=== PATIENT | female | born 1970 | race Caucasian/White ===

== ENCOUNTER → 2024-10-22 | Outpatient (CLI) | payer OTHER, SELFPAY ==
--- NOTE | 2024-10-22 10:07 | US_ITS ---
PROCEDURE: ABD LIMITED W/ ELASTOGRAPHY, 10/22/2024 REASON FOR EXAM: INTERMITTENNT RUQ PAIN, H/O CHOLECYSTECTOMY COMPARISON: None TECHNIQUE: Grayscale and color Doppler imaging of the right upper quadrant was performed. Elastography was performed for non-invasive assessment of liver tissue stiffness utilizing a [employer] S-shear wave imaging unit. FINDINGS: Liver: Echogenic. 16.8 cm in length. Gallbladder: Cholecystectomy. Biliary tree: Unremarkable. CBD measures 7 mm. Pancreas: Partially obscured by shadowing bowel gas, grossly unremarkable as visualized. Right kidney: Unremarkable. 12.7 cm in length. Other: No visualized free fluid. Hepatic elastography: Number of measurements: 15 measurements across 3 regions, 5 measurements per region. US probe: CA1-7A. EQI median: 6.3 kPa EQI median velocity: 1.44 m/s IQR/Med: 16.4-20.2% (kPa) and 7.8-9.4% (m/s). If the IQR/Med is IQR/median >30% (for kPa) or >15% in m/s, the variance in the measurements is a large and the accuracy of the measurement may be in question. US/ABD Limited w/ Elastography IMPRESSION: 1. No acute abnormality identified. If unexplained symptoms persist, consider CT. 2. Appearance of the hepatic most commonly suggestive of hepatic steatosis. Co rrelate with clinical and laboratory evidence of chronic liver disease. 3. Liver stiffness is 6.3 kPa. Per the below 2020 SRU criteria, this rules out compensated advanced chronic liver disease in the absence of other known clinical signs. If there are known clinical signs, furth er testing may be needed for confirmation. 4. Cholecystectomy without biliary dilatation. 5. Additional description as above. Assessment is per the Update to the SRU Liver Elastography Consensus Statement (2020) Note that the above assessment of liver fibrosis is vendor-neutral and intended for use in fibrosis related to viral etiologies and non-alcoholic fatty-liver disease (NAFLD); in causes other than viral hepat itis and NAFLD, the cutoff values are currently not well established. In some patients with NAFLD, the cutoff values for cACLD may be lower (7-9 kPa). Note also that in the setting of elevated LFTs, nonfasting or vascular congestion, the stage of lifer fibrosis may be overestimated. Previous SRU reference values: <1.37 m/s (5.7kPa): No to mild fibrosis 1.37 m/s - 2.2 m/s: Moderate to severe fibrosis >2.2 m/s (15kPa): Significant fibrosis / cirrhosis Reading Location: [id number]
== END | disposition home or self-care (01) ==
PROVIDERS: PCP Physician Assistant; Referring Provider Internal Medicine; Visit Provider Internal Medicine
DX: R10.11 Right upper quadrant pain (principal); K29.70 Gastritis, unspecified, without bleeding; R00.2 Palpitations
CPT/HCPCS: 76705; 76981

== ENCOUNTER → 2024-10-23 | Outpatient (CLI) | payer OTHER, SELFPAY ==
--- NOTE | 2024-10-23 10:38 | STE_ITS ---
Reason For Study Reason For Study: Chest Pain; Arrhythmia Stress Results Protocol: Marky Protocol Maximum Predicted HR: 166 bpm Target HR: 141 bpm % Maximum Predicted HR: 92 % DurationHeart Rate Stage (mm:ss) (bpm) BP Comment Baseline 78 110/74No Chest Pain Marky Protocol Stage I 3:00 113 128/74No Chest Pain Marky Protocol Stage II 3:00 130 134/70No Chest Pain Marky Protocol Stage III 3:00 153 158/76No Chest Pain; Moderate Dyspnea Recovery 92 114/70No Chest Pain Stress Duration: 9:00 mm:ss Maximum Stress HR: 153 bpm METS: 10 Baseline Echocardiogram Findings Stress Echo Wall motion Data Resting WM Intermediate WM Stress WM ECHO/Stress Test Echo w/o Contrast Interpretation Summary Exercise stress echo. 53-year-old lady with a history of chest pain. Resting EKG demonstrates normal sinus rhythm with a rate of 77 bpm resting bloo d pressure is 110/74 mmHg. Patient exercised according to regular Marky protocol for a total duration of 9 minutes . The maximum heart rate attained was 153 bpm which was 92% maximum predicted heart rate the maximum workload was 10.1 me tabolic equivalents. At rest there were no ST or T wave changes noted suggest ischemia at peak exercise upsloping ST ch anges were noted with no meet the criteria for ischemia no clinical angina was noted the test was terminated due to the target heart rate being achieved. The peak blood pressure was 158/76 mmHg which was a normal blood pressure respo nse to exercise. Stress echocardiogram. The resting echocardiogram demonstrated preserved ejection fraction of 60% with no wall motion abnormalities noted. At rest there was thickening of all coleman reduction of low ventricular cavity size peaking of ejection fraction of 70% with no wall motion abnormalities noted to suggest ischemia. Conclusion: Exercise stress echo with no EKG or echocardiographic criteria for ischemia at a high workload. Good functional capacity. Ordering Physician: Rommel Watt Referring Physician: Rommel Watt Performed By: Margaret Moseley RDCS
== END | disposition home or self-care (01) ==
LOC: CVS 10:30
PROVIDERS: PCP Physician Assistant; Referring Provider Internal Medicine Cardiovascular Disease; Visit Provider Internal Medicine Cardiovascular Disease
DX: I49.3 Ventricular premature depolarization (principal)
CPT/HCPCS: 93017; 93350

== ENCOUNTER → 2024-10-31 | Outpatient (REF) | payer SELFPAY ==
--- NOTE | 2024-10-31 07:37 | CT_ITS ---
PROCEDURE: LIMITED CHEST CT CARDIAC ONLY REASON FOR EXAM: CHEST PAIN TECHNIQUE: Supine chest CT without contrast,. Dose report: 12.19 mGy. DLP: 243.79 One or more dose reduction techniques were used (e.g., Automated exposure control, adjustment of the mA and/or kV according to patient size, use of iterative reconstruction technique). COMPARISON: None FINDINGS: Hardware: None Lymph nodes: No mediastinal hilar or axillary lymphadenopathy. Heart and Vasculature: Thoracic aorta and pulmonary arteries have normal contours; noncontrast technique limits evaluation. Coronary Artery Calcifications: Present Lungs and Airways: The lungs are normally expanded and clear. No septal thickening nodules or abnormal pulmonary opacities. Pleura: Unremarkable Upper Abdomen: Unremarkable Bones: Unremarkable CT/Limited Chest CT Cardiac Only IMPRESSION: Coronary artery calcification (CAC) is is present Minimal coronary artery calcification. Reading Location: [id number]
--- NOTE | 2024-10-31 14:46 | CA.SCORE ---
Calcium Scoring Date of Study:: 10/31/24 Indications Indications: Chest pain Coronary Calcium Scoring: High-resolution Computed Tomographic imaging of the chest was performed on [10/31/24 ], with particular attention paid to the coronary arteries. Images from the examination were analyzed for the presence and extent of coronary artery calcification , using coronary calcium quantification software. The patient tolerated the procedure well and there were no complications. The results of the coronary calcification analysis are provided below. Findings Coronary Artery Left Main (LM): 0 Left Anterior Descending (LAD): 6.23 Left Circumflex (LCX): 0 Right Coronary Artery (RCA): 0 Total Agatston Score: 6.23 Percentile Rankin Calcium Scoring Interpretation: Different methods to categorize the overall amount of coronary plaque. Overall amount CAC SIS Visual of coronary plaque P1 Mild -100 <2 1-2 vessels with mild amount of plaque P2 Moderate 101-300 3-4 1-2 vessels with moderate amount, 3 vessels with mild amount of plaque P3 Severe 301-999 5-7 3 vessels with moderate amount, 1 vessel with severe amount of plaque P4 Extensive >1000 >8 2-3 vessels with severe amount of plaque Conclusion: Mild Plaque in the LAD
== END | disposition home or self-care (01) ==
LOC: CT 07:17
PROVIDERS: PCP Physician Assistant; Referring Provider Internal Medicine Cardiovascular Disease; Visit Provider Internal Medicine Cardiovascular Disease
DX: R07.9 Chest pain, unspecified (principal); I49.3 Ventricular premature depolarization
CPT/HCPCS: 75571; 76380

== ENCOUNTER 2024-12-19 07:26 | Day surgery (SDC) | payer OTHER, SELFPAY ==
--- NOTE | 2024-12-17 15:53 | PAT.ANE_ITS ---
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 When Was Last Pacemaker Check QUESTION #4 FULL TEXT: You/Your Family Experience fever (hyperthermia) with Anesthesia Last Oral Intake Last Oral intake: Last Oral Intake NPO since Meds taken in AM with sips of water? Meds patient instructed to take am of surgery PONV PONV - freight claim investigator: PONV - freight claim investigator Female Yes 12/17/24 13:20 HX of Motion Sickness No 12/17/24 13:20 HX of N/V After Surgery No 12/17/24 13:20 Non-Smoker Yes 12/17/24 13:20 Duration of Surgery greater No 12/17/24 13:20 than 60 minutes Number of Risk Factors 2 12/17/24 13:20 PONV Score Moderate Risk 12/17/24 13:20 Height & Weight Height & Weight: Anesthesia: Height & Weight Height 5 ft 5 in 09/27/24 08:55 Respiratory Assessment Respiratory Assessment - freight claim investigator: Respiratory Tract Infection Hx - freight claim investigator Hx Respiratory Tract Infection No 12/17/24 13:20 STOP Sleep Apnea STOP Sleep Apnea - freight claim investigator: STOP Sleep Apnea - freight claim investigator Hx Hypertension No 12/17/24 13:20 Hx Sleep Apnea No 12/17/24 13:20 CPAP BIPAP Do you snore loudly (louder No 12/17/24 13:20 than talking or can be heard Do you often feel tired/ No 12/17/24 13:20 fatigued/ sleepy during daytime? Has anyone observed you stop No 12/17/24 13:20 breathing during sleep? STOP Results Negative 12/17/24 13:20 QUESTION #5 FULL TEXT : Do you snore loudly (louder than talking or can be heard through closed doors)? 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 Specify any problems Hx of Preganancy in last 3 No 12/17/24 13:20 Months Nurse Filling Out Transfusion [email or web address] 12/17/24 13:20 & Questions: Date: 12/17/24 12/17/24 13:20 Time: 13:23 12/17/24 13:20 Patient unable to answer at this time (ie. confused, unrespo /Reproduction History /Reproductive History - freight claim investigator: /Reproductive Hx- freight claim investigator Hx Now Gestational Age (in weeks): EDC: Hx Hx Para Hx Section SAB PFSH Medical History (Updated 12/17/24 @ 13:28 by Joseph Frederick) Wears glasses Rash Chest pain History of stress test Cardiology follow-up encounter Prolapse of female pelvic organs Diverticulitis Arthritis Seasonal allergies Hx of deep venous thrombosis PVC (premature ventricular contraction) Palpitations Gastritis Asthma Fatigue Home Medications ?Medication ?Instructions ?Recorded ?Last Taken ?Type multivitamin 1 tab PO QDAY 08/14/24 Unkno wn History albuterol sulfate 90 mcg/actuation 2 puff inhalation Q 4 PRN shortness 09/26/24 Unknown History aerosol inhaler of breath or wheezing Allergy/AdvReac Type Severity Reaction Status Date / Time No Known Allergies Allergy Verified 12/17/24 13:18 Family History Mother Arthritis Hypertension Father Heart disease Grandmother Cancer Ovarian Other Diabetes Surgical History S/P hysterectomy Hx of carpal tunnel repair Hx laparoscopic cholecystectomy Social History Smoking Status: Never smoker alcohol intake: never substance use type: does not use Audit: Pertinent Findings Pertinent Findings EKG Perinent findings: September 26, 2024. Sinus rhythm within normal limits. Stress test pertinent findings: October 23, 2024. Patient achieved METS of 10.1 EF is 60% which improved to 70% with stress. No wall motion abnormalities to suggest ischemia. Consult pertinent findings: September 26, 2024. Dr. Watt. 1. PVC?acute-she additionally has atypical chest discomfort. Plan for stress echo (see above). Additional recommendations depending on findings. Additional pertinent findings: Holter monitor. July 11, 2018. Normal sinus rhythm. Frequent ventricular ectopics with no pairs or runs. No significant pauses. Patient recorded 162 diary events lightheaded, thumping, fluttering, and shortness of breath . Rhythm was sinus with VE beats Recommendation Anesthesia Recommendation Anesthesia recommendation: OPTIMIZED for anesthesia
--- NOTE | 2024-12-17 15:53 | PAT.ANE_ITS ---
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 When Was Last Pacemaker Check QUESTION #4 FULL TEXT: You/Your Family Experience fever (hyperthermia) with Anesthesia Last Oral Intake Last Oral intake: Last Oral Intake NPO since Meds taken in AM with sips of water? Meds patient instructed to take am of surgery PONV PONV - family practice nurse practitioner: PONV - family practice nurse practitioner Female Yes 12/17/24 13:20 HX of Motion Sickness No 12/17/24 13:20 HX of N/V After Surgery No 12/17/24 13:20 Non-Smoker Yes 12/17/24 13:20 Duration of Surgery greater No 12/17/24 13:20 than 60 minutes Number of Risk Factors 2 12/17/24 13:20 PONV Score Moderate Risk 12/17/24 13:20 Height & Weight Height & Weight: Anesthesia: Height & Weight Height 5 ft 5 in 09/27/24 08:55 Respiratory Assessment Respiratory Assessment - family practice nurse practitioner: Respiratory Tract Infection Hx - family practice nurse practitioner Hx Respiratory Tract Infection No 12/17/24 13:20 STOP Sleep Apnea STOP Sleep Apnea - family practice nurse practitioner: STOP Sleep Apnea - family practice nurse practitioner Hx Hypertension No 12/17/24 13:20 Hx Sleep Apnea No 12/17/24 13:20 CPAP BIPAP Do you snore loudly (louder No 12/17/24 13:20 than talking or can be heard Do you often feel tired/ No 12/17/24 13:20 fatigued/ sleepy during daytime? Has anyone observed you stop No 12/17/24 13:20 breathing during sleep? STOP Results Negative 12/17/24 13:20 QUESTION #5 FULL TEXT : Do you snore loudly (louder than talking or can be heard through closed doors)? 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 Specify any problems Hx of Preganancy in last 3 No 12/17/24 13:20 Months Nurse Filling Out Transfusion [email or web address] 12/17/24 13:20 & Questions: Date: 12/17/24 12/17/24 13:20 Time: 13:23 12/17/24 13:20 Patient unable to answer at this time (ie. confused, unrespo /Reproduction History /Reproductive History - family practice nurse practitioner: /Reproductive Hx- family practice nurse practitioner Hx Now Gestational Age (in weeks): EDC: Hx Hx Para Hx Section SAB PFSH Medical History (Updated 12/17/24 @ 13:28 by Joseph Frederick) Wears glasses Rash Chest pain History of stress test Cardiology follow-up encounter Prolapse of female pelvic organs Diverticulitis Arthritis Seasonal allergies Hx of deep venous thrombosis PVC (premature ventricular contraction) Palpitations Gastritis Asthma Fatigue Home Medications ?Medication ?Instructions ?Recorded ?Last Taken ?Type multivitamin 1 tab PO QDAY 08/14/24 Unkno wn History albuterol sulfate 90 mcg/actuation 2 puff inhalation Q 4 PRN shortness 09/26/24 Unknown History aerosol inhaler of breath or wheezing Allergy/AdvReac Type Severity Reaction Status Date / Time No Known Allergies Allergy Verified 12/17/24 13:18 Family History Mother Arthritis Hypertension Father Heart disease Grandmother Cancer Ovarian Other Diabetes Surgical History S/P hysterectomy Hx of carpal tunnel repair Hx laparoscopic cholecystectomy Social History Smoking Status: Never smoker alcohol intake: never substance use type: does not use Audit: Pertinent Findings Pertinent Findings EKG Perinent findings: September 26, 2024. Sinus rhythm within normal limits. Stress test pertinent findings: October 23, 2024. Patient achieved METS of 10.1 EF is 60% which improved to 70% with stress. No wall motion abnormalities to suggest ischemia. Consult pertinent findings: September 26, 2024. Dr. Watt. 1. PVC?acute-she additionally has atypical chest discomfort. Plan for stress echo (see above). Additional recommendations depending on findings. Additional pertinent findings: Holter monitor. July 11, 2018. Normal sinus rhythm. Frequent ventricular ectopics with no pairs or runs. No significant pauses. Patient recorded 162 diary events lightheaded, thumping, fluttering, and shortness of breath . Rhythm was sinus with VE beats Recommendation Anesthesia Recommendation Anesthesia recommendation: OPTIMIZED for anesthesia
[2024-12-19] VITALS (10 sets, daily range): BP systolic 104–126; BP diastolic 72–80; PULSE 74–87; RESP 16; TEMP 36.3–36.4; O2SAT 94–96; BMI 31.6
--- OUTSIDE RECORDS SUMMARY | 2024-12-19 07:29 | XMS RPT_ITS | CCD ---
Author Organization [facility] Inform ion Partnership [facility] Care Team Providers Care Rigger Helper Name Role Phone Cr STEPHENSON, Willem Flores Primary Care Provider [phone] No, Physician Primary Care Provider Unavailabl e Srinivas Patel Primary Care Provider Srinivas Patel Primary Care Provider [phone] BERNARD CHATTERJEE Referring Unavailable SRINIVAS MASTERS Primary Care Unavailable BERNARD CHATTERJEE Referring Unavailable SRINIVAS MASTERS Primary Care Unavailable NO, PHYSICIAN Primary Care Unavailable OMEGA BOURNE Admitting Unavailable OMEGA BOURNE Referring Unavailable NO, PHYSICIAN Primary Care Unavailable OMEGA BOURNE Attending Unavailable AVELINO CALDERON Admitting Unavaila ble AVELINO CALDERON Referring Unavaila ble NO, PHYSICIAN Primary Care Unavailable AVELINO CALDERON Admitting Unavaila ble AVELINO CALDERON Referring Unavaila ble NO, PHYSICIAN Primary Care Unavailable NO, PHYSICIAN Primary Care Unavailable AVELINO CALDERON Attending Unavaila ble NO, PHYSICIAN Primary Care Unavailable OMEGA BOURNE Attending Unavailable Dr. Srinivas Masters PA-C Primary Care Provider [phone] Dr. Srinivas Masters PA-C Referring Provider Dr. Rommel Watt MD Attending Provider [phone] Dr. Sly Tolentino MD Attending Provider Dr. Sly Tolentino MD Referring Provider Shukri STEPHENSON, Dr. Carney Referring Provider SRINIVAS MASTERS Primary Care Unavailable MASTERS, SRINIVAS Primary Care Unavailable SKABAR GRIS, USHA Attending Unavailable SHAHED, MOHAMED Primary Care Unavailable MASTERS, SRINIVAS Primary Care Unavailable MASTERS, SRINIVAS Primary Care Unavailable MASTERS, SRINIVAS Primary Care Unavailable LUIS BOYD MD Admitting Unavailable MASTERS, SRINIVAS Primary Care Unavailable MASTERS, SRINIVAS Primary Care Unavailable SKABAR PRINCIPAL QUALITY ENGINEER, USHA Attending Unavailable SHAHED, MOHAMED Primary Care Unavailable JONAS HIGHTOWER MD Referring Unavailable SHAHED, MOHAMED Primary Care Unavailable JONAS HIGHTOWER MD Attending Unavailable JONAS HIGHTOWER MD Attending Unavailable SHAHED, MOHAMED Primary Care Unavailable JONAS HIGHTOWER MD Attending Unavailable SHAHED, MOHAMED Primary Care Unavailable MASTERS, SRINIVAS Primary Care Unavailable MASTERS, SRINIVAS Primary Care Unavailable SHAHED, MOHAMED Primary Care Unavailable LUIS BOYD MD Attending Unavailable MASTERS, SRINIVAS Primary Care Unavailable MASTERS, SRINIVAS Primary Care Unavailable MASTERS, SRINIVAS Primary Care Unavailable Rajan, Sly Attending Unavailable Rajan, Sly Referring Unavailable Masters, Srinivas Primary Care Unavailable Masters, Srinivas Referring Unavailable Efra Weston Attending Unavailable Masters, Srinivas Primary Care Unavailable Masters, Srinivas Primary Care Unavailable Mary Kulkarni Attending Unavailable Mary Kulkarni Referring Unavailable Shukri, Rommel Attending Unavailable Masters, Srinivas Primary Care Unavailable Shukri, Rommel Referring Unavailable Masters, Srinivas Primary Care Unavailable Shukri, Rommel Attending Unavailable Masters, Srinivas Primary Care Unavailable Shukri, Dallas Attending Unavailable Shukri, Dallas Referring Unavailable Masters, Srinivas Referring Unavailable Rajan, Sly Attending Unavailable Masters, Srinivas Primary Care Unavailable Masters, Srinivas Referring Unavailable Shukri, Dallas Attending Unavailable Masters, Srinivas Primary Care Unavailable Shukri, Dallas Referring Unavailable Masters, Srinivas Primary Care Unavailable Shukri, Dallas Attending Unavailable Allergies Allergy Classification Reported Allergen(s) Allergy Type Date of Onset Reaction(s) Facility Corticosteroids (1 source) methylPREDNISolone Drug Allergy 02-01-20 19 Other (See Comments) [facility] DULoxetine (1 source) DULoxetine Drug Allergy 09-06-19 16 Shortness Of Breath [facility] montelukast (1 source) montelukast Drug Allergy 01-09-20 19 Unknown [facility] Quinolones (antibiotic) (1 source) moxifloxacin Drug Allergy 08-24-19 13 Other (See Comments) [facility] (4 sources) DULoxetine; Translations: [DULOXETINE] Drug Allergy 09-06-19 16 Shortness of Breath [facility] (1 source) House dust mite Allergy to substance 08-24-19 13 Shortness of Breath [facility] (4 sources) methylPREDNISolone; Translations: [METHYLPREDNISOLONE] Drug Allergy 02-01-20 19 Other: See Comments, Other (See Comments) [facility] (4 sources) montelukast; Translations: [MONTELUKAST] Drug Allergy 01-09-20 19 Unknown [facility] (4 sources) moxifloxacin; Translations: [MOXIFLOXACIN] Drug Allergy 08-24-19 13 Mental Status Change, Other (See Comments) [facility] (3 sources) House Dust Mite; Translations: [HOUSE DUST MITE] Propensity to adverse reactions to drug 08-24-19 13 Shortness Of Breath [facility] Medications Current Medications Medication Drug Class(es) Dates Sig (Normalized) Sig (Original) [id number] 200 actuat albuterol 0.09 mg/actuat metered dose inhaler (3 sources) beta2-Adrenergic Agonist Start: 5 Albuterol Sulfate 90 mcg/actuation HFA aerosol inhaler Active 2 NMA INHALATION EVERY 4 HOURS as needed September 26, 2024 12:00am sekou root, bulk, Powd (1 source) sekou root, bul k, Powd by Miscellaneous route . 0 Active meloxicam 15 mg oral tablet (5 sources) Nonsteroidal Anti-inflammatory Drug Start: 3 End: 5 take 1 tablet by mouth once daily meloxicam (MOBIC) 15 MG tablet Take 1 (one) tablet (15 mg total) by mouth daily . 30 tablet 1 07/14/2023 07/13/2024 Active methylPREDNISolone (4 sources) Corticosteroid Start: 3 methylPREDNISolone (Medrol, Ronak,) 4 mg tablet Follow package directions . 21 tablet 0 07/19/2022 Active Multivitamin tablet (3 sources) Start: 5 Multivitamin tablet Active 1 {tbl} PO daily August 14, 2024 1:00am pantoprazole 40 mg delayed release oral tablet (3 sources) Proton Pump Inhibitor Start: 5 take 1 tablet by mouth 1 hour(s) before breakfast Pantoprazole 40 mg tablet,delayed release (DR/EC) Active 40 mg PO .breakfast September 27, 2024 12:00am Take 1 hour before breakfast. sucralfate 1000 mg oral tablet (2 sources) Aluminum Complex Start: 3 take 1 tablet by mouth four times daily sucralfate (CARAFATE) 1 gram tablet Take 1 (one) tablet (1 g total) by mouth 4 (four) times a day . 0 07/26/2022 Active thiamine 250 mg oral tablet (1 source) take 1 tablet by mouth once daily thiamine (vitamin B-1) 250 MG tablet Take 1 (one) tablet (250 mg total) by mouth daily . 0 Active Completed/Discontinued Medications Medication Drug Class(es) Dates Sig (Normalized) Sig (Original) iopamidol (Isovue-370) 76 % injection 75 mL (2 sources) Start: 09-08-2022 End: 09-08-2022 iopamidol (Isovue-370) 76 % injection 75 mL MULTIVITAMIN TAB (1 source) Start: 08-21-2009 MULTIVITAMIN TAB Take one(1) tablet daily. 0 08/21/2009 Active Comment on above: Take one(1) tablet d aily. Problems Active Problems Problem Classification Problem Date Documented Date Episodic/Chronic Abdominal pain (11 sources) Epigastric pain; Translations: [Epigastric pain] Onset: 09-08-2022 Episodic Acquired foot deformities (3 sources) Other hammer toe(s) (acquired), right foot; Translations: [Hammer toe] Onset: 07-14-2023 Chronic Acquired foot deformities (3 sources) Other deformities of toe(s) (acquired), right foot; Translations: [Metatarsophalangeal joint stiff] Onset: 07-14-2023 Episodic Asthma (3 sources) Asthma; Translations: [Unspecified asthma, uncomplicated] 08-14-2024 Chronic Cardiac dysrhythmias (8 sources) Ventricular premature beats; Translations: [Ventricular premature depolarization] Onset: 07-11-2018 07-11-2018 Chronic Cardiac dysrhythmias (5 sources) Palpitations; Translations: [Palpitations] Onset: 07-22-2014 07-11-2018 Episodic Diabetes or abnormal glucose tolerance complicating ; childbirth; or the puerperium (1 source) Unspecified diabetes mellitus in , unspecified trimester; Translations: [Diabetes mellitus of mother, complicating , childbirth, or the puerperium, antepartum condition or complication] Onset: 03-02-2007 03-02-2007 Chronic Gastritis and duodenitis (7 sources) Gastritis; Translations: [Gastritis, unspecified, without bleeding] Onset: 09-27-2024 09-27-2024 Episodic Malaise and fatigue (4 sources) Fatigue; Translations: [Other fatigue] Onset: 09-27-2024 08-14-2024 Episodic Nonspecific chest pain (2 sources) Chest pain; Translations: [Chest pain, unspecified] Onset: 01-17-2014 01-17-2014 Episodic Osteoarthritis (3 sources) Arthritis; Translations: [Unspecified osteoarthritis, unspecified site] 09-27-2024 Chronic Other connective tissue disease (3 sources) Heel pain; Translations: [Pain in right foot] Episodic Other injuries and conditions due to external causes (3 sources) Bone injury; Translations: [Other injury of unspecified body region, initial encounter] Episodic Other nervous system disorders (1 source) Carpal tunnel syndrome; Translations: [Carpal tunnel syndrome, unspecified upper limb] Onset: 05-04-2007 05-04-2007 Chronic Other nervous system disorders (1 source) Syringomyelia; Translations: [Syringomyelia and syringobulbia] Onset: 04-30-2013 04-30-2013 Chronic Other nervous system disorders (1 source) Difficulty in walking, not elsewhere classified; Translations: [Difficulty in walking] Onset: 03-29-2014 03-29-2014 Chronic Other nervous system disorders (1 source) Neuropathy; Translations: [Hereditary and idiopathic neuropathy, unspecified] Chronic Other nervous system disorders (2 sources) Lesion of plantar nerve, right lower limb; Translations: [Lesion of plantar nerve, right lower limb] Onset: 07-14-2023 Chronic Other nervous system disorders (2 sources) Other chronic pain; Translations: [Other chronic pain] Onset: 07-19-2022 Chronic Other nervous system disorders (1 source) Mortons neuroma of right foot; Translations: [Lesion of plantar nerve, right lower limb] 07-14-2023 Chronic Other nervous system disorders (1 source) Syringomyelia and syringobulbia; Translations: [Syringomyelia and syringobulbia] Onset: 11-28-2024 Chronic Other non-traumatic joint disorders (2 sources) Pain in right ankle and joints of right foot; Translations: [Pain in right ankle and joints of right foot] Onset: 07-14-2023 Episodic Other upper respiratory disease (3 sources) Seasonal allergy; Translations: [Other seasonal allergic rhinitis] 09-27-2024 Chronic Spondylosis; intervertebral disc disorders; other back problems (1 source) Arthropathy of thoracic facet joint; Translations: [Spondylosis without myelopathy or radiculopathy, thoracic region] Onset: 02-27-2013 02-27-2013 Chronic Sprains and strains (3 sources) Sprain of other ligament of right ankle, initial encounter; Translations: [Sprain of talofibular ligament of right ankle] Onset: 07-14-2023 Episodic Past or Other Problems Problem Classification Problem Date Documented Da te Episodic/Chronic Conditions associated with dizziness or vertigo (1 source) Dizziness and giddiness; Translations: [Dizziness and giddiness] Onset: 01-06-2008 01-06-2008 Episodic Diabetes or abnormal glucose tolerance complicating ; childbirth; or the puerperium (1 source) Impaired glucose tolerance in ; Translations: [Abnormal glucose complicating ] Onset: 02-03-2007 02-03-2007 Episodic Gastrointestinal hemorrhage (4 sources) Hemorrhage of rectum and anus; Translations: [Hemorrhage of anus and rectum] Onset: 09-08-2022 Episodic Mycoses (1 source) Tinea pedis; Translations: [Tinea pedis] Onset: 10-04-2012 10-04-2012 Episodic Other complications of (1 source) Excessive growth affecting management of mother; Translations: [Excessive growth affecting management of mother] Onset: 02-03-2007 02-03-2007 Episodic Other connective tissue disease (1 source) Pain in limb; Translations: [Pain in unspecified limb] Onset: 10-04-2012 10-04-2012 Episodic Other connective tissue disease (1 source) Achilles bursitis; Translations: [Other enthesopathy of unspecified foot and ankle] Onset: 10-04-2012 10-04-2012 Episodic Other connective tissue disease (1 source) Calcaneal spur; Translations: [Calcaneal spur, unspecified foot] Onset: 10-04-2012 10-04-2012 Episodic Other connective tissue disease (1 source) Disorder of Achilles tendon; Translations: [Achilles tendinitis, unspecified leg] Onset: 04-08-2014 04-08-2014 Episodic Other connective tissue disease (1 source) Calcaneal spur of right foot; Translations: [Calcaneal spur, right foot] Onset: 07-10-2015 07-10-2015 Episodic Other connective tissue disease (1 source) Pain in both feet; Translations: [Pain in right foot] Onset: 09-06-2015 09-06-2015 Episodic Other connective tissue disease (2 sources) Pain in right foot; Translations: [Pain in right foot] Onset: 07-19-2022 Episodic Other gastrointestinal disorders (3 sources) Alteration in bowel elimination; Translations: [Change in bowel habit] Onset: 09-08-2022 Episodic Other gastrointestinal disorders (1 source) Change in bowel habit; Translations: [Change in bowel habit] Onset: 09-08-2022 Episodic Other injuries and conditions due to external causes (2 sources) Other injury of unspecified body region, initial encounter; Translations: [Other injury of unspecified body region, initial encounter] Onset: 07-19-2022 Episodic Other lower respiratory disease (1 source) Dyspnea; Translations: [Shortness of breath] Onset: 07-11-2018 07-11-2018 Episodic Residual codes; unclassified (1 source) Generalized aches and pains; Translations: [Pain, unspecified] Onset: 04-30-2013 04-30-2013 Episodic Spondylosis; intervertebral disc disorders; other back problems (2 sources) Neck pain; Translations: [Cervicalgia] Onset: 01-21-2009 01-21-2009 Episodic Results Test Name Value Interpretation Reference Range Facility MR/PATAnne Marie 12-17-2024 MR/PAT.ZUNILDA [facility] Medical Records Department [address] [address] PAT - Anesthesia 12/17/24 1553 MR#: [id number] Acct: [id number] Name: CARLIE NGUYEN BURTON Rep #: [id number] : 1970 54 From: Gabino Gr MD PCP: Srinivas Masters PA-C Status:PRE SDC Y Race: C Location: EN Pre-Assessment Diagnosis/Proposed Procedure Planned Operative Procedure(s): EGD Anesthesia History Anesthesia History - release and technical records clerk: Anesthesia History - release and technical records clerk Hx Hospitalization Yes: HYSTERECTOMY 09/1112/17/24 13:20 Any Problems With Anesthesia No 12/17/24 13:20 Cholinesterase deficiency No 12/17/24 13:20 You/Your Family Experience No 12/17/24 13:20 fever (hyperthermia) with Relationship Recent Exposure to Contagious Disease Does patient have nerve No 12/17/24 13:20 stimulator Patient instructed to have device shut off --Does patient have Pacemaker or ICD? When Was Last Pacemaker Check QUESTION #4 FULL TEXT: You/Your Family Experience fever (hyperthermia) with Anesthesia Last Oral Intake Last Oral intake: Last Oral Intake NPO since Meds taken in AM with sips of water? Meds patient instructed to take am of surgery PONV PONV - release and technical records clerk: PONV - release and technical records clerk Female Yes 12/17/24 13:20 HX of Motion Sickness No 12/17/24 13:20 HX of N/V After Surgery No 12/17/24 13:20 Non-Smoker Yes 12/17/24 13:20 Duration of Surgery greater No 12/17/24 13:20 than 60 minutes Number of Risk Factors 2 12/17/24 13:20 PONV Score Moderate Risk 12/17/24 13:20 Height Weight Height Weight: Anesthesia: Height Weight Height 5 ft 5 in 09/27/24 08:55 Respiratory Assessment Respiratory Assessment - release and technical records clerk: Respiratory Tract Infection Hx - release and technical records clerk Hx Respiratory Tract Infection No 12/17/24 13:20 STOP Sleep Apnea STOP Sleep Apnea - release and technical records clerk: STOP Sleep Apnea - release and technical records clerk Hx Hypertension No 12/17/24 13:20 Hx Sleep Apnea No 12/17/24 13:20 CPAP BIPAP Do you snore loudly (louder No 12/17/24 13:20 than talking or can be heard Do you often feel tired/ No 12/17/24 13:20 fatigued/ sleepy during daytime? Has anyone observed you stop No 12/17/24 13:20 breathing during sleep? STOP Results Negative 12/17/24 13:20 QUESTION #5 FULL TEXT : Do you snore loudly (louder than talking or can be heard through closed doors)? Tobacco Use History Tobacco Use History - release and technical records clerk: Tobacco Use History - release and technical records clerk Tobacco Use Smoking Status Never smoker 12/17/24 13:20 Hx Tobacco Use No 12/17/24 13:20 Years Smoking Packs Smoked per Day Smoking Cessation Date was within the last 15 years Hx Smoking Cessation Date Hx Smoking Cessation Counseling Hematologic Medial History Hematologic Hx - release and technical records clerk: Hematologic Medical Hx - digital account director Hx of Blood Transfusion No 12/17/24 13:20 Hx of Transfusion in last 3 No 12/17/24 13:20 Months Date of Last Transfusion (if within last 3 months) Ever experience any problems No 12/17/24 13:20 with transfusion(s)? Specify any problems Hx of Preganancy in last 3 No 12/17/24 13:20 Months Nurse Filling Out Transfusion [id number] 12/17/24 13:20 Questions: Date: 12/17/24 12/17/24 13:20 Time: 13:23 12/17/24 13:20 Patient unable to answer at this time (ie. confused, unrespo /Reproduction History /Reproductive History - release and technical records clerk: /Reproductive Hx- release and technical records clerk Hx Now Gestational Age (in weeks): EDC: Hx Hx Para Hx Section SAB PFSH Medical History (Updated 12/17/24 @ 13:28 by Joseph Frederick) Wears glasses Rash Chest pain History of stress test Cardiology follow-up encounter Prolapse of female pelvic organs Diverticulitis Arthritis Seasonal allergies Hx of deep venous thrombosis PVC (premature ventricular contraction) Palpitations Gastritis Asthma Fatigue Home Medications ???Medication ???Instructions ???Recorded ???Last Taken ???Type multivitamin 1 tab PO QDAY 08/14/24 Unknown His tory albuterol sulfate 90 mcg/actuation 2 puff inhalation Q4 PRN shortne ss 09/26/24 Unknown History aerosol inhaler of breath or wheezing Allergy/AdvReac Type Severity Reaction Status Date / Time No Known Allergies Allergy Verified 12/17/24 13:18 Family History Mother Arthritis Hypertension Father Heart disease Grandmother Cancer Ovarian Other Diabetes Surgical History S/P hysterect (more content not included)... Normal [facility] AMB UROGYN Physician Kanwal harris Noteon 11-23-2024 [facility] UROGYN Physician Progress Note CARLIE NGUYEN :1970 Registration Date:11/23/2024 Chief Complaint Had surgery on 11/06/[address] Boyd--feels a buldge by her vaginal area with pain--something dropped History of Present Illness Pain with intercourse, feels like is hitting something, vaginal and lower abdominal pain, she feels as though her prolapse has returned. She has a hard time starting a stream and emptying her bowels. When she tries to put in her vaginal cream she states it is very painful. Physical Exam Vitals & Measurements Systolic Blood Pressure: 123 mmHg High (11/23/24 13:30:00) Diastolic Blood Pressure: 74 mmHg (11/23/24 13:30:00) Apical Heart Rate: 85 bpm (11/23/24 13:30:00) Respiratory Rate: 18 br/min (11/23/24 13:30:00) SpO2: 100 % (11/23/24 13:30:00) Weight Measured: 88 kg (11/23/24 13:30:00) Depression Screening Scores No Depression Screening data available for this encounter. Fall Risk Assessment No Falls Risk Assessment data available for this encounter. Neuro Exam -sensation intact Urethra- normal urethral meatus Empty Supine Stress Test- no leak Vaginal Atrophy- Improved Pop Q Normal with a cervix- Genital Hiatus 3, perineal body 3, total vaginal length 10, most distal edge of cervix -8, posterior fornix -N/A, anterior vaginal wall -3, Most distal position of the remaining upper anterior vaginal wall or Ba -3, Posterior vaginal wall -3, Most distal portion of the remaining upper posterior vaginal wall or Bp -3 Uterus-surgically absent Levator Ani Muscle Testing-severe hypertonic pelvic floor Rectal Exam-deferred Medication Reconciliation What How Much When Why Instructions Unchanged acetaminophen (acetaminophen 500 mg oral tablet) 2 Tabs Oral ONCE Unchanged acetaminophen-oxycodone (Percocet 5 mg-325 mg oral tablet) 1 Tabs Oral EVERY SIX HOURS Post-op pain Duration: 3 Days Unchanged albuterol = Proventil, Ventolin (Ventolin HFA Inhaler 90mcg/ inh) 2 Puffs Inhalation EVERY FOUR HOURS as needed for for wheezing Unchanged estradiol topical (Estrace Vaginal 0.1 mg/ g vaginal cream) See instructions 1 gram vaginal every night for 2 weeks then twice a week Unchanged fluconazole (Diflucan 150 mg oral tablet) 1 Tabs Oral ONCE Duration: 1 Doses take one tablet today repeat in 3 days if symptoms persist. Unchanged ibuprofen = Motrin, Advil (ibuprofen 800 mg oral tablet) 1 Tabs Oral EVERY SIX HOURS Duration: 7 Days Assessment/Plan This Visit Diagnosis 1. Pelvic floor dysfunction M62.89 The patient was found to have hypertonicity to her pelvic floor on exam today. I have recommended Pelvic Floor Physical Therapy to help rehabilitate her pelvic muscles. We also discussed the use of vaginal valium suppositories, heating pad and OTC medications. A management plan has been outlined and I instructed her to follow-up at which time her symptoms and response to treatment will be evaluated. If she has no significant improvement at that time we will discuss other treatment options. Will refer to Libby Sifuentes in my [place] for pelvic floor physical therapy, I have also sent in vaginal Valium suppositories to [facility] pharmacy. Patient will follow-up in 2 months or sooner if needed. Ordered: AMB Office/Outpt Est Pt Low MDM / 20 min [id number], 11/23/2024 13:59:00 EDT, Pelvic floor dysfunction Problem List/Past Medical History Ongoing [place]-Walker grade 2 cystocele Complete uterine prolapse Mixed incontinence Premature menopause Historical Oligomenorrhea Procedure/Surgical History LAPAROSCOPIC SUPRACERVICAL HYSTERECTOMY, BILATERAL SALPINGECTOMY, LAPAROSCOPIC SACROCERVICOPEXY, ENTEROCELE REPAIR-ABDOMINAL, ANTERIOR/POSTERIOR REPAIR, TRANSVAGINAL TAPING-OBTURATOR SLING, PERINEORRHPAHY, CYSTOSCOPY: 09/06/24 D and E at 18 weeks dismise. Chromosomes sent: 03/13/12 Shoulder: 02/05/11 D&C - Dilatation and curettage: 04/20/10 Cystic fibrosis: 10/05/04 Carpal tunnel syndrome: 11/18/01 Cholecystectomy: 06/20/99 colonoscopy Medications acetaminophen(acetaminop hen 500 mg oral tablet), 1000 mg= 2 tabs, ORAL, ONCE acetaminophen-oxycodone( Percocet 5 mg-325 mg oral tablet), 1 tabs, ORAL, [id number] albuterol = Proventil, Ventolin(Ventolin HFA Inhaler 90mcg/inh), 2 puffs, Inhalation, [id number], PRN estradiol topical(Estrace Vaginal 0.1 mg/g vaginal cream), See Instructions, 4 refills fluconazole(Diflucan 150 mg oral tablet), 150 mg= 1 tabs, ORAL, ONCE ibuprofen = Motrin, Advil(ibuprofen 800 mg oral tablet), 800 mg= 1 tabs, ORAL, [id number] Allergies Avelox irritable DULoxetine Did not tolerate house dust mite allergen extract methylPREDNISolone eye pain montelukast Unknown (origin) Social History Alcohol - Denies Alcohol Use Use:Current Frequency:1-2 times per year Home/Environment Other Name:......menopause 2016 (more content not included)... Normal [facility] Ambulatory Vitals Height Leif ght-Texton 11-23-2024 Ambulatory Vitals Height Weight-Text Ambulatory Vitals Height Weight Entered On: 11/23/2024 13:32 EDT Performed On: 11/23/2024 13:30 EDT by USHA JAMESON CNP Vitals/Ht/Wt Apical Heart Rate : 85 bpm Respiratory Rate : 18 br/min Systolic Blood Pressure : 123 mmHg (HI) Diastolic Blood Pressure : 74 mmHg SpO2 : 100 % Weight Measured : 88 kg(Converted to: 194 lb 0 oz, 194.007 lb) USHA JAMESON CNP - 11/23/2024 13:30 EDT Normal [facility] Coronary Angiography CTon Coronary Angiography [facility] Imaging Services [address] [place] [address] 10/31/24 1446 MR#: [id number] Acct: [id number] Name: CARLIE NGUYEN Rep #: [id number] : 1970 53 From: Rommel Watt MD PCP: Srinivas Masters PA-C Status:REG REF Y Location: CT Calcium Scoring Date of Study:: 10/31/24 Indications Indications: Chest pain Coronary Calcium Scoring: High-resolution Computed Tomographic imaging of the chest was performed on [10/31/24 ], with particular attention paid to the coronary arteries. Images from the examination were analyzed for the presence and extent of coronary artery calcification , using coronary calcium quantification software. The patient tolerated the procedure well and there were no complications. The results of the coronary calcification analysis are provided below. Findings Coronary Artery Left Main (LM): 0 Left Anterior Descending (LAD): 6.23 Left Circumflex (LCX): 0 Right Coronary Artery (RCA): 0 Total Agatston Score: 6.23 Percentile Rankin Calcium Scoring Interpretation: Different methods to categorize the overall amount of coronary plaque. Overall amount CAC SIS Visual of coronary plaque P1 Mild -100 <2 1-2 vessels with mild amount of plaque P2 Moderate 101-300 3-4 1-2 vessels with moderate amount, 3 vessels with mild amount of plaque P3 Severe 301-999 5-7 3 vessels with moderate amount, 1 vessel with severe amount of plaque P4 Extensive >1000 >8 2-3 vessels with severe amount of plaque Conclusion: Mild Plaque in the LAD 10/31/24 1448 Date Rommel Watt MD Cosigner Signature (if applicable): Date CC: CLAYTON Masters; Dr. Rommel Watt MD Signed Normal [facility] Limited Chest CT Cardiac Onl yon 10-31-[address] Cardiac Only [facility] Imaging Services [address] [place] [address] Cardiac Only MR#: [id number] Acct: [id number] Name: CARLIE NGUYEN BURTON Rep #: [id number] : 1970 F 53 From: Chang roa MD PCP: Srinivas Masters PA-C Status: REG REF Study: Limited Chest CT Cardiac Only Date of Exam: Exam# [id number] Ordering Dr: Rommel Watt MD PROCEDURE: LIMITED CHEST CT CARDIAC ONLY REASON FOR EXAM: CHEST PAIN TECHNIQUE: Supine chest CT without contrast,. Dose report: 12.19 mGy. DLP: 243.79 One or more dose reduction techniques were used (e.g., Automated exposure control, adjustment of the mA and/or kV according to patient size, use of iterative reconstruction technique). COMPARISON: None FINDINGS: Hardware: None Lymph nodes: No mediastinal hilar or axillary lymphadenopathy. Heart and Vasculature: Thoracic aorta and pulmonary arteries have normal contours; noncontrast technique limits evaluation. Coronary Artery Calcifications: Present Lungs and Airways: The lungs are normally expanded and clear. No septal thickening nodules or abnormal pulmonary opacities. Pleura: Unremarkable Upper Abdomen: Unremarkable Bones: Unremarkable CT/Limited Chest CT Cardiac Only IMPRESSION: Coronary artery calcification (CAC) is is present Minimal coronary artery calcification. Reading Location: [id number] CC: CLAYTON Masters; Dr. Rommel Watt MD Practice Billing Associate: Signed Normal [facility] UROGYN Physician Progres s Noteon 10-24-2024 [facility] UROGYN Physician Progress Note GREGTI CARLIE Vernell :1970 Registration Date:10/24/2024 Chief Complaint: Post op History of Present Illness: Patient presents for 6-week postoperative visit after recent reconstructive surgery for prolapse and incontinence. She is doing very well at this time and reports complete resolution of her preoperative symptoms. Physical Exam: Vitals & Measurements Systolic Blood Pressure: 124 mmHg High (10/24/24 10:32:00) Diastolic Blood Pressure: 82 mmHg High (10/24/24 10:32:00) Mean Arterial Pressure: 96 mmHg (10/24/24 10:32:00) Height/Length Measured: 165 cm (10/24/24 10:32:00) Weight Measured: 88 kg (10/24/24 10:32:00) Body Mass Index Measured: 32.32 kg/m2 (10/24/24 10:32:00) Weight Measured - lbs2: 194 lb (10/24/24 10:32:00) Ht/Wt Measurement Refused by Patient?2: No (10/24/24 10:32:00) Depression Screening Scores: Initial Depression Screen Score: 0 (10/24/24 10:32:00) Fall Risk Assessment: Is the patient ambulatory (mobile): Yes (10/24/24 10:32:00) Have you had a fall within the past: No (10/24/24 10:32:00) Have you had 2 or more falls in the past: No (10/24/24 10:32:00) No prolapse; severe vaginal atrophy noted; no mesh erosions or pain Medication Reconciliation: What How Much When Why Instructions New estradiol topical (Estrace Vaginal 0.1 mg/ g vaginal cream) See instructions Refills: 4 1 gram vaginal every night for 2 weeks then twice a week Pickup at [facility]/pharmacy #[id number] Unchanged acetaminophen (acetaminophen 500 mg oral tablet) 2 Tabs Oral ONCE Unchanged acetaminophen-oxycodone (Percocet 5 mg-325 mg oral tablet) 1 Tabs Oral EVERY SIX HOURS Post-op pain Duration: 3 Days Unchanged albuterol = Proventil, Ventolin (Ventolin HFA Inhaler 90mcg/ inh) 2 Puffs Inhalation EVERY FOUR HOURS as needed for for wheezing Unchanged fluconazole (Diflucan 150 mg oral tablet) 1 Tabs Oral ONCE Duration: 1 Doses take one tablet today repeat in 3 days if symptoms persist. Unchanged ibuprofen = Motrin, Advil (ibuprofen 800 mg oral tablet) 1 Tabs Oral EVERY SIX HOURS Duration: 7 Days Pharmacy Information [facility]/pharmacy #[id number]: [address] [place] [address] [phone] Assessment/Plan: This Visit Diagnosis 1. Complete uterine prolapse N81.3 She is here for her post-op checkl. She is 6 weeks out from surgery. She is doing well and without complaints. She denies prolapse, incontinence, or voiding dysfunction. Ordered: AMB Postop followup during global period [address]39[address], 10/24/2024 10:40:00 EDT, Complete uterine prolapse Problem List/Past Medical History: Ongoing [place]-Walker grade 2 cystocele Complete uterine prolapse Mixed incontinence Premature menopause Historical Oligomenorrhea Procedure/Surgical History: LAPAROSCOPIC SUPRACERVICAL HYSTERECTOMY, BILATERAL SALPINGECTOMY, LAPAROSCOPIC SACROCERVICOPEXY, ENTEROCELE REPAIR-ABDOMINAL, ANTERIOR/POSTERIOR REPAIR, TRANSVAGINAL TAPING-OBTURATOR SLING, PERINEORRHPAHY, CYSTOSCOPY: 09/06/24 D and E at 18 weeks dismise. Chromosomes sent: 03/13/12 Shoulder: 02/05/11 D&C - Dilatation and curettage: 04/20/10 Cystic fibrosis: 10/05/04 Carpal tunnel syndrome: 11/18/01 Cholecystectomy: 06/20/99 colonoscopy Medications: acetaminophen(acetaminop hen 500 mg oral tablet), 1000 mg= 2 tabs, ORAL, ONCE acetaminophen-oxycodone( Percocet 5 mg-325 mg oral tablet), 1 tabs, ORAL, [id number] albuterol = Proventil, Ventolin(Ventolin HFA Inhaler 90mcg/inh), 2 puffs, Inhalation, [id number], PRN estradiol topical(Estrace Vaginal 0.1 mg/g vaginal cream), See Instructions, 4 refills fluconazole(Diflucan 150 mg oral tablet), 150 mg= 1 tabs, ORAL, ONCE ibuprofen = Motrin, Advil(ibuprofen 800 mg oral tablet), 800 mg= 1 tabs, ORAL, [id number] Allergies: Avelox irritable DULoxetine Did not tolerate house dust mite allergen extract methylPREDNISolone eye pain montelukast Unknown (origin) Social History: Alcohol - Denies Alcohol Use Use:Current Frequency:1-2 times per year Home/Environment Other Name:......menopause 2016 Sexual Sexually active:Yes Substance Abuse - Denies Substance Abuse Tobacco Use:Never (less than 100 in lifetime) Family History: High blood pressure.: Mother. Ovarian cancer.: Grandmother. Health Status Family Member(s) Father: History is negative Family Member(s) Relationship: Mother, Age: Unknown Care Team Primary Care Physician SRINIVAS MASTERS [phone] Attending Physician LUIS BOYD MD [phone] . Health Maintenance Pending (in the next year) OverDue Breast Cancer Screening due 07/04/19 and every 366 days Colorectal Screening due 11/27/23 and every 10 years Due MMR Vaccine Dose 1 due 10/24/24 One-time only Tetanus Vaccine due 10/24/24 Variable frequency Varicella Vaccine Dose 1 (more content not included)... Normal [facility] Stress Test Echo w/o Contras ton 10-23-2024 Stress Test Echo w/o Contrast [facility] Cardiovascular Services [address] [place] [address] Stress Test Echo w/o Contrast MR#: [id number] Acct: [id number] Name: CARLIE NGUYEN Rep #: [id number] : 1970 53 From: Rommel Watt MD Primary Care: Srinivas Masters PA-C Status: R EG CLI Ordering Dr: Rommel Watt MD Sex: F C Reason For Study Reason For Study: Chest Pain; Arrhythmia Stress Results Protocol: Marky Protocol Maximum Predicted HR: 166 bpm Target HR: 141 bpm % Maximum Predicted HR: 92 % DurationHeart Rate Stage (mm:ss) (bpm) BP Comment Baseline 78 110/74No Chest Pain Marky Protocol Stage I 3:00 113 128/74No Chest Pain Marky Protocol Stage II 3:00 130 134/70No Chest Pain Marky Protocol Stage III 3:00 153 158/76No Chest Pain; Moderate Dyspnea Recovery 92 114/70No Chest Pain Stress Duration: 9:00 mm:ss Maximum Stress HR: 153 bpm METS: 10 Baseline Echocardiogram Findings Stress Echo Wall motion Data Resting WM Intermediate WM Stress WM ECHO/Stress Test Echo w/o Contrast Interpretation Summary Exercise stress echo. 53-year-old lady with a history of chest pain. Resting EKG demonstrates normal sinus rhythm with a rate of 77 bpm resting blood pressure is 110/74 mmHg. Patient exercised according to regular Marky protocol for a total duration of 9 minutes. The maximum heart rate attained was 153 bpm which was 92% maximum predicted heart rate the maximum workload was 10.1 metabolic equivalents. At rest there were no ST or T wave changes noted suggest ischemia at peak exercise upsloping ST changes were noted with no meet the criteria for ischemia no clinical angina was noted the test was terminated due to the target heart rate being achieved. The peak blood pressure was 158/76 mmHg which was a normal blood pressure response to exercise. Stress echocardiogram. The resting echocardiogram demonstrated preserved ejection fraction of 60% with no wall motion abnormalities noted. At rest there was thickening of all coleman reduction of low ventricular cavity size peaking of ejection fraction of 70% with no wall motion abnormalities noted to suggest ischemia. Conclusion: Exercise stress echo with no EKG or echocardiographic criteria for ischemia at a high workload. Good functional capacity. Ordering Physician: Rommel Watt Referring Physician: Rommel Watt Performed By: Margaret Moseley RDCS 10/23/24 1726 Date Rommel Watt MD CC: CLAYTON Masters; Dr. Rommel Watt MD Date Dictated: 10/23/24 1046 Date Transcribed: 10/23/241725 Practice Billing Associate: Signed Normal [facility] Stress echocardiogram study reportOrdered By: Rommel Watt on 10-23-2024 Stress cardiac echo study report [facility] Services [address] [place] [address] Stress Test Echo w/o Contrast MR#: [id number] Acct: [id number] Name: CARLIE NGUYEN BURTON Rep #: [id number] : 1970 53 From: Rommel Watt MD Primary Care: Srinivas Masters PA-C Status: REG CLI Ordering Dr: Rommel Watt MD Sex: F C Reason For Study Reason For Study: Chest Pain; Arrhythmia Stress Results Protocol: Marky Protocol Maximum Predicted HR: 166 bpm Target HR: 141 bpm % Maximum PredictedHR: 92 % DurationHeart Rate Stage (mm:ss) (bpm) BP Comment Baseline 78 110/74No Chest Pain Marky Protocol Stage I 3:00 113 128/74No Chest Pain Marky Protocol Stage II 3:00 130 134/70No Chest Pain Marky Protocol Stage III 3:00 153 158/76No Chest Pain; Moderate Dyspnea Recovery 92 114/70No Chest Pain Stress Duration: 9:00 mm:ss Maximum Stress HR: 153 bpm METS:10 Baseline Echocardiogram Findings Stress Echo Wall motion Data Resting WM Intermediate WM Stress WM ECHO/Stress Test Echo w/o Contrast Interpretation Summary Exercise stress echo. 53-year-old lady with a history of chest pain. Resting EKG demonstrates normal sinus rhythm with a rate of 77 bpm resting bloodpressure is 110/74 mmHg. Patient exercised according to regular Marky protocol for a total duration of 9 minutes.The maximum heart rate attained was 153 bpm which was 92% maximum predicted heart rate the maximum workload was 10.1 metabolic equivalents. At rest there were no ST or T wave changes noted suggest ischemia at peak exercise upsloping ST changes were noted with no meet the criteria for ischemia no clinical angina was noted the test was terminated due to the target heart rate being achieved. The peak blood pressure was 158/76 mmHg which was a normal blood pressure response to exercise. Stress echocardiogram. The resting echocardiogram demonstrated preserved ejection fraction of 60% with no wall motion abnormalities noted. At rest there was thickening of all coleman reduction of low ventricular cavity size peaking of ejection fraction of 70% with no wall motion abnormalities noted to suggest ischemia. Conclusion: Exercise stress echo with no EKG or echocardiographic criteria for ischemia at ahigh workload. Good functional capacity. Ordering Physician: Rommel Watt Referring Physician: Rommel Watt Performed By: Margaret Moseley RDCS 10/23/24 1726 Date _ Rommel Watt MD CC: CLAYTON Masters; Dr. Rmomel Watt MD ~ Date Dictated: 10/23/24 1046 Date Transcribed: 10/23/24 1726 Practice Billing Associate: Signed [facility] Work Phone: ABD Limited w/ Elastographyo n 10-22-2024 ABD Limited w/ Elastography [facility] Imaging Services [address] [place] [address] ABD Limited w/ Elastography MR#: [id number] Acct: [id number] Name: CARLIE NGUYEN Rep #: [id number] : 1970 F 53 From: Esteban Gipson MD PCP: Srinivas Masters PA-C Status: REG CLI Study: ABD Limited w/ Elastography Date of Exam: 11/11 Exam# [id number] Ordering Dr: Sly Tolentino MD PROCEDURE: ABD LIMITED W/ ELASTOGRAPHY, 10/22/2024 REASON FOR EXAM: INTERMITTENNT RUQ PAIN, H/O CHOLECYSTECTOMY COMPARISON: None TECHNIQUE: Grayscale and color Doppler imaging of the right upper quadrant was performed. Elastography was performed for non-invasive assessment of liver tissue stiffness utilizing a [employer] S-shear wave imaging unit. FINDINGS: Liver: Echogenic. 16.8 cm in length. Gallbladder: Cholecystectomy. Biliary tree: Unremarkable. CBD measures 7 mm. Pancreas: Partially obscured by shadowing bowel gas, grossly unremarkable as visualized. Right kidney: Unremarkable. 12.7 cm in length. Other: No visualized free fluid. Hepatic elastography: Number of measurements: 15 measurements across 3 regions, 5 measurements per region. US probe: CA1-7A. EQI median: 6.3 kPa EQI median velocity: 1.44 m/s IQR/Med: 16.4-20.2% (kPa) and 7.8-9.4% (m/s). If the IQR/Med is IQR/median >30% (for kPa) or >15% in m/s, the variance in the measurements is a large and the accuracy of the measurement may be in question. US/ABD Limited w/ Elastography IMPRESSION: 1. No acute abnormality identified. If unexplained symptoms persist, consider CT. 2. Appearance of the hepatic most commonly suggestive of hepatic steatosis. Correlate with clinical and laboratory evidence of chronic liver disease. 3. Liver stiffness is 6.3 kPa. Per the below 2020 SRU criteria, this rules out compensated advanced chronic liver disease in the absence of other known clinical signs. If there are known clinical signs, further testing may be needed for confirmation. 4. Cholecystectomy without biliary dilatation. 5. Additional description as above. Assessment is per the Update to the SRU Liver Elastography Consensus Statement (2020) Note that the above assessment of liver fibrosis is vendor-neutral and intended for use in fibrosis related to viral etiologies and non-alcoholic fatty-liver disease (NAFLD); in causes other than viral hepatitis and NAFLD, the cutoff values are currently not well established. In some patients with NAFLD, the cutoff values for cACLD may be lower (7-9 kPa). Note also that in the setting of elevated LFTs, nonfasting or vascular congestion, the stage of lifer fibrosis may be overestimated. Previous U reference values: <1.37 m/s (5.7kPa): No to mild fibrosis 1.37 m/s - 2.2 m/s: Moderate to severe fibrosis >2.2 m/s (15kPa): Significant fibrosis / cirrhosis Reading Location: [id number] CC: CLAYTON Masters; Dr. Sly Tolentino MD Practice Billing Associate: Signed Normal [facility] Gastroenterology Visit Repor ton 09-27-2024 Gastroenterology Visit Report [facility] [address] [facility] [place] [address] OFFICE VISIT Date of Service: 09/27/24 MR#: [id number] Acct: [id number] Name: CARLIE NGUYEN Rep #: [id number] : 1970 Provider: Dr. Sly hernandez MD Age/Sex: 53/F Location: [facility] Status: Signed Intake Vital Signs 09/26/24 11:39 09/27/24 08:55 Height 5 ft 5 in 5 ft 5 in Weight: 198 lb 200 lb BMI 32.9 33.3 BP 120/82 H 116/80 Blood Pressure Location Lt brachial Lt brachial Position Sitting Sitting Respiration 16 14 Pulse 77 79 Pulse Source Monitor Monitor Temp 98.1 F Temp Source Oral Pulse Oximetry (%) 93 Oxygen Delivery Method room air Intake Visit Reasons: ULQ Pain Print Inspector Required: No Accompanied by: Self Is patient in pain?: No Allergies No Known Allergies Allergy (Unverified 09/27/24 08:55) Medications ???Medication ???Instructions ???Recorded ???Confirmed ???Type multivitamin 1 tab PO QDAY 08/14/24 09/27/24 Hi story albuterol sulfate 90 mcg/actuation 2 puff inhalation Q4 PRN 5 09/27/24 History aerosol inhaler pantoprazole 40 mg tablet,delayed 40 mg PO .breakfast 1 month #30 0 09/27/24 09/27/24 Rx release tabs PFSH Medical History Prolapse of female pelvic organs Diverticulitis Arthritis Seasonal allergies Hx of deep venous thrombosis PVC (premature ventricular contraction) Palpitations Gastritis Asthma Fatigue Surgical History S/P hysterectomy Hx of carpal tunnel repair Hx laparoscopic cholecystectomy Family History Mother Arthritis Hypertension Father Heart disease Grandmother Cancer Ovarian Other Diabetes Social History Smoking Status: Never smoker alcohol intake: never substance use type: does not use HPI HPI Details: CARLIE NGUYEN, is a 53 M who presents to the office today for BGI Est 09.27.24. RUQ and epigastric abdominal pain and bloating after eating intermittently for many years more than 5 years. Describes stool as george in color at times. Denies constipation. Hx ga stritus and gastric ulcers. Hx cholecystectomy. EGD and colonoscopy about 5 years ago which showed probably gastric ulcer and diverticulosis as per patient's description. This was done on the [facility]. Patient recently moved from [facility] to [place]. Patient denies any family history of autoimmune disease including CD/UC/celiac disease or autoimmune thyroid, pancreas, adrenal or pituitary. Denies history of smoking or alcohol intake or substance use. ROS Const Constitutional: Positive for fatigue and weight change (Gain); No fever(s), frequent falls, headache(s) or weakness Eyes Eyes: No blurry vision, change in vision or double vision ENT ENT: No headache(s) or difficulty swallowing Resp Respiratory: No shortness of breath or wheezing Cardio Cardiology: No leg pain with exertion Gastro GI: Positive for abdominal pain, bloating and heartburn; No change in bowel habits, constipation, diarrhea, difficulty swallowing, excessive flatus, Vomiting blood/hematemesis, Blood in stool, nausea/dyspepsia or vomiting Musc Musculoskeletal: Positive for stiffness and Arthritis; No joint pain, back pain, joint swelling, muscle cramps, muscle weakness, numbness, tingling, sciatica, restless legs, leg pain at night or leg pain with exertion Skin Skin: No dry skin, lesions, itchy eyes or rash Neuro Neurology: No behavioral changes, unsteady gait/balance, weakness, frequent falls, headache(s), numbness, tingling, restless legs, tremor(s), Increased tone in limbs, paralysis or seizures Psych Psychiatric: No anxiety, No behavioral changes, No depression, No paranoia, No Compulsive Behavior, No hyperactivity, No inattentiveness, No obsessions/compulsions, No Temper Tantrums and No suicidal ideation Endo Endocrine: Positive for fatigue and weight change (Gain) Aller/Imm Allergy/Immunologic: No itchy eyes or wheezing Jacob/Lymp Hematologic/Lymphatic: No easy bleeding or easy bruising Exam Const General: cooperative, no acute distress and well developed Nutritional Appearance: average body habitus Orientation: alert, awake and oriented x3 HENMT Head: normocephalic and atraumatic Nose: external nose normal Face and sinus: normal facial exam Mouth: moist mucous membranes Eyes Pupils: PERRL EOM: EOM intact bilaterally Neck Neck: normal visual inspection, no meningeal signs and trachea midline Carotids: no bruits Chest Chest palpation inspection: normal inspection of the chest Resp Effort Inspection: normal (more content not included)... Normal [facility] 12 Lead EKG performed by [facility] on 09-26-2024 12 Lead EKG performed by [facility] [address] [place] [address] 12 Lead EKG performed by [facility] 09/26/24 1131 MR#: [id number] Acct: [id number] Name: CARLIE NGUYEN Rep #: [id number] : 1970 53 From: Rommel Watt MD Attending Dr: Dr. Rommel Watt MD Status: DEP A MB Ordering Dr: Rommel Watt MD Date: 09/26/24 [place] [facility] Sex: F C Admitted: BMS/12 Lead EKG performed by [facility] ECG Report Interpretation --Sinus Rhythm WITHIN NORMAL LIMITSElectronically signed on 10/02/2024 at 14:54 by Rommel Watt [employer] Version 8610 10/02/24 1459 Date Rommel Watt MD CC: CLAYTON Masters Date Dictated: 09/26/24 1131 Date Transcribed: 09/26/24 113 Practice Billing Associate: [place] Signed Normal [facility] Cardiology Visit Reporton Cardiology Visit Report [facility] [facility] [place], [place] [address] OFFICE VISIT Date of Service: 09/26/24 MR#: [id number] Acct: [id number] Name: CARLIE NGUYEN Rep #: [id number] : 1970 Provider: Dr. Rommel Watt MD Age/Sex: 53/M [place] [facility] Status: Signed HPI HPI History of Present Illness Details: 53-year-old lady with a previous medical history as significant for premature ventricular complexes who was previously being followed at the [facility]. He says that she wants to switch care over here to see whether she can have her yearly evaluation. She denies any chest pain shortness of breath or paroxysmal nocturnal dyspnea pedal edema she has had occasional dizziness. She recently had a recent [employer] procedure with pelvic floor repair. She also says that in the past she underwent evaluation with C-reactive proteins and did have intermittent sharp chest discomfort on the left side. Her last cardiac evaluation was in 2019. Previous Holter monitor did not demonstrate significant ventricular arrhythmias. Intake Vital Signs 09/26/24 11:39 Height 5 ft 5 in Weight: 198 lb BMI 32.9 BP 120/82 H Blood Pressure Location Lt brachial Position Sitting Respiration 16 Pulse 77 Pulse Source Monitor Intake Visit Reasons: ESTABLISH (SELF) Print Inspector Required: No Accompanied by: Self Is patient in pain?: No Allergies No Known Allergies Allergy (Unverified 09/26/24 11:35) Medications ???Medication ???Instructions ???Recorded ???Confirmed ???Type multivitamin 1 tab PO QDAY 08/14/24 08/14/24 Hi story albuterol sulfate 90 mcg/actuation 2 puff inhalation Q4 PRN 5 09/26/24 History aerosol inhaler PFSH Medical History Hx of deep venous thrombosis PVC (premature ventricular contraction) Palpitations Gastritis Asthma Fatigue Surgical History Hx of carpal tunnel repair Hx laparoscopic cholecystectomy Family History Other Cancer Diabetes Hypertension Social History Smoking Status: Never smoker alcohol intake: never substance use type: does not use ROS Const Const: Negative for fatigue, weakness, headache(s), daytime sleepiness or difficulty sleeping ENT ENT: Positive for dizziness (at times); Negative for headache(s) or Nosebleed/epistaxis Cardio Chest Pain: Yes Frequency: other (discomfort) Location: left chest Duration: minutes Palpitations: No Edema: None Resp Respiratory: Negative for SOB with activity, SOB at rest, SOB orthopnea SOB lying down or Cough GI GI: Positive for heartburn; Negative nausea or vomiting Neuro Neuro: Positive for dizziness (at times); Negative for lightheadedness, near syncope, headache(s) or weakness Endo Endo: Negative for fatigue Cardiology Exam Const Appearance: cooperative, healthy appearing, no acute distress, well developed and well groomed Nutritional Appearance: average body habitus and well nourished Orientation: alert, awake and oriented x3 Head Head: normal to inspection, normocephalic and atraumatic Ears: hearing grossly normal bilaterally and external ears normal Nose: external nose normal, nares normal, nasal mucous membranes and turbinates normal, septum normal and no nasal discharge Face and Sinus: face symmetric Mouth: oral mucosae normal, tongue normal, oropharynx normal and moist mucous membranes Teeth and gingiva: dentition normal Throat: posterior oropharynx normal, tonsils normal and uvula midline Eyes General: appearance normal, both eyes and all related structures Eyelids: eyelids normal Conjunctivae: conjunctivae normal Pupils: PERRL, normal by confrontation and accommodation normal EOM: EOM intact bilaterally Neck Neck: normal visual inspection, trachea midline and no JVD JVD: +5 Carotids: normal carotid upstroke and bounding pulses Chest Chest inspection: normal inspection of the chest, symmetric chest movement and normal respiratory effort Auscultation: Bilateral: Clear to Auscultation Cardio Palpation: normal PMI Rate: regular rate Rhythm: regular rhythm Heart sounds: S1 normal, S2 normal and normal, physiologic split S2; Negative rub, gallop or murmur GI GI: normal to inspection, soft, no hepatosplenomegaly and bowel sounds present Neuro General: patient alert, patient awake, patient oriented x3, gait normal, moves all extremities and no focal sensory deficit Skin Skin: no rashes or lesions noted Extremities Pulses: Normal: Right Femoral Pulse, Left Femoral Pulse, Right Dorsalis Pedis Pulse, Left Dorsalis Pedis Pulse, R (more content not included)... Normal [facility] UROGYN Physician Kanwal s Noteon 09-18-2024 [facility] UROGYN Physician Progress Note CARLIE NGUYEN :1970 Registration Date:09/18/2024 Chief Complaint: Here for 2 week post op. She feels very swollen and sore. History of Present Illness: 2 weeks out from Laparoscopic supracervical hysterectomy, bilateral salpingectomy, uterosacral colpopexy, abdominal enterocele repair, Altis TVT O sling, site-specific anterior repair, posterior repair and perineorrhaphy, cystoscopy, states she is still sore along the perineum and feels as though she popped a stitch. She states she still has some vaginal spotting at times, also complaining of urgency frequency but then cannot go to the bathroom. She admits to getting up 1-2 times at night. She has been moving her bowels well. Physical Exam: Vitals & Measurements Ht/Wt Measurement Refused by Patient?2: Yes (09/18/24 10:08:00) Depression Screening Scores: Initial Depression Screen Score: 0 (09/18/24 10:08:00) Fall Risk Assessment: Is the patient ambulatory (mobile): Yes (09/18/24 10:08:00) Have you had a fall within the past: No (09/18/24 10:08:00) Have you had 2 or more falls in the past: No (09/18/24 10:08:00) Neuro Exam -sensation intact Urethra- normal urethral meatus Empty Supine Stress Test- no leak Vaginal Atrophy-no mesh erosion, no return of prolapse. Incisions are intact stitches are starting to dissolve. Levator Ani Muscle Testing- normal Rectal Exam-deferred Medication Reconciliation: What How Much When Why Instructions Unchanged acetaminophen (acetaminophen 500 mg oral tablet) 2 Tabs Oral ONCE Unchanged acetaminophen-oxycodone (Percocet 5 mg-325 mg oral tablet) 1 Tabs Oral EVERY SIX HOURS Post-op pain Duration: 3 Days Unchanged albuterol = Proventil, Ventolin (Ventolin HFA Inhaler 90mcg/ inh) 2 Puffs Inhalation EVERY FOUR HOURS as needed for for wheezing Unchanged ibuprofen = Motrin, Advil (ibuprofen 800 mg oral tablet) 1 Tabs Oral EVERY SIX HOURS Duration: 7 Days Assessment/Plan: This Visit Diagnosis 1. Encounter for examination following surgery Z09 Assured patient that everything she is feeling is normal, she will keep track of her urgency frequency symptoms she has a follow-up in 4 weeks. Ordered: AMB Postop followup during global period 38934, 09/18/2024 10:35:00 EDT, Encounter for examination following surgery Orders: Problem List/Past Medical History: Ongoing [place]-Walker grade 2 cystocele Complete uterine prolapse Mixed incontinence Premature menopause Historical Oligomenorrhea Procedure/Surgical History: LAPAROSCOPIC SUPRACERVICAL HYSTERECTOMY, BILATERAL SALPINGECTOMY, LAPAROSCOPIC SACROCERVICOPEXY, ENTEROCELE REPAIR-ABDOMINAL, ANTERIOR/POSTERIOR REPAIR, TRANSVAGINAL TAPING-OBTURATOR SLING, PERINEORRHPAHY, CYSTOSCOPY: 09/06/24 D and E at 18 weeks dismise. Chromosomes sent: 03/13/12 Shoulder: 02/05/11 D&C - Dilatation and curettage: 04/20/10 Cystic fibrosis: 10/05/04 Carpal tunnel syndrome: 11/18/01 Cholecystectomy: 06/20/99 colonoscopy Medications: acetaminophen(acetaminop hen 500 mg oral tablet), 1000 mg= 2 tabs, ORAL, ONCE acetaminophen-oxycodone( Percocet 5 mg-325 mg oral tablet), 1 tabs, ORAL, [id number] albuterol = Proventil, Ventolin(Ventolin HFA Inhaler 90mcg/inh), 2 puffs, Inhalation, [id number], PRN ibuprofen = Motrin, Advil(ibuprofen 800 mg oral tablet), 800 mg= 1 tabs, ORAL, [id number] Allergies: Avelox irritable DULoxetine Did not tolerate house dust mite allergen extract methylPREDNISolone eye pain montelukast Unknown (origin) Social History: Alcohol - Denies Alcohol Use Use:Current Frequency:1-2 times per year Home/Environment Other Name:......menopause 2016 Sexual Sexually active:Yes Substance Abuse - Denies Substance Abuse Tobacco Use:Never (less than 100 in lifetime) Family History: High blood pressure.: Mother. Ovarian cancer.: Grandmother. Health Status Family Member(s) Father: History is negative Family Member(s) Relationship: Mother, Age: Unknown Care Team Primary Care Physician SRINIVAS MASTERS [phone] Attending Physician USHA JAMESON CNP [phone] . Health Maintenance Pending (in the next year) OverDue Breast Cancer Screening due 07/04/19 and every 366 days Colorectal Screening due 11/27/23 and every 10 years Due MMR Vaccine Dose 1 due 09/18/24 One-time only Tetanus Vaccine due 09/18/24 Variable frequency Varicella Vaccine Dose 1 due 09/18/24 One-time only Satisfied (in the past 1 year) There are no satisfied recommendations within the defined date range Normal [facility] Consult Reporton 09-07-2024 Consult Report Patient: CARLIE PORTILLO [facility]: [id number] Age: 53 years Sex: Female : 1970 Associated Diagnoses: Mixed incontinence; Complete uterine prolapse Author: USHA JAMESON CNP Discharge Information Discharge Summary Information: Admit Date: Admitted 09/06/2024. Discharge Date: Discharged 09/07/2024. Admitting Diagnosis: Mixed incontinence - [id number] N39.46, Medical, Complete uterine prolapse - [id number] N81.3, Medical. Discharge Diagnosis: Mixed incontinence - [id number]-QI N39.46, Medical, Complete uterine prolapse - FNI15-NK N81.3, Medical. Discharge Medications ST Home Medications (2) Active acetaminophen 500 mg oral tablet 1,000 mg = 2 tabs, ORAL, ONCE Ventolin HFA Inhaler 90mcg/inh 2 puffs, PRN, Inhalation, [id number] : (Complete Discharge Med Rec prior to selecting ST). Hospital Course Clinical Summary Post op day one from Laparoscopic supracervical hysterectomy, bilateral salpingectomy, uterosacral colpopexy, abdominal enterocele repair, Altis TVT O sling, site-specific anterior repair, posterior repair and perineorrhaphy, cystoscopy patient sitting up in chair doing well at this time, vaginal packing was removed, Burleson catheter was removed she was able to void on her own. She had a total of 2620 cc out in 24 hours. Lungs are clear anteriorly and posteriorly, heart is regular rate and rhythm, abdomen is large, soft, slightly distended, bowel sounds are present. Incisions are intact, normal postoperative vaginal drainage noted. Nausea has improved patient was able to eat breakfast this morning. Vitals are all stable. She will be discharged home with follow-up in office in 2 weeks. . Condition on Discharge Discharge Status: stable. Procedures and Treatment Completed During Hospital Stay Procedures/Treatments: Laparoscopic supracervical hysterectomy, bilateral salpingectomy, uterosacral colpopexy, abdominal enterocele repair, Altis TVT O sling, site-specific anterior repair, posterior repair and perineorrhaphy, cystoscopy . Discharge Plan Diet Diet on Discharge: House. Activity Activity on Discharge: Ambulate. Education and Follow-up Counseled: patient. Disposition Discharge to: home. Normal [facility] Discharge Educationon 2024 Discharge Education Patient Education Material Normal [facility] Inpatient Patient Summaryon 09-07-2024 Inpatient Patient Summary [facility] Discharge Instructions [address] [place] [address] (Patient Copy) Name: CARLIE NGUYEN : 1970 Diagnosis: Complete uterine prolapse; Mixed incontinence Allergies: house dust mite allergen extract; DULoxetine; montelukast; methylPREDNISolone; Avelox Registration Date: 09/06/24 [facility]#: [id number] Current Date Time: 09/07/2024 08:52:07 Address: [address] [place] [id number] Primary Care Provider: Name: SRINIVAS MASTERS Phone: [phone] Thank you for choosing [facility] for your care. You are very important to us. Our goal is to demonstrate our high quality medical care and provide you with a very good patient experience. You may receive a survey about our service. Please take the time to complete the survey and return it so we can continue to enhance our service. Thank you again for allowing [facility] to care for your medical needs. If you have any questions about your care or follow up information please contact your doctor. Follow-up Instructions The following Appointments have been made for you: Please Note: the first letters listed in the order is the location code, followed by the appointment date, and scheduled provider Future Appointments UROGYN Appt. Date: 09/18/2024 10:00 AM Scheduled Provider: Usha Jameson CNP [address] [facility] [address], [address] Phone: -- Fax: -- UROGYN Appt. Date: 10/24/2024 10:20 AM [place] [address] [facility] [address] [place], [address] Phone: -- Fax: -- Provider Follow Ups: With: Address: When: USHA JAMESON [address] [facility] [address] [place], [place] [id number] Business (1) 09/18/2024 8:00 AM Comments: Patient has Percocet at home she can take 1 tablet every 6 hours as needed may alternate with ibuprofen 600 mg. No lifting over 10 pounds, this includes vaccuming, laundry baskets, luggage, etc. ok to shower, no tub baths. Nothing in the vagina for 6 weeks, Hold vaginal estrogen cream for 6 weeks. Ok to use ice pack or heating pads as needed for discomfort. Bleeding is normal, if soaking a pad with blood every hour call the office. Call 911 with signs/symptoms of Stroke. Call 911 with symptoms of Chest Pain. Call Dr if you have Shortness of Breath. Call Dr with signs of infection/fever. Continue home medication as reviewed. Do not drive while taking narcotics. If you have had an intravenous catheter (IV) during your stay, keep the dressing dry and do not remove it from the site for at least 24 hours or as instructed by your provider to prevent problems. Medication Information Only Take The Medicines On This List. Keep This List and Bring It To Your Next Appointment. Medicines To Take At Home: Medicine Name (Generic Name) Amount to Take How to Take it How Often to Take it Additional Instructions Next Dose Due acetaminophen 500 mg oral tablet * (acetaminophen) 1,000 mg By Mouth ONCE Ventolin HFA Inhaler 90mcg/inh (albuterol = proventil, ventolin) 2 puffs Inhalation EVERY FOUR HOURS Take as needed for wheezing Understanding your home medicine is important to keeping you healthy. If you are taking medications that are not on the preceding list, please call your doctor to see if you are to continue taking that medication. It is important that you do not skip or make up doses. If you are ordered an antibiotic, finish taking all the medicine unless your doctor tells you otherwise. Call your doctor if you have any questions or problems. Take the medicine list with you to all follow up appointments. Patient education materials, if any, will display below Prescription leaflets, if any, will display below Guidelines for a Healthy Lifestyle: ACTIVITY Follow your doctors instructions regarding staying active Balance rest and activity. Continue to do the activities you enjoy if okay with your doctor. Both activity and rest are important to the health of your heart. Avoid people with colds / flu. SMOKING Do not smoke or use other nicotine products. Nicotine is in all tobacco products. Nicotine causes damage to the heart, brain, and lungs. It is never too late to quit. Even if you have smoked for years, you can benefit from quitting or smoking less. If you or a loved one is interested in more information on smoking cessation, contact [facility] Cessation [facility] [phone] DIET Eat a variety of nutritious foods from all the food groups. To get the nutrients you need, choose foods like vegetables, fruits, whole-grain products and fat-free or low-fat dairy products most often. Your food choices each day affect your health. Here are some tips for a healthy diet for most people. ? Go Lean with Protein---Meats and Dairy products ? Choose a variety of Fruits and Vegetables daily ? (more content not included)... Normal [facility] SURGICAL PATH REPORTon 09-07 SURGICAL PATH REPORT [facility] Department of Pathology [address] [place] [id number] Name: CARLIE NGUYEN : 1970 [facility] [id number] Number: Gender Female Locatio 5E; E507; 01 : n: Admit 53 years Attending LUIS BOYD MD Age: Provider: Ordering LUIS BOYD MD Provider: Consulti Surgical Pathology Report ng: ACCESSION: COLLECTED DATE/TIME: RECEIVED DATE/TIME: PATHOLOGIST: [id number] 09/06/2024 09:23 EDT 09/06/2024 10:09 EDT KORY CORDOVA MD Final Diagnosis A. UTERUS WITH BILATERAL FALLOPIAN TUBES, HYSTERECTOMY WITH BILATERAL SALPINGECTOMY - INACTIVE ENDOMETRIUM - MYONETRIUM WITH ADENOMYOSIS - FALLOPIAN TUBES WITH NO SIGNIFICANT DIAGNOSTIC CHANGE KORY CORDOVA PATHOLOGIST (Electronic Signature) Date Verified 09/07/2024 Clinical Data PREOP DIAGNOSIS: COMPLETE UTERINE PROLAPSE, MIXED INCONTINENCE POSTOP DIAGNOSIS: COMPLETE UTERINE PROLAPSE, MIXED INCONTINENCE PROCEDURE: LAPAROSCOPIC SUPRACERVICAL HYSTERECTOMY, BILATERAL SALPINGECTOMY, LAPAROSCOPIC SACROCERVICOPEXY, ENTEROCELE REPAIR-ABDOMINAL, ANTERIOR/POSTERIOR REPAIR, TRANSVAGINAL TAPING-OBTURATOR SLING, PERINEORRHAPHY, CYSTOSCOPY SPECIMEN: UTERUS AND BILATERAL FALLOPIAN TUBES Gross Description Labeled uterus and bilateral fallopian tubes. Received in formalin are bilateral fallopian tubes detached from a non intact morcellated supracervical uterus. The fallopian tubes consists of cylindrical segments which are pink-purple to red. Each include 1 end which is fimbriated. The first fallopian tube measures 5.0 cm in length and has a cross diameter ranging from 0.5 to 0.6 cm proximal to distal. The remaining fallopian tube measures 4.3 cm in length and has a cross diameter ranging from 0.5 to 0.6 cm proximal to distal. The segments comprising the uterus proper weight and aggregate 23 g and measure 8.0 x 6.0 x 3.2 cm. There is no grossly identifiable cervix. On cut section the specimen is composed of florez-pink soft tissue. Field Cane Scaler Helper sections are submitted under the following designations: Cassettes 1 through 5 ____ Print 09/19/2024 12:58 EDT Number: Date/Time: [facility] Department of Pathology [address] [place], [place] [id number] Name: CARLIE NGUYEN : 1970 [facility] [id number] Number: Gender Female Locatio 5E; E507; 01 : n: Admit 53 years Attending LUIS BOYD MD Age: Provider: Ordering LUIS BOYD MD Provider: Consulti Surgical Pathology Report ng: ACCESSION: COLLECTED DATE/TIME: RECEIVED DATE/TIME: PATHOLOGIST: [id number] 09/06/2024 09:23 EDT 09/06/2024 10:09 EDT KORY CORDOVA MD Gross Description site safety representative sections of uterus proper, cassette 6 first described fallopian tube, cassette 7-second described fallopian tube. MP 09/06/2024 10:46:07 EDT Microscopic Diagnosis The final diagnosis is based on a microscopic exam of site safety representative sections. This report was transcribed using voice recognition technology and might contain unintended computerized infantry unit leader errors. Codes CPT code: 77407 ____ Print 09/19/2024 12:58 EDT Number: Date/Time: Normal [facility] Comment on above: Performed By: #### [id number] ####[facility] Laboratory [id number] [place] [id number] Medical Director: Akil Sunshine MD Admission Assessment Adulton 09-06-2024 Admission Assessment Adult Adult Admission Data Entered On: 09/06/2024 12:11 EDT Performed On: 09/06/2024 12:09 EDT by Carolin Yusuf RN Patient Safety Grid ID Band on and Verified : Yes Carolin Yusuf RN - 09/06/2024 12:09 EDT (As Of: 09/06/2024 12:11:43 EDT) Allergies (Active) Avelox Estimated Onset Date: Unspecified ; Reactions: irritable ; Created By: Corry Ramirez RPh; Reaction Status: Active ; Category: Drug ; Substance: Avelox ; Type: Sensitivity ; Updated By: Corry Ramirez RPh; Reviewed Date: 09/06/2024 7:21 EDT DULoxetine Estimated Onset Date: Unspecified ; Reactions: Did not tolerate ; Created By: Corry Ramirez RPh; Reaction Status: Active ; Category: Drug ; Substance: DULoxetine ; Type: Sensitivity ; Updated By: Corry Ramirez RPh; Reviewed Date: 09/06/2024 7:21 EDT house dust mite allergen extract Estimated Onset Date: Unspecified ; Created By: Tania Vazquez MA; Reaction Status: Active ; Category: Other ; Substance: house dust mite allergen extract ; Type: Allergy ; Updated By: Tania Vazquez MA; Reviewed Date: 09/06/2024 7:21 EDT methylPREDNISolone Estimated Onset Date: 01/30/2019 ; Reactions: eye pain ; Comments: Comment 1: Outside Source Comment: Eye pain ; Created By: Corry Ramirez RPh; Reaction Status: Active ; Category: Drug ; Substance: methylPREDNISolone ; Type: Adverse Effect ; Updated By: Corry Ramirez RPh; Reviewed Date: 09/06/2024 7:21 EDT montelukast Estimated Onset Date: 01/07/2019 ; Reactions: Unknown (origin) ; Created By: Tania Vazquez MA; Reaction Status: Active ; Category: Drug ; Substance: montelukast ; Type: Allergy ; Updated By: Tania Vazquez MA; Reviewed Date: 09/06/2024 7:21 EDT Subjective Pain Symptoms : Yes Numeric Pain Scale Acceptable Intensity : 3 = Mild Pain Question Ability to Self Report Pain : No Unable to Self Report Pain : No Abuse/Violence Concerns? : Patient denies Carolin Yusuf RN - 09/06/2024 12:09 EDT Depression Screening Patient able to verbalize? : Yes Feeling Down, Depressed, Hopeless : Not at all Little Interest - Pleasure in Activities : Not at all Initial Depression Screen Score : 0 Depression Screening Score 0 : No IP Pt being evaluated or treated for BH conditions : No Carolin Yusuf RN - 09/06/2024 12:09 EDT Rapid Pain Data [id number] Primary Pain Location : Incisional Numeric Pain Scale : 8 = Severe Pain Numeric Pain Score : 8 Carolin Yusuf RN - 09/06/2024 12:09 EDT [place] Coma Eye Opening Response [place] : Spontaneously Best Verbal Response [place] : Oriented Best Motor Response [place] : Obeys simple commands Elizabeth Coma Score : 15 Carolin Yusuf RN - 09/06/2024 12:09 EDT Neuro Characteristics of Speech : Clear Orientation : Oriented x 3 Level of Consciousness : Alert Affect / Behavior : Appropriate, Calm, Cooperative Carolin Yusuf RN - 09/06/2024 12:09 EDT Neurological Strengths Grid Left Upper Extremity Right Upper Extremity Left Lower Extremity Right Lower Extremity Strength : 5 able to move against full resistance 5 able to move against full resistance 5 able to move against full resistance 5 able to move against full resistance Sensation : Intact Intact Intact Intact Carolin Yusuf RN - 09/06/2024 12:09 EDT Carolin Yusuf RN - 09/06/2024 12:09 EDT Carolin Yusuf RN - 09/06/2024 12:09 EDT Carolin Yusuf RN - 09/06/2024 12:09 EDT Sensory Perception Erick : No impairment Extremity Movement : Equal Gait : Steady with assist Aspiration Risk : None CN VII Facial Expression and Symmetry : Facial movement symmetrical Carolin Yusuf RN - 09/06/2024 12:09 EDT CardioVascular Heart Rhythm : Regular Capillary Refill : Less than 2 seconds Edema : None Carolin Yusuf RN - 09/06/2024 12:09 EDT Pulses Detailed Grid Radial Pulse, Left : 2+ Normal Radial Pulse, Right : 2+ Normal Dorsalis Pedis Pulse, Left : 2+ Normal Dorsalis Pedis Pulse, Right : 2+ Normal Carolin Yusuf RN - 09/06/2024 12:09 EDT Respiratory Respirations : Unlabored Respiratory Pattern Description : Regular Carolin Yusuf RN - 09/06/2024 12:09 EDT EMY : Clear LLL : Clear RUL : Clear RML : Clear RLL : Clear Carolin Yusuf RN - 09/06/2024 12:09 EDT Cough : None Carolin Yusuf RN - 09/06/2024 12:09 EDT Musculoskeletal Activity Erick : Walks occasionally Mobility Erick : Slightly limited Ambulatory Devices : None Special Orthopedic Devices : None ADLs : Minimal assist Carolin Yusuf RN - 09/06/2024 12:09 EDT GI Abdomen Description : Symmetric Abdomen Palpation : Non-Tender, Soft Carolin Yusuf RN - 09/06/2024 12:09 EDT Bowel Sounds Grid LUQ : Hypoactive RUQ : Hypoactive LLQ : Hypoactive RLQ : Hypoactive Carolin Yusuf RN - 09/06/2024 12:09 EDT Passing Flatus : No Bowel Movement Last Date Known : Yes Bowel Movement Last Date : 09/06/2024 EDT Farrah Yusuf RN (more content not included)... Normal [facility] Comment on above: Order Comment: Order entered secondary to admission Admission History Adulton Admission History Adult Patient History Model Entered On: 09/06/2024 12:09 EDT Performed On: 09/06/2024 12:08 EDT by Carolin Yusuf RN General Info Preferred Verbal : Comoran Contact Information : Esteban Nguyen [phone] Preferred Written : Comoran Currently or : Not Applicable Is patient a dialysis patient? : No Carolin Yusuf RN - 09/06/2024 12:08 EDT Problem List Problem List obtained from : Patient Carolin Yusuf RN - 09/06/2024 12:08 EDT (As Of: 09/06/2024 12:09:43 EDT) Problems(Active) At risk for falls (SNOMED CT :135690771 ) Name of Problem: At risk for falls ; Recorder: SYSTEM; Confirmation: Confirmed ; Classification: Nursing ; Code: [id number] ; Last Updated: 09/06/2024 11:37 EDT ; Life Cycle Date: 09/06/2024 ; Life Cycle Status: Active ; Vocabulary: SNOMED CT ; Comments: 09/06/2024 11:37 - SYSTEM Problem added automatically by system based on documentation of a admission to the hospital. [place]-Walker grade 2 cystocele (SNOMED CT :724037445 ) Name of Problem: [place]-Walker grade 2 cystocele ; Recorder: JONAS HIGHTOWER MD; Confirmation: Confirmed ; Classification: Medical ; Code: [id number] ; Contributor System: PowerChart ; Last Updated: 05/11/2024 09:36 EST ; Life Cycle Date: 05/11/2024 ; Life Cycle Status: Active ; Vocabulary: SNOMED CT Complete uterine prolapse (SNOMED CT :03291865 ) Name of Problem: Complete uterine prolapse ; Recorder: VIVIAN VALENCIA CNP; Confirmation: Confirmed ; Classification: Medical ; Code: [id number] ; Contributor System: PowerChart ; Last Updated: 08/28/2024 07:15 EDT ; Life Cycle Date: 08/28/2024 ; Life Cycle Status: Active ; Responsible Provider: VIVIAN VALENCIA CNP; Vocabulary: SNOMED CT Mixed incontinence (SNOMED CT :11176274 ) Name of Problem: Mixed incontinence ; Recorder: VIVIAN VALENCIA CNP; Confirmation: Confirmed ; Classification: Medical ; Code: 72120607 ; Contributor System: ProntoForms ; Last Updated: 08/28/2024 07:15 EDT ; Life Cycle Date: 08/28/2024 ; Life Cycle Status: Active ; Responsible Provider: VIVIAN VALENCIA CNP; Vocabulary: SNOMED CT Premature menopause (SNOMED CT :5821491450 ) Name of Problem: Premature menopause ; Recorder: JONAS HIGHTOWER MD; Confirmation: Confirmed ; Classification: Medical ; Code: 3973805703 ; Contributor System: PowerChart ; Last Updated: 05/11/2024 09:27 EST ; Life Cycle Date: 05/11/2024 ; Life Cycle Status: Active ; Vocabulary: SNOMED CT Procedure History Accept Blood Products if Necessary : Yes Paramjit HOWARD [facility] - 09/06/2024 12:08 EDT - Procedure History (As Of: 09/06/2024 12:09:44 EDT) Procedure Dt/Tm: 04/20/2010 ; Anesthesia Minutes: 0 ; Procedure Name: D&C - Dilatation and curettage ; Procedure Minutes: 0 ; Comments: 02/14/2014 11:56 Rachael Watson for sab Procedure Dt/Tm: 03/13/2012 ; Anesthesia Minutes: 0 ; Procedure Name: D and E at 18 weeks dismise. Chromosomes sent ; Procedure Minutes: 0 Procedure Dt/Tm: 02/05/2011 ; Anesthesia Minutes: 0 ; Procedure Name: Shoulder ; Procedure Minutes: 0 ; Comments: 02/14/2014 11:57 Rachael Watson Loosened Muscles of shoulder. near medial clavicle Procedure Dt/Tm: 06/20/1999 ; Anesthesia Minutes: 0 ; Procedure Name: Cholecystectomy ; Procedure Minutes: 0 Procedure Dt/Tm: 11/18/2001 ; Anesthesia Minutes: 0 ; Procedure Name: Carpal tunnel syndrome ; Procedure Minutes: 0 ; Comments: 02/14/2014 11:57 EDRachael Mcdaniel Surgery Procedure Dt/Tm: 10/05/2004 ; Anesthesia Minutes: 0 ; Procedure Name: Cystic fibrosis ; Procedure Minutes: 0 ; Comments: 02/14/2014 11:58 EDT - Rachael Tomas pt tested negative Anesthesia Minutes: 0 ; Procedure Name: colonoscopy ; Procedure Minutes: 0 ; Comments: 07/26/2024 13:38 EST - Tomy TRUJILLO, Adalberto diverticulitis Procedure Dt/Tm: 09/06/2024 ; Provider: LUIS BOYD MD; Anesthesia Minutes: 0 ; Procedure Name: LAPAROSCOPIC SUPRACERVICAL HYSTERECTOMY, BILATERAL SALPINGECTOMY, LAPAROSCOPIC SACROCERVICOPEXY, ENTEROCELE REPAIR-ABDOMINAL, ANTERIOR/POSTERIOR REPAIR, TRANSVAGINAL TAPING-OBTURATOR SLING, PERINEORRHPAHY, CYSTOSCOPY ; Procedure Minutes: 0 Social History Does pt have any alcohol,drugs or tobacco : No Do you consume Alcohol : No Has patient used tobacco in the last 30 days : No Used tobacco products in the last 1 year : No Carolin Yusuf RN - 09/06/2024 12:08 EDT Social History (As Of: 09/06/2024 12:09:44 EDT) Alcohol: Denies Alcohol Use Current, 1-2 times per year (Last Updated: 08/28/2024 09:02:09 EDT by Carmen Ordaz RN) Tobacco: Never (less than 100 in lifetime) Tobacco Use:. (Last Updated: 08/08/2024 15:34:09 EST by Yelena Amaya MA) Substance Abuse: Denies Substance Abuse (Last Updated: 02/14/2014 11:58:48 EDT by Rachael Tomas ) Home/Environment: Comments: 02/14/2014 11:59 - Rachael Tomas: Feels safe at home (Last Updated: 02/14/2014 11:59:00 EDT by Rachael Tomas) Other: ......me (more content not included)... [facility] Comment on above: Order Comment: Order entered secondary to admission Anesthesiaon 09-06-2024 Anesthesia Patient: CARLIE PORTILLO Age: 53 years Sex: Female : 1970 Associated Diagnoses: None Author: ANNA MARRERO DO Postoperative Information Time Seen: Date & Time 09/06/2024 10:40:00. Post Operative Info: Patient location: PACU. Assessment Postanesthesia assessment Vitals: normothermia. Mental status: at preoperative baseline. Respiratory function: normal oxygenation and ventilation. Pain: controlled. Nausea status: absence of nausea and vomiting. Postoperative hydration status: euvolemic. [facility] Basic Admission Informationo n 09-06-2024 Basic Admission Information Basic Admission Information Entered On: 09/06/2024 12:08 EDT Performed On: 09/06/2024 12:08 EDT by Carolin Yusuf RN Admission Height/Weight Height/Length Measured : 165.10 cm(Converted to: 5.42 ft, 65.00 in) Height/Length Dosing : 165.10 cm(Converted to: 5.42 ft, 65.00 in) Weight Measured : 65 kg(Converted to: 143 lb 5 oz, 143.300 lb) Weight Dosing : 65 kg(Converted to: 2,292.808 oz, 143.300 lb) BSA Measured : 1.73 BSA Dosing : 1.73 Body Mass Index Measured : 23.85 kg/m2 Body Mass Index Dosing : 24 Weight Measured Type of Scale : Standing Scale Last Documented Height/Length : Height/Length Estimated: No results available. Height/Length Measured: No results available. Height/Length Dosing: No results available. Last Documented Weight and Type of Scale Used : Weight Measured Type of Scale: Standing Scale 09/06/24 06:45:00 Weight Measured: 65 kg 09/06/24 06:45:00 Weight Dosin kg 09/06/24 06:45:00 Carolin Yusuf RN - 09/06/2024 12:08 EDT Belongings Valuables/Belongings Grid Valuables at Bedside Clothes : Jacket, Pants, Shirt, Shoes, Undergarments Carolin Yusuf RN - 09/06/2024 12:08 EDT Room Orientation/Facility Policy Reviewed : Yes Room Orientation/Policy Reviewed With : Patient Patient Safety : Bed in low position, Call device within reach, Fall production planner ID Band, Falling [place], ID band check, Mobility support items readily available, Night light Demonstrates Ability to Use Call Light Successfully : Yes Carolin Yusuf RN - 09/06/2024 12:08 EDT [facility] Comment on above: Order Comment: Order entered secondary to admission Operative Reporton Operative Report AKIN NGUYEN :1970 Registration Date:09/06/2024 Date of Operation 09/06/2024 10:21 Indication for Surgery 53-year-old female with a symptomatic stage II uterovaginal prolapse and cystocele and stress urinary incontinence for surgical repair *Preoperative Diagnosis COMPLETE UTERINE PROLAPSE, MIXED INCONTINENCE *Postoperative Diagnosis COMPLETE UTERINE PROLAPSE, MIXED INCONTINENCE Operative Procedure Laparoscopic supracervical hysterectomy, bilateral salpingectomy, uterosacral colpopexy, abdominal enterocele repair, Altis TVT O sling, site-specific anterior repair, posterior repair and perineorrhaphy, cystoscopy Surgeon(s) LUIS BOYD MD (Surgeon Primary) Inside Finisher Kati Celaya SA (District Manager In Training) Indication for Dry Folder Cloth Given the inherent complexity of this surgery, a second surgeon or a surgically skilled Physician Inside Finisher was necessary for the successful completion of this entire operative procedure. The offset press assistant was essential for safe and proper positioning of the patient, initial tissue dissection, complex manipulation and retraction of soft tissue, achieving hemostasis, maintaining exposure, and complex multilayer wound closure. Anesthesia General ANNA MARRERO DO (French Weaver) TERRI FUNG (Provider) Estimated Blood Loss 10 *Specimen(s) Uterus, bilateral fallopian tubes *Complications None Description of Procedure The patient brought to the operating room and placed on the operating table in a dorsal supine position. Abdomen, perineum, vagina prepped and draped in a sterile fashion using Betadine solution. Time- out was undertaken and the patient properly identified. At this point, a 16-Marshallese Burleson catheter placed in the patient's bladder and a Kroner uterine manipulator placed inside the uterus. The umbilicus was infiltrated with an anesthetic solution. A Veress needle was inserted through the umbilicus. Inderal placement was confirmed with an opening pressure of 0 mm of CO2 gas. The abdomen is insufflated to 15 mm of CO2 gas. A 5 mm trocar was placed through the umbilicus. Intra-abdominal placement was confirmed with the laparoscope. Two additional 5 mm trocars were placed in the right and left lateral flanks respectively. At this point, we bagan the hysterectomy portion of case. the fimbriated end of the fallopian tube was elevated. The mesosalpinx was cauterized and cut. The utero-ovarian ligament wascauterized and cut and the round ligaments were cauterized and cut. The ureters were identified, in the right and left lateral pelvic sidewalls, respectively. Once this was done, the broad ligament was deflected. They were . The uterine vessels were skeletonized and the anterior and posterior peritoneum was reflected caudad. The uterine vessels were cauterized in 2 distinct areas and cut, the uterus had taken on a blanching cyanotic appearance. Using a bipolar Trice loop, the uterus was amputated at the level of the internal cervical os. Transabdominal morcellation was performed in an Endo Catch bag. The morcellator was placed 2 fingerbreadths above the pubic symphysis. Care was taken not to spill any specimen outside the abdomen. The abdomen was irrigated with copious amounts of saline irrigation. Once the morcellator was removed a suprapubic 11 mm port site was then placed. Upon elevation of the vaginal apex with a tenaculum on the ectocervix complete resolution of the patient's anterior focal prolapse was observed. At this point a decision was made to proceed with a uterosacral colpopexy procedure. This would allow us to forego the use of abdominally placed mesh. The ureters were identified in the right and left lateral pelvic sidewalls and found to be at least 2 cm away from the uterosacral ligaments. A 0- [place]-Abraham suture was placed from the base of the uterosacral ligament, up the uterosacral ligament to the posterior aspect of the cervix and this was done on both sides. The [place]-Abraham sutures were then tied down with excellent elevation vaginal apex. The ureters were found to be at least 2 cm away from the uterosacral ligaments. An abdominal enterocele repair was performed by plicating the uterosacral ligaments in the midline and reefing the posterior peritoneum in a pursestring fashion. The suture was then tied down with obliteration of the posterior cul-de-sac. This would prevent any potential herniation of small bowel to the posterior compartment of the vagina. At this point, the procedure was complete, the suprapubic port site was removed and the fascia reapproximated with 0 Vicryl reapproximating the fascia. All skin incisions were closed with 4 Monocryl in a subcuticular fashion covered with a Steri-Strip and a Band-Aid. We then turned our attention to the vaginal portion of the case. The midportion of the cystocele was grasped with 2 Allis clamps. The (more content not included)... [facility] Gui Developer Detailson 2024 Gui Developer Details Gui Developer Details Entered On: 09/06/2024 22:32 EDT Performed On: 09/06/2024 22:32 EDT by Mari Samuels RN Gui Developer Details Transport Mode Order Detail EV : Wheelchair Isolation Precautions RTF : [facility] Nutrition Task to Nursing, 09/06/2024 10:37:00 EDT, Constant Order, Advance diet to home diet, Ordered Communication CONSTANT Order, 09/06/2024 10:34:00 EDT, Constant Order, Patients recovering in Critical Care, record vital signs Q10 min or more frequently for patient's condition or as per physician order. Patients do not require a PAR score (post anesthesia recovery)., Ordered Oxygen Therapy, 09/06/2024 10:34:00 EDT, Nasal Cannula, 3L, Constant Order, overnight if SpO2 less than 95%, Ordered Oxygen Therapy, 09/06/2024 10:34:00 EDT, Simple Mask, 100%, Constant Order, in PACU, wean Oxygen to room air to baseline SpO2, Ordered Post Procedure Location of Care, 09/06/2024 08:19:00 EDT, Surgical, 5E, Ordered Isolation Precaution Order Detail EV : NONE IV Order Detail - EV : Yes Oxygen Order Detail EV : Yes Order Detail EV : No Pacemaker Order Detail : 0 Gui Developer Details Review Status : Reviewed, changes made Nurse Collects Blood Specimens : No Mari Samuels RN - 09/06/2024 22:32 EDT [facility] Comment on above: Order Comment: Order entered secondary to admission Gui Developer Details Gui Developer Details Entered On: 09/06/2024 12:11 EDT Performed On: 09/06/2024 12:11 EDT by Carolin Yusuf RN Gui Developer Details Transport Mode Order Detail EV : Cart Isolation Precautions [place] : [facility] Task to Nursing, 09/06/2024 10:37:00 EDT, Constant Order, Advance diet to home diet, Ordered Communication CONSTANT Order, 09/06/2024 10:34:00 EDT, Constant Order, Patients recovering in Critical Care, record vital signs Q10 min or more frequently for patient's condition or as per physician order. Patients do not require a PAR score (post anesthesia recovery)., Ordered Oxygen Therapy, 09/06/2024 10:34:00 EDT, Nasal Cannula, 3L, Constant Order, overnight if SpO2 less than 95%, Ordered Oxygen Therapy, 09/06/2024 10:34:00 EDT, Simple Mask, 100%, Constant Order, in PACU, wean Oxygen to room air to baseline SpO2, Ordered Post Procedure Location of Care, 09/06/2024 08:19:00 EDT, Surgical, 5E, Ordered Isolation Precaution Order Detail EV : NONE IV Order Detail - EV : Yes Oxygen Order Detail EV : Yes Order Detail EV : No Pacemaker Order Detail : 0 Gui Developer Details Review Status : Reviewed, changes made Nurse Collects Blood Specimens : No Paramjit HOWARD, Carolin - 09/06/2024 12:11 EDT [facility] Comment on above: Order Comment: Order entered secondary to admission AMB UROGYN Physician Kanwal harris Noteon 08-28-2024 AMB UROGYN Physician Progress Note CARLIE NGUYEN :1970 Registration Date:08/28/2024 Chief Complaint: SURGERY EDUCATION History of Present Illness: Patient is scheduled for laparoscopic supracervical hysterectomy, bilateral salpingectomy, sacral cervical pexy with mesh, anterior repair, abdominal enterocele repair, Altis TVT?O mid urethral sling, posterior repair, perineorrhaphy and cystoscopy on September [address] Boyd. Physical Exam: Vitals & Measurements No qualifying data available. Depression Screening Scores: No Depression Screening data available for this encounter. Fall Risk Assessment: No Falls Risk Assessment data available for this encounter. Genitourinary: Vaginal bulge, pressure, leaks urine with cough, sneeze, laugh. Medication Reconciliation: What How Much When Why Instructions New acetaminophen-oxycodone (Percocet 5 mg-325 mg oral tablet) 1 Tabs Oral EVERY SIX HOURS Post-op pain Duration: 5 Days Pickup at [facility]/pharmacy #[id number] Unchanged estradiol topical (estradiol 0.1 mg/ g vaginal cream) 1 Gram Vaginal AT BEDTIME Atrophy of vagina Duration: 14 Days then twice a week , like tuesday. Pharmacy Information [facility]/pharmacy #[id number]: [address], [place] [id number] [phone] Assessment/Plan: This Visit Diagnosis 1. Complete uterovaginal prolapse N81.3 The procedure and consent were reviewed, and the pre?op and post?op instructions were explained in detail. Informational paperwork and prescriptions were given. All questions were answered. The patient has our contact information for any questions or problems that come up before her scheduled surgery. Ordered: AMB Postop followup during global period , 08/28/2024 11:51:00 EDT, Complete uterovaginal prolapse / Mixed incontinence urge and stress / Post-op pain 2. Mixed incontinence urge and stress N39.46 Ordered: AMB Postop followup during global period , 08/28/2024 11:51:00 EDT, Complete uterovaginal prolapse / Mixed incontinence urge and stress / Post-op pain Post-op pain G89.18 Ordered: acetaminophen-oxycodone( Percocet 5 mg-325 mg oral tablet), 1 tabs, ORAL, I2FIARD AMB Postop followup during global period , 08/28/2024 11:51:00 EDT, Complete uterovaginal prolapse / Mixed incontinence urge and stress / Post-op pain Problem List/Past Medical History: Ongoing [place]-Walker grade 2 cystocele Complete uterine prolapse Mixed incontinence Premature menopause Historical Oligomenorrhea Procedure/Surgical History: D and E at 18 weeks dismise. Chromosomes sent: 03/13/12 Shoulder: 02/05/11 D&C - Dilatation and curettage: 04/20/10 Cystic fibrosis: 10/05/04 Carpal tunnel syndrome: 11/18/01 Cholecystectomy: 06/20/99 colonoscopy Medications: acetaminophen-oxycodone( Percocet 5 mg-325 mg oral tablet), 1 tabs, ORAL, [id number] estradiol topical(estradiol 0.1 mg/g vaginal cream), 1 g, Vaginal, QHS, 5 refills Allergies: Avelox irritable DULoxetine Did not tolerate house dust mite allergen extract methylPREDNISolone Other montelukast Unknown (origin) moxifloxacin unknown Social History: Alcohol - Denies Alcohol Use Use:Current Frequency:1-2 times per year Home/Environment Other Name:......menopause 2016 Sexual Sexually active:Yes Substance Abuse - Denies Substance Abuse Tobacco Use:Never (less than 100 in lifetime) Family History: High blood pressure.: Mother. Ovarian cancer.: Grandmother. Health Status Family Member(s) Father: History is negative Family Member(s) Relationship: Mother, Age: Unknown Care Team Primary Care Physician SRINIVAS MASTERS [phone] Attending Physician USHA JAMESON CNP [phone] . Health Maintenance Pending (in the next year) OverDue Breast Cancer Screening due 07/04/19 and every 366 days Colorectal Screening due 11/27/23 and every 10 years Due MMR Vaccine Dose 1 due 08/28/24 One-time only Tetanus Vaccine due 08/28/24 Variable frequency Varicella Vaccine Dose 1 due 08/28/24 One-time only Satisfied (in the past 1 year) There are no satisfied recommendations within the defined date range [facility] Phone Msgon 08-28-2024 Phone Msg - From: Heather Gaston To: USHA JAMESON CNP; Sent: 08/28/2024 10:04:46 EDT Subject: P.A.T. Caller Name: CARLIE NGUYEN; Caller Number: H LEE Morales from P.A.T. called, patient was seen today, scheduled for surgery on 09/06 and does not want any blood products. ok [facility] AMB UROGYN Physician Kanwal s Noteon 08-08-2024 AMB UROGYN Physician Progress Note CARLIE NGUYEN :1970 Registration Date:08/08/2024 Chief Complaint: Uro talk History of Present Illness: 53-year-old female presents with a symptomatic stage III uterovaginal prolapse and pelvic pressure. She reports that her symptoms have been ongoing for many years and getting progressively worse. She reports pelvic pain and pain with intercourse due to her prolapse. She also reports urinary incontinence that has been getting progressively worse as well. Physical Exam: Vitals & Measurements Systolic Blood Pressure: 112 mmHg (08/08/24 15:33:00) Diastolic Blood Pressure: 62 mmHg (08/08/24:33:00) Mean Arterial Pressure: 79 mmHg (08/08/24:33:00) Height/Length Measured: 168 cm (08/08/24:33:00) Weight Measured: 89 kg (08/08/24:33:) Body Mass Index Measured: 31.53 kg/m2 (08/08/24:33:00) Ht/Wt Measurement Refused by Patient?2: No (08/08/24:33:) Depression Screening Scores: Initial Depression Screen Score: 0 (08/08/24 15:33:00) Fall Risk Assessment: Is the patient ambulatory (mobile): Yes (08/08/24:33:00) Have you had a fall within the past: No (08/08/24:33:00) Have you had 2 or more falls in the past: No (08/08/24 15:33:00) Stage III uterovaginal prolapse; stage III cystocele; cough stress test negative; vaginal atrophy present Medication Reconciliation: What How Much When Why Instructions Unchanged estradiol topical (estradiol 0.1 mg/ g vaginal cream) 1 Gram Vaginal AT BEDTIME Atrophy of vagina Duration: 14 Days then twice a week , like tuesday. Assessment/Plan: This Visit Diagnosis 1. Complete uterine prolapse N81.3 Exam findings, urodynamic results, and treatment options were discussed in detail with the patient. Her symptoms and exam findings are consistent with stress urinary incontinence and pelvic organ prolapse. We discussed various surgical and nonsurgical management options including pessary use, pelvic floor rehabilitation, and reconstructive surgery. In terms of surgery, vaginal and laparoscopic approaches were considered. She feels that her condition is severe enough to consider surgical correction. Risks and benefits of the surgery were explained in detail and further information was provided. Stage III uterovaginal prolapse recommended laparoscopic procedure with the use of mesh to correct her condition Ordered: AMB Office/Outpt Est Pt Mod MDM / 30 min [id number], 08/08/2024 16:37:00 EST, Complete uterine prolapse / Mixed incontinence 2. Mixed incontinence N39.46 Exam findings, urodynamic results, and treatment options (including pelvic muscle exercises) were discussed in detail with the patient and she would like to proceed with surgical correction of her stress incontinence. Various anti-incontinence procedures were discussed and she has decided to proceed with the surgery as noted. The risks and benefits of the surgery were discussed in detail and the consent form was signed. Ordered: AMB Office/Outpt Est Pt Mod MDM / 30 min [id number], 08/08/2024 16:37:00 EST, Complete uterine prolapse / Mixed incontinence Orders: AMB CMG w voiding & urethral pressures [id number] Interpretation, 08/08/2024 12:43:00 EST, Mixed incontinence urge and stress, 1 AMB Complex UFR (eg, calibrated equipment) [id number] Interpretation, 08/08/2024 12:43:00 EST, Mixed incontinence urge and stress, 1 AMB EMG anal/urethral sphincter, not needle [id number] Interpretation, 08/08/2024 12:43:00 EST, Mixed incontinence urge and stress, 1 AMB Voiding pressure studies, intra-abd [id number] Interpretation, 08/08/2024 12:43:00 EST, Mixed incontinence urge and stress, 1 Problem List/Past Medical History: Ongoing [place]-Walker grade 2 cystocele Premature menopause Historical Oligomenorrhea Procedure/Surgical History: D and E at 18 weeks dismise. Chromosomes sent: 03/13/12 Shoulder: 02/05/11 D&C - Dilatation and curettage: 04/20/10 Cystic fibrosis: 10/05/04 Carpal tunnel syndrome: 11/18/01 Cholecystectomy: 06/20/99 colonoscopy Medications: estradiol topical(estradiol 0.1 mg/g vaginal cream), 1 g, Vaginal, QHS, 5 refills Allergies: Avelox irritable DULoxetine house dust mite allergen extract methylPREDNISolone Other montelukast Unknown (origin) moxifloxacin Social History: Alcohol - Denies Alcohol Use Home/Environment Other Name:......menopause 2016 Sexual Sexually active:Yes Substance Abuse - Denies Substance Abuse Tobacco Use:Never (less than 100 in lifetime) Family History: High blood pressure.: Mother. Ovarian cancer.: Grandmother. Health Status Family Member(s) Care Team Primary Care Physician WILLEM HANKINS [phone] Attending Physician LUIS BOYD MD [phone] . Health Maintenance Pending (in the next year) OverDue Breast Ca (more content not included)... 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 Hightower C/O MANNY does not wear pads for leakage. C/O pelvic pain above pubic bone for 1 week. H/O colonoscopy showing Diverticulitis History of Present Illness New patient referral from Dr. Hightower for pelvic pain and incontinence. The patient states she has had pain on and off for about a week in the pubic area and now has a little bit of a rash. She did have a pelvic ultrasound that was normal. He has no constipation but she did take stool softeners and felt as though that may have helped some of her discomfort. She feels like she gets severe birthing cramps, admits to feeling a bulge in the vaginal area. Admits to leaking with cough, sneeze, exercise. Does have some urgency and frequency admits to getting up 3 times at night. She is sexually active and admits to pain with intercourse she had 6 vaginal deliveries no tears. Her last period was about 15 years ago, she has done pelvic floor physical therapy in the past. Physical Exam Vitals & Measurements Systolic Blood Pressure: 134 mmHg High (07/26/24 13:38:00) Diastolic Blood Pressure: 86 mmHg High (07/26/24 13:38:00) Mean Arterial Pressure: 102 mmHg (07/26/24 13:38:00) Height/Length Measured: 168 cm (07/26/24 13:38:00) Weight Measured: 89 kg (07/26/24 13:38:00) Body Mass Index Measured: 31.53 kg/m2 (07/26/24 13:38:00) Weight Measured - lbs2: 196.2 lb (07/26/24:38:00) Height/Length Measured - in2: 66 in (07/26/24:38:00) Body Mass Index Measured English2: 31.66 kg/m2 (07/26/24:38:00) BSA: 2.03 m2 (07/26/24:38:00) Ht/Wt Measurement Refused by Patient?2: No (07/26/24:38:00) Depression Screening Scores Initial Depression Screen Score: 0 (07/26/24:38:00) Fall Risk Assessment Is the patient ambulatory (mobile): Yes (07/26/24:38:) Have you had a fall within the past: No (07/26/24:38:) Have you had 2 or more falls in the past: No (07/26/24:38:) Neuro Exam -sensation intact Urethra- normal urethral meatus Empty Supine Stress Test- no leak Vaginal Atrophy- No Pop Q with a cervix- Genital Hiatus 4, perineal body 3, total vaginal length 10, most distal edge of cervix -2, posterior fornix -6, anterior vaginal wall +1, Most distal position of the remaining upper anterior vaginal wall or Ba +1, Posterior vaginal wall -1, Most distal portion of the remaining upper posterior vaginal wall or Bp -1 Uterus- yes 4 weeks in size Fibroids- no Adnexal Masses- no Levator Ani Muscle Testing- hypertonic Rectal Exam-deferred Medication Reconciliation What How Much When Why Instructions Unchanged estradiol topical (estradiol 0.1 mg/ g vaginal cream) 1 Gram Vaginal AT BEDTIME Atrophy of vagina Duration: 14 Days then twice a week , like tuesday. Assessment/Plan This Visit Diagnosis 1. Complete uterovaginal prolapse N81.3 Complete uterovaginal prolapse seen on examination. When patient bears down her cervix is almost to the opening. Recommend urodynamic testing and follow-up with Dr. Boyd to discuss treatment options. We briefly discussed pessary patient is interested in surgical correction at this time. Ordered: AMB CMG w voiding & urethral pressures 53903, 07/26/2024, Future Order, Mixed incontinence urge and stress / Rectocele / Midline cystocele / Complete uterovaginal prolapse, 1 AMB Complex UFR (eg, calibrated equipment) [id number], 07/26/2024, Future Order, Complete uterovaginal prolapse / Midline cystocele / Mixed incontinence urge and stress, 1 AMB EMG anal/urethral sphincter, not needle [id number], 07/26/2024, Future Order, Complete uterovaginal prolapse / Midline cystocele / Mixed incontinence urge and stress, 1 AMB Office/Outpt New Pt Mod MDM / 45 min [id number], 07/26/2024 14:43:00 EST, Complete uterovaginal prolapse / Midline cystocele / Rectocele / Mixed incontinence urge and stress AMB Voiding pressure studies, intra-abd 97854, 07/26/2024, USHA JAMESON CNP, Future Order, Complete uterovaginal prolapse / Midline cystocele / Mixed incontinence urge and stress, 1 2. Midline cystocele N81.11 As above Ordered: AMB CMG w voiding & urethral pressures [id number], 07/26/2024, Future Order, Mixed incontinence urge and stress / Rectocele / Midline cystocele / Complete uterovaginal prolapse, 1 AMB Complex UFR (eg, calibrated equipment) [id number], 07/26/2024, Future Order, Complete uterovaginal prolapse / Midline cystocele / Mixed incontinence urge and stress, 1 AMB EMG anal/urethral sphincter, not needle [id number], 07/26/2024, Future Order, Complete uterovaginal prolapse / Midline cystocele / Mixed incontinence urge and stress, 1 AMB Office/Outpt New Pt Mod MDM / 45 min [id number], 07/26/2024 14:43:00 EST, Complete uterovaginal prolapse / Midline cystocele / Rectocele / Mixed incontinence urge and stress AMB Voiding pressure studies, intra-abd [id number], 07/26/2024, USHA JAMESON CNP, Future Order, Complete uterov (more content not included)... Normal [facility] Ambulatory Clinical Summaryo n 07-26-2024 Ambulatory Clinical Summary MENDEZASHISHBLANECARLIE LUKE Vernell :1970 Registration Date:07/26/2024 Ambulatory Visit Instructions Your Care Team Attending Physician - USHA JAMESON CNP Primary Care Physician - WILLEM HANKINS Procedures Performed D and E at 18 weeks dismise. Chromosomes sent (03/13/2012) Shoulder (02/05/2011) D&C - Dilatation and curettage (04/20/2010) Cystic fibrosis (10/05/2004) Carpal tunnel syndrome (11/18/2001) Cholecystectomy (06/20/1999) colonoscopy Discharge Vitals Blood Pressure 134/ 86 Height 66.14 in (168 cm) Weight 196.24 lb (89 kg) BMI 31.53 Systolic Blood Pressure: 134 mmHg High (07/26/24 13:38:00) Diastolic Blood Pressure: 86 mmHg High (07/26/24 13:38:00) Mean Arterial Pressure: 102 mmHg (07/26/24 13:38:00) Height/Length Measured: 168 cm (07/26/24 13:38:00) Weight Measured: 89 kg (07/26/24 13:38:00) Body Mass Index Measured: 31.53 kg/m2 (07/26/24 13:38:00) Weight Measured - lbs2: 196.2 lb (07/26/24 13:38:00) Height/Length Measured - in2: 66 in (07/26/24 13:38:00) Body Mass Index Measured English2: 31.66 kg/m2 (07/26/24 13:38:00) BSA: 2.03 m2 (07/26/24 13:38:00) Ht/Wt Measurement Refused by Patient?2: No (07/26/24 13:38:00) What to do next Scheduled Follow-Up Appointments Appointment Type Reason for visit Day With Date Time Where City&State Urodynamic Test UDS Tuesday Usha Jameson CNP July 31, 2024 08:20 am EDT [facility] [id number] [id number] Uro Talk URO TALK Tuesday Luis Boyd MD August 08, 2024 03:50 pm EDT [facility] [address] [id number] Medications What How Much When Why Instructions Unchanged estradiol topical (estradiol 0.1 mg/ g vaginal cream) 1 Gram Vaginal AT BEDTIME Atrophy of vagina Duration: 14 Days then twice a week , like tuesday. Allergies Avelox irritable DULoxetine house dust mite allergen extract methylPREDNISolone Other montelukast Unknown (origin) moxifloxacin Problems Ongoing - Any problem that you are currently receiving treatment for. [place]-Walker grade 2 cystocele Premature menopause Common Emergency Awareness Tips IS IT A STROKE? Act FAST and Check for these signs: FACE Does the face look uneven? ARM Does one arm drift down? SPEECH Does their speech sound strange? TIME Call at any sign of stroke Heart Attack Signs Chest discomfort: Most heart attacks involve discomfort in the center of the chest and lasts more than a few minutes, or goes away and comes back. It can feel like uncomfortable pressure, squeezing, fullness or pain. Discomfort in upper body: Symptoms can include pain or discomfort in one or both arms, back, neck, jaw or stomach. Shortness of breath: With or without discomfort. Other signs: Breaking out in a cold sweat, nausea, or lightheaded. Remember, MINUTES DO MATTER. If you experience any of these heart attack warning signs, call to get immediate medical attention! 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 C/O pelvic pain above pubic bone for 1 week. H/O colonoscopy showing Diverticulitis Advance Directive : No Menstrual Status : Postmenopausal Bladder Control Issues? : Yes Urine Leakage? : Yes Presence or absence of urinary incontinence assessed : Yes CPT-II Medication list doc'd in medical record : Yes Influenza immunization administered or previously received : No Pneumococcal vaccine administered or previously received : No Adalberto Huitron MA - 07/26/2024 13:38 EST Measurements Ht/Wt Measurement Refused by Patient? : No Weight Measured : 89 kg(Converted to: 196 lb 3 oz, 196.211 lb) Height/Length Measured : 168 cm(Converted to: 5 ft 6 in, 66.14 in) Body Mass Index Measured : 31.53 kg/m2 Body Mass Index documented : Yes Weight Measured - lbs : 196.2 lb(Converted to: 196 lb 3 oz, 89 kg) Height/Length Measured - in : 66 in(Converted to: 5 ft 6 in, 168 cm) Body Mass Index Measured [place] : 31.66 kg/m2 BSA [place] : 2.03 m2 Adalberto Huitron MA - 07/26/2024 13:38 EST Vitals Require BP : Yes Systolic Blood Pressure : 134 mmHg (HI) Diastolic Blood Pressure : 86 mmHg (HI) Mean Arterial Pressure : 102 mmHg Last Systolic BP : 130-139 mmHg Last Diastolic BP : 80-89 mmHg Pain Present : No actual or suspected pain Pain : 6 Pain severity quantified : No pain present Adalberto Huitron MA - 07/26/2024 13:38 EST Infection Screening Travel outside [place] within past 21 days : No Positive COVID test in the last 10 days? : No Exposure to and/or close contact with a person who has a laboratory-confirmed COVID test within the last 48 hours. : No Adalberto Huitron MA - 07/26/2024 13:38 EST Depression Screening Is patient currently : None of the Below Feeling Down, Depressed, Hopeless : Not at all Little Interest - Pleasure in Activities : Not at all Initial Depression Screen Score : 0 Depression Screening Score 0 : No Adalberto Huitron MA - 07/26/2024 13:38 EST Falls Risk Assessment Is the patient ambulatory (mobile) : Yes Have you had 2 or more falls in the past year : No Have you had a fall within the past year that has caused an injury : No Patient screen for fall risk : no falls in last year OR 1 fall with no injury in last year Adalberto Huitron MA - 07/26/2024 13:38 EST Normal [facility] Phone Msgon 07-24-2024 Phone Msg - From: JONAS HIGHTOWER MD To: CARLIE NGUYEN Sent: 06/26/2024 16:35:22 EST Subject: results your ultrasound shows you are emptying your bladder all the way and also no cause for pain. you have a tiny fibroid on your uterus, but too small to cause symptoms. From: Lauri Barrow MAa To: Taylor TRUJILLO Tania; Sent: 07/24/2024 11:23:03 EST Subject: FW: results Patient called for results was given message below, she mentioned she had pain above the pubic bone area to the left lasting four day's that was tender to the touch and could not walk. At the time the pain was consistent even reached a level 10 the it started to alternate up and down the scale. Pt said she is 75-80% better and would like to know since she still have pain with tenderness is there anything Dr. BOYD recommend. Please advise. Patient [phone] From: Tania Vazquez MA To: Danial TRUJILLO Ramon; Sent: 07/24/2024 11:33:32 EST Subject: RE: results Caller Name: CARLIE NGUYEN; Caller Number: H Schedule her with Usha from UROGYN. for an evaluation. Appt. was made with Gisell. 07/26/24 @ 1:20pm STR. [facility] US BLADDER ECHOon 06-22-2024 US BLADDER ECHO US BLADDER CLINICAL STATEMENT: suprapubic pain, urinary frequency, cystocele and incont.;INCONTINENCE COMPARISON: CT abdomen pelvis 07/09/2015 FINDINGS: Prevoid bladder volume is 648 mL. Postvoid bladder volume is 17 mL. The bladder appears unremarkable. IMPRESSION: Prevoid bladder volume of 648 mL without a significant post void residual. Electronically signed by: Cali Lares MD 06/22/2024 12:14 PM EST [facility] Comment on above: Order Comment: Order ed on Fin# [id number] Result Comment: Tech nologist: ZND Dictated By: CALI LARES MD Signed By: CALI LARES MD Signed Out: 06/22/24 12:14:10 US PELVIS TV ECHOon 06-22-19 US PELVIS TV ECHO US PELVIS TRANSABDOM INAL AND TRANSVAGINAL CLINICAL STATEMENT: suprapubic pain for a mos;OTHER REASON COMPARISON: 07/15/2015 FINDINGS: The uterus is anteverted in position and measures 6.7 x 4.0 x 2.9 cm with an endometrial thickness of 2.1 mm. The myometrium is heterogeneous. Nabothian cysts are identified. A 1.8 x 1.4 x 2.0 cm hyperechoic mass is seen. The right ovary measures 1.7 x 1.9 x 0.8 cm. The left ovary measures 2.1 x 1.9 x 1.4 cm. IMPRESSION: 2 cm hyperechoic uterine mass most likely represents a small fibroid. Electronically signed by: Cali Lares MD 06/22/2024 12:19 PM EST RP Normal [facility] Comment on above: Order Comment: Order ed on [facility]# [id number] Result Comment: Tech nologist: ZND Dictated By: CALI LARES MD Signed By: CALI LARES MD Signed Out: 06/22/24 12:19:21 Phone Msgon 05-22-2024 Phone Msg - From: JONAS HIGHTOWER MD To: CARLIE NGUYEN Sent: 05/22/2024 16:51:00 EST Subject: results good news! your pap and hpv test are both negative. Results: Date Result Name Value 05/11/2024 10:50 THINPREP TIS PAP SEE COMMENT Normal [facility] THIN PREP IMAGE SEND OUTon 1 07-22-2023 THINPREP TIS PAP SEE COMMENT Normal [facility] Comment on above: Order Comment: Order ed on [facility]# [id number] Result Comment: THIN PREP TIS PAP Lab: [facility] CLINICAL INFORMATION: None given LMP: None given prev. Pap: None given prev. Bx: None given SOURCE: None given STATEMENT OF ADEQUACY: SATISFACTORY FOR EVALUATION INTERPRETATION/RESULT: Cytology Results: Negative for intraepithelial lesion or malignancy. Atrophic pattern; predominantly parabasal cells COMMENT: This case could not be evaluated with computer assisted technology. The slide was manually screened according to routine procedures. Parabasal cells in smears that lack maturation due to atrophy or other hormonal reasons cannot be differentiated from transformation zone cells. Accordingly, presence or absence of endocervical or transformation zone components cannot be reported in this patient. PIANO ACCOMPANIST: ANDRÉS FUNEZ(ASCP) CT Screening Location: [facility] ([facility] [employer] [place] [address] For questions contact Anatomic Pathology Client Services at [phone] EXPLANATORY NOTE: The Pap is a screening test for cervical cancer. It is not a diagnostic test and is subject to false negative and false positive results. It is most reliable when a satisfactory sample, regularly obtained, is submitted with relevant clinical findings and history, and when the Pap result is evaluated along with historic and current clinical information. PERFORMING SITE: [facility] [address] [address] Broke Beater Operator: ELPIDIO BROWN MD, CLIA: [id number] Performed By: #### C [id number] ####[facility] [id number] [place] [address] Medical Director: Akil Sunshine MD GP HPVon 05-15-2024 GP HPV Negative Normal [facility] Comment on above: Order Comment: Order ed on Fin# [id number] Result Comment: This HPV assay is being performed via a second generation NAAT that utilizes target capture, infantry unit leader mediated amplification and dual kenetic assay technologies. Performed By: #### C [id number] #### [facility] Services [address] [place] [address] Flat Sorter Processor: Akil Sunshine MD AMB Urinalysis Dipstick POC [id number] 05-11-2024 AMB Urinalysis Dipstick POC [id number] Urine Dipstick Entered On: 05/11/2024 10:38 EST Performed On: 05/11/2024 10:38 EST by Tania Vazquez MA Urine Dipstick Urine Color Urine Dipstick : Pale yellow Urine Appearance Urine Dipstick : Clear Glucose Urine Dipstick : Negative Bilirubin Urine Dipstick : Negative Ketones Urine Dipstick : Negative Specific [place] Urine Dipstick : 1.005 Blood Urine Dipstick : Negative pH Urine Dipstick : 6 Protein Urine Dipstick : Negative Urobilinogen Urine Dipstick : 0.2 mg/dl Nitrite Urine Dipstick : Negative Leukocytes Urine Dipstick : Negative Tania Vazquez MA - 05/11/2024 10:38 EST Normal [facility] Physician Progress No pascual 05-11-2024 [facility] Physician Progress Note CARLIE NGUYEN :1970 Registration Date:05/11/2024 Assessment/Plan This Visit Diagnosis 1. Pain pelvic R10.2 check PVR Ordered: AMB Preventive New Age 40-64 [address], 05/11/2024 09:28:00 EST, Well woman exam with routine gynecological exam / UTI symptoms / Pain pelvic / Deep dyspareunia in female / Atrophy of vagina / Cervical cancer screening / Screening for HPV (human papillomavirus) / Premature menopause / Frequ... US BLADDER ECHO, 05/11/2024, Routine, INCONTINENCE, suprapubic pain, urinary frequency, cystocele and incont., Cart, Isolation Precautions: NONE, DO PVR, Pain pelvic / Frequent urinary incontinence US PELVIS TV ECHO, 05/11/2024, Routine, OTHER REASON, suprapubic pain for a mos, Cart, Isolation Precautions: NONE, Pain pelvic 2. Frequent urinary incontinence N39.498 Ordered: AMB Ancillary Order - Pelvic Floor Therapy, 05/11/2024, Order For Future Visit AMB Preventive New Age 40-64 [address], 05/11/2024 09:28:00 EST, Well woman exam with routine gynecological exam / UTI symptoms / Pain pelvic / Deep dyspareunia in female / Atrophy of vagina / Cervical cancer screening / Screening for HPV (human papillomavirus) / Premature menopause / Frequ... US BLADDER ECHO, 05/11/2024, Routine, INCONTINENCE, suprapubic pain, urinary frequency, cystocele and incont., Cart, Isolation Precautions: NONE, DO PVR, Pain pelvic / Frequent urinary incontinence 3. Deep dyspareunia in female N94.12 Ordered: AMB Ancillary Order - Pelvic Floor Therapy, 05/11/2024, Order For Future Visit AMB Preventive New Age 40-64 [address], 05/11/2024 09:28:00 EST, Well woman exam with routine gynecological exam / UTI symptoms / Pain pelvic / Deep dyspareunia in female / Atrophy of vagina / Cervical cancer screening / Screening for HPV (human papillomavirus) / Premature menopause / Frequ... 4. 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 5. Cervical cancer screening Z12.4 Ordered: AMB Preventive New Age 40-64 [address], 05/11/2024 09:28:00 EST, Well woman exam with routine gynecological exam / UTI symptoms / Pain pelvic / Deep dyspareunia in female / Atrophy of vagina / Cervical cancer screening / Screening for HPV (human papillomavirus) / Premature menopause / Frequ... 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 Screening for HPV (human papillomavirus) Z11.51 Ordered: AMB Preventive New Age 40-64 [address], 05/11/2024 09:28:00 EST, Well woman exam with routine gynecological exam / UTI symptoms / Pain pelvic / Deep dyspareunia in female / Atrophy of vagina / Cervical cancer screening / Screening for HPV (human papillomavirus) / Premature menopause / Frequ... 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 Premature menopause E28.319 Ordered: AMB Preventive New Age 40-64 [address], 05/11/2024 09:28:00 EST, Well woman exam with routine gynecological exam / UTI symptoms / Pain pelvic / Deep dyspareunia in female / Atrophy of vagina / Cervical cancer screening / Screening for HPV (human papillomavirus) / Premature menopause / Frequ... 8. Well woman exam with routine gynecological exam Z01.419 declines mamm. Ordered: AMB Preventive New Age 40-64 [address]873, 05/11/2024 09:28:00 EST, Well woman exam with routine gynecological exam / UTI symptoms / Pain pelvic / Deep dyspareunia in female / Atrophy of vagina / Cervical cancer screening / Screening for HPV (human papillomavirus) / Premature menopause / Frequ... 9. UTI symptoms R39.9 u/a in office neg. [facility]. Ordered: AMB Preventive New Age 40-64 [address], 05/11/2024 09:28:00 EST, Well woman exam with routine gynecological exam / UTI symptoms / Pain pelvic / Deep dyspareunia in female / Atrophy of vagina / Cervical cancer screening / Screening for HPV (human papillomavirus) / Premature menopause / Frequ... 10. [place]-Walker grade 2 cystocele N81.10 will try pt and if that doesnt hlep or if has a high PVR, then try pessary. Ordered: AMB Ancillary Order - Pelvic Floor Therapy, 05/11/2024, Order For Future Visit Medication Reconciliation What How Much When Why Instructions New estradiol topical (estradiol 0.1 mg/ g vaginal cream) 1 Gram Vaginal AT BEDTIME Atrophy of vagina Duration: 14 Days Refills: 5 then twice a week , like tuesday. Pickup at [id number] Pharmacy Information [id number]: [address], [place] [phone] Chief Complaint Annual ex (more content not included)... Normal [facility] Comprehensive Intake - Texto n 05-11-2024 Comprehensive Intake - Text Comprehensive Intake Entered On: 05/11/2024 9:13 EST Performed On: 05/11/2024 9:11 EST by Tania Vazquez MA Summary Chief Complaint : Annual exam/PAP/Mammogram order. Last seen in . pt complaining of pelvic pain with slight urinary leakage, vaginal dryness and pain with intercourse. LMP- 15 years ago Advance Directive : No Menstrual Status : Postmenopausal Bladder Control Issues? : No Urine Leakage? : Yes Presence or absence of urinary incontinence assessed : Yes CPT-II Medication list doc'd in medical record : Yes Influenza immunization administered or previously received : No Pneumococcal vaccine administered or previously received : No Tania Vazquez MA 05/11/2024 9:11 EST Measurements Ht/Wt Measurement Refused by Patient? : No Weight Measured : 84 kg(Converted to: 185 lb 3 oz, 185.188 lb) Height/Length Measured : 168 cm(Converted to: 5 ft 6 in, 66.14 in) Body Mass Index Measured : 29.76 kg/m2 Body Mass Index documented : Yes Weight Measured - lbs : 185 lb(Converted to: 185 lb 0 oz, 84 kg) Tania Vazquez MA - 05/11/2024 9:11 EST Vitals Require BP : Yes Systolic Blood Pressure : 124 mmHg (HI) Diastolic Blood Pressure : 66 mmHg Mean Arterial Pressure : 85 mmHg Last Systolic BP : less than 130 mmHg Last Diastolic BP : less than 80 mmHg Pain Present : No actual or suspected pain Pain : 0 Pain severity quantified : No pain present Tania Vazquez MA - 05/11/2024 9:11 EST Infection Screening Travel outside [place] within past 21 days : No Positive COVID test in the last 10 days? : No Exposure to and/or close contact with a person who has a laboratory-confirmed COVID test within the last 48 hours. : No Tania Vazquez MA 05/11/2024 9:11 EST Depression Screening Is patient currently : None of the Below Feeling Down, Depressed, Hopeless : Not at all Little Interest - Pleasure in Activities : Not at all Initial Depression Screen Score : 0 Depression Screening Score 0 : No Tania Vazquez MA - 05/11/2024 9:11 EST Problems (As Of: 05/11/2024 09:13:07 EST) Blood Products Anesthesia/Transfusions : Prior anesthesia, Prior anesthesia reaction Type of Anesthesia Reaction : nausea Tania Vazquez MA 05/11/2024 9:11 EST Family History Family History (As Of: 05/11/2024 09:13:08 EST) Mother: Relation: Mother ; Gender: Female ; Nomenclature: High blood pressure. ; Value: Positive Grandmother: Maternal Full Name: Maternal ; Relation: Grandmother ; Nomenclature: Ovarian cancer. ; Value: Positive Social History Social History (As Of: 05/11/2024 09:13:08 EST) Alcohol: Denies Alcohol Use (Last Updated: 02/14/2014 11:58:47 EDT by Rachael Tomas ) Tobacco: Never smoker (Last Updated: 02/14/2014 11:58:43 EDT by Rachael Tomas) Substance Abuse: Denies Substance Abuse (Last Updated: 02/14/2014 11:58:48 EDT by Rachael Tomas ) Home/Environment: Comments: 02/14/2014 11:59 - Rachael Tomas: Feels safe at home (Last Updated: 02/14/2014 11:59:00 EDT by Rachael Tomas) Other: ......menopause 2015 (Last Updated: 06/24/2017 13:05:33 EST by Mari Field MA) Sexual: Sexually active: Yes. 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 Entered On : 05/10/2024 15:01 EST Performed On: 05/10/2024 15:00 EST by Tania Vazquze MA [employer] WORKER Screenings Date of Last Pap Smear : 07/07/2015 Last Pap Result : Negative Last Pap Result Comment : HPV NEG Date of Last Mammogram : 07/03/2018 Last Mammography Result : Benign Last Mammography Result Comment : CAT 1 Tania Vazquez MA - 05/10/2024 15:00 EST Normal [facility] XR ANKLE RIGHT 3+ VIEWS (STA NDARD)on 07-14-2023 XR ANKLE RIGHT 3+ VIEWS (STANDARD) Xray 3 views right ankle - there is no signs of fracture or dislocation Dictated by: AVELINO CALDERON on TueJul 14, 2023 4:03:51 PM EST Transcribed by: AVELINO CALDERON on TueJul 14, 2023 4:03:51 PM EST Finalized by: AVELINO CALDERON on TueJul 14, 2023 4:03:51 PM EST [facility] [place] Comment on above: Order Comment: Injur y/Trauma or Illness?:Injury/Trauma How long have you had these symptoms (acute/chronic)?:Acute Reason for exam?:pain History of cancer?:u Surgeries, chemotherapy, or radiation?:u Type of Exam?:Initial Mechanism of injury?:sat on foot XR FOOT RIGHT 3+ VIEWS (OG DARD)on 07-14-2023 XR FOOT RIGHT 3+ VIEWS (STANDARD) X-rays 3 views right foot: There is an inferior calcaneal heel spur. 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 No signs of stress fracture or tumor. Patient has contracted second and third proximal interphalangeal joints. The second metatarsal al joint has an effusion. Dictated by: AVELINO CALDERON on TueJul 14, 2023 5:52:30 PM EST Transcribed by: AVELINO CALDERON on TueJul 14, 2023 5:52:30 PM EST Finalized by: AVELINO CALDERON on TueJul 14, 2023 5:52:30 PM EST [facility] Comment on above: Order Comment: Injur y/Trauma or Illness?:Injury/Trauma How long have you had these symptoms (acute/chronic)?:Acute Reason for exam?:pain History of cancer?:u Surgeries, chemotherapy, or radiation?:u Type of Exam?:Initial Mechanism of injury?:sat on her foot CT ABDOMEN PELVIS W CONTRAST on 09-08-2022 CT ABDOMEN PELVIS W CONTRAST Patient Name: CARLIE NGUYEN : 1970 [facility]#: [id number] Exam Date/Time: 09/08/2022 12:38 Procedure: CT ABDOMEN PELVIS W CONTRAST Ordering Provider: CHATTERJEE DAVID Reason For Exam: R10.13/R19.4/K62.5 CT ABDOMEN AND PELVIS WITH CONTRAST CLINICAL INDICATION: Abdominal pain Axial CT images of the abdomen and pelvis were acquired after the administration of intravenous contrast. 75 ml of Isovue-370 contrast was given intravenously. Oral contrast was also given for this examination. Dose reduction was employed with automated exposure control. COMPARISON: None FINDINGS: The gallbladder has been removed. The liver, spleen, pancreas, adrenal glands and kidneys appear within normal limits. The abdominal aorta is normal in caliber. There is no retroperitoneal, pelvic, or inguinal lymphadenopathy. The urinary bladder appears grossly normal. The uterus does not appear enlarged. Diverticulosis of the distal colon is noted. The large and small bowel otherwise appears within normal limits without evidence of wall thickening or dilatation. The appendix appears normal. There is no free fluid within the abdomen or pelvis. There is no free air under the diaphragm. The visualized portion of the lung bases appear clear. No lytic or blastic lesions are seen on the bone windows. IMPRESSION: No acute findings are seen on this examination to explain the patient's pain. Mild colonic diverticulosis without evidence of diverticulitis. Report Dictated on Electronically Signed By: Daniel Herndon Electronically Signed Date/Time: 09/08/2022 1:30 PM EDT [facility] CT Abdomen and Pelvis W cont rast Yanni 09-08-2022 No acute findings are seen on this examination to explain the patient's pain. Mild colonic diverticulosis without evidence of diverticulitis. Report Dictated on Electronically Signed By: Daniel Herndon Electronically Signed Date/Time: 09/08/2022 1:30 PM EDT [facility] RADIOLOGY SYSTEM [facility] Name[facility] 1970 [id number] Exam Date/Time: 09/08/2022 12:38 Procedure: CT ABDOMEN PELVIS W CONTRAST Ordering Provider: CHATTERJEE DAVID Reason For Exam: R10.13/R19.4/K62.5 CT ABDOMEN AND PELVIS WITH CONTRAST CLINICAL INDICATION: Abdominal pain Axial CT images of the abdomen and pelvis were acquired after the administration of intravenous contrast. 75 ml of Isovue-370 contrast was given intravenously. Oral contrast was also given for this examination. Dose reduction was employed with automated exposure control. COMPARISON: None FINDINGS: The gallbladder has been removed. The liver, spleen, pancreas, adrenal glands and kidneys appear within normal limits. The abdominal aorta is normal in caliber. There is no retroperitoneal, pelvic, or inguinal lymphadenopathy. The urinary bladder appears grossly normal. The uterus does not appear enlarged. Diverticulosis of the distal colon is noted. The large and small bowel otherwise appears within normal limits without evidence of wall thickening or dilatation. The appendix appears normal. There is no free fluid within the abdomen or pelvis. There is no free air under the diaphragm. The visualized portion of the lung bases appear clear. No lytic or blastic lesions are seen on the bone windows. [facility] Daniel Herndon MD - 09/08/2022 Patient Name: CARLIE NGUYEN : 1970 [facility]#: [id number] Exam Date/Time: 09/08/2022 12:38 Procedure: CT ABDOMEN PELVIS W CONTRAST Ordering Provider: CHATTERJEE DAVID Reason For Exam: R10.13/R19.4/K62.5 CT ABDOMEN AND PELVIS WITH CONTRAST CLINICAL INDICATION: Abdominal pain Axial CT images of the abdomen and pelvis were acquired after the administration of intravenous contrast. 75 ml of Isovue-370 contrast was given intravenously. Oral contrast was also given for this examination. Dose reduction was employed with automated exposure control. COMPARISON: None FINDINGS: The gallbladder has been removed. The liver, spleen, pancreas, adrenal glands and kidneys appear within normal limits. The abdominal aorta is normal in caliber. There is no retroperitoneal, pelvic, or inguinal lymphadenopathy. The urinary bladder appears grossly normal. The uterus does not appear enlarged. Diverticulosis of the distal colon is noted. The large and small bowel otherwise appears within normal limits without evidence of wall thickening or dilatation. The appendix appears normal. There is no free fluid within the abdomen or pelvis. There is no free air under the diaphragm. The visualized portion of the lung bases appear clear. No lytic or blastic lesions are seen on the bone windows. IMPRESSION: No acute findings are seen on this examination to explain the patient's pain. Mild colonic diverticulosis without evidence of diverticulitis. Report Dictated on Electronically Signed By: Daniel Herndon Electronically Signed Date/Time: 09/08/2022 1:30 PM EDT [facility] Study observation (narrative) [facility] CT Abdomen and Pelvis W cont rast IVOrdered By: Daniel Herndon on 09-08-2022 [facility] Work Phone: XR FOOT RIGHT 3+ VIEWS (OG AUGUSTIN)on 07-19-2022 XR FOOT RIGHT 3+ VIEWS (STANDARD) No acute fractures or dislocations noted to the plantar calcaneus. Large calcaneal enthesophyte noted. Joint space narrowing noted to the first metatarsophalangeal joint with spurring Dictated by: OMEGA BOURNE on TueJul 19, 2022 2:51:09 PM EST Transcribed by: OMEGA BOURNE on TueJul 19, 2022 2:51:09 PM EST Finalized by: OMEGA BOURNE on TueJul 19, 2022 2:51:09 PM EST Normal [facility] Comment on above: Order Comment: Injur y/Trauma or Illness?:Injury/Trauma How long have you had these symptoms (acute/chronic)?:Acute Reason for exam?:pain History of cancer?:u Surgeries, chemotherapy, or radiation?:u Type of Exam?:Initial Mechanism of injury?:runing on uneven ground Yahaira 01-14-2022 [facility] Telephone ([id number]) -------- CARLIE NGUYEN (475) 1970 F Date Time Provider Department 01/14/22 WILLEM HANKINS [id number] During your visit today, we recorded the following information about you: Adalberto Parnell 01/14/2022 3:46 PM Signed Patient said they moved to [facility] an was wondering if there was someone you can refer out that way for a new PCP. Adalberto Parnell 01/14/2022 4:27 PM Signed Advised patient Allergies As of Date: 01/14/2022 Noted Allergy Reaction AVALOX (MOXIFLOXACIN) 08/23/2012 1 - Mental Status Change CYMBALTA (DULOXETINE) 09/06/2015 12 - Shortness of Breath DUST MITES 08/23/2012 12 - Shortness of Breath Comments: patient states allergic to cats, dogs, grass, mole as well and these all trigger her asthma METHYLPREDNISOLONE 01/31/2019 14 - Other: See Comments Comments: Eye pain MONTELUKAST 01/08/2019 16 - Unknown Date Reviewed: 11/27/2019 Reviewed by: Trell Ruiz - Fully Assessed Reason for Visit: Patient Question [3897] Prescriptions as of 01/14/2022 - MULTIVITAMIN TAB Take one(1) tablet daily. Meds Comments as of 08/23/2012: patient gets weekly allergy injections at [facility] [place] Problem List As Of Date 01/14/2022 Noted Resolved ABN GLUCOSE-ANTEPARTUM [O99.810] 02/03/2007 EXCESSIVE GROWTH [656.6] 02/03/2007 DIABETES-ANTEPARTUM [O24.919] 03/02/2007 CARPAL TUNNEL SYNDROME [G56.00] 05/04/2007 DIZZINESS AND GIDDINESS [R42] 01/06/2008 CERVICALGIA [M54.2] 01/21/2009 Heel spur [M77.30] 10/04/2012 Calcaneal bursitis (heel) [M77.50] 10/04/2012 Pain in limb [M79.609] 10/04/2012 Dermatophytosis of foot [B35.3] 10/04/2012 Thoracic back pain [M54.6] 02/16/2013 02/16/2013 Thoracic back pain (lower) [M54.6] 02/16/2013 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] 02/16/2013 04/30/2013 Facet arthropathy, 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] 02/27/2013 Syrinx of spinal cord thoracicsmall T7 to T10 [*04/30/2013 Pain of multiple sites [R52] 04/30/2013 Chest pain [R07.9] 01/17/2014 Difficulty in walking(719.7) [R26.2] 03/29/2014 Achilles bursitis or tendinitis [M76.60] 04/08/2014 Palpitations [R00.2] 07/22/2014 Calcaneal spur of right foot [M77.31] 07/10/2015 Pain in both feet [M79.671, M79.672] 09/06/2015 SOB (shortness of breath) [R06.02] 07/11/2018 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 She wants medical exempt from getting vaccine. Please review and advise. Allergies As of Date: 05/18/2021 Noted Allergy Reaction AVALOX (MOXIFLOXACIN) 08/23/2012 1 - Mental Status Change CYMBALTA (DULOXETINE) 09/06/2015 12 - Shortness of Breath DUST MITES 08/23/2012 12 - Shortness of Breath Comments: patient states allergic to cats, dogs, grass, mole as well and these all trigger her asthma METHYLPREDNISOLONE 01/31/2019 14 - Other: See Comments Comments: Eye pain MONTELUKAST 01/08/2019 16 - Unknown Date Reviewed: 11/27/2019 Reviewed by: Trell Ruiz - Fully Assessed Reason for Visit: Patient Question [9407] Prescriptions as of 05/18/2021 - MULTIVITAMIN TAB Take one(1) tablet daily. Meds Comments as of 08/23/2012: patient gets weekly allergy injections at [facility] [place] Problem List As Of Date 05/18/2021 Noted Resolved ABN GLUCOSE-ANTEPARTUM [O99.810] 02/03/2007 EXCESSIVE GROWTH [656.6] 02/03/2007 DIABETES-ANTEPARTUM [O24.919] 03/02/2007 CARPAL TUNNEL SYNDROME [G56.00] 05/04/2007 DIZZINESS AND GIDDINESS [R42] 01/06/2008 CERVICALGIA [M54.2] 01/21/2009 Heel spur [M77.30] 10/04/2012 Calcaneal bursitis (heel) [M77.50] 10/04/2012 Pain in limb [M79.609] 10/04/2012 Dermatophytosis of foot [B35.3] 10/04/2012 Thoracic back pain [M54.6] 02/16/2013 02/16/2013 Thoracic back pain (lower) [M54.6] 02/16/2013 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] 02/16/2013 04/30/2013 Facet arthropathy, 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] 02/27/2013 Syrinx of spinal cord thoracicsmall T7 to T10 [*04/30/2013 Pain of multiple sites [R52] 04/30/2013 Chest pain [R07.9] 01/17/2014 Difficulty in walking(719.7) [R26.2] 03/29/2014 Achilles bursitis or tendinitis [M76.60] 04/08/2014 Palpitations [R00.2] 07/22/2014 Calcaneal spur of right foot [M77.31] 07/10/2015 Pain in both feet [M79.671, M79.672] 09/06/2015 SOB (shortness of breath) [R06.02] 07/11/2018 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 using analyte specific reagents (ASR). It has not been cleared or approved by the U.S. Food and Drug Administration. The FDA has determined that such clearance or approval is not necessary. Performed By: #### G APC1 #### [facility] [address] [place] [address] GROUP A STREP,PCRon 06-04-20 Lab Specimen Source Throat Normal [facility] Comment on above: Performed By: #### G APC1 #### [facility] [address] [place] [address] Established Visit (Pain Medi cine)on 05-09-2019 Established Visit (Pain Medicine) History of Present Illness Pain scores include a current pain level of 8/10, an average pain level of 7/10, a minimum pain level of 7/10 and a maximum pain level of 10/10. SORE DAY TO DAY BASIS, SLEEPING IS ROUGH STILL VERY UNCOMFORTABLE AFTER FACET BLOCK, FELT LIKE SOMETHING WAS LIFTED OFF BACK, AND RELEASED AROUND HER ABDOMEN AND FLANKS SHE IS SAW STRAIGHTENER IN AREA OF THE INJECTIONS SHE SEES A CHIROPRACTOR SO SHE HAS NOT GONE [facility] (MASSAGE, PT, AND CHIROPRACTOR, AND ELECTRICAL STEM) , SEEMS TO HELP HER SLEEP HAD Medial nerve branch block T9, T10, T11 bilateral ON 05/01/19, SAYS SHE HAD ABOUT 85% RELIEF SAYS SHE SAID TO KIDS, HEY LET'S GO TO THE GYM SHE DID GO ABOUT HER DAILY BUSINESS SHE DOES NOT LIFT LAUNDRY EFFECTS OF DIAGNOSTIC FACET LASTED ABOUT 8 HOURS SHE TAKES ADVIL OCCASIONALLY FOR PAIN She denies any new onset of weakness in the lower extremity or upper extremity or any new bladder or bowel dysfunction. There are no spiritual/cultural practices/values/needs that are important to know Initial Fall Risk Screening: CARLIE has not fallen in the last 6 months. Her fall did not result in injury. CARLIE does not have a fear of falling. She does not need assistance with sitting, standing or walking. Does not need assistance walking in her home. She does not need assistance in an unfamiliar setting. The patient is not using an assistive device. Advance directives: Living Will: No living will on file. Healthcare POA: No healthcare proxy on file. Declaration of Mental Health Treatment: No mental health treatment on file. Tobacco Screening: Has not used tobacco in the past 6 months. Domestic Violence Screen: Does not feel threatened or abused physically, emotionally or sexually. Do you feel UNSAFE? The patient feels safe in the home. Depression/Suicide Screening: During the past 2 weeks, the patient has not felt down, depressed or hopeless. During the past 2 weeks, the patient has not felt little interest or pleasure in doing things. She has not had thoughts of harming others. Nutrition Screening: In the past month, there was not a day when I or anyone in my family went hungry because there was not enough food. Patient Education: The patient denies that they or the person with them has problems with hearing, speaking, seeing, moving around or learning The patient is comfortable filling out medical forms. 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) Thoracic back pain (724.1) (M54.6) Past Medical History History of asthma (V12.69) (Z87.09) History of dizziness (V13.89) (Z87.898) History of Joint pain (719.40) (M25.50) History of Limb weakness (729.89) (R29.898) History of Muscle weakness (728.87) (M62.81) History of Neck pain (723.1) (M54.2) History of Numbness (782.0) (R20.0) Surgical History History of Gallbladder Surgery History of Neuroplasty Decompression Median Nerve At Carpal Tunnel Family History Family history of hypertension (V17.49) (Z82.49) Family history of cardiac disorder (V17.49) (Z82.49) Social History Never smoker No alcohol use Allergies Avelox TABS Recorded By: Kimberly Lackey; 04/24/2013 1:37:32 PM Animal dander - Cats Recorded By: Kimberly Lackey; 04/24/2013 1:37:32 PM Animal dander - Dogs Recorded By: Kimberly Lackey; 04/24/2013 1:37:32 PM Dust Recorded By: Kimberly Lackey; 04/24/2013 1:37:32 PM Dust Mite Recorded By: Kimberly Lackey; 04/24/2013 1:37:32 PM House Dust Recorded By: Kimberly Lackey; 04/24/2013 1:37:32 PM Current Meds ProAir HFA 108 (90 Base) MCG/ACT Inhalation Aerosol Solution; Therapy: (Recorded:04Jul2014) to Recorded Dispense: 0 Days ; #: Sufficient; Refill: 0; MIGUELITO = N; Record; Last Updated By: Yumiko Kent; 07/04/2014 10:11:33 AM Physical Exam Physical Exam General: Alert, oriented x 3, pleasant, and cooperative. Does not appear to be in any major distress. HEENT: Pupils normal in size. Ears, nose, mouth, and throat appear to be in normal condition. Head atraumatic. No signs of sedation or withdrawal apparent. Psychiatric: No signs of depression apparent. Neuro: No focal neurological deficit apparent. Ambulation at baseline. Respiratory: Normal respiratory distress Abdomen: No distention Skin: No skin markings supportive of recent IV drug use. Cardiovascular: Regular rate and rhythm. 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 OARRS dated 05/04/19 reviewed. No signs or abuse or misuse of prescribed medication. Sporadic tox screen Assessment/Plan:. The most applicable treatment options considered and discussed with the patient at this time, including a combination of physical therapy approaches, psychological/psychiatri c approaches, pharmacologic management, interventional procedures and pain management surgeries (such as spinal cord stimulation and intrathecal pump placement. Risk of complications and/or morbidity and mortality is high given the acute and chronic pain may pose a threat to life and bodily functions if undertreated, poorly treated or with failure to maintain adequate and timely follow-up. Given the serious and fluctuating nature of pain (with extensive considerations whenever pain changes, worsens and even if it improves), there always remains the possibility of prolonged functional impairment requiring constant patient re-assessment and high level medical decision making. The amount and complexity of data reviewed is high given the patient labs, radiology reports and other tests were obtained and reviewed (summarized as applicable). Pertinent positive and negative findings were considered in medical decision making. The patient was counseled regarding diagnostic results, instructions for management, risk factor reductions, prognosis, patient and family education, impressions, risks and benefits of treatment options and importance of compliance with treatment. The level of clinical decision making in this office visit, is high, given the high risks of complications with the morbidity and mortality due to the fact that acute and chronic pain may pose a threat to the life and bodily function, if under treated, poorly treated, or with failure to maintain adequate treatment and timely medical follow up. Additionally over treatment has its own set of complications including overdosing on the pain medications and also the habit forming effects of the medications used to treat chronic painful conditions including therapeutic classes classified as dangerous medications. Given the serious and fluctuating nature of pain with extensive consideration for whenever pain changes, there is always the risk of prolonged functional impairment requiring close patient assessment and reassessment and high level medical decision making at every office visit. The amount and complexity of data reviewed is high given the patient clinical presentation, labs, PELLET POST INSPECTOR data, radiology reports, and other tests as above. Pertinent data whether positive or negative were taken in consideration in the process of making this high level medical decision. The patient was counseled regarding risk factor reductions, prognosis, patient and family education, impressions, risks and benefits of treatment options and importance of compliance with treatment. Thank you for allowing me to participate in the care of this patient Plan was explained to patient, and she verbalized understanding and agreement with the plan. *Please note this report has been produced using speech recognition software and may contain errors related to that system including grammar, punctuation and spelling as well as words and phrases that may be inappropriate. If there are questions or concerns, please feel free to contact me to clarify. Patient Discussion/Summary Patient was reminded not to share medications, not to take prescription medications that were not prescribed to HER, and not to increase or change dose without consulting the pain clinic. I advised the patient to always the least amount of medication needed to keep symptoms under control. CONTINUE ADVIL WITH FOOD SCHEDULE RADIOFREQUENCY ABLATION Medial nerve branch block T9, T10, T11 bilateral for thoracic spondylosis with sedation Signatures Electronically signed by : Cam Davis PA-C; May 04 2019 5:14PM EST (Author) Normal [facility] Established Visit (Pain Medi cine)on 05-05-2019 Established Visit (Pain Medicine) Chief Complaint Back Pain History of Present Illness On a scale of 0 to 10, the patient rates the pain at 8. Pain Location: Upper Back Pain. Timing/Duration: Constant. SHE DID NOT FEEL MUCH RELIEF FROM THORACIC EPIDURAL YESTERDAY, SHE HAD BEEN PAINTING, THEN IN THE EVENING AFTER DINNER GRADUALLY, SHE HAD SO MUCH PAIN IN LEFT THORACIC AREA THAT SHE FELT SHE COULD NOT BREATH SHE NEVER HAD THAT EXTENSIVE PAIN, NOT SURE IF IT WAS A FLARE UP WAS CONSIDERING GOING TO THE ER SHE SLEEP ON THE FLOOR BECAUSE THE HARD, FIRM FLOOR GIVES HER RELIEF I WAS ON THE FLOOR, I FELT LIKE A SLOTH SAYS SHE CAN MOVE TODAY BUT IS USING CAUTION SHE BROUGHT HER CANE WITH HER TODAY JUST IN CASE WHEN SHE HOLD THE AREA OR PRESSES ON IT, IT SEEMS TO HELP, WHEN SHE WOKE UP THIS MORNING HER PAIN DECREASED TO A 7/10 SHE USES TUMERIC, BL[employer] PEPPER AND [employer]YEN[employer]ER HOMEOPATHIC REMEDIES FOR PAIN SHE WORKS OUT AND DOES NOT DRINK OR SMOKE YEARS AGO SHE TOOK GABAPENTIN BUT SHE DID NOT LIKE IT SHE DOES NOT THINK OPIATES WORKED FOR HER, SHE WOULD RATHER TAKE A MOTRIN SHE WILL TAKE 4 ADVIL SOMETIMES WITH FOOD AND IT WILL TAKE THE EDGE OFF SHE HAS HAD LIDOCAINE PATCHES SHE DID GO TO THE CHIROPRACTOR EVERYTHING IS LEFT SIDE GETS NUMBNESS IN LEFT UPPER ARM AND LEFT FOOT OCCASIONALLY HAS SOME WEAKENING IN LEFT SIDE HAS HAD PVCS HAS NEVER HAD A RADIOFREQUENCY ABLATION SAYS LEFT THORACIC AREA IS WORSE THAN LOWER BACK HAS PAIN IN LEFT LOWER BACK HAD CHIROPRACTOR TELL HER THAT HER SPINE IS TWISTED SOMETIMES WILL GET A LITTLE BURNING IN LEFT ARM GETS A 50 CENT PIECE NOT IN RIGHT SHOULDER SOMETIMES GETS PINS AND NEEDLES SENSATION IN LEFT LOWER LEG SHE WANTS TO AVOID MEDICINE IF POSSIBLE NOT ON ANY BLOOD THINNERS SHE denies any new onset of weakness in the lower extremity or upper extremity or any new bladder or bowel dysfunction. There are no spiritual/cultural practices/values/needs that are important to know Initial Fall Risk Screening: CARLIE has not fallen in the last 6 months. Her fall did not result in injury. CARLIE does not have a fear of falling. She does not need assistance with sitting, standing or walking. Does not need assistance walking in her home. She does not need assistance in an unfamiliar setting. The patient is not using an assistive device. Advance directives: Living Will: No living will on file. Healthcare POA: No healthcare proxy on file. Declaration of Mental Health Treatment: No mental health treatment on file. Tobacco Screening: Has not used tobacco in the past 6 months. Domestic Violence Screen: Does not feel threatened or abused physically, emotionally or sexually. Do you feel UNSAFE? The patient feels safe in the home. Depression/Suicide Screening: During the past 2 weeks, the patient has not felt down, depressed or hopeless. During the past 2 weeks, the patient has not felt little interest or pleasure in doing things. She has not had thoughts of harming others. Nutrition Screening: In the past month, there was not a day when I or anyone in my family went hungry because there was not enough food. Patient Education: The patient denies that they or the person with them has problems with hearing, speaking, seeing, moving around or learning The patient is comfortable filling out medical forms. 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) Past Medical History History of asthma (V12.69) (Z87.09) History of dizziness (V13.89) (Z87.898) History of Joint pain (719.40) (M25.50) History of Limb weakness (729.89) (R29.898) History of Muscle weakness (728.87) (M62.81) History of Neck pain (723.1) (M54.2) History of Numbness (782.0) (R20.0) Surgical History History of Gallbladder Surgery History of Neuroplasty Decompression Median Nerve At Carpal Tunnel Family History Family history of hypertension (V17.49) (Z82.49) Family history of cardiac disorder (V17.49) (Z82.49) Social History Never smoker No alcohol use Allergies Avelox TABS Recorded By: Kimberly Lackey; 04/24/2013 1:37:32 PM Animal dander - Cats Recorded By: Kimberly Lackey; 04/24/2013 1:37:32 PM Animal dander - Dogs Recorded By: Kimberly Lackey; 04/24/2013 1:37:32 PM Dust Recorded By: Kimberly Lackey; 04/24/2013 1:37:32 PM Dust Mite Recorded By: Kimberly Lackey; 04/24/2013 1:37:32 PM House Dust Recorded By: Kimberly Lackey; 04/24/2013 1:37:32 PM Current Meds ProAir HFA 108 (90 Base) MCG/ACT Inhalation Aerosol Solution; Therapy: (Recorded:04Jul2014) to Recorded Dispense: 0 Days ; #: Sufficient; Refill: 0; MIGUELITO = N; Record; Last Updated By: Yumiko Kent; 07/04/2014 10:11:33 AM Vitals Vital Signs Recorded: 13Apr2019 08:25AM Ephpvweuzna97.3 F Heart Rate75 Wncvsxezpwb46 Knhtughv655 Vbmvnebpp93 Umuccf809 lb BMI Lrcegjskaz76.44 BSA Calculated1.87 O2 Ovvilinmgf67 Physical Exam Physical Exam General: Alert, oriented x 3, pleasant, and cooperative. Does not appear to be in any major distress. HEENT: Pupils normal in size. Ears, nose, mouth, and throat appear to be in normal condition. Head atraumatic. No signs of sedation or withdrawal apparent. Psychiatric: No signs of depression apparent. Neuro: No focal neurological deficit apparent. Ambulation at baseline. Respiratory: Normal respiratory distress Abdomen: No distention Skin: No skin markings supportive of recent IV drug use. Cardiovascular: Regular rate and rhythm. Results/Data REVIEWED AND COMPARED MRIS FROM MAY 2014 AND JANUARY 2019 OF THE LUMBAR SPINE MRI lumbar spine History: Low back pain Technique: Multiplanar multisequence MRI of the lumbosacral spine was carried out. Findings: There is disc deformity which is partially seen at T11-12. L5-S1: The disc is unremarkable. The neural foramina are patent. There is left facet arthropathy. L4-5: There is no disc bulge or herniation. The neural foramina are normal in appearance. Bilateral facet arthropathy seen. L3-4: The disc and foramina are unremarkable. L2-3: Disc and neural foramina are normal in appearance. L1-2: No disc bulge or herniation is seen. The neural foramina are patent. Impression: Disc deformity which is suboptimally seen at T11-12. Facet arthropathy. Dictated: 06/06/14 1706 02/08/19 MRI IMPRESSION: mild dilation of central canal of the thorcic spinal cord extending from the level of the T8-9 disc space to the mid T10 vertebral body measuring up to 2 mm in diameter. No underlying etiology is identified. 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 OARRS dated 04/13/19 reviewed. No signs or abuse or misuse of prescribed medication. Sporadic tox screen CASE DISCUSSED WITH DR TAN RECOMMEND PROCEEDING WITH DIAGNOSTIC FACET I SPOKE TO THE PATIENT VIA PHONE ON 04/13/19 AT 4:53PM AND RECOMMENDED THAT WE PROCEED WITH A THORACIC FACET, AND THE PATIENTS OPTS TO HAVE IT WITHOUT SEDATION WILL SEND TASK TO SCHEDULERS TO SCHEDULE A THORACIC FACET Assessment/Plan:. The most applicable treatment options considered and discussed with the patient at this time, including a combination of physical therapy approaches, psychological/psychiatri c approaches, pharmacologic management, interventional procedures and pain management surgeries (such as spinal cord stimulation and intrathecal pump placement. Risk of complications and/or morbidity and mortality is high given the acute and chronic pain may pose a threat to life and bodily functions if undertreated, poorly treated or with failure to maintain adequate and timely follow-up. Given the serious and fluctuating nature of pain (with extensive considerations whenever pain changes, worsens and even if it improves), there always remains the possibility of prolonged functional impairment requiring constant patient re-assessment and high level medical decision making. The amount and complexity of data reviewed is high given the patient labs, radiology reports and other tests were obtained and reviewed (summarized as applicable). Pertinent positive and negative findings were considered in medical decision making. The patient was counseled regarding diagnostic results, instructions for management, risk factor reductions, prognosis, patient and family education, impressions, risks and benefits of treatment options and importance of compliance with treatment. The level of clinical decision making in this office visit, is high, given the high risks of complications with the morbidity and mortality due to the fact that acute and chronic pain may pose a threat to the life and bodily function, if under treated, poorly treated, or with failure to maintain adequate treatment and timely medical follow up. Additionally over treatment has its own set of complications including overdosing on the pain medications and also the habit forming effects of the medications used to treat chronic painful conditions including therapeutic classes classified as dangerous medications. Given the serious and fluctuating nature of pain with extensive consideration for whenever pain changes, there is always the risk of prolonged functional impairment requiring close patient assessment and reassessment and high level medical decision making at every office visit. The amount and complexity of data reviewed is high given the patient clinical presentation, labs, PELLET [employer] INSPECTOR data, radiology reports, and other tests as above. Pertinent data whether positive or negative were taken in consideration in the process of making this high level medical decision. The patient was counseled regarding risk factor reductions, prognosis, patient and family education, impressions, risks and benefits of treatment options and importance of compliance with treatment. Total amount of time spent with patient was 25 minutes with more than 50% of the time devoted to history taking physical examination ooah-zq-xoqm time and coordination of care Thank you for allowing me to participate in the care of this patient Plan was explained to patient, and SHE verbalized understanding and agreement with the plan. *Please note this report has been produced using speech recognition software and may contain errors related to that system including grammar, punctuation and spelling as well as words and phrases that may be inappropriate. If there are questions or concerns, please feel free to contact me to clarify. Patient Discussion/Summary SCHEDULE DIAGNOSTIC FACET Signatures Electronically signed by : Cam Davis PA-C; May 05 2019 4:33PM EST (Author) Normal [employer] [facility] Established Visit (Pain Medi cine)on 05-04-2019 Established Visit (Pain Medicine) No report was sent Normal [facility] Initial Visit (Pain Medicine )on 03-05-2019 Initial Visit (Pain Medicine) Chief Complaint neck , thoracic and lumbar pain History of Present Illness The patient is being seen for a consultation regarding and referred by DR Hankins back pain. Pain scores include a current pain level of 8/10, an average pain level of 7/10, a minimum pain level of 4/10 and a maximum pain level of 10/10. patient is here today for a new consultation she had a history of syrinx between T9 and T10 that has been followed regularly with an MRI she's confirming that recently she had an MRI but she still did not have the official reading and the results on that had a chronic pain including the cervical thoracic and the lumbar spine area pain started years ago was tried in the past on multiple sessions of physical therapy and she continues to be active she was tried through the [facility] pain management received facet blocks thoracic spine area over a year ago.currently confirming that her pain is worse in the thoracic spine area wake her up at night during her sleep in is worsened when she lays down in a horizontal fashion anus alleviated by movement and stretching exercises was tried on ibuprofen and Advil she described them as taking the edge of her pain away.continues to be on the Advil and occasionally she is using Tylenol.describe numbness around the left foot occasional numbness is also described in the left hand. was tried in the past on gabapentin and she did not like it secondary to side effect. mainly mood changes with the usage of the gabapentin. denies trial of Lyrica in the past There are no spiritual/cultural practices/values/needs that are important to know Initial Fall Risk Screening: CARLIE has not fallen in the last 6 months. Her fall did not result in injury. CARLIE does not have a fear of falling. She does not need assistance with sitting, standing or walking. Does not need assistance walking in her home. She does not need assistance in an unfamiliar setting. The patient is not using an assistive device. Advance directives: Living Will: No living will on file. Healthcare POA: No healthcare proxy on file. Declaration of Mental Health Treatment: No mental health treatment on file. Tobacco Screening: Has not used tobacco in the past 6 months. Domestic Violence Screen: Does not feel threatened or abused physically, emotionally or sexually. Do you feel UNSAFE? The patient feels safe in the home. Depression/Suicide Screening: During the past 2 weeks, the patient has not felt down, depressed or hopeless. During the past 2 weeks, the patient has not felt little interest or pleasure in doing things. She has not had thoughts of harming others. Nutrition Screening: In the past month, there was not a day when I or anyone in my family went hungry because there was not enough food. Patient Education: The patient denies that they or the person with them has problems with hearing, speaking, seeing, moving around or learning The patient is comfortable filling out medical forms. Review of Systems 12 Systems have been reviewed as follows. Constitutional: Fever, weight gain, weight loss, appetite change, night sweats, fatigue, chills. Eyes : blurry, double vision, vision, loss, tearing, redness, pain, sensitivity to light, glaucoma. Ears, nose, mouth, and throat: Hearing loss, ringing in the ears, ear pain, nasal congestion, nasal drainage, nosebleeds, mouth, throat, irritation tooth problem. Cardiovascular :chest pain, pressure, heart tracing,palpitations , sweating, leg swelling, high or low blood pressure Pulmonary: Cough, yellow or green sputum, blood and sputum, shortness of breath, wheezing Gastrointestinal: Nausea, vomiting, diarrhea, constipation, pain, blood in stool, or vomitus, heartburn, difficulty swallowing Genitourinary: incontinence, abnormal bleeding, abnormal discharge, urinary frequency, urinary hesitancy, pain, impotence sexual problem, infection, urinary retention Musculoskeletal: Pain, stiffness, joint, redness or warmth, arthritis, back pain, weakness, muscle wasting, sprain or fracture Neuro: Weight weakness, dizziness, change in voice, change in taste change in vision, change in hearing, loss, or change of sensation, trouble walking, balance problems coordination problems, shaking, speech problem Endocrine , cold or heat intolerance, blood sugar problem, weight gain or loss missed periods hot flashes, sweats, change in body hair, change in libido, increased thirst, increased urination Heme/lymph: Swelling, bleeding, problem anemia, bruising, enlarged lymph nodes Allergic/immunologic: H. plus nasal drip, watery itchy eyes, nasal drainage, immunosuppressed The above, were reviewed and noted negative except as noted. Active Problems Back pain (724.5) (M54.9) Cervical radiculopathy (723.4) (M54.12) Past Medical History History of asthma (V12.69) (Z87.09) History of dizziness (V13.89) (Z87.898) History of Joint pain (719.40) (M25.50) History of Limb weakness (729.89) (R29.898) History of Muscle weakness (728.87) (M62.81) History of Neck pain (723.1) (M54.2) History of Numbness (782.0) (R20.0) Surgical History History of Gallbladder Surgery History of Neuroplasty Decompression Median Nerve At Carpal Tunnel Family History Family history of hypertension (V17.49) (Z82.49) Family history of cardiac disorder (V17.49) (Z82.49) Social History Never smoker No alcohol use Allergies Avelox TABS Recorded By: Kimberly Lackey; 04/24/2013 1:37:32 PM Animal dander - Cats Recorded By: Kimberly Lackey; 04/24/2013 1:37:32 PM Animal dander - Dogs Recorded By: Kimberly Lackey; 04/24/2013 1:37:32 PM Dust Recorded By: Kimberly Lackey; 04/24/2013 1:37:32 PM Dust Mite Recorded By: Kimberly Lackey; 04/24/2013 1:37:32 PM House Dust Recorded By: Kimberly Lackey; 04/24/2013 1:37:32 PM Current Meds ProAir HFA 108 (90 Base) MCG/ACT Inhalation Aerosol Solution; Therapy: (Recorded:04Jul2014) to Recorded Dispense: 0 Days ; #: Sufficient; Refill: 0; MIGUELITO = N; Record; Last Updated By: Yumiko Kent; 07/04/2014 10:11:33 AM Physical Exam Vital signs reviewed, documented in chart General: Appears well, does not look in any major distress Alert HEENT: Head atraumatic Eyes normal inspection PERRL Normal ENT inspection No signs of dehydration NECK: Normal inspection Range of motion within normal RESPIRATORY: No respiratory distress CVS: Heart rate and rhythm regular ABDOMEN/GI Soft Non-tender No distention No organomegaly BACK: Normal inspection, flexion and extension within normal limit no tenderness upon the palpation of the facet joint Si joints none tender to palpations EXTREMITIES: Non-Tender Full ROM Normal appearance No Pedal edema Power symmetrical , sensory examination preserved. 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 Results/Data These results were obtained from the Physician Portal/[facility] medical record system. 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 Risk of complications and/or morbidity and mortality is high given the acute and chronic pain may pose a threat to life and bodily functions if undertreated, poorly treated or with failure to maintain adequate and timely follow-up. Given the serious and fluctuating nature of pain (with extensive considerations whenever pain changes, worsens and even if it improves), there always remains the possibility of prolonged functional impairment requiring constant patient re-assessment and high level medical decision making. The amount and complexity of data reviewed is high given the patient labs, radiology reports and other tests were obtained and reviewed (summarized as applicable). Pertinent positive and negative findings were considered in medical decision making. The patient was counseled regarding diagnostic results, instructions for management, risk factor reductions, prognosis, patient and family education, impressions, risks and benefits of treatment options and importance of compliance with treatment. The level of clinical decision making in this office visit, is high, given the high risks of complications with the morbidity and mortality due to the fact that acute and chronic pain may pose a threat to the life and bodily function, if under treated, poorly treated, or with failure to maintain adequate treatment and timely medical follow up. Additionally over treatment has its own set of complications including overdosing on the pain medications and also the habit forming effects of the medications used to treat chronic painful conditions including therapeutic classes classified as dangerous medications. Given the serious and fluctuating nature of pain with extensive consideration for whenever pain changes, there is always the risk of prolonged functional impairment requiring close patient assessment and reassessment and high level medical decision making at every office visit. The amount and complexity of data reviewed is high given the patient clinical presentation, labs, PELLET [employer] INS[employer]OR data, radiology reports, and other tests as above. Pertinent data whether positive or negative were taken in consideration in the process of making this high level medical decision. Plan I talked to the patient about the different modalities available for the treatment of her condition I recommended for her to provide me with the imaging study that she had recently in the form of MRI of the thoracic and the lumbar spine area and any imaging pertaining to the cervical thoracic or the lumbar spine area knowing that the patient have tried physical therapy and nonsteroidal anti-inflammatory without any significant improvement and knowing that her pain has persisted for multiple views I would recommend for her to have a thoracic epidural steroid injection to be performed under fluoroscopic guidance I will reevaluate the patient after the performance of the epidural to determine the need for further intervention as her case progress Patient Discussion/Summary 48 years old lady with history and physical examination supportive of a syrinx of the spinal cord at T9-T10 with thoracic spondylosis lumbago lumbar spondylosis and cervical spondylosis Plan I talked to the patient about the different modalities available for the treatment of her condition I recommended for her to provide me with the imaging study that she had recently in the form of MRI of the thoracic and the lumbar spine area and any imaging pertaining to the cervical thoracic or the lumbar spine area knowing that the patient have tried physical therapy and nonsteroidal anti-inflammatory without any significant improvement and knowing that her pain has persisted for multiple views I would recommend for her to have a thoracic epidural steroid injection to be performed under fluoroscopic guidance I will reevaluate the patient after the performance of the epidural to determine the need for further intervention as her case progress The above clinical summary has been dictated with voice recognition software. It has not been proofread for grammatical errors, typographical mistakes, or other semantic inconsistencies. Thank you for visiting our office today. It was our pleasure to take part in your healthcare. Please do not hesitate to contact the pain clinic after your visit with any questions or concerns at [phone] M-F 8-4 pm Normal [facility] MRI LUMBAR SPINE WO IVCONon 02-08-2019 MRI LUMBAR SPINE WO IVCON * * *Final Report* * * DATE OF EXAM: Feb 08 2019 9:23AM FVM [id number] - MRI LUMBAR SPINE WO IVCON / PROCEDURE REASON: Spinal stenosis of lumbar region without neurogenic claudication * * * * Physician Interpretation * * * * EXAMINATION: MRI THORACIC SPINE WO IVCON, MRI LUMBAR SPINE WO IVCON CLINICAL HISTORY: Syringomyelia and syringobulbia TECHNIQUE: Routine thoracic and lumbosacral spine MR protocol without gadolinium. MQ: [id number] COMPARISON: None. RESULT: THORACIC: Counting reference: Lumbosacral junction. For the purposes of this report, L4-5 is considered the level of the iliac crest and assume there are 5 lumbar-type vertebrae. Anatomic variant: None. Alignment: Mild apex left curvature of the mid thoracic spine. No listhesis. Cord: There is T2/STIR hyperintensity within the central aspect of the cord with apparent mild dilation of the central canal extending from the level of T8-9 to the level of the mid T10 vertebral body. The central canal measures up to 2 mm in diameter. Bone marrow signal/fracture: No evidence of pathologic marrow infiltration. No evidence of prior fracture. Thoracic soft tissues: The paraspinal soft tissues are within normal limits. Canal and foramina: No high-grade spinal canal or foraminal stenosis in the thoracic spine. LUMBAR: Counting reference: Lumbosacral junction. For the purposes of this report, L4-5 is considered the level of the iliac crest and assume there are 5 lumbar-type vertebrae. Anatomic variant: None. Alignment: Mild grade 1 anterolisthesis of L4 on L5. Bone marrow signal/fracture: No evidence of pathologic marrow infiltration. No evidence of prior fracture. Conus: The conus is within normal limits of signal intensity and morphology. The conus terminates at the level of L1-2. Paraspinal soft tissues: Paraspinal soft tissues are within normal limits. T12-L1: Canal and foramina are patent. L1-L2: Canal and foramina are patent. L2-L3: Canal and foramina are patent L3-L4: Canal and foramina are patent L4-L5: Grade 1 anterolisthesis of L4 on L5 results in mild narrowing of the bilateral subarticular recesses and mild left foraminal stenosis. Right foramen is patent. L5-S1: Canal and foramina are patent Sacrum and iliac wings: The visualized sacrum and iliac wings are within normal limits. The presacral soft tissues are normal in appearance. IMPRESSION: 1. Mild dilation of the central canal of the thoracic spinal cord extending from the level of the T8-9 disc space to the mid T10 vertebral body measuring up to 2 mm in diameter. No underlying etiology is identified. 2. Mild multilevel spondylosis without significant spinal canal or foraminal narrowing. Anatomic Thoracic/Lumbar Variant: None. L4-5 is considered the level of the iliac crest and assume there are 5 lumbar-type vertebrae. Practice Billing Associate: PSCB Transcribe Date/Time: Feb 08 2019 10:26A Dictated by : RAKEL MARIE MD This examination was interpreted and the report reviewed and electronically signed by: RAKEL MARIE MD on Feb 08 2019 10:43AM EST [id number] Normal [facility] MRI THORACIC SPINE WO IVCONo n 02-08-2019 MRI THORACIC SPINE WO IVCON * * *Final Report* * * DATE OF EXAM: Feb 08 2019 9:23AM FVM [id number] - MRI THORACIC SPINE WO IVCON / PROCEDURE REASON: Syringomyelia and syringobulbia (HCC) * * * * Physician Interpretation * * * * EXAMINATION: MRI THORACIC SPINE WO IVCON, MRI LUMBAR SPINE WO IVCON CLINICAL HISTORY: Syringomyelia and syringobulbia TECHNIQUE: Routine thoracic and lumbosacral spine MR protocol without gadolinium. MQ: [id number] COMPARISON: None. RESULT: THORACIC: Counting reference: Lumbosacral junction. For the purposes of this report, L4-5 is considered the level of the iliac crest and assume there are 5 lumbar-type vertebrae. Anatomic variant: None. Alignment: Mild apex left curvature of the mid thoracic spine. No listhesis. Cord: There is T2/STIR hyperintensity within the central aspect of the cord with apparent mild dilation of the central canal extending from the level of T8-9 to the level of the mid T10 vertebral body. The central canal measures up to 2 mm in diameter. Bone marrow signal/fracture: No evidence of pathologic marrow infiltration. No evidence of prior fracture. Thoracic soft tissues: The paraspinal soft tissues are within normal limits. Canal and foramina: No high-grade spinal canal or foraminal stenosis in the thoracic spine. LUMBAR: Counting reference: Lumbosacral junction. For the purposes of this report, L4-5 is considered the level of the iliac crest and assume there are 5 lumbar-type vertebrae. Anatomic variant: None. Alignment: Mild grade 1 anterolisthesis of L4 on L5. Bone marrow signal/fracture: No evidence of pathologic marrow infiltration. No evidence of prior fracture. Conus: The conus is within normal limits of signal intensity and morphology. The conus terminates at the level of L1-2. Paraspinal soft tissues: Paraspinal soft tissues are within normal limits. T12-L1: Canal and foramina are patent. L1-L2: Canal and foramina are patent. L2-L3: Canal and foramina are patent L3-L4: Canal and foramina are patent L4-L5: Grade 1 anterolisthesis of L4 on L5 results in mild narrowing of the bilateral subarticular recesses and mild left foraminal stenosis. Right foramen is patent. L5-S1: Canal and foramina are patent Sacrum and iliac wings: The visualized sacrum and iliac wings are within normal limits. The presacral soft tissues are normal in appearance. IMPRESSION: 1. Mild dilation of the central canal of the thoracic spinal cord extending from the level of the T8-9 disc space to the mid T10 vertebral body measuring up to 2 mm in diameter. No underlying etiology is identified. 2. Mild multilevel spondylosis without significant spinal canal or foraminal narrowing. Anatomic Thoracic/Lumbar Variant: None. L4-5 is considered the level of the iliac crest and assume there are 5 lumbar-type vertebrae. Practice Billing Associate: SHELDON Transcribe Date/Time: Feb 08 2019 10:26A Dictated by : RAKEL MARIE MD This examination was interpreted and the report reviewed and electronically signed by: RAKEL MARIE MD on Feb 08 2019 10:43AM EST [id number] [facility] PROGRESSon 02-08-2019 PROGRESS HNO ID: [id number] Author: Monalisa Thomas (Rt) Service: ? Author Type: Pickle Maker Type: Progress Notes Filed: 02/08/2019 9:52 AM Note Text: Radiology Service Progress Note PATIENT NAME: Carlie Nguyen DATE OF SERVICE: February 08, 2019 TIME: 9:13 AM PATIENT IDENTITY VERIFICATION COMPLETED USING TWO (2) METHODS: Patient confirmed name verbally and Date of . PATIENT GENDER DATA: Female. status: : No status: NO. PATIENT RELEVANT IMPLANT DATA REVIEWED: Yes RADIOLOGY DEPARTMENT: MR; Exam(s) Completed: Spine: Thoracic spine and Lumbar spine PERIPHERAL IV DATA: Not applicable SIGNED BY: RT Martha, Kellen Priest February 08, 2019 9:13 AM Normal [facility] ANAon 07-05-2018 Nuclear Ab IF titer (S) 0.2 OD Ratio Normal [facility] Reference Lab Comment on above: Performed By: #### C BCDIF, CMP #### [place] [id number] #### WSR, CRP, LIPB, RF, TSH, FT4, B12, HBA1C, UAWMIC, VITD #### [facility] Routine Lab [address] [place] [address] #### ANAS #### [facility]o Assay [address] [place] [address] Nuclear Ab IF titer (S) NEGAT Normal Negative [facility] Reference Lab Comment on above: Performed By: #### C BCDIF, CMP #### [place] [phone] #### WSR, CRP, LIPB, RF, TSH, FT4, B12, HBA1C, UAWMIC, VITD #### [facility] Routine Lab [address] [place] [address] #### ANAS #### [facility] Immuno Assay [address] [place] [address] C-Reactive Proteinon 019 CRP mass conc mg/L Normal <0.9 [facility] Reference Lab Comment on above: Performed By: #### C BCDIF, CMP #### [place] [id number] #### WSR, CRP, LIPB, RF, TSH, FT4, B12, HBA1C, UAWMIC, VITD #### [facility] Routine Lab [address] [place] [phone] #### ANAS #### [facility] [employer] Immuno Assay [address] [place] [phone] CBC and Differentialon 07-04 Abs Baso 0.03 k/uL Normal <0.11 [facility] Reference Lab Comment on above: Performed By: #### C BCDIF, CMP #### [place] [phone] #### WSR, CRP, LIPB, RF, TSH, FT4, B12, HBA1C, UAWMIC, VITD #### [facility] Routine Lab [address] [place] [phone] #### ANAS #### [facility] [employer] Immuno Assay [address] [place] [phone] Abs [place] 0.19 k/uL Normal <0.87 [facility] Reference Lab Comment on above: Performed By: #### C BCDIF, CMP #### [place] [phone] #### WSR, CRP, LIPB, RF, TSH, FT4, B12, HBA1C, UAWMIC, VITD #### [facility] Routine Lab [address] [place] [phone] #### ANAS #### [facility] [employer] Immuno Assay [address] [place] [phone] Abs Neut 3.46 k/uL Normal 1.45-7.50 [facility] Reference Lab Comment on above: Performed By: #### C BCDIF, CMP #### [place] [phone] #### WSR, CRP, LIPB, RF, TSH, FT4, B12, HBA1C, UAWMIC, VITD #### [facility] Routine Lab [address] [place] [phone] #### ANAS #### [facility] Immuno Assay [address] [place] [phone] Basophils/100 WBC (Bld) 0.5 % Normal [facility] Reference Lab Comment on above: Performed By: #### C BCDIF, CMP #### [place] [phone] #### WSR, CRP, LIPB, RF, TSH, FT4, B12, HBA1C, UAWMIC, VITD #### [facility] Routine Lab [address] [place] [phone] #### ANAS #### [facility] [address] [place] [phone] DTYPE ADIFF Normal [facility] Reference Lab Comment on above: Performed By: #### C BCDIF, CMP #### [place] [phone] #### WSR, CRP, LIPB, RF, TSH, FT4, B12, HBA1C, UAWMIC, VITD #### [facility] Routine Lab [address] [place] [phone] #### ANAS #### [facility] [address] [place] [phone] Eosinophils #/vol (Bld) 0.10 10*3/uL Normal <0.46 [facility] Reference Lab Comment on above: Performed By: #### C BCDIF, CMP #### [place] [phone] #### WSR, CRP, LIPB, RF, TSH, FT4, B12, HBA1C, UAWMIC, VITD #### [facility] Routine Lab [address] [place] [phone] #### ANAS #### [facility] [address] [place] [phone] Eosinophils/100 WBC (Bld) 1.8 % Normal [facility] Reference Lab Comment on above: Performed By: #### C BCDIF, CMP #### [place] [phone] #### WSR, CRP, LIPB, RF, TSH, FT4, B12, HBA1C, UAWMIC, VITD #### [facility] Routine Lab [address] [place] [phone] #### ANAS #### [facility] [address] [place] [phone] Erythrocyte distribution width Ratio (RBC) 12.7 % Normal 11.5-15.0 [facility] Reference Lab Comment on above: Performed By: #### C BCDIF, CMP #### [place] [phone] #### WSR, CRP, LIPB, RF, TSH, FT4, B12, HBA1C, UAWMIC, VITD #### [facility] Routine Lab [address] [place] [phone] #### ANAS #### [facility] [address] [place] [phone] Hematocrit Volume Fraction (Bld) 42.3 % Normal 36.0-46.0 [facility] Reference Lab Comment on above: Performed By: #### C BCDIF, CMP #### [place] [phone] #### WSR, CRP, LIPB, RF, TSH, FT4, B12, HBA1C, UAWMIC, VITD #### [facility] Routine Lab [address] [place] [phone] #### ANAS #### [facility] [address] [place] [phone] Hemoglobin mass conc (Bld) 14.2 g/dL Normal 11.5-15.5 [facility] Reference Lab Comment on above: Performed By: #### C BCDIF, CMP #### [place] [phone] #### WSR, CRP, LIPB, RF, TSH, FT4, B12, HBA1C, UAWMIC, VITD #### [facility] Routine Lab [address] [place] [phone] #### ANAS #### [facility] [address] [place] [phone] Lymphocytes #/vol (Bld) 1.92 10*3/uL Normal 1.00-4.00 [facility] Reference Lab Comment on above: Performed By: #### C BCDIF, CMP #### [place] [phone] #### WSR, CRP, LIPB, RF, TSH, FT4, B12, HBA1C, UAWMIC, VITD #### [facility] Routine Lab [address] [place] [phone] #### ANAS #### [facility] [address] [place] [phone] Lymphocytes/100 WBC (Bld) 33.7 % Normal [facility] Reference Lab Comment on above: Performed By: #### C BCDIF, CMP #### [place] [phone] #### WSR, CRP, LIPB, RF, TSH, FT4, B12, HBA1C, UAWMIC, VITD #### [facility] Routine Lab [facility] [place] [phone] #### ANAS #### [facility] [address] [place] [phone] MCH Entitic mass (RBC) 30.5 pG Normal 26.0-34.0 [facility] Reference Lab Comment on above: Performed By: #### C BCDIF, CMP #### [place] [phone] #### WSR, CRP, LIPB, RF, TSH, FT4, B12, HBA1C, UAWMIC, VITD #### [facility] Routine Lab [address] [place] [phone] #### ANAS #### [facility] [address] [place] [phone] MCHC mass conc (RBC) 33.6 g/dL Normal 30.5-36.0 [facility] Reference Lab Comment on above: Performed By: #### C BCDIF, CMP #### [place] [phone] #### WSR, CRP, LIPB, RF, TSH, FT4, B12, HBA1C, UAWMIC, VITD #### [facility] Routine Lab [address] [place] [phone] #### ANAS #### [facility] [address] [place] [phone] MCV Entitic volume (RBC) 90.8 fL Normal 80.0-100.0 [facility] Reference Lab Comment on above: Performed By: #### C BCDIF, CMP #### [place] [phone] #### WSR, CRP, LIPB, RF, TSH, FT4, B12, HBA1C, UAWMIC, VITD #### [facility] Routine Lab [address] [place] [phone] #### ANAS #### [facility] [address] [place] [phone] Monocytes/100 WBC (Bld) 3.3 % Normal [facility] Reference Lab Comment on above: Performed By: #### C BCDIF, CMP #### [place] [phone] #### WSR, CRP, LIPB, RF, TSH, FT4, B12, HBA1C, UAWMIC, VITD #### [facility] Routine Lab [address] [place] [phone] #### ANAS #### [facility] [address] [place] [phone] Neutrophils/100 WBC (Bld) 60.7 % Normal [facility] Reference Lab Comment on above: Performed By: #### C BCDIF, CMP #### [place] [phone] #### WSR, CRP, LIPB, RF, TSH, FT4, B12, HBA1C, UAWMIC, VITD #### [facility] Routine Lab [address] [place] [phone] #### ANAS #### [facility] [address] [place], [place] [phone] Platelet mean volume Entitic volume (Bld) 10.2 fL Normal 9.0-12.7 [facility] Reference Lab Comment on above: Performed By: #### C BCDIF, CMP #### [place] [phone] #### WSR, CRP, LIPB, RF, TSH, FT4, B12, HBA1C, UAWMIC, VITD #### [facility] Routine Lab [address] [place] [phone] #### ANAS #### [facility] [address] [place] [phone] Platelets #/vol (Bld) 269 10*3/uL Normal 150-400 [facility] Reference Lab Comment on above: Performed By: #### C BCDIF, CMP #### [place] [phone] #### WSR, CRP, LIPB, RF, TSH, FT4, B12, HBA1C, UAWMIC, VITD #### [facility] Routine Lab [address] [place] [phone] #### ANAS #### [facility] [address] [place] [phone] RBC #/vol (Bld) 4.66 10*6/uL Normal 3.90-5.20 [facility] Reference Lab Comment on above: Performed By: #### C BCDIF, CMP #### [place] [phone] #### WSR, CRP, LIPB, RF, TSH, FT4, B12, HBA1C, UAWMIC, VITD #### [facility] Routine Lab [facility] [place] [phone] #### ANAS #### [facility] [address] [place] [phone] WBC #/vol (Bld) 5.70 10*3/uL Normal 3.70-11.00 [facility] Reference Lab Comment on above: Performed By: #### C BCDIF, CMP #### [place] [phone] #### WSR, CRP, LIPB, RF, TSH, FT4, B12, HBA1C, UAWMIC, VITD #### [facility] Routine Lab [facility] [place] [phone] #### ANAS #### [facility] Immuno Assay [facility] [place] [phone] Comp Metabolic Panelon 07-04 Albumin mass conc 4.6 g/dL Normal 3.5-5.0 [facility] Reference Lab Comment on above: Performed By: #### C BCDIF, CMP #### [place] [phone] #### WSR, CRP, LIPB, RF, TSH, FT4, B12, HBA1C, UAWMIC, VITD #### [facility] Routine Lab [address] [place] [phone] #### ANAS #### [facility] Assay [address] [place] [phone] ALP enzyme act/vol 58 U/L Normal 34-123 [facility] Reference Lab Comment on above: Performed By: #### C BCDIF, CMP #### [place] [phone] #### WSR, CRP, LIPB, RF, TSH, FT4, B12, HBA1C, UAWMIC, VITD #### [facility] Routine Lab [address] [place] [phone] #### ANAS #### [facility] [address] [place] [phone] ALT enzyme act/vol 11 U/L Normal 0-45 [facility] Reference Lab Comment on above: Performed By: #### C BCDIF, CMP #### [place] [phone] #### WSR, CRP, LIPB, RF, TSH, FT4, B12, HBA1C, UAWMIC, VITD #### [facility] Routine Lab [address] [place] [phone] #### ANAS #### [facility] [address] [place] [phone] Anion gap molar conc 11 mmol/L Normal 9-18 [facility] Reference Lab Comment on above: Performed By: #### C BCDIF, CMP #### [place] [phone] #### WSR, CRP, LIPB, RF, TSH, FT4, B12, HBA1C, UAWMIC, VITD #### [facility] Routine Lab [phone] #### ANAS #### [facility] Assay [address] [place] [phone] AST enzyme act/vol 12 U/L Normal 7-40 [facility] Reference Lab Comment on above: Performed By: #### C BCDIF, CMP #### [place] [phone] #### WSR, CRP, LIPB, RF, TSH, FT4, B12, HBA1C, UAWMIC, VITD #### [facility] Routine Lab [address] [place] [phone] #### ANAS #### [facility]o Assay [address] [place] [phone] Bilirubin Ql (U) 0.5 mg/dL Normal 0.2-1.3 [facility] Reference Lab Comment on above: Performed By: #### C BCDIF, CMP #### [place] [phone] #### WSR, CRP, LIPB, RF, TSH, FT4, B12, HBA1C, UAWMIC, VITD #### [facility] Routine Lab [address] [place] [phone] #### ANAS #### [facility] Assay [address] [place] [phone] Calcium mass conc 9.6 mg/dL Normal 8.5-10.5 [facility] Reference Lab Comment on above: Performed By: #### C BCDIF, CMP #### [place] [phone] #### WSR, CRP, LIPB, RF, TSH, FT4, B12, HBA1C, UAWMIC, VITD #### [facility] Routine Lab [address] [place] [phone] #### ANAS #### [facility] Assay [address] [place] [phone] Chloride molar conc 104 mmol/L Normal 98-110 [facility] Reference Lab Comment on above: Performed By: #### C BCDIF, CMP #### [place] [phone] #### WSR, CRP, LIPB, RF, TSH, FT4, B12, HBA1C, UAWMIC, VITD #### [facility] Routine Lab [address] [place] [phone] #### ANAS #### [facility] Assay [address] [place] [phone] CO2 molar conc 29 mmol/L Normal 23-32 [facility] Reference Lab Comment on above: Performed By: #### C BCDIF, CMP #### [place] [phone] #### WSR, CRP, LIPB, RF, TSH, FT4, B12, HBA1C, UAWMIC, VITD #### [facility] Routine Lab [address] [place] [phone] #### ANAS #### [facility] Assay [address] [place] [phone] Creatinine mass conc 0.74 mg/dL Normal 0.70-1.40 [facility] Reference Lab Comment on above: Performed By: #### C BCDIF, CMP #### [place] [phone] #### WSR, CRP, LIPB, RF, TSH, FT4, B12, HBA1C, UAWMIC, VITD #### [facility] Routine Lab [address] [place] [phone] #### ANAS #### [facility] [address] [place] [phone] eGFR- Amer. >60 Normal >60 [facility] Reference Lab Comment on above: Performed By: #### C BCDIF, CMP #### [place] [phone] #### WSR, CRP, LIPB, RF, TSH, FT4, B12, HBA1C, UAWMIC, VITD #### [facility] Routine Lab [address] [place] [phone] #### ANAS #### [facility] [address] [place] [phone] GFR/1.73 sq M predicted among non-blacks MDRD vol rate/area (S/P/Bld) mL/min/{1.73_m2} Normal >60 [facility] Reference Lab Comment on above: Performed By: #### C BCDIF, CMP #### [place] [phone] #### WSR, CRP, LIPB, RF, TSH, FT4, B12, HBA1C, UAWMIC, VITD #### [facility] Routine Lab [address] [place] [phone] #### ANAS #### [facility] [address] [place] [phone] Glucose mass conc 110 mg/dL High 65-100 [facility] Reference Lab Comment on above: Performed By: #### C BCDIF, CMP #### [place] [phone] #### WSR, CRP, LIPB, RF, TSH, FT4, B12, HBA1C, UAWMIC, VITD #### [facility] Routine Lab [address] [place] [phone] #### ANAS #### [facility] [address] [place] [phone] Potassium molar conc 4.6 mmol/L Normal 3.5-5.0 [facility] Reference Lab Comment on above: Performed By: #### C BCDIF, CMP #### [place] [phone] #### WSR, CRP, LIPB, RF, TSH, FT4, B12, HBA1C, UAWMIC, VITD #### [facility] Routine Lab [address] [place] [phone] #### ANAS #### [facility] [address] [place] [phone] Protein mass conc 7.5 g/dL Normal 6.0-8.4 [facility] Reference Lab Comment on above: Performed By: #### C BCDIF, CMP #### [place] [phone] #### WSR, CRP, LIPB, RF, TSH, FT4, B12, HBA1C, UAWMIC, VITD #### [facility] Routine Lab [address] [place] [phone] #### ANAS #### [facility] [address] [place] [phone] Sodium molar conc 144 mmol/L Normal 132-148 [facility] Reference Lab Comment on above: Performed By: #### C BCDIF, CMP #### [place] [phone] #### WSR, CRP, LIPB, RF, TSH, FT4, B12, HBA1C, UAWMIC, VITD #### [facility] Routine Lab [address] [place] [phone] #### ANAS #### [facility] [address] [place] [phone] Urea nitrogen mass conc 13 mg/dL Normal 8-25 [facility] Reference Lab Comment on above: Performed By: #### C BCDIF, CMP #### [place] [phone] #### WSR, CRP, LIPB, RF, TSH, FT4, B12, HBA1C, UAWMIC, VITD #### [facility] Routine Lab [address] [place] [phone] #### ANAS #### [facility] [address] [place] [phone] Free T4on 07-04-2018 T4 free mass conc 1.2 ng/dL Normal 0.9-1.7 [facility] Reference Lab Comment on above: Performed By: #### C BCDIF, CMP #### [place] [address] #### WSR, CRP, LIPB, RF, TSH, FT4, B12, HBA1C, UAWMIC, VITD #### [facility] Routine Lab [address] [place] [address] #### ANAS #### [facility] [address] [place] [phone] Hemoglobin A1con 07-04-2018 Hemoglobin A1c/Hemoglobin.total mass fraction (Bld) 5.2 % Normal 4.3-5.6 [facility] Reference Lab Comment on above: Performed By: #### C BCDIF, CMP #### [address] #### WSR, CRP, LIPB, RF, TSH, FT4, B12, HBA1C, UAWMIC, VITD #### [facility] Routine Lab [address] [place] [address] #### ANAS #### [facility] [address] [place] [phone] Hemoglobin A1c/Hemoglobin.total mass fraction (Bld) 103 mg/dL Normal [facility] Reference Lab Comment on above: Performed By: #### C BCDIF, CMP #### [place] [phone] #### WSR, CRP, LIPB, RF, TSH, FT4, B12, HBA1C, UAWMIC, VITD #### [facility] Routine Lab [address] [place] [phone] #### ANAS #### [facility] [address] [place] [phone] Lipid Panel, Basicon 019 Cholesterol in HDL mass conc 66 mg/dL Normal >39 [facility] Reference Lab Comment on above: Performed By: #### C BCDIF, CMP #### [place] [phone] #### WSR, CRP, LIPB, RF, TSH, FT4, B12, HBA1C, UAWMIC, VITD #### [facility] Routine Lab [address] [place] [phone] #### ANAS #### [facility] Assay [address] [place] [phone] Cholesterol in LDL mass conc 86 mg/dL Normal <100 [facility] Reference Lab Comment on above: Performed By: #### C BCDIF, CMP #### [place] [phone] #### WSR, CRP, LIPB, RF, TSH, FT4, B12, HBA1C, UAWMIC, VITD #### [facility] Routine Lab [address] [place] [phone] #### ANAS #### [facility] Assay [address] [place] [phone] Cholesterol in VLDL mass conc 16 mg/dL Normal <30 [facility] Reference Lab Comment on above: Performed By: #### C BCDIF, CMP #### [place] [phone] #### WSR, CRP, LIPB, RF, TSH, FT4, B12, HBA1C, UAWMIC, VITD #### [facility] Routine Lab [address] [place] [address] #### ANAS #### [facility] [address] [place] [phone] Cholesterol mass conc 168 mg/dL Normal <200 [facility] Reference Lab Comment on above: Performed By: #### C BCDIF, CMP #### [place] [phone] #### WSR, CRP, LIPB, RF, TSH, FT4, B12, HBA1C, UAWMIC, VITD #### [facility] Routine Lab [address] [place] [address] #### ANAS #### [facility] [address] [place] [address] Cholesterol non HDL mass conc 102 mg/dL Normal <130 [facility] Reference Lab Comment on above: Performed By: #### C BCDIF, CMP #### [place] [id number] #### WSR, CRP, LIPB, RF, TSH, FT4, B12, HBA1C, UAWMIC, VITD #### [facility] Routine Lab [address] [place] [address] #### ANAS #### [facility] Immuno Assay [address] [address] LDL:HDL Ratio 1.30 Normal <2.54 [facility] Reference Lab Comment on above: Performed By: #### C BCDIF, CMP #### [address] #### WSR, CRP, LIPB, RF, TSH, FT4, B12, HBA1C, UAWMIC, VITD #### [facility] Routine Lab [address] [phone] #### ANAS #### [facility] Immuno Assay [address] [phone] TC:HDL Ratio 2.55 Normal <5.10 [facility] Reference Lab Comment on above: Performed By: #### C BCDIF, CMP #### [place] [id number] #### WSR, CRP, LIPB, RF, TSH, FT4, B12, HBA1C, UAWMIC, VITD #### [facility] Routine Lab [address] [phone] #### ANAS #### [facility] Immuno Assay [address] [phone] Triglyceride mass conc 79 mg/dL Normal <150 [facility] Reference Lab Comment on above: Performed By: #### C BCDIF, CMP #### [place] [phone] #### WSR, CRP, LIPB, RF, TSH, FT4, B12, HBA1C, UAWMIC, VITD #### [facility] Routine Lab [facility] [phone] #### ANAS #### [facility] Immuno Assay [address] [phone] Fasting Time UN Normal [facility] Reference Lab Comment on above: Performed By: #### C BCDIF, CMP #### [place] [phone] #### WSR, CRP, LIPB, RF, TSH, FT4, B12, HBA1C, UAWMIC, VITD #### [facility] Routine Lab [address] [phone] #### ANAS #### [facility] Immuno Assay [address] [phone] Rheumatoid Factoron 07-04-19 19 Rheumatoid Factor <10 Normal <16 [facility] Reference Lab Comment on above: Performed By: #### C BCDIF, CMP #### [place] [phone] #### WSR, CRP, LIPB, RF, TSH, FT4, B12, HBA1C, UAWMIC, VITD #### [facility] Routine Lab [address] [phone] #### ANAS #### [facility] Immuno Assay [address] [address] Sed Rate Westergrenon 2018 Sed Rate Westergren 9 mm/hr Normal 0-20 [facility] Reference Lab Comment on above: Performed By: #### C BCDIF, CMP #### [place] [phone] #### WSR, CRP, LIPB, RF, TSH, FT4, B12, HBA1C, UAWMIC, VITD #### [facility] Routine Lab [address] [phone] #### ANAS #### [facility] Immuno Assay [address] [phone] TSHon 07-04-2018 Thyrotropin Qn 2.960 uU/mL Normal 0.400-5.500 [facility] Reference Lab Comment on above: Performed By: #### C BCDIF, CMP #### [place] [address] #### WSR, CRP, LIPB, RF, TSH, FT4, B12, HBA1C, UAWMIC, VITD #### [facility] Routine Lab [address] [address] #### ANAS #### [facility] Immuno Assay [address] [address] Urinalysis with Microscopico n 07-04-2018 Bilirubin, Urine NEGAT Normal Negative [facility] Reference Lab Comment on above: Performed By: #### C BCDIF, CMP #### [place] [phone] #### WSR, CRP, LIPB, RF, TSH, FT4, B12, HBA1C, UAWMIC, VITD #### [facility] Routine Lab [address] [phone] #### ANAS #### [facility] Immuno Assay [address] [phone] Clarity Nom (U) CLDY Abnormal Clear [facility] Reference Lab Comment on above: Performed By: #### C BCDIF, CMP #### [place] [phone] #### WSR, CRP, LIPB, RF, TSH, FT4, B12, HBA1C, UAWMIC, VITD #### [facility] Routine Lab [address] [phone] #### ANAS #### [facility] Immuno Assay [address] [phone] Color Nom (U) YEL Normal Yellow [facility] Reference Lab Comment on above: Performed By: #### C BCDIF, CMP #### [place] [phone] #### WSR, CRP, LIPB, RF, TSH, FT4, B12, HBA1C, UAWMIC, VITD #### [facility] Routine Lab [address] [phone] #### ANAS #### [facility] Immuno Assay [address] [phone] Comments NAPP Normal [facility] Reference Lab Comment on above: Performed By: #### C BCDIF, CMP #### [place] [phone] #### WSR, CRP, LIPB, RF, TSH, FT4, B12, HBA1C, UAWMIC, VITD #### [facility] Routine Lab [address] [phone] #### ANAS #### [facility] Immuno Assay [address] [phone] Epithelial cells LM.HPF #/area (Urine sed) Normal [facility] Reference Lab Comment on above: Result Comment: Few Squamous Few Non-Squamous Epithelial Cells Epithelial Few Non-Squamous Epithelial Cells Cells Few Non-Squamous Epithelial Cells Performed By: #### C BCDIF, CMP #### [place] [phone] #### WSR, CRP, LIPB, RF, TSH, FT4, B12, HBA1C, UAWMIC, VITD #### [facility] Routine Lab [address] [phone] #### ANAS #### [facility] Immuno Assay [address] [phone] Glucose Ql (U) NEGAT Normal Negative [facility] Reference Lab Comment on above: Performed By: #### C BCDIF, CMP #### [place] [phone] #### WSR, CRP, LIPB, RF, TSH, FT4, B12, HBA1C, UAWMIC, VITD #### [facility] Routine Lab [address] [phone] #### ANAS #### [facility] Immuno Assay [address] [phone] Hemoglobin/Blood,Ur NEGAT Normal Negative [facility] Reference Lab Comment on above: Performed By: #### C BCDIF, CMP #### [place] [phone] #### WSR, CRP, LIPB, RF, TSH, FT4, B12, HBA1C, UAWMIC, VITD #### [facility] Routine Lab [address] [phone] #### ANAS #### [facility] Immuno Assay [phone] Ketones Ql (U) NEGAT Normal Negative [facility] Reference Lab Comment on above: Performed By: #### C BCDIF, CMP #### [place] [phone] #### WSR, CRP, LIPB, RF, TSH, FT4, B12, HBA1C, UAWMIC, VITD #### [facility] Routine Lab [address] [place], [place] [phone] #### ANAS #### [facility] Immuno Assay [address] [phone] Abnormal Negative [facility] Reference Lab Comment on above: Performed By: #### C BCDIF, CMP #### [place] [phone] #### WSR, CRP, LIPB, RF, TSH, FT4, B12, HBA1C, UAWMIC, VITD #### [facility] Routine Lab [facility] [phone] #### ANAS #### [facility] Immuno Assay [phone] Nitrite Ql (U) NEGAT Normal Negative [facility] Reference Lab Comment on above: Performed By: #### C BCDIF, CMP #### [place] [phone] #### WSR, CRP, LIPB, RF, TSH, FT4, B12, HBA1C, UAWMIC, VITD #### [facility] Routine Lab [phone] #### ANAS #### [facility] Immuno Assay [address] [phone] pH (Bld) 6.0 Normal 4.5-8.0 [facility] Reference Lab Comment on above: Performed By: #### C BCDIF, CMP #### [place] [phone] #### WSR, CRP, LIPB, RF, TSH, FT4, B12, HBA1C, UAWMIC, VITD #### [facility] Routine Lab [facility] [phone] #### ANAS #### [facility] Immuno Assay [address] [phone] Protein mass conc (U) NEGAT Normal Negative [facility] Reference Lab Comment on above: Performed By: #### C BCDIF, CMP #### [place] [phone] #### WSR, CRP, LIPB, RF, TSH, FT4, B12, HBA1C, UAWMIC, VITD #### [facility] Routine Lab [facility] [phone] #### ANAS #### [facility] Immuno Assay [address] [phone] RBC #/vol (U) 3 /uL Normal 0-3 [facility] Reference Lab Comment on above: Performed By: #### C BCDIF, CMP #### [place] [phone] #### WSR, CRP, LIPB, RF, TSH, FT4, B12, HBA1C, UAWMIC, VITD #### [facility] Routine Lab [address] [phone] #### ANAS #### [facility] Immuno Assay [address] [phone] Specific [place], Ur 1.017 Normal 1.005-1.030 [facility] Reference Lab Comment on above: Performed By: #### C BCDIF, CMP #### [place] [phone] #### WSR, CRP, LIPB, RF, TSH, FT4, B12, HBA1C, UAWMIC, VITD #### [facility] Routine Lab [address] [phone] #### ANAS #### [facility] Immuno Assay [address] [phone] Urine Roberto Carlos Comment NAPP Normal [facility] Reference Lab Comment on above: Performed By: #### C BCDIF, CMP #### [place] [phone] #### WSR, CRP, LIPB, RF, TSH, FT4, B12, HBA1C, UAWMIC, VITD #### [facility] Routine Lab [address] [phone] #### ANAS #### [facility]o Assay [address] [phone] Urobilinogen Qn (U) NL Normal Normal [facility] Reference Lab Comment on above: Performed By: #### C BCDIF, CMP #### [place] [phone] #### WSR, CRP, LIPB, RF, TSH, FT4, B12, HBA1C, UAWMIC, VITD #### [facility] Routine Lab [address] [phone] #### ANAS #### [facility] Immuno Assay [address] [phone] WBC #/vol (Bld) R05 Normal 0-5 [facility] Reference Lab Comment on above: Performed By: #### C BCDIF, CMP #### [place] [phone] #### WSR, CRP, LIPB, RF, TSH, FT4, B12, HBA1C, UAWMIC, VITD #### [facility] Routine Lab [address] [phone] #### ANAS #### [facility] Immuno Assay [address] [phone] Vitamin B12on 07-04-2018 Cobalamin (Vitamin B12) mass conc 702 pg/mL Normal 232-1245 [facility] Reference Lab Comment on above: Performed By: #### C BCDIF, CMP #### [place] [phone] #### WSR, CRP, LIPB, RF, TSH, FT4, B12, HBA1C, UAWMIC, VITD #### [facility] Routine Lab [address] [phone] #### ANAS #### [facility] Immuno Assay [address] [phone] Vitamin D 25 Hydroxyon 07-04 Vitamin D 25 Hydroxy 44.8 ng/mL Normal 31.0-80.0 [facility] Reference Lab Comment on above: Performed By: #### C BCDIF, CMP #### [place] [phone] #### WSR, CRP, LIPB, RF, TSH, FT4, B12, HBA1C, UAWMIC, VITD #### [facility] Routine Lab [address] [phone] #### ANAS #### [facility] Immuno Assay [address] [phone] Vital Signs Date Time Vital Sign Value Performing Clinician Facility 09-27-2024 08:55-0400 Body height 165.[address] Srinivas Masters PA-C Work Phone: [facility] 09-27-2024 08:55-0400 Body mass index (BMI) [Ratio] 33.3 kg/m2 Dr. Srinivas Masters PA-C Work Phone: [facility] 09-27-2024 08:55-0400 Body temperature 98.1 [degF] Dr. Srinivas Masters PA-C Work Phone: [facility] 09-27-2024 08:55-0400 Body weight 90.[address] Srinivas Masters PA-C Work Phone: [facility] 09-27-2024 08:55-0400 Diastolic blood pressure 80 mm[Hg] Dr. Srinivas Masters PA-C Work Phone: [facility] 09-27-2024 08:55-0400 Heart rate 79 /min Dr. Srinivas Masters PA-C Work Phone: [facility] 09-27-2024 08:55-0400 Respiratory rate 14 /min Dr. Srinivas Masters PA-C Work Phone: [facility] 09-27-2024 08:55-0400 SaO2% (BldA) [Mass fraction] 93 % Dr. Srinivas Masters PA-C Work Phone: [facility] 09-27-2024 08:55-0400 Systolic blood pressure 116 mm[Hg] Dr. Srinivas Masters PA-C Work Phone: [facility] 09-26-2024 11:39-0400 Body mass index (BMI) [Ratio] 32.9 kg/m2 Dr. Srinivas Masters PA-C Work Phone: [facility] 09-26-2024 11:39-0400 Body weight 89.[address] Srinivas Masters PA-C Work Phone: [facility] 09-26-2024 11:39-0400 Diastolic blood pressure 82 mm[Hg] Dr. Srinivas Masters PA-C Work Phone: [facility] 09-26-2024 11:39-0400 Heart rate 77 /min Dr. Srinivas Masters PA-C Work Phone: [facility] 09-26-2024 11:39-0400 Respiratory rate 16 /min Dr. Srinivas Masters PA-C Work Phone: [facility] 09-26-2024 11:39-0400 Systolic blood pressure 120 mm[Hg] Dr. Srinivas Masters PA-C Work Phone: [facility] 07-14-2023 15:43-0500 Body temperature 98.29 [degF] Avelino Calderon DPM Work Phone: [facility] 07-14-2023 15:43-0500 Diastolic blood pressure 78 mm[Hg] Avelino Calderon DPM Work Phone: [facility] 07-14-2023 15:43-0500 Heart rate 78 /min Avelino Calderon DPM Work Phone: [facility] 07-14-2023 15:43-0500 Systolic blood pressure 113 mm[Hg] Avelino Calderon DPM Work Phone: [facility] 08-09-2022 09:04-0500 Body temperature 98.29 [degF] Omega Sugarcreek DPM Work Phone: [facility] 08-09-2022 09:04-0500 Diastolic blood pressure 84 mm[Hg] Omega Tayla DPM Work Phone: [facility] 08-09-2022 09:04-0500 Heart rate 87 /min Omega Sugarcreek DPM Work Phone: [facility] 08-09-2022 09:04-0500 Systolic blood pressure 125 mm[Hg] Omega Tayla DPM Work Phone: [facility] 07-19-2022 14:04-0500 Body temperature 97.5 [degF] Omega Sugarcreek DPM Work Phone: [facility] 07-19-2022 14:04-0500 Diastolic blood pressure 72 mm[Hg] Omega Sugarcreek DPM Work Phone: [facility] 07-19-2022 14:04-0500 Heart rate 78 /min Omega Tayla DPM Work Phone: [facility] 07-19-2022 14:04-0500 Systolic blood pressure 117 mm[Hg] Omega Tayla DPM Work Phone: [facility] Encounters Encounter Date Encounter Type Care Provider Facility Start: 12-19-2024 ambulatory [facility] Facility:[facility] Start: 12-08-2024 ambulatory [facility] Facility:[facility] Start: 11-23-2024 End: 11-23-2024 ambulatory SRINIVAS SEATTLE Facility:[facility] Start: 10-31-2024 Non-patient / Non-visit Dr. Rommel Watt MD -[facility] Work Phone: Start: 10-31-2024 End: 10-31-[address] Srinivas Masters PA-C Work Phone: [facility] Work Phone: Start: 10-31-2024 End: 10-31-[address] Rommel Watt MD -[facility] Work Phone: Start: 10-31-2024 End: 10-31-2024 ambulatory Srinivas Masters Facility:[facility] Start: 10-26-2024 ambulatory SRINIVAS MASTERS Facility:[facility] Start: 10-24-2024 End: 10-24-2024 ambulatory SRINIVAS MASTERS Facility:[facility] Start: 10-23-2024 Non-patient / Non-visit Dr. Rommel Watt MD -[facility] Start: 10-23-2024 End: 10-23-[address] Srinivas Masters PA-C Work Phone: [facility] Work Phone: Start: 10-23-2024 End: 10-23-[address] Rommel Watt MD -[facility] Work Phone: Start: 10-22-2024 End: 10-23-[address] Srinivas Masters PA-C Work Phone: [facility] Work Phone: Start: 10-22-2024 End: 10-22-[address] Sly Tolentino MD -[facility] Work Phone: Start: 10-22-2024 End: 10-22-2024 ambulatory Sly Tolentino Facility:[facility] Start: 10-18-2024 End: 10-18-2024 ambulatory SRINIVAS MASTERS Facility:[facility] Start: 09-27-2024 End: 09-27-[address] Sly Tolentino MD -[facility] Work Phone: Start: 09-27-2024 End: 09-27-2024 ambulatory Srinivas Masters Facility:[facility] Start: 09-26-2024 End: 09-26-[address] Rommel Watt MD -[facility] Work Phone: Start: 09-26-2024 End: 09-26-2024 ambulatory Srinivas Sonam Facility:[facility] Start: 09-20-2024 ambulatory SRINIVAS SONAM Facility:[facility] Start: 09-18-2024 End: 09-18-2024 ambulatory SRINIVAS MASTERS Facility:[facility] Start: 09-11-2024 ambulatory SRINIVAS MASTERS Facility:[facility] Start: 09-06-2024 End: 09-07-2024 ambulatory SRINIVAS SONAM Facility:[id number] Start: 08-28-2024 End: 08-28-2024 ambulatory SRINIVAS SONAM Facility:[facility] Start: 08-28-2024 End: 03-11-2025 ambulatory SRINIVAS MASTERS Facility:[id number] Start: 08-08-2024 End: 08-08-2024 ambulatory WILLEM HANKINS Facility:[facility] Start: 07-31-2024 End: 07-31-2024 ambulatory USHA JAMESON [employer] Facility:[facility] Start: 07-26-2024 End: 07-26-2024 ambulatory USHA NICOLEZAFAR [employer]AL[employer] 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 Facility:[facility] Start: 06-22-2024 End: 06-22-2024 ambulatory JONAS HIGHTOWER MD Facility:[id number] Start: 05-11-2024 End: 05-11-2024 ambulatory JONAS HIGHTOWER MD Facility:[id number] Start: 05-11-2024 End: 05-11-2024 ambulatory JONAS HIGHTOWER MD [facility] Start: 07-14-2023 End: 07-18-2023 ambulatory AVELINO CALDERON [facility] Ambulatory Start: 07-14-2023 End: 07-14-2023 Office outpatient visit 15 minutes Avelino Calderon DPM Work Phone: [facility] Comment on above: Hammer toe of right foot (Primary Dx); Sprain of anterior talofibular ligament of right ankle, initial encounter; Stewart metatarsalgia, right; Hallux limitus, right [M20.5X1] Start: 09-08-2022 End: 09-09-2022 ambulatory [facility] Start: 09-08-2022 End: 09-08-2022 Subsequent hospital visit by physician [facility] [address] Exam Room [address] [facility] [address] Comment on above: Epigastric pain; Change in bowel habit; Hemorrhage of anus and rectum Start: 09-07-2022 End: 09-07-2022 Subsequent hospital visit by physician [facility] [address] Exam Room [address] [facility] [address] Comment on above: Canceled (Other: Err or) Start: 09-07-2022 End: 09-08-2022 ambulatory [facility] Start: 08-09-2022 End: 08-09-2022 ambulatory PHYSICIAN GEGE [facility] Start: 08-09-2022 End: 08-09-2022 Office outpatient visit 15 minutes Omega Bourne DPM Work Phone: [facility] Comment on above: Idiopathic neuropath y (Primary Dx); Contusion of bone; Chronic heel pain, right Start: 07-19-2022 End: 07-23-2022 ambulatory PHYSICIAN NO [facility] Start: 07-19-2022 End: 07-19-2022 Office outpatient new 30 minutes Omega Bourne DPM Work Phone: [facility] Comment on above: Contusion of bone (P rimary Dx); Chronic heel pain, right Start: 01-14-2022 Telephone encounter Willem Hankins MD Work Phone: [employer] Comment on above: Patient Question Procedures Date Procedure Procedure Detail Performing Clinician Start: 10-31-2024 CT angiography of co ronary arteries Dr. Srinivas Masters PA-C Work Phone: Start: 10-22-2024 Ultrasound elastogra phy of liver Dr. Srinivas Masters PA-C Work Phone: Start: 09-26-2024 Evaluation of diagno stic study results Dr. Srinivas Masters PA-C Work Phone: Start: 09-08-2022 Ct abdomen & pelvis w/contrast material Bernard Chatterjee MD Work Phone: Start: 08-09-2022 Follow-up visit Follow-up OMEGA BOURNE Start: 06-04-2019 Follow-up visit Start: 07-03-2018 Adult depression scr eening assessment Willem Hankins MD Work Phone: Plan of Treatment Date Care Activity Detail Author Start: 07-28-2023 End: 07-28-2023 Patient encounter procedure 07/28/2023 9:00 AM EST Office Visit [facility] [address] [place] [phone] Avelino Calderon DPM [address] [place] [address] [facility] Start: 02-18-2023 Influenza vaccination [facility] Start: 08-09-2022 End: 08-09-2022 Patient encounter procedure 08/09/2022 Office Visit Podiatry Omega Bourne DPM [address] [place] [phone] [facility] Start: 02-18-2022 Influenza vaccination [facility] Start: 11-13-2020 Hepatitis B surface antibody level LDL CHOLESTEROL [facility] Start: 02-01-2020 ANNUAL 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 Start: 07-03-2019 Adult depression screening assessment DEPRESSION SCREENING [facility] Start: 01-01-2019 Hemoglobin A1c measurement A1C [facility] Start: 01-01-2019 Hemoglobin A1c/Hemoglobin.total in Blood HBA1C [facility] Start: 07-16-2015 Screening for malign ant neoplasm of colon Fecal occult blood test (FOBT,FIT) [facility] Start: 2014 COLOGUARD (FIT-DNA) COLOGUARD (FIT-D NA) [facility] Start: 2014 Colonoscopy COLONOSCOPY [facility] Start: 2014 COLORECTAL CANCER SCREENING COLORECTAL CANCER SCREENING [facility] Start: [address] [facility] Start: 2014 FECAL OCCULT BLOOD FECAL OCCULT BLOO D [facility] Start: 2014 SIGMOIDOSCOPY SIGMOIDOSCOPY [facility] Start: 2009 Mammography MAMMOGRAM [facility] Start: 2009 Screening for malign ant neoplasm of breast Mammogram [facility] Start: 11-27-1999 HPV TESTING HPV TESTING [facility] Start: 11-27-1999 Screening for malign ant neoplasm of cervix [facility] Start: 1990 PAP TESTING PAP TESTING [facility] Start: 1990 Screening for malign ant neoplasm of cervix Pap Smear [facility] Start: 1988 DTaP/Tdap/Td Vaccine s (1 - Tdap) DTaP/Tdap/Td Vaccines (1 - Tdap) [facility] Start: 1988 HEPATITIS B (1 of 3 - Risk 3-dose series) HEPATITIS B (1 of 3 - Risk 3-dose series) [facility] Start: 1988 Urine microalbumin profile DTAP,TDAP,TD (1 - Tdap) [facility] Start: 11-27-1987 HEPATITIS C SCREENING HEPATITIS C [facility] Start: 11-27-1987 Hepatitis C screening Hepatitis C [facility] Start: 11-27-1987 HIV SCREENING HIV SCREENING [facility] Start: 1984 HIV screening HIV Screening [facility] Start: 1981 Depression screening using PHQ-9 (Patient Health Questionnaire 9) score [facility] Start: 11-27-1979 3 comp foot exam completed DIABETIC FOOT EXAM [facility] Start: 11-27-1979 Diabetic foot examination [facility] Start: 11-27-1979 Glaucoma screening [facility] Start: 11-27-1979 Hepatitis B screening URINE ALBUMIN:CREATININE RATIO [facility] Start: 11-27-1979 Hepatitis C antibody , confirmatory test DILATED RETINAL EXAM [facility] Start: 11-27-1979 Urine screening for protein Urine Microalbumin [facility] Start: 11-27-1975 PNEUMOCOCCAL (1 - PCV) PNEUMOCOCCAL (1 - PCV) [facility] Start: 1972 History and physical examination, annual for health maintenance Wellness Visit [facility] Start: 1970 MMR Vaccines (1 of 1 - Standard series) MMR Vaccines (1 of 1 - Standard series) [facility] Start: 05-28-1970 COVID-19 VACCINE (#1) COVID-19 VACCI NE (#1) [facility] Start: 1969 Hepatitis B Vaccines (1 of 3 - 3-dose series) Hepatitis B Vaccines (1 of 3 - 3-dose series) [facility] Start: 1969 HIV screening HIV Screening [facility] Start: 1969 Screening for malign ant neoplasm of cervix Pap Smear [facility] Start: 1969 Screening for malign ant neoplasm of colon [facility] Start: 1969 Tetanus vaccination Tetanus: Every 1 0yrs [facility] Acute hepatitis 2000 panel - Serum [facility] Bilirubin.direct [Mass/volume] in Serum or Plasma [facility] C reactive protein [Mass/volume] in Serum or Plasma [facility] CBC W Auto Different ial panel - Blood [facility] Comprehensive metabo lic 1999 panel - Serum or Plasma [facility] CT angiography of coronary arteries [facility] Gamma glutamyl transferase measurement [facility] Hemoglobin A1c/Hemoglobin.total in Blood [facility] Lipid 1996 panel - S catarina or Plasma [facility] OUTSIDE PROCEDURE SCAN OUTSIDE P ROCEDURE SCAN Procedures Ordered: 09/06/2022 [facility] Qianmi Comment on above: Ordered: 09/06/2022 Prothrombin time [facility] Thyroid stimulating hormone measurement [facility] Urinalysis complete panel - Urine [facility] Payers Date Payer Category Payer Self-pay 2019 Private Health Insurance [facility] [id number] 2019-Present [phone] [address] [address] [place] [address] HMO [id number]. [id number] 2018 Private Health Insurance [id number] .[id number]. [id number] 2018 Private Health Insurance [id number] 2018 Unknown [facility] PL[facility] [id number] 2018-Present [phone] [address] [address] [place] [address] 1.2.840.957945.1.13.385. 2.7.3.079958.315 1969 Unknown [id number] 2.16.840.1.371538.3.579. 2.903 1969 Unknown [id number] 2.16.840.1.073619.3.579. 2.903 1969 Unknown [id number] 2.16.840.1.184484.3.579. 2.903 1969 Unknown [id number] 2.16.840.1.606494.3.579. 2.903 1969 Unknown [id number] 2.16.840.1.126030.3.579. 2.903 1969 Unknown [id number] 2.16.840.1.590031.3.579. 2.903 1969 Unknown [id number] 2.16.840.1.655276.3.579. 2.159 1969 Unknown [id number] 2.16.840.1.127335.3.579. 2.159 1969 Unknown [id number] 2.16.840.1.769616.3.579. 2.159 1969 Unknown [id number] 2.16.840.1.985011.3.579. 2.159 1969 Unknown [id number] 2.16.840.1.389767.3.579. 2.159 1969 Unknown [id number] 2.16.840.1.329770.3.579. 2.159 1969 Unknown [id number] 2.16.840.1.615803.3.579. 2.159 1969 Unknown [id number] 2.16.840.1.319987.3.579. 2.159 1969 Unknown [id number] 2.16.840.1.502292.3.579. 2.159 1969 Unknown [id number] 2.16.840.1.305867.3.579. 2.159 1969 Unknown [id number] 2.16.840.1.698117.3.579. 2.159 1969 Unknown [id number] 2.16.840.1.826834.3.579. 2.159 1969 Unknown [id number] 2.16.840.1.814732.3.579. 2.159 1969 Unknown [id number] 2.16.840.1.828627.3.579. 2.159 1969 Unknown [id number] 2.16.840.1.456781.3.579. 2.159 1969 Unknown [id number] 2.16.840.1.581655.3.579. 2.159 1969 Unknown [id number] 2.16.840.1.459492.3.579. 2.159 1969 Unknown [id number] 2.16.840.1.811495.3.579. 2.159 Unknown [id number] 2.16.840.1.838969.3.579. 2.462 Unknown [id number] 2.16.840.1.993602.3.579. 2.462 Unknown [id number] 2.16.840.1.803357.3.579. 2.462 Unknown [id number] 2.16.840.1.269779.3.579. 2.462 Unknown [id number] 2.16.840.1.079341.3.579. 2.462 Unknown [id number] 2.16.840.1.880026.3.579. 2.462 Unknown [id number] 2.16.840.1.127225.3.579. 2.462 Unknown [id number] 2.16.840.1.407095.3.579. 2.462 Unknown [id number] 2.16.840.1.774418.3.579. 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 Start: 08-09-2022 Gender identity Not on file [facility] Start: 08-09-2022 History of Social function [facility] Start: 1970 Sex Assigned At Female [facility] Clinical Notes 02-16-2013 to 10-31-2024 Note Date & Type Note Facility 10-31-2024 Radiology Diagnostic study note [facility] Imaging Services [address] [place] [address] 10/31/24 1446 MR#: [id number] Acct: [id number] Name: CARLIE NGUYEN Rep #:[id number] : 1970 53 From: Rommel Watt MD PCP: Srinivas Masters PA-C Status:REG REF Y Location: CT Calcium Scoring Date of Study:: 10/31/24 Indications Indications: Chest pain Coronary Calcium Scoring: High-resolution Computed Tomographic imaging of the chest was performed on [10/31/24 ], with particular attention paid to the coronary arteries. Images fromthe examination were analyzed for the presence and extent of coronary artery calcification , using coronary calcium quantification software. The patient tolerated the procedure well and there were no complications. The results of thecoronary calcification analysis are provided below. Findings Coronary Artery Left Main (LM): 0 Left Anterior Descending (LAD): 6.23 Left Circumflex (LCX): 0 Right Coronary Artery (RCA): 0 Total Agatston Score: 6.23 Percentile Rankin Calcium Scoring Interpretation: Different methods to categorize the overall amount of coronary plaque. Overall amount CAC SIS Visual of coronary plaque P1 Mild -100 <2 1-2 vessels with mild amount of plaque P2 Moderate 101-300 3-4 1-2 vessels with moderate amount, 3 vessels with mild amount of plaque P3 Severe 301-999 5-7 3 vessels with moderate amount, 1 vessel withsevere amount of plaque P4 Extensive >1000 >8 2-3 vessels with severe amount of plaque Conclusion: Mild Plaque in the LAD 10/31/24 1448 Date __ _ Rommel Watt MD Cosigner Signature (if applicable): Date ____ CC: CLAYTON Masters; Dr. Rommel Watt MD ~ Signed [facility] Work Phone: 10-31-2024 Radiology Diagnostic study note [facility] Imaging Services [address] [place] [address] Cardiac Only MR#: [id number] Acct: [id number] Name: CARLIE NGUYEN Rep #: [id number] : 1970 F 53 From: Mariano Raymundo MD PCP: Srinivas Masters PA-C Status: REG REF Study:Limited Chest CT Cardiac Only Date of E xam: 10/31/24 Exam# [id number] Ordering Dr: Nikolai Watt MD PROCEDURE: LIMITED CHEST CT CARDIAC ONLY REASON FOR EXAM: CHEST PAIN TECHNIQUE: Supine chest CT without contrast,. Dose report: 12.19 mGy. DLP: 243.79 One or more dose reduction techniques were used (e.g., Automated exposure control, adjustment of the mA and/or kV according to patient size, use of iterative reconstruction technique). COMPARISON: None FINDINGS: Hardware: None Lymph nodes: No mediastinal hilar or axillary lymphadenopathy. Heart and Vasculature: Thoracic aorta and pulmonary arteries have normal contours; noncontrast technique limits evaluation. Coronary Artery Calcifications: Present Lungs and Airways: The lungs are normally expanded and clear. No septal thickening nodules or abnormal pulmonary opacities. Pleura: Unremarkable Upper Abdomen: Unremarkable Bones: Unremarkable CT/Limited Chest CT Cardiac Only IMPRESSION: Coronary artery calcification (CAC) is is present Minimal coronary artery calcification. Reading Location: [id number] CC: CLAYTON Masters; Dr. Rommel Watt MD ~ Practice Billing Associate: Signed [facility] 10-22-2024 Radiology Diagnostic study note [facility] Imaging Services [address] [place] [address] ABD Limited w/ Elastography MR#: [id number] Acct: [id number] Name: CARLIE NGUYEN Rep #: [id number] : 1970 F 53 From: Monica Gipson MD PCP: Srinivas Masters PA-C Status: REG CLI Study:ABD Limited w/ Elastography Date of Exa m: 10/22/24 Exam# [id number] Ordering Dr: Clary Tolentino MD PROCEDURE: ABD LIMITED W/ ELASTOGRAPHY, 10/22/2024 REASON FOR EXAM: INTERMITTENNT RUQ PAIN, H/O CHOLECYSTECTOMY COMPARISON: None TECHNIQUE: Grayscale and color Doppler imaging of the right upper quadrant was performed. Elastography was performed for non-invasive assessment of liver tissue stiffness utilizing a [employer] S-shear wave imaging unit. FINDINGS: Liver: Echogenic. 16.8 cm in length. Gallbladder: Cholecystectomy. Biliary tree: Unremarkable. CBD measures 7 mm. Pancreas: Partially obscured by shadowing bowel gas, grossly unremarkable as visualized. Right kidney: Unremarkable. 12.7 cm in length. Other: No visualized free fluid. Hepatic elastography: Number of measurements: 15 measurements across 3 regions, 5 measurements per region. US probe: CA1-7A. EQI median: 6.3 kPa EQI median velocity: 1.44 m/s IQR/Med: 16.4-20.2% (kPa) and 7.8-9.4% (m/s). If the IQR/Med is IQR/median >30% (for kPa) or >15% in m/s, the variance in the measurements is a large and the accuracy of the measurement may be in question. US/ABD Limited w/ Elastography IMPRESSION: 1. No acute abnormality identified. If unexplained symptoms persist, consider CT. 2. Appearance of the hepatic most commonly suggestive of hepatic steatosis. Correlate with clinical and laboratory evidence of chronic liver disease. 3. Liver stiffness is 6.3 kPa. Per the below 2020 SRU criteria, this rules out compensated advanced chronic liver disease in the absence of other known clinical signs. If there are known clinical signs, further testing may be needed for confirmation. 4. Cholecystectomy without biliary dilatation. 5. Additional description as above. Assessment is per the Update to the U Liver Elastography Consensus Statement (2020) Note that the above assessment of liver fibrosis is vendor-neutral and intended for use in fibrosis related to viral etiologies and non-alcoholic fatty-liver disease (NAFLD); in causes other than viral hepatitis and NAFLD, the cutoff values are currently not well established. In some patients with NAFLD, the cutoff values for cACLD may be lower (7-9 kPa). Note also that in the setting of elevated LFTs, nonfasting or vascular congestion, the stage of lifer fibrosis may be overestimated. Previous U reference values: <1.37 m/s (5.7kPa): No to mild fibrosis 1.37 m/s - 2.2 m/s: Moderate to severe fibrosis >2.2 m/s (15kPa): Significant fibrosis / cirrhosis Reading Location: [id number] CC: CLAYTON Masters; Dr. Sly Tolentino MD ~ Practice Billing Associate: Signed [facility] 09-26-2024 Evaluation note Diagnosis Onset Date Resolution PVC (premature ventricular contraction) acute September 26, 2024 11:30am Gastritis chronic September 27 8:49am RUQ abdominal pain chronic September 27, 2024 8:49am [facility] Work Phone: 1(167) 760-405903-20-2025 NoteImmunization Screening Entered On: 09/06/2024 12:13 EDT Performed On: 09/06/2024 12:13 EDT by Carolin Yusuf RN Immunization Screening Immunizations Current : Yes Last Tetanus : Unknown Influenza Vaccine : No [employer] COVID-19 Vaccine : No Carolin Yusuf RN - 09/06/2024 12:13 EDT Influenza Immunization Screening Would the patient 18 & over like to receive the Influenza Vaccine? : No Refusal Reason : Concerns re: side effects/safety Carolin Yusuf RN - 09/06/2024 12:[address] [facility] Comment on above:Order Comment: Order entered secondary to inpatient admission. Result Comment: [id number] NotePatient: CARLIE NGUYEN Age: 53 years Sex: Female : 1970 Associated Diagnoses: None Author: VIVIAN VALENCIA CNP Basic Information Source of history: Self. Chief Complaint Prolapse, incontinence Patient presents for presurgical evaluation per basic anesthesia protocol for upcoming laparoscopicsupracervical hysterectomy, bilateral salpingectomy, laparoscopic sacrocervicopexy, enterocele repair?abdominal, anterior/posterior repair, transvaginal taping?obturator sling, perineorrhaphy, cystoscopy History of Present Illness This pleasant G9, P6 53-year-old female reports developing sudden pelvic pain and lower extremity edema beginning in April 2024. She was diagnosed with gout/reactive arthritis and was started on prednisone and colchicine. The lower extremity swelling and edema resolved. She followed up with [employer] due to the persistent pelvic pain. On exam she was diagnosed with a prolapse. She was referred to Dr. Boyd. She reports a constant vaginal pressure/irritating sensation. She denies any vaginal bleeding. Over the past several years she has experienced progressively worsening urinary frequency, urgency, nocturia, and incontinence. Dr. Boyd is recommending a laparoscopic supracervical hyster ectomy, bilateral salpingectomy, laparoscopic sacrocervicopexy, enterocele repair?abdominal, anterior/posterior repair, transvaginal taping?obturator sling, perineorrhaphy, cystoscopy. The patient isagreeable. She reports a history of postoperative nausea and vomiting. The patient denies any known family history of anesthesia problems, including malignant hyperthermia or pseudocholinesterase deficiency. Histories Past Medical History: 1. Asthma Family History: Father History is negative. Mother: () Age at unknown. High blood pressure. Grandmother: Maternal Ovarian cancer. Procedure history: D and E at 18 weeks dismise. Chromosomes sent on 03/13/2012 at 41 Years. Shoulder ([id number]) on 02/05/2011 at 40 Years. Comments: 02/14/2014 11:57 EDT - Rachael Tomas Loosened Muscles of shoulder. near medial clavicle D&C - Dilatation and curettage ([id number]) on 04/20/2010 at 39 Years. Comments: 02/14/2014 11:56 Rachael Watson for sab Cystic fibrosis ([id number]) on 10/05/2004 at 33 Years. Comments: 02/14/2014 11:58 Rachael Watson pt tested negative Carpal tunnel syndrome ([id number]) on 11/18/2001 at 30 Years. Comments: 02/14/2014 11:57 Rachael Watson Surgery Cholecystectomy ([id number]) on 06/20/1999 at 28 Years. colonoscopy. Comments: 07/26/2024 13:38 TAZ Huitron MA, Crystal diverticulitis Social History Social & Psychosocial History Social History Alcohol Denies Alcohol Use Current, 1-2 times per year Home/Environment Comment: Feels safe at home (02/14/2014 11:59 - Rachael Tomas) Other ......menopause 2016 Sexual Sexually active: Yes. Substance Abuse Denies Substance Abuse Tobacco Never (less than 100 in lifetime) Tobacco Use:. Psychosocial History No active psychosocial history has been recorded . Patient is G9, P6. She is a [id number] mother. Health Status Include (Selected) Allergic Reactions (All) Severity Not Documented Avelox- Irritable. DULoxetine- Did not tolerate. House dust mite allergen extract- No reactions were documented. MethylPREDNISolone- Other. Montelukast- Unknown (origin). Moxifloxacin- Unknown. Canceled/Inactive Reactions (All) No Known Allergies. Current medications: Home Meds (ST) Albuterol as needed Review of Systems Constitutional: No fever. Eye: Patient wears glasses.. Ear/Nose/Mouth/Throat: No nasal congestion, No sore throat. Respiratory: No shortness of breath, No cough. Cardiovascular: No chest pain, No peripheral edema. Gastrointestinal: No diarrhea, No constipation, No heartburn, No abdominal pain. Genitourinary: Negative except as documented in history of present illness, No dysuria, No hematuria. Hematology/Lymphatics: No bleeding tendency. Endocrine: No cold intolerance, No heat intolerance. Immunologic: No recurrent fevers. Musculoskeletal: No back pain, No muscle pain. Integumentary: No rash, No breakdown, No skin lesion. Neurologic: Alert and oriented X4. Physical Examination VS/Measurements Vital Signs (last 24 hrs) Last Charted Heart Rate Peripheral 69 bpm (AUG 28 08:46) Resp Rate 16 br/min (AUG 28:46) SBP 112 mmHg (AUG 28:46) DBP H 83 mmHg (AUG 28:) BMI 32.76 (AUG 28:) General: Alert and oriented. Eye: Pupils are equal, round and reactive to light. HENT: Normocephalic, Normal hearing. Neck: Supple, Non-tender. Respiratory: Lungs are clear to auscultation, Respirations are non-labored, Breath sounds are equal. Cardiovascular: No (more content not included)...[facility] 08-08-2024 NoteSSHERICARLIE WELCH :1970 Registration Date:07/31/2024 Urodynamic Study Indication: Cystocele, Mixed incontinence Urinalysis with microscopy was performed and was neg. Procedure: Using [employer] multi-channel urodynamic equipment, the patient was brought to the room and voided in the bedside toilet. They were then placed on the table and was catheterized for post void residual, using sterile technique. the bladder pressure/ infusion and abdominal catheters were then placed. Surface electrodes were placed in the anal position. Vesical, abdominal, urethral and subtracted detrusor/closure pressures were measured continuously along with EMG. Throughout the test, the patient was asked perform stress maneuvers and asked sensations. They were asked to void at the end of the testing. The catheters were removed without difficulty, the patient tolerated well. Prolapse during study: Yes Reduced: Yes Tests Performed: [X] Uroflowmetry: Curve: normal Voided Volume: 131.1 _ Post Void Residual: 20 cc _ Average Flow Rate: 9.8 mm/sec _ Interpretation/Plan: _normal flow rate; low volume void [X] Electromyography (EMG): Normal Muscle Tested: urethral Latency: _ Amplitude: 40 Interpretation/Plan: normal _ [X] Complex Cystometrogram (CMG) with voiding pressure and urethral pressure profile studies: 1st Sensation: 2.9 ml of H20 infused 1st Urge: 48.8 ml of H20 infused Full: 237.3 ml of H20 infused Max: 357.9 ml of H20 infused Uninhibited Bladder Contraction: Negative Leak with Cough: Negative Urinary Leakage with Contraction: Negative Leak with Valsalva: Negative Stop Void: Negative Interpretation/Plan: _normal capacity; no MANNY or DO; [X] Urethral Pressure Profile: Leakage with Cough: Negative Leakage with Catheter Out: Negative Stress Leak Point Pressure: 6 cm H2O Stress Leak Point Pressure: 0 cm H2O Maximum Urethral Closure Pressure: 78 cm H2O Maximum Urethral Closure Pressure: 83 cm H2O Interpretation/Plan: _normal MUCP; no MANNY [X] Pressure Flow/Voiding Phase: Catheters: In EMG: Normal Curve: Normal Amount Voided: 406 cc Post Void Residual: 0 cc Maximum Detrusor Pressure: 35 Average Flow Rate: 12.5 ml/second Interpretation/Plan: normal flow rate; normal PVR_ Electronically Co-Signed by: LUIS BOYD MD on 08/08/2024 12:43 EST Sent to for review: USHA JAMESON CNPUniversity [facility]als [facility]02-11-2025 NoteSSHERIFARIHATI CARLIE Vernell :1970 Registration Date:07/31/2024 Urodynamic Study Indication: Cystocele, Mixed incontinence Urinalysis with microscopy was performed and was neg. Procedure: Using [employer] multi-channel urodynamic equipment, the patient was brought to the room and voided in the bedside toilet. They were then placed on the table and was catheterized for post void residual, using sterile technique. the bladder pressure/ infusion and abdominal catheters were then placed. Surface electrodes were placed in the anal position. Vesical, abdominal, urethral and subtracted detrusor/closure pressures were measured continuously along with EMG. Throughout the test, the patient was asked perform stress maneuvers and asked sensations. They were asked to void at the end of the testing. The catheters were removed without difficulty, the patient tolerated well. Prolapse during study: Yes Reduced: Yes Tests Performed: [X] Uroflowmetry: Curve: normal Voided Volume: 131.1 _ Post Void Residual: 20 cc _ Average Flow Rate: 9.8 mm/sec _ Interpretation/Plan: _ [X] Electromyography (EMG): Normal Muscle Tested: urethral Latency: _ Amplitude: 40 Interpretation/Plan: _ [X] Complex Cystometrogram (CMG) with voiding pressure and urethral pressure profile studies: 1st Sensation: 2.9 ml of H20 infused 1st Urge: 48.8 ml of H20 infused Full: 237.3 ml of H20 infused Max: 357.9 ml of H20 infused Uninhibited Bladder Contraction: Negative Leak with Cough: Negative Urinary Leakage with Contraction: Negative Leak with Valsalva: Negative Stop Void: Negative Interpretation/Plan: _ [X] Urethral Pressure Profile: Leakage with Cough: Negative Leakage with Catheter Out: Negative Stress Leak Point Pressure: 6 cm H2O Stress Leak Point Pressure: 0 cm H2O Maximum Urethral Closure Pressure: 78 cm H2O Maximum Urethral Closure Pressure: 83 cm H2O Interpretation/Plan: _ [X] Pressure Flow/Voiding Phase: Catheters: In EMG: Normal Curve: Normal Amount Voided: 406 cc Post Void Residual: 0 cc Maximum Detrusor Pressure: 35 Average Flow Rate: 12.5 ml/second Interpretation/Plan: _ LADONNA STEPHENSON [facility]01-25-2024 History of Present illness Narrative * Avelino Calderon, DPM - 07/14/2023 5:38 PM EST Patient: Carlie Nguyen Date of : 1970 (52 y.o.) PCP: Gege, Physician Procedures ASSESSMENT/PLAN: Carlie Nguyen 52 y.o. female with history of right lateral ankle sprain, contracted second hammertoe with metatarsalgia on the right foot. Plan: I applied a metatarsal pad of the toe sling to take pressure off the ball of the right foot. Patient was placed on Mobic to take daily. If this seems to help patient would benefit from some orthotics. I explained to patient she has suffered from an ankle sprain. I prescribed and dispensed 1 ankle brace to be worn with shoes and assist in ambulation. Patient was told to rest, ice, elevate the right ankle and take her meloxicam. Patient to reappoint in 2 weeks. If not better may consider physical therapy. Assessment & plan notes cannot be loaded without a specified hospital service. SUBJECTIVE: History Since Last Visit: Patient 52-year-old female who was sitting on the floor 1 day ago and herfoot went numb. Patient tried to get up and twisted her right ankle which caused stabbing pain. Patient has a history of pain in the ball of the right foot with a contracted second hammertoe she wanted looked at today. Review of Systems: OBJECTIVE: Physical Examination: Integument-skin is warm dry and supple on the right foot. Neuro-intact right foot Musculoskeletal-patient has pain over the anterior talofibular ligament of the right ankle. Patienthad pain when I went invert the right ankle. Patient has no pain with subtalar midtarsal joint range of motion on the right foot. Patient has some mild pain over the peroneal brevis and longus tendonof the right ankle. There is no pain over the deltoid ligament or distal tib-fib syndesmosis. Patient has pain subsecond metatarsal of the right foot. Patient has contracted second and third hammertoes at the level of proximal interphalangeal in the right foot. There is a positive Severino tests of the second metatarsal phalange joint on the right Vascular-DP and PT pulses are palpable on the right foot. BP 113/78 (BP Location: Right arm, Patient Position: Sitting, BP Cuff Size: Adult) Pulse 78 Temp 98.3 F (36.8 C) (Infrared) Laboratory and Additional Data Reviewed: Reviewed:[id number]} XR Ankle Right 3+ Views (Standard) Xray 3 views right ankle - there is no signs of fracture or dislocation documented in this [id number] Instructions* Patient Instructions* Omega Bourne DPM - 08/09/2022 9:39 AM EST Images from the original note were not included. Voltaren 1% gel over the counter Apply up to 4 times per day Omega Bourne DPM, MS Podiatric Physician & Surgeon documented in this [id number] History of Present illness Narrative* Omega Bourne DPM - 08/09/2022 9:16 AM EST Images from the original note were not included. Omega Bourne DPM Patient Name: Carlie Nguyen. . Date of : 1970, 51 y.o.. Gender: female. Subjective: Patient is a pleasant 51-year-old female who presents to clinic for follow-up evaluation of her right heel pain. Patient states that her pain has improved but has not completely resolved. States thatshe has completed her mL Dosepak with improvement. Reports that she stopped taking the cam because it caused for gastric ulcer.States that she has been wearing a cam boot at home. Patient is complaining primarily today of numbness tingling and burning to bilateral feet at the ball of the foot. States that she can recall this when she was in fourth grade and her feet with burning. Denies any low back pain problems. Denies diabetes. No other pedal complaints at this time. Denies fevers, chills, nausea, vomiting, chest pain, shortness of breath, or any other constitutional symptoms. Physical Examination: BP 125/84 (BP Location: Left arm, Patient Position: Sitting, BP Cuff Size: X- large Adult) Pulse 87 Temp 98.3 F (36.8 C) (Infrared) General Appearance: Alert, cooperative, no distress, appears stated age. Podiatric Exam Vascular: DP and PT pulses are palpable 2/4. Capillary refill time is less than 3 secs to distal digits. Skin temperature is warm to warm from proximal tibial tuberosity to distal digit. No appreciable edema noted Neurological: Gross sensation is intact. Protective sensation is diminished using the Trent Kavon monofilament. Dermatologic: No ecchymosis. No edema Interdigital spaces are clean dry and intact. Musculoskeletal: Mild tenderness on palpation to the lateral plantar right heel. No pain to the medial calcaneal tubercle. No pain along the medial band of plantar fascia. Ankle joint range of motionis intact. Muscle strength is 5/5 to dorsiflexors, plantar flexors, inverters and everters. Compartments soft and compressible. No calf pain Diagnoses: 1. Idiopathic neuropathy 2. Contusion of bone 3. Chronic heel pain, right Imaging: Right foot 3 views weightbearing radiographs were previously ordered and interpreted as follows: No acute fractures or dislocations noted to the plantar calcaneus. Large calcaneal enthesophyte noted. Joint space narrowing noted to the first metatarsophalangeal joint with spurring. Assessment/Plan: Patient was seen and evaluated. Discussed all clinical findings. I previously ordered, interpreted, and discussed right foot radiographic findings with patient as noted above. Heel pain has improved with short course of Medrol Dosepak. Recommend the patient continues to ice to allow more time. Patient may wear her cam boot while at home to avoid as much as she can. Regarding her idiopathic peripheral neuropathy to bilateral feet, recommended seeing a neurologist for eval management. Discussed ordering nerve conduction studies test prior to the neurologist but patient declined at this time. All questions were answered to patient satisfaction. Patient understands to call with any questionsor concerns. Patient has elected to follow-up as needed. This note was partially created using voice recognition software and is inherently subject to errors including those of syntax and sound-alike substitutions which may escape proofreading. In such instances, original meaning may be extrapolated by contextual derivation. Omega Bourne DPM, MS Podiatric Physician & Surgeon documented in this [id number] Note* Addendum Note - Omega Bourne DPM - 07/19/2022 3:06 PM ESTAddended by: OMEGA BOURNE on: 07/19/2022 03:06 PM Modules accepted: Orders [id number] Note* Addendum Note - Omega Bourne DPM - 07/19/2022 3:06 PM ESTAddended by: OMEGA BOURNE on: 07/19/2022 03:06 PM Modules accepted: Orders [id number] Miscellaneous Notes* Addendum Note - Omega Bourne DPM - 07/19/2022 3:06 PM ESTAddended by: OMEGA BOURNE on: 07/19/2022 03:06 PM Modules accepted: Orders documented in this [id number] History of Present illness Narrative* Omega Bourne DPM - 07/19/2022 2:37 PM EST Images from the original note were not included. NEW Patient Visit Omega Bourne DPM Patient Name: Carlie Nguyen. . Date of : 1970, 51 y.o.. Gender: female. Subjective: Patient is a pleasant 51-year-old female who presents to clinic for evaluation and management regarding pain to her right heel. Patient believes that she may have fractured her heel bone. States thatshe was jumping around with her dogs on May 20 and came down wrong on her right heel. States that it has been causing her pain and discomfort with ambulation ever since. States that she has taking ibuprofen when she absolutely needed it. States that she has been wearing a cam boot at home. No other pedal complaints at this time. Denies fevers, chills, nausea, vomiting, chest pain, shortness of breath, or any other constitutional symptoms. History reviewed. No pertinent past medical history. Past Surgical History: Procedure Laterality Date CARPAL TUNNEL RELEASE CHOLECYSTECTOMY Social History Socioeconomic History Marital status: Tobacco Use Smoking status: Never Smokeless tobacco: Never Physical Examination: BP 117/72 (BP Location: Right arm, Patient Position: Sitting, BP Cuff Size: Adult) Pulse 78 Temp 97.5 F (36.4 C) (Infrared) General Appearance: Alert, cooperative, no distress, appears stated age. Podiatric Exam Vascular: DP and PT pulses are palpable 2/4. Capillary refill time is less than 3 secs to distal digits. Skin temperature is warm to warm from proximal tibial tuberosity to distal digit. No appreciable edema noted Neurological: Gross sensation is intact. Protective sensation is intact. Dermatologic: No ecchymosis. No edema Interdigital spaces are clean dry and intact. Musculoskeletal: Pain on palpation to the lateral plantar right heel. No pain to the medial calcaneal tubercle. No pain along the medial band of plantar fascia. Ankle joint range of motion is intact.Muscle strength is 5/5 to dorsiflexors, plantar flexors, inverters and everters. Compartments soft and compressible. No calf pain Diagnoses: 1. Contusion of bone 2. Chronic heel pain, right Imaging: Right foot 3 views weightbearing radiographs were ordered and interpreted as follows: No acute fractures or dislocations noted to the plantar calcaneus. Large calcaneal enthesophyte noted. Joint space narrowing noted to the first metatarsophalangeal joint with spurring. Assessment/Plan: Patient was seen and evaluated. Discussed all clinical findings. I ordered, interpreted, and discussed right foot radiographic findings with patient as noted above. Discussed conservative options consisting of offloading, anti-inflammatories, steroids, icing, etc. A short cam boot was prescribed, fitted and dispensed to the patient in the office as it is medically necessary for offloading the right heel. Moreover, meloxicam and a Medrol Dosepak were prescribed and sent to her pharmacy to help decrease pain and inflammation. Patient is to follow-up in 3 weeks for evaluation All questions were answered to patient satisfaction. Patient understands to call with any questionsor concerns. This note was partially created using voice recognition software and is inherently subject to errors including those of syntax and sound-alike substitutions which may escape proofreading. In such instances, original meaning may be extrapolated by contextual derivation. Omega Bourne DPM, MS Podiatric Physician & Surgeon documented in this [id number] Miscellaneous Notes* Telephone Encounter - Adalberto Parnell - 01/14/2022 4:27 PM EDT Advised patient * Telephone Encounter - Adalberto Parnell - 01/14/2022 3:34 PM EDT Patient said they moved to [facility] an was wondering if there was someone you can refer out that way for a new PCP. 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 04/30/2013 documented as of this encounter (statuses as of 01/14/2022) [facility] Contusion of bone- Primary Chronic heel pain, right [facility] Diagnosis Idiopathic neuropathy- Primary Other specified idiopathic peripheral neuropathy Contusion of bone Chronic heel pain, right [facility]* Diagnosis Epigastric pain Abdominal pain, epigastric Change in bowel habit Hemorrhage of anus and rectum Hemorrhage of rectum and anus documented in [facility]* Diagnosis Hammer toe of right foot- Primary Sprain of anterior talofibular ligament of right ankle, initial encounter [facility] metatarsalgia, right Hallux limitus, right [M20.5X1] [facility]* Attachments The following attachments cannot be sent through Care Everywhere. * Ankle Sprain ([place]) documented in this encounterOhioHealthReason for referral (narrative)No reason for referral information availableWMount Carmel Health System Work Phone: Summary Purpose Family History No Family History Records Found Relationship Condition Age at Onset Recorded Date/T sulema Not Specified Diabetes mellitus Unknown mother Arthritis Unknown Hypertension Unknown father Cardiac disease Unknown grandmother Malignant neoplasm Unknown Advance Directives No Advanced Directives Records FoundNo Advanced Directives Records FoundNo Advanced Directives Records FoundNo Advanced Directives Records FoundNo Advanced Directives Records FoundNo Advanced Directives Records FoundNo Advanced Directives Records FoundNo Advanced Directives Records FoundNo Advanced Directives Records FoundNo Advanced Directives Records Found Procedure Findings Note Post Operative Note: Post-Pr ocedure Diagnosis: Thoracic spondylosis Procedure: Thoracic epidural steroid injection Surgeon: Tamie Tan MD Resident/Fellow/Other Inside Finisher: None Anesthesia: 1% lidocaine Estimated Blood Loss (mL): None Specimen: no Findings: None Operative Report Dictated: Dictation: not applicable - note contains Operative Report Operative Report: Operation Thoracic epidural steroid injection. Level performed T9-T10 Surgical indications The patient is here today to receive an epidural steroid injection to assist with pain. Operative report The patient was taken to the procedure room, was placed into a prone positioning. The thoracic area was prepped and draped sterilely in the normal fashion. Under fluoroscopic guidance the epidural space was identified. The skin and subcutaneous tissue was anesthetized with 1% lidocaine. An 18-gauge Tuohy needle was introduced using the normal saline [id number] technique. Once the loss of resistance had been achieved, f (more content not included)... Note Post Operative Note: Post-Pr ocedure Diagnosis: Thoracic spondylosis Procedure: Medial nerve branch block T9, T10, T11 bilateral Surgeon: Tamie Tan MD Resident/Fellow/Other Inside Finisher: None Anesthesia: 1% lidocaine Estimated Blood Loss (mL): None Specimen: no Findings: None Operative Report Dictated: Dictation: not applicable - note contains Operative Report Operative Report: Clinical Note The patient is here today to receive diagnostic medial nerve branch block to assist with pain. Procedure Note The patient was taken to the procedure room, was placed into a prone position. The area was prepped and draped sterilely in the normal fashion. The patient was throughout the procedure monitored by the nursing staff. The skin and subcutaneous tissue was anesthetized with 1% lidocaine. Then 22-gauge spinal needles were introduced into the approximation of the medial nerve branches at the above mentioned level, confirmed in AP and oblique view with negative aspiration of heme and CSF. T (more content not included)... Note Post Operative Note: Post-Pr ocedure Diagnosis: Thoracic spondylosis Procedure: Radiofrequency ablation of the right T9, T10, T 11 medial nerve or branches Surgeon: Tamie Tan MD Resident/Fellow/Other Inside Finisher: None Anesthesia: 2 mg of Versed Estimated Blood Loss (mL): None Specimen: no Findings: None Operative Report Dictated: Dictation: not applicable - note contains Operative Report Operative Report: Surgical Indications The patient is here today to receive a radiofrequency ablation of the above-mentioned nerve to assist with the pain condition. Operative Report The patient was taken to the procedure room, was placed into a prone positioning. The skin was prepped and draped sterilely in the normal fashion. Under fluoroscopic guidance the medial nerve root branches were identified and the patient was throughout the procedure monitored by the nursing staff. The skin and subcutaneous tissues were anesthetized with 1% lidocaine. Then 20-gauge RF needles were introduced into the (more content not included)... Note Post Operative Note: Post-Pr ocedure Diagnosis: Thoracic spondylosis Procedure: Radiofrequency ablation left T9, T10, T11 medial nerve branches Surgeon: Tamie Tan MD Resident/Fellow/Other Inside Finisher: None Anesthesia: 2 mg of Versed Estimated Blood Loss (mL): None Specimen: no Findings: None Operative Report Dictated: Dictation: not applicable - note contains Operative Report Operative Report: Surgical Indications The patient is here today to receive a radiofrequency ablation of the above-mentioned nerve to assist with the pain condition. Operative Report The patient was taken to the procedure room, was placed into a prone positioning. The skin was prepped and draped sterilely in the normal fashion. Under fluoroscopic guidance the medial nerve root branches were identified and the patient was throughout the procedure monitored by the nursing staff. The skin and subcutaneous tissues were anesthetized with 1% lidocaine. Then 20-gauge RF needles were introduced into the approximati (more content not included)... Reason for Referral Specialty Diagnoses / Procedures Referred By Jerri leigh Referred To Contact Radiology Diagnoses Epigastric pain Change in bowel habit Hemorrhage of anus and rectum Procedures CT abdomen pelvis w contrast Bernard Chatterjee MD [address] [place], [place] [id number] Referral ID Status Reason Start Date Expiration Date Visits Re quested Visits Authorized [id number] Closed 09/01/2022 02/28/2023 1 1 Chief Complaint and Reason for Visit Chief Complaint Admit Date ESTABLISH (SELF) September 26, 2024 11:3 0am ULQ Pain September 27, 2024 8:4 9am INTERMITTENNT RUQ PAIN, H/O CHOLECYSTECT MEMO October 22, 2024 10:01am VENTRICULAR PREMATURE DEPOLARIZATION October 23, 2024 10:29am Reason for Visit Admit Date PVC (premature ventricular contraction) September 26, 2024 11:30am Gastritis September 27, 2024 8:4 9am RUQ abdominal pain September 27, 2024 8:4 9am Chief Complaint Admit Date ESTABLISH (SELF) September 26, 2024 11:3 0am ULQ Pain September 27, 2024 8:4 9am INTERMITTENNT RUQ PAIN, H/O CHOLECYSTECT MEMO October 22, 2024 10:01am VENTRICULAR PREMATURE DEPOLARIZATION October 23, 2024 10:29am CP October 31, 2024 7:17a m CP- CALCIUM SCORING October 31, 2024 7:35a m Additional Source Comments INFORMATION SOURCE (unrecogn ized section and content) DATE CREATED AUTHOR 07/11/2018 [facility] DATE CREATED AUTHOR AUTHOR'S ORGANIZ ATION 02/08/2019 [facility] DATE CREATED AUTHOR AUTHOR'S ORGANIZ ATION 06/05/2019 [facility] DATE CREATED AUTHOR AUTHOR'S ORGANIZ ATION 06/05/2019 [facility] DATE CREATED AUTHOR AUTHOR'S ORGANIZ ATION 06/15/2019 [facility] DATE CREATED AUTHOR AUTHOR'S ORGANIZ ATION 01/18/2022 [facility] DATE CREATED AUTHOR AUTHOR'S ORGANIZ ATION 12/10/[address] [facility] DATE CREATED AUTHOR AUTHOR'S ORGANIZ ATION 07/18/2023 [facility] DATE CREATED AUTHOR AUTHOR'S ORGANIZ ATION 11/24/2024 [facility] DATE CREATED AUTHOR AUTHOR'S ORGANIZ ATION 12/18/2024 [facility] [place] Source Comments (unrecognize d section and content) In the event this informatio n is protected by the Federal Confidentiality of Alcohol and Drug Abuse Patient Records regulations: The Federal rules restrict any use of the information to criminally investigate or prosecute any alcohol or drug abuse patient.[facility] Reason for Visit (unrecogniz ed section and content) Reason Comments Patient Question Reason Comments Foot Pain Pt states she was ju mping around with her dogs on May 20 and came down wrong on right heel. Pt states right heel hurts on lateral side. Pt states pain hasn't went away. Reason Comments Follow-up Follow up right heel contusion. Pt states that the heel is still very painful and has stabbing , burning - pt states that when she points her foot she gets a cramp in the foot and has to straighten out the toes Specialty Diagnoses / Procedures Referred By Contac t Referred To Contact Radiology Diagnoses Epigastric pain Change in bowel habit Hemorrhage of anus and rectum Procedures CT abdomen pelvis w contrast Bernard Chatterjee MD [address] [place] [address] [address] [place] [address] Referral ID Status Reason Start Date Expiration Date Visits Re quested Visits Authorized [id number] Closed 09/01/2022 02/28/2023 1 1 Reason Comments Foot Pain R foot pain x 1 day - pt states that she was sitting on the floor painting and had her foot underneath her and she suddenly could not move her foot and was in terrible pain -pt states that it was like stabbing pain and pt has swelling on the lateral side of her foot and some on top of the foot Care Teams (unrecognized sec tion and content) Rigger Helper Relationship Specialty [place] [address] [place] [address] PCP - General Internal Medicine 07/11/18 Rigger Helper Relationship Specialty Start Date End Date No, Physician [facility] PCP - General 07/19/22 Rigger Helper Relationship Specialty Start Date End Date No, Physician [facility] PCP - General 07/19/22 Rigger Helper Relationship Specialty Start Date End Date Srinivas Masters PA [address] [place] [address] PCP - General Physician Inside Finisher 09/02/22 Rigger Helper Relationship Specialty Start Date End Date Srinivas Masters PA [address] [place] [address] PCP - General Physician Inside Finisher 09/02/22 Rigger Helper Relationship Specialty Start Date End Date No, Physician [facility] PCP - General 07/19/22 Team Status: Active Member Role Status Dates Dr. Srinivas Masters PA-C Primary Care Provider Active Team Status: Inactive Member Role Status Dates Dr. Srinivas Masters PA-C Primary Care Provider Active Start: September 26, 2024 End: September 26, 2024 Dr. Srinivas Masters PA-C Referring Provider Active Start: September 26, 2024 End: September 26, 2024 Dr. Rommel Watt MD Attending Provider Active S tart: September 26, 2024 End: September 26, 2024 Team Status: Inactive Member Role Status Dates Dr. Srinivas Masters PA-C Primary Care Provider Active Start: September 27, 2024 End: September 27, 2024 Dr. Srinivas Masters PA-C Referring Provider Active Start: September 27, 2024 End: September 27, 2024 Dr. Sly Tolentino MD Attending Provider Active Start: September 27, 2024 End: September 27, 2024 Team Status: Inactive Member Role Status Dates Dr. Srinivas Masters PA-C Primary Care Provider Active Start: October 22, 2024 End: October 22, 2024 Dr. Sly Tolentino MD Attending Provider Active Start: October 22, 2024 End: October 22, 2024 Dr. Sly Tolentino MD Referring Provider Active Start: October 22, 2024 End: October 22, 2024 Team Status: Active Member Role Status Dates Dr. Srinivas Masters PA-C Primary Care Provider Active Start: October 23, 2024 Dr. Rommel Watt MD Attending Provider Active S tart: October 23, 2024 Dr. Rommel Watt MD Referring Provider Active S tart: October 23, 2024 Team Status: Active Member Role Status Dates Dr. Srinivas Masters PA-C Primary Care Provider Active Start: October 23, 2024 Dr. Rommel Watt MD Attending Provider Active S tart: October 23, 2024 Team Status: Inactive Member Role Status Dates Dr. Srinivas Masters PA-C Primary Care Provider Active Start: October 23, 2024 End: October 23, 2024 Dr. Rommel Watt MD Attending Provider Active S tart: October 23, 2024 End: October 23, 2024 Dr. Rommel Watt MD Referring Provider Active S tart: October 23, 2024 End: October 23, 2024 Team Status: Inactive Member Role Status Dates Dr. Srinivas Masters PA-C Primary Care Provider Active Start: October 31, 2024 End: October 31, 2024 Dr. Rommel Watt MD Attending Provider Active S tart: October 31, 2024 End: October 31, 2024 Dr. Rommel Watt MD Referring Provider Active S tart: October 31, 2024 End: October 31, 2024 Team Status: Active Member Role Status Dates Dr. Srinivas Masters PA-C Primary Care Provider Active Start: October 31, 2024 Dr. Rommel Watt MD Attending Provider Active S tart: October 31, 2024 Dr. Rommel Watt MD Referring Provider Active S tart: October 31, 2024 Goals (unrecognized section and content) Goals may be documented in a n alternate sectionGoals may be documented in an alternate sectionGoals may be documented in an alternate section FOR RECORDS PERTAINING TO PATIENTS WHO ARE OR HAVE BEEN ENROLLED IN A CHEMICAL DEPENDENCY/SUBSTANCEABUSE PROGRAM, SOME INFORMATION MAY BE OMITTED. This clinical summary was aggregated from multiple sources. Caution should be exercised in using it in the provision of clinical care. This summary normalizes information from multiple sources, and as a consequence, information in this document may materially change the coding, format and clinical context of patient data. In addition, data may be omitted in some cases. CLINICAL DECISIONS SHOULD BE BASED ON THE PRIMARY CLINICAL RECORDS. [employer] provides no warranty or guarantee of the accuracy or completeness of information in this document.
--- OUTSIDE RECORDS SUMMARY | 2024-12-19 07:29 | XMS RPT_ITS | CCD ---
Author Organization [facility] Inform ion Partnership [facility] Care Team Providers Care Treater Helper Name Role Phone Cr STEPHENSON, Willem Flores Primary Care Provider No, Physician Primary Care Provider Unavailabl e Srinivas Patel Primary Care Provider Srinivas Patel Primary Care Provider BERNARD CHATTERJEE Referring Unavailable SRINIVAS MASTERS Primary [...] Srinivas Masters PA-C Primary Care Provider [phone] Dr. Srinivas Masters PA-C Referring Provider Dr. Rommel Watt MD Attending Provider Dr. Sly Tolentino MD Attending Provider Dr. Sly Tolentino MD Referring Provider Shukri STEPHENSON, Dr. Carney Referring Provider [phone] SRINIVAS MASTERS Primary Care Unavailable MASTERS, SRINIVAS Primary Care Unavailable SKABAR GRIS, USHA Attending Unavailable SHAHED, MOHAMED Primary Care Unavailable MASTERS, SRINIVAS Primary Care Unavailable MASTERS, SRINIVAS Primary Care Unavailable MASTERS, SRINIVAS Primary Care Unavailable LUIS BOYD MD Admitting Unavailable MASTERS, SRINIVAS Primary Care Unavailable MASTERS, SRINIVAS Primary Care Unavailable SKABAR MARKETING OPERATIONS SPECIALIST, USHA Attending Unavailable SHAHED, MOHAMED Primary Care Unavailable JONAS HIGHTOWER MD Referring Unavailable SHAHED, MOHAMED Primary Care Unavailable JONAS HIGHTOWER MD Attending Unavailable JONAS HIGHTOWER MD Attending Unavailable SHAHED, MOHAMED Primary Care Unavailable JONAS HIGHTOWER MD Attending Unavailable SHAHED, MOHAMED Primary Care Unavailable MATSERS, SRINIVAS Primary Care Unavailable MASTERS, SRINIVAS Primary [...] Unavailable Masters, Srinivas Primary Care Unavailable Shukri, Fulda Attending Unavailable Shukri, Fulda Referring Unavailable Masters, Srinivas Referring Unavailable Rajan, Sly Attending Unavailable Masters, Srinivas Primary Care Unavailable Masters, Srinivas Referring Unavailable Shukri, Fulda Attending Unavailable Masters, Srinivas Primary Care Unavailable Shukri, Fulda Referring Unavailable Masters, Srinivas Primary Care Unavailable Shukri, Fulda Attending Unavailable Allergies Allergy Classification Reported Allergen(s) Allergy Type Date of Onset Reaction(s) Facility Corticosteroids (1 source) methylPREDNISolone Drug Allergy 02-01-20 19 Other (See Comments) [facility] DULoxetine (1 source) DULoxetine Drug Allergy 09-06-19 16 Shortness Of Breath [facility] montelukast (1 source) montelukast Drug Allergy 01-09-20 19 Unknown [facility] Quinolones (antibiotic) (1 source) moxifloxacin Drug Allergy 08-24-19 13 Other (See Comments) [facility] (4 sources) DULoxetine; Translations: [DULOXETINE] Drug Allergy 09-06-19 16 Shortness of Breath [facility] (1 source) House dust mite Allergy to substance 08-24-19 13 Shortness of Breath [facility] (4 sources) methylPREDNISolone; Translations: [METHYLPREDNISOLONE] Drug Allergy 02-01-20 19 Other: See Comments, Other (See Comments) [facility] (4 sources) montelukast; Translations: [MONTELUKAST] Drug Allergy 01-09-20 19 Unknown [facility] (4 sources) moxifloxacin; Translations: [MOXIFLOXACIN] Drug Allergy 08-24-19 13 Mental Status Change, Other (See Comments) [facility] (3 sources) House Dust Mite; Translations: [HOUSE DUST MITE] Propensity to adverse reactions to drug 08-24-19 13 Shortness Of Breath [facility] Medications Current Medications Medication Drug Class(es) Dates Sig (Normalized) Sig (Original) [id number] 200 actuat albuterol 0.09 mg/actuat metered dose [...] Reference Range Facility MR/PATAnne Marie 12-17-2024 MR/PAT.ZUNILDA [facility] Medical Records Department [address] [place] [address] PAT - Anesthesia 12/17/24 1553 MR#: [id number] Acct: [id number] Name: CARLIE NGUYEN BURTON Rep #: [id number] : 1970 54 From: Gabino Gr MD PCP: Srinivas Masters PA-C Status:PRE SDC Y Race: C Location: EN Pre-Assessment Diagnosis/Proposed Procedure Planned Operative Procedure(s): EGD Anesthesia History 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: 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 Hx Hospitalization Yes: HYSTERECTOMY 09/1112/17/24 13:20 Any [...] take am of surgery PONV PONV - teacher education instructor: PONV - teacher education instructor Female Yes 12/17/24 13:20 HX of Motion [...] 09/27/24 08:55 Respiratory Assessment Respiratory Assessment - teacher education instructor: Respiratory Tract Infection Hx - teacher education instructor Hx Respiratory Tract Infection No 12/17/24 13:20 STOP Sleep Apnea STOP Sleep Apnea - teacher education instructor: STOP Sleep Apnea - teacher education instructor Hx Hypertension No 12/17/24 13:20 Hx Sleep [...] Tobacco Use History Tobacco Use History - teacher education instructor: Tobacco Use History - teacher education instructor Tobacco Use Smoking Status Never smoker 12/17/24 13:20 Hx Tobacco Use No 12/17/24 13:20 Years Smoking Packs Smoked per Day Smoking Cessation Date was within the last 15 years Hx Smoking Cessation Date Hx Smoking Cessation Counseling Hematologic Medial History Hematologic Hx - teacher education instructor: Hematologic Medical 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 Patient will follow-up in 2 months or sooner if needed. Ordered: AMB Office/Outpt Est Pt Low MDM / 20 min 82823, 11/23/2024 13:59:00 EDT, Pelvic floor dysfunction Problem List/Past Medical History Ongoing Lacassine-Walker grade 2 cystocele Complete uterine prolapse Mixed [...] mg-325 mg oral tablet), 1 tabs, ORAL, [id number] albuterol = Proventil, Ventolin(Ventolin HFA Inhaler 90mcg/inh), 2 puffs, Inhalation, M7BKYYC, PRN estradiol topical(Estrace Vaginal 0.1 mg/g vaginal cream), See Instructions, 4 refills fluconazole(Diflucan 150 mg oral tablet), 150 mg= 1 tabs, ORAL, ONCE ibuprofen = Motrin, Advil(ibuprofen 800 mg oral tablet), 800 mg= 1 tabs, ORAL, D2KTYEX Allergies Avelox irritable DULoxetine Did not tolerate house dust mite allergen extract methylPREDNISolone eye pain montelukast Unknown (origin) Social History Alcohol - Denies Alcohol Use Use:Current Frequency:1-2 times per year Home/Environment Other Name:......menopause 2016 (more content not included)... Normal [facility] Ambulatory Vitals Height Leif ght-Texton 11-23-2024 Ambulatory [...] JAMESON CNP - 11/23/2024 13:30 EDT Normal [facility] Coronary Angiography CTon Coronary Angiography [facility] Imaging Services [address] [place] [address] 10/31/24 1446 MR#: [id number] Acct: [id number] Name: CARLIE NGUYEN Rep #: [id number] : 1970 53 From: Rommel Watt MD [...] Masters; Dr. Rommel Watt MD Signed Normal [facility] Limited Chest CT Cardiac Onl yon 10-31-[address] Cardiac Only [facility] Imaging Services [address] [place] [address] Cardiac Only MR#: [id number] Acct: [id number] Name: CARLIE NGUYEN BURTON Rep #: [id number] : 1970 F 53 From: Chang roa MD PCP: Srinivas Masters PA-C Status: REG REF Study: Limited Chest CT Cardiac Only Date of Exam: Exam# [id number] Ordering Dr: Rommel Watt MD PROCEDURE: LIMITED [...] present Minimal coronary artery calcification. Reading Location: [id number] CC: CLAYTON Masters; Dr. Rommel Watt MD Glass Presser: Signed Normal [facility] UROGYN Physician Progres s Noteon 10-24-2024 [facility] UROGYN Physician Progress Note GREGTI CARLIE [...] weeks then twice a week Pickup at [facility]/pharmacy #[id number] Unchanged acetaminophen (acetaminophen 500 mg oral tablet) [...] SIX HOURS Duration: 7 Days Pharmacy Information [facility]/pharmacy #[id number]: [address] [place] [address] [phone] Assessment/Plan: This Visit Diagnosis 1. Complete uterine prolapse N81.3 She is here for her post-op checkl. She is 6 weeks out from surgery. She is doing well and without complaints. She denies prolapse, incontinence, or voiding dysfunction. Ordered: AMB Postop followup during global period [address]24, 10/24/2024 10:40:00 EDT, Complete uterine prolapse Problem List/Past Medical History: Ongoing Lacassine-Walker grade 2 cystocele Complete uterine prolapse Mixed [...] mg-325 mg oral tablet), 1 tabs, ORAL, [id number] albuterol = Proventil, Ventolin(Ventolin HFA Inhaler 90mcg/inh), 2 puffs, Inhalation, B4FKILW, PRN estradiol topical(Estrace Vaginal 0.1 mg/g vaginal cream), See Instructions, 4 refills fluconazole(Diflucan 150 mg oral tablet), 150 mg= 1 tabs, ORAL, ONCE ibuprofen = Motrin, Advil(ibuprofen 800 mg oral tablet), 800 mg= 1 tabs, ORAL, L6PSVPC Allergies: Avelox irritable DULoxetine Did not tolerate [...] Care Team Primary Care Physician SRINIVAS MASTERS [phone] Attending Physician LUIS BOYD MD [phone] . Health Maintenance Pending (in the next year) OverDue Breast Cancer Screening due 07/04/19 and every 366 days Colorectal Screening due 11/27/23 and every 10 years Due MMR Vaccine Dose 1 due 10/24/24 One-time only Tetanus Vaccine due 10/24/24 Variable frequency Varicella Vaccine Dose 1 (more content not included)... Normal [facility] Stress Test Echo w/o Contras ton 10-23-2024 Stress Test Echo w/o Contrast [facility] Cardiovascular Services [address] [place] [address] Stress Test Echo w/o Contrast MR#: [id number] Acct: [id number] Name: CARLIE NGUYEN Rep #: [id number] : 1970 53 From: Rommel Watt MD [...] Date Dictated: 10/23/24 1046 Date Transcribed: 10/23/241725 Glass Presser: Signed Normal [facility] Stress echocardiogram study reportOrdered By: Rommel Watt on 10-23-2024 Stress cardiac echo study report [facility] Services [address] [place] [address] Stress Test Echo w/o Contrast MR#: [id number] Acct: [id number] Name: CARLIE NGUYEN BURTON Rep #: [id number] : 1970 53 From: Rommel Watt MD [...] CLAYTON Masters; Dr. Rommel Watt MD ~ Date Dictated: 10/23/24 1046 Date Transcribed: 10/23/24 1726 Glass Presser: Signed [facility] Work Phone: ABD Limited w/ Elastographyo n 10-22-2024 ABD Limited w/ Elastography [facility] Imaging Services [address] [place] [address] ABD Limited w/ Elastography MR#: [id number] Acct: [id number] Name: CARLIE NGUYEN Rep #: [id number] : 1970 F 53 From: Esteban Gipson MD PCP: Srinivas Masters PA-C Status: REG CLI Study: ABD Limited w/ Elastography Date of Exam: 11/11 Exam# [id number] Ordering Dr: Sly Tolentino MD PROCEDURE: ABD LIMITED W/ ELASTOGRAPHY, 10/22/2024 REASON FOR EXAM: INTERMITTENNT RUQ PAIN, H/O CHOLECYSTECTOMY COMPARISON: None TECHNIQUE: Grayscale and color Doppler imaging of the right upper quadrant was performed. Elastography was performed for non-invasive assessment of liver tissue stiffness utilizing a iMapData S-shear wave imaging unit. FINDINGS: Liver: Echogenic. [...] (15kPa): Significant fibrosis / cirrhosis Reading Location: [id number] CC: CLAYTON Masters; Dr. Sly Tolentino MD Glass Presser: Signed Normal [facility] Gastroenterology Visit Repor ton 09-27-2024 Gastroenterology Visit Report [facility] [address] [facility] [place] [address] OFFICE VISIT Date of Service: 09/27/24 MR#: [id number] Acct: [id number] Name: CARLIE NGUYEN Rep #: [id number] : 1970 Provider: Dr. Sly hernandez MD Age/Sex: 53/F Location[facility] Status: Signed Intake Vital Signs 09/26/24 [...] room air Intake Visit Reasons: ULQ Pain Automatic Bandsaw Tender Required: No Accompanied by: Self Is patient [...] patient's description. This was done on the [facility]. Patient recently moved from [facility] to [place]. Patient denies any family history of autoimmune [...] Inspection: normal (more content not included)... Normal [facility] 12 Lead EKG performed by [facility] on 09-26-2024 12 Lead EKG performed by [facility] [address] [place] [address] 12 Lead EKG performed by [facility] 09/26/24 1131 MR#: [id number] Acct: [id number] Name: CARLIE NGUYEN Rep #: [id number] : 1970 53 From: Rommel Watt MD Attending Dr: Dr. Rommel Watt MD Status: DEP A MB Ordering Dr: Rommel Watt MD Date: 09/26/24 Location: [facility] Sex: F C Admitted: BMS/12 Lead EKG performed by [facility] ECG Report Interpretation --Sinus Rhythm WITHIN NORMAL LIMITSElectronically signed on 10/02/2024 at 14:54 by Rommel Watt [employer] Software Version [id number] 10/02/24 1459 Date Rommel Watt MD CC: CLAYTON Masters Date Dictated: 09/26/24 1131 Date Transcribed: 09/26/24 113 Glass Presser: CO Signed Normal [facility] Cardiology Visit Reporton Cardiology Visit Report [facility] [place], [place] [address] OFFICE VISIT Date of Service: 09/26/24 MR#: [id number] Acct: [id number] Name: CARLIE NGUYEN Rep #: [id number] : 1970 Provider: Dr. Rommel Watt MD Age/Sex: 53/M Location: [facility] Status: Signed HPI HPI History of Present Illness Details: 53-year-old lady with a previous medical history as significant for premature ventricular complexes who was previously being followed at the [facility]. He says that she wants to switch care over here to see whether she can have her yearly evaluation. She denies any chest pain shortness of breath or paroxysmal nocturnal dyspnea pedal edema she has had occasional dizziness. She recently had a recent COMPUTER ANIMATOR procedure with pelvic floor repair. She also [...] Source Monitor Intake Visit Reasons: ESTABLISH (SELF) Automatic Bandsaw Tender Required: No Accompanied by: Self Is patient [...] Pulse, R (more content not included)... Normal [facility] UROGYN Physician Kanwal s Noteon 09-18-2024 [facility] UROGYN Physician Progress Note CARLIE NGUYEN [...] Ordered: AMB Postop followup during global period 09564, 09/18/2024 10:35:00 EDT, Encounter for examination following surgery Orders: Problem List/Past Medical History: Ongoing Lacassine-Walker grade 2 cystocele Complete uterine prolapse Mixed [...] mg-325 mg oral tablet), 1 tabs, ORAL, [id number] albuterol = Proventil, Ventolin(Ventolin HFA Inhaler 90mcg/inh), 2 puffs, Inhalation, M5GBXSU, PRN ibuprofen = Motrin, Advil(ibuprofen 800 mg oral tablet), 800 mg= 1 tabs, ORAL, I1KXRZN Allergies: Avelox irritable DULoxetine Did not tolerate [...] Care Team Primary Care Physician SRINIVAS MASTERS [phone] Attending Physician USHA JAMESON CNP [phone] . Health Maintenance Pending (in the next [...] recommendations within the defined date range Normal [facility] Consult Reporton 09-07-2024 Consult Report Patient: CARLIE PORTILLO [facility]: [id number] Age: 53 years Sex: Female : 1970 Associated Diagnoses: Mixed incontinence; Complete uterine prolapse Author: USHA JAMESON CNP Discharge Information Discharge Summary Information: Admit Date: Admitted 09/06/2024. Discharge Date: Discharged 09/07/2024. Admitting Diagnosis: Mixed incontinence - UAY29-QR N39.46, Medical, Complete uterine prolapse - HFC17-PG N81.3, Medical. Discharge Diagnosis: Mixed incontinence - KLL06-AX N39.46, Medical, Complete uterine prolapse - WCF12-GU N81.3, Medical. Discharge Medications ST Home Medications (2) Active acetaminophen 500 mg oral tablet 1,000 mg = 2 tabs, ORAL, ONCE Ventolin HFA Inhaler 90mcg/inh 2 puffs, PRN, Inhalation, A8CRBRG : (Complete Discharge Med Rec prior to [...] Counseled: patient. Disposition Discharge to: home. Normal [facility] Discharge Educationon 2024 Discharge Education Patient Education Material Normal [facility] Inpatient Patient Summaryon 09-07-2024 Inpatient Patient Summary [facility] Discharge Instructions [address] [place] [address] (Patient Copy) Name: CARLIE NGUYEN : 1970 Diagnosis: Complete uterine prolapse; Mixed incontinence Allergies: house dust mite allergen extract; DULoxetine; montelukast; methylPREDNISolone; Avelox Registration Date: 09/06/24 [facility]#: [id number] Current Date Time: 09/07/2024 08:52:07 Address: [address] [place] [address] Primary Care Provider: Name: SRINIVAS MASTERS Phone: [phone] Thank you for choosing [facility] for your care. You are very important to us. Our goal is to demonstrate our high quality medical care and provide you with a very good patient experience. You may receive a survey about our service. Please take the time to complete the survey and return it so we can continue to enhance our service. Thank you again for allowing [facility] to care for your medical needs. If [...] 10:00 AM Scheduled Provider: Usha Jameson CNP [address] [facility] [address], [address] Phone: -- Fax: -- UROGYN Appt. Date: 10/24/2024 10:20 AM [place]: [place] [address] [facility] [address] [place], [address] Phone: -- Fax: -- Provider Follow Ups: With: Address: When: USHA JAMESON [address] [facility] [address] [place], [place] [id number] Business (1) 09/18/2024 8:00 AM Comments: Patient [...] in more information on smoking cessation, contact [facility]?s Tobacco Cessation [facility] [phone] DIET Eat a variety of nutritious foods [...] daily ? (more content not included)... Normal [facility] SURGICAL PATH REPORTon 09-07 SURGICAL PATH REPORT [facility] Department of Pathology [address] [place] [id number] Name: CARLIE NGUYEN : 1970 [facility] [id number] Number: Gender Female Locatio 5E; E507; 01 : n: Admit 53 years Attending LUIS BOYD MD Age: Provider: Ordering LUIS BOYD MD Provider: Consulti Surgical Pathology Report ng: ACCESSION: COLLECTED DATE/TIME: RECEIVED DATE/TIME: PATHOLOGIST: [id number] 09/06/2024 09:23 EDT 09/06/2024 10:09 EDT KORY [...] specimen is composed of florez-pink soft tissue. Addresser sections are submitted under the following designations: Cassettes 1 through 5 ____ Print 09/19/2024 12:58 EDT Number: Date/Time: [facility] Department of Pathology [address] [place], [place] [id number] Name: CARLIE NGUYEN : 1970 [facility] [id number] Number: Gender Female Locatio 5E; E507; 01 : n: Admit 53 years Attending LUIS BOYD MD Age: Provider: Ordering LUIS BOYD MD Provider: Consulti Surgical Pathology Report ng: ACCESSION: COLLECTED DATE/TIME: RECEIVED DATE/TIME: PATHOLOGIST: [id number] 09/06/2024 09:23 EDT 09/06/2024 10:09 EDT KORY CORDOVA MD Gross Description district sales representative sections of uterus proper, cassette 6 first described fallopian tube, cassette 7-second described fallopian tube. MP 09/06/2024 10:46:07 EDT Microscopic Diagnosis The final diagnosis is based on a microscopic exam of district sales representative sections. This report was transcribed using voice recognition technology and might contain unintended computerized sash assembler errors. Codes CPT code: 34431 ____ Print 09/19/2024 12:58 EDT Number: Date/Time: Normal [facility] Comment on above: Performed By: #### [id number] ####[facility] Laboratory [id number] [place] [id number] Medical Director: Akil Sunshine MD Admission Assessment [...] - 09/06/2024 12:09 EDT Rapid Pain Data [id number] Primary Pain Location : Incisional Numeric Pain Scale : 8 = Severe Pain Numeric Pain Score : 8 Carolin Yusuf RN - 09/06/2024 12:09 EDT Conway Coma Eye Opening Response Conway : Spontaneously Best Verbal Response Conway : Oriented Best Motor Response Conway : Obeys simple commands Elizabeth Coma Score [...] Yusuf RN (more content not included)... Normal [facility] Comment on above: Order Comment: Order entered secondary to admission Admission History Adulton Admission History Adult Patient History Model Entered On: 09/06/2024 12:09 EDT Performed On: 09/06/2024 12:08 EDT by Carolin Yusuf RN General Info Preferred Verbal : Mosotho Contact Information : Esteban Nguyen [phone] Preferred Written : Mosotho Currently or : Not Applicable Is patient a dialysis patient? : No Carolin Yusuf RN - 09/06/2024 12:08 EDT Problem List Problem List obtained from : Patient Carolin Yusuf RN - 09/06/2024 12:08 EDT (As Of: 09/06/2024 12:09:43 EDT) Problems(Active) At risk for falls (SNOMED CT :170829346 ) Name of Problem: At risk for falls ; Recorder: SYSTEM; Confirmation: Confirmed ; Classification: Nursing ; Code: [id number] ; Last Updated: 09/06/2024 11:37 EDT ; Life Cycle Date: 09/06/2024 ; Life Cycle Status: Active ; Vocabulary: SNOMED CT ; Comments: 09/06/2024 11:37 - SYSTEM Problem added automatically by system based on documentation of a admission to the hospital. Lacassine-Walker grade 2 cystocele (SNOMED CT :818628812 ) Name of Problem: Lacassine-Walker grade 2 cystocele ; Recorder: JONAS HIGHTOWER MD; Confirmation: Confirmed ; Classification: Medical ; Code: [id number] ; Contributor System: PowerChart ; Last Updated: 05/11/2024 09:36 EST ; Life Cycle Date: 05/11/2024 ; Life Cycle Status: Active ; Vocabulary: SNOMED CT Complete uterine prolapse (SNOMED CT :69521363 ) Name of Problem: Complete uterine prolapse ; Recorder: VIVIAN VALENCIA CNP; Confirmation: Confirmed ; Classification: Medical ; Code: [id number] ; Contributor System: PowerChart ; Last Updated: 08/28/2024 07:15 EDT ; Life Cycle Date: 08/28/2024 ; Life Cycle Status: Active ; Responsible Provider: VIVIAN VALENCIA CNP; Vocabulary: SNOMED CT Mixed incontinence (SNOMED CT :16788671 ) Name of Problem: Mixed incontinence ; Recorder: VIVIAN VALENCIA CNP; Confirmation: Confirmed ; Classification: Medical ; Code: [id number] ; Contributor System: aCon ; Last Updated: 08/28/2024 07:15 EDT ; Life Cycle Date: 08/28/2024 ; Life Cycle Status: Active ; Responsible Provider: VIVIAN VALENCIA CNP; Vocabulary: SNOMED CT Premature menopause (SNOMED CT :8347025091 ) Name of Problem: Premature menopause ; Recorder: JONAS HIGHTOWER MD; Confirmation: Confirmed ; Classification: Medical ; Code: [id number] ; Contributor System: PowerChart ; Last Updated: 05/11/2024 09:27 EST ; Life Cycle Date: 05/11/2024 ; Life Cycle Status: Active ; Vocabulary: SNOMED CT Procedure History Accept Blood Products if Necessary : Yes Paramjit [facility] - 09/06/2024 12:08 EDT - Procedure History [...] Other: ......me (more content not included)... Normal [facility] Comment on above: Order Comment: Order entered [...] and vomiting. Postoperative hydration status: euvolemic. Normal [facility] Basic Admission Informationo n 09-06-2024 Basic Admission [...] low position, Call device within reach, Fall automation design engineer ID Band, Falling [place], ID band check, Mobility support items readily available, Night light Demonstrates Ability to Use Call Light Successfully : Yes Carolin Yusuf RN - 09/06/2024 12:08 EDT Normal [facility] Comment on above: Order Comment: Order entered [...] cystoscopy Surgeon(s) LUIS BOYD MD (Surgeon Primary) Fire Chief Deputy Kati Celaya SA (Management Associate) Indication for Senior International Tax Manager Given the inherent complexity of this surgery, a second surgeon or a surgically skilled Physician Fire Chief Deputy was necessary for the successful completion of this entire operative procedure. The judicial assistant was essential for safe and proper positioning of the patient, initial tissue dissection, complex manipulation and retraction of soft tissue, achieving hemostasis, maintaining exposure, and complex multilayer wound closure. Anesthesia General ANNA MARRERO DO (Marine Tower Operator) TERRI FUNG (Provider) Estimated Blood Loss 10 *Specimen(s) Uterus, bilateral fallopian tubes *Complications None Description of Procedure The patient brought to the operating room and placed on the operating table in a dorsal supine position. Abdomen, perineum, vagina prepped and draped in a sterile fashion using Betadine solution. Time- out was undertaken and the patient properly identified. At this point, a 16-American Burleson catheter placed in the patient's bladder [...] away from the uterosacral ligaments. A 0- Buffalo-Abraham suture was placed from the base of the uterosacral ligament, up the uterosacral ligament to the posterior aspect of the cervix and this was done on both sides. The Buffalo-Abraham sutures were then tied down with excellent [...] Allis clamps. The (more content not included)... [facility] Carbon Capture Power Plant Manager Detailson 2024 Carbon Capture Power Plant Manager Details Carbon Capture Power Plant Manager Details Entered On: 09/06/2024 22:32 EDT Performed On: 09/06/2024 22:32 EDT by Mari Samuels RN Carbon Capture Power Plant Manager Details Transport Mode Order Detail EV : Wheelchair Isolation Precautions RTF : [facility] Task to Nursing, 09/06/2024 10:37:00 EDT, [...] : No Pacemaker Order Detail : 0 Carbon Capture Power Plant Manager Details Review Status : Reviewed, changes made Nurse Collects Blood Specimens : No Mari Samuels RN - 09/06/2024 22:32 EDT [facility] Comment on above: Order Comment: Order entered secondary to admission Carbon Capture Power Plant Manager Details Carbon Capture Power Plant Manager Details Entered On: 09/06/2024 12:11 EDT Performed On: 09/06/2024 12:11 EDT by Carolin Yusuf RN Carbon Capture Power Plant Manager Details Transport Mode Order Detail EV : Cart Isolation Precautions RTF : [facility] Task to Nursing, 09/06/2024 10:37:00 EDT, [...] : No Pacemaker Order Detail : 0 Carbon Capture Power Plant Manager Details Review Status : Reviewed, changes made Nurse Collects Blood Specimens : No Paramjit HOWARD, Carolin - 09/06/2024 12:11 EDT Normal [facility] Comment on above: Order Comment: Order entered [...] Post-op pain Duration: 5 Days Pickup at [facility]/pharmacy #[id number] Unchanged estradiol topical (estradiol 0.1 mg/ g vaginal cream) 1 Gram Vaginal AT BEDTIME Atrophy of vagina Duration: 14 Days then twice a week , like tuesday. Pharmacy Information [facility]/pharmacy #[id number]: [address], [place] [phone] Assessment/Plan: This Visit Diagnosis 1. Complete uterovaginal [...] mg-325 mg oral tablet), 1 tabs, ORAL, [id number] AMB Postop followup during global period , 08/28/2024 11:51:00 EDT, Complete uterovaginal prolapse / Mixed incontinence urge and stress / Post-op pain Problem List/Past Medical History: Ongoing Lacassine-Walker grade 2 cystocele Complete uterine prolapse Mixed incontinence Premature menopause Historical Oligomenorrhea Procedure/Surgical History: D and E at 18 weeks dismise. Chromosomes sent: 03/13/12 Shoulder: 02/05/11 D&C - Dilatation and curettage: 04/20/10 Cystic fibrosis: 10/05/04 Carpal tunnel syndrome: 11/18/01 Cholecystectomy: 06/20/99 colonoscopy Medications: acetaminophen-oxycodone( Percocet 5 mg-325 mg oral tablet), 1 tabs, ORAL, [id number] estradiol topical(estradiol 0.1 mg/g vaginal cream), 1 [...] Care Team Primary Care Physician SRINIVAS MASTERS [phone] Attending Physician USHA JAMESON CNP [phone] . Health Maintenance Pending (in the next [...] satisfied recommendations within the defined date range [facility] Phone Msgon 08-28-2024 Phone Msg - From: Heather Gaston To: USHA JAMESON CNP; Sent: 08/28/2024 10:04:46 EDT Subject: P.A.T. Caller Name: CARLIE NGUYEN; Caller Number: H LEE Morales from P.A.T. called, patient was seen today, scheduled for surgery on 09/06 and does not want any blood products. ok Normal [facility] AMB UROGYN Physician Kanwal s Noteon 08-08-2024 [...] Est Pt Mod MDM / 30 min 73637, 08/08/2024 16:37:00 EST, Complete uterine prolapse / [...] Est Pt Mod MDM / 30 min 98713, 08/08/2024 16:37:00 EST, Complete uterine prolapse / Mixed incontinence Orders: AMB CMG w voiding & urethral pressures 50874 Interpretation, 08/08/2024 12:43:00 EST, Mixed incontinence urge and stress, 1 AMB Complex UFR (eg, calibrated equipment) 77275 Interpretation, 08/08/2024 12:43:00 EST, Mixed incontinence urge and stress, 1 AMB EMG anal/urethral sphincter, not needle 44242 Interpretation, 08/08/2024 12:43:00 EST, Mixed incontinence urge and stress, 1 AMB Voiding pressure studies, intra-abd 26207 Interpretation, 08/08/2024 12:43:00 EST, Mixed incontinence urge and stress, 1 Problem List/Past Medical History: Ongoing Lacassine-Walker grade 2 cystocele Premature menopause Historical Oligomenorrhea [...] Care Team Primary Care Physician WILLEM HANKINS [phone] Attending Physician LUIS BOYD MD [phone] . Health Maintenance Pending (in the next year) OverDue Breast Ca (more content not included)... Normal [facility] AMB UROGYN Physician Progres s Noteon 07-26-2024 AMB UROGYN Physician Progress Note CARLIE NGUYEN :1970 [facility]:[id number] Registration Date:07/26/2024 Chief Complaint BILLET SAWYER referred by Dr. Hightower C/O MANNY does [...] AMB CMG w voiding & urethral pressures 26031, 07/26/2024, Future Order, Mixed incontinence urge and stress / Rectocele / Midline cystocele / Complete uterovaginal prolapse, 1 AMB Complex UFR (eg, calibrated equipment) 88711, 07/26/2024, Future Order, Complete uterovaginal prolapse / Midline cystocele / Mixed incontinence urge and stress, 1 AMB EMG anal/urethral sphincter, not needle 31393, 07/26/2024, Future Order, Complete uterovaginal prolapse / Midline cystocele / Mixed incontinence urge and stress, 1 AMB Office/Outpt New Pt Mod MDM / 45 min 35939, 07/26/2024 14:43:00 EST, Complete uterovaginal prolapse / Midline cystocele / Rectocele / Mixed incontinence urge and stress AMB Voiding pressure studies, intra-abd 53824, 07/26/2024, USHA JAMESON CNP, Future Order, Complete uterovaginal prolapse / Midline cystocele / Mixed incontinence urge and stress, 1 2. Midline cystocele N81.11 As above Ordered: AMB CMG w voiding & urethral pressures 49793, 07/26/2024, Future Order, Mixed incontinence urge and stress / Rectocele / Midline cystocele / Complete uterovaginal prolapse, 1 AMB Complex UFR (eg, calibrated equipment) 67478, 07/26/2024, Future Order, Complete uterovaginal prolapse / Midline cystocele / Mixed incontinence urge and stress, 1 AMB EMG anal/urethral sphincter, not needle 41272, 07/26/2024, Future Order, Complete uterovaginal prolapse / Midline cystocele / Mixed incontinence urge and stress, 1 AMB Office/Outpt New Pt Mod MDM / 45 min 46053, 07/26/2024 14:43:00 EST, Complete uterovaginal prolapse / Midline cystocele / Rectocele / Mixed incontinence urge and stress AMB Voiding pressure studies, intra-abd 23015, 07/26/2024, USHA JAMESON CNP, Future Order, Complete uterov (more content not included)... Normal [facility] Ambulatory Clinical Summaryo n 07-26-2024 Ambulatory Clinical [...] July 31, 2024 08:20 am EDT UROGYN [address] ZIP:[address] Uro Talk URO TALK Tuesday Luis Boyd MD August 08, 2024 03:50 pm EDT UROGYN [address] [phone] ZIP:[id number] Medications What How Much When Why Instructions Unchanged estradiol topical (estradiol 0.1 mg/ g vaginal cream) 1 Gram Vaginal AT BEDTIME Atrophy of vagina Duration: 14 Days then twice a week , like tuesday. Allergies Avelox irritable DULoxetine house dust mite allergen extract methylPREDNISolone Other montelukast Unknown (origin) moxifloxacin Problems Ongoing - Any problem that you are currently receiving treatment for. Lacassine-Walker grade 2 cystocele Premature menopause Common Emergency [...] call to get immediate medical attention! Normal [facility] Comprehensive Intake - Texto n 07-26-2024 Comprehensive Intake - Text Comprehensive Intake Entered On: 07/26/2024 13:40 EST Performed On: 07/26/2024 13:38 EST by Adalberto Huitron MA Summary Chief Complaint : BILLET SAWYER referred by Dr. Hightower C/O MANNY does [...] in, 168 cm) Body Mass Index Measured Mosotho : 31.66 kg/m2 BSA Mosotho : 2.03 m2 Adalberto Huitron MA - [...] Huitron MA - 07/26/2024 13:38 EST Normal [facility] Phone Msgon 07-24-2024 Phone Msg - From: [...] anything Dr. BOYD recommend. Please advise. Patient [phone] From: Tania Vazquez MA To: Danial TRUJILLO Ramon; Sent: 07/24/2024 11:33:32 EST Subject: RE: results Caller Name: CARLIE NGUYEN; Caller Number: H Schedule her with Usha from UROGYN. for an evaluation. Appt. was made with Gisell. 07/26/24 @ 1:20pm STR. [facility] US BLADDER ECHOon 06-22-2024 US BLADDER ECHO US BLADDER CLINICAL STATEMENT: suprapubic pain, urinary frequency, cystocele and incont.;INCONTINENCE COMPARISON: CT abdomen pelvis 07/09/2015 FINDINGS: Prevoid bladder volume is 648 mL. Postvoid bladder volume is 17 mL. The bladder appears unremarkable. IMPRESSION: Prevoid bladder volume of 648 mL without a significant post void residual. Electronically signed by: Cali Lares MD 06/22/2024 12:14 PM EST [facility] Comment on above: Order Comment: Order ed on Fin# [id number] Result Comment: Tech nologist: ZND Dictated By: [...] MD 06/22/2024 12:19 PM EST RP Normal [facility] Comment on above: Order Comment: Order ed on [facility]# [id number] Result Comment: Tech nologist: ZND Dictated By: ACLI LARES MD Signed By: CALI LARES MD Signed Out: 06/22/24 12:19:21 Phone Msgon 05-22-2024 Phone Msg - From: JONAS HIGHTOWER MD To: CARLIE NGUYEN Sent: 05/22/2024 16:51:00 EST Subject: results good news! your pap and hpv test are both negative. Results: Date Result Name Value 05/11/2024 10:50 THINPREP TIS PAP SEE COMMENT Normal [facility] THIN PREP IMAGE SEND OUTon 1 07-22-2023 THINPREP TIS PAP SEE COMMENT [facility] Comment on above: Order Comment: Order ed on [facility]# [id number] Result Comment: THIN PREP TIS PAP Lab: [...] components cannot be reported in this patient. HISTORIAN RESEARCH ASSISTANT: ANDRÉS FUNEZ(ASCP) CT Screening Location: [employer] [place] [address] For questions contact Anatomic Pathology Client Services at [phone] EXPLANATORY NOTE: The Pap is a screening test for cervical cancer. It is not a diagnostic test and is subject to false negative and false positive results. It is most reliable when a satisfactory sample, regularly obtained, is submitted with relevant clinical findings and history, and when the Pap result is evaluated along with historic and current clinical information. PERFORMING SITE: [facility] [address] [address] Photoengraving Sketch Maker: ELPIDIO BROWN MD, CLIA: [id number] Performed By: #### C [id number] ####[facility] [id number] [place] [address] Medical Director: Akil Sunshine MD GP HPVon 05-15-2024 GP HPV Negative Normal [facility] Comment on above: Order Comment: Order ed on Fin# [id number] Result Comment: This HPV assay is being performed via a second generation NAAT that utilizes target capture, sash assembler mediated amplification and dual kenetic assay technologies. Performed By: #### C [id number] #### [facility] [address] [place] [address] Environmental Web Crawler: Akil Sunshine MD AMB Urinalysis Dipstick POC [id number] 05-11-2024 AMB Urinalysis Dipstick POC [id number] Urine Dipstick Entered On: 05/11/2024 10:38 EST Performed On: 05/11/2024 10:38 EST by Tania Vazquez MA Urine Dipstick Urine Color Urine Dipstick : Pale yellow Urine Appearance Urine Dipstick : Clear Glucose Urine Dipstick : Negative Bilirubin Urine Dipstick : Negative Ketones Urine Dipstick : Negative Specific Selma Urine Dipstick : 1.005 Blood Urine Dipstick : Negative pH Urine Dipstick : 6 Protein Urine Dipstick : Negative Urobilinogen Urine Dipstick : 0.2 mg/dl Nitrite Urine Dipstick : Negative Leukocytes Urine Dipstick : Negative Tania Vazquez MA - 05/11/2024 10:38 EST Normal [facility] Physician Progress No pascual 05-11-2024 [facility] Physician Progress Note CARLIE NGUYEN :1970 Registration Date:05/11/2024 Assessment/Plan This Visit Diagnosis 1. Pain pelvic R10.2 check PVR Ordered: AMB Preventive New Age 40-64 42555, 05/11/2024 09:28:00 EST, Well woman exam with [...] Future Visit AMB Preventive New Age 40-64 15939, 05/11/2024 09:28:00 EST, Well woman exam with [...] Future Visit AMB Preventive New Age 40-64 [address]74[address], 05/11/2024 09:28:00 EST, Well woman exam with [...] 5 refills AMB Preventive New Age 40-64 27689, 05/11/2024 09:28:00 EST, Well woman exam with routine gynecological exam / UTI symptoms / Pain pelvic / Deep dyspareunia in female / Atrophy of vagina / Cervical cancer screening / Screening for HPV (human papillomavirus) / Premature menopause / Frequ... 5. Cervical cancer screening Z12.4 Ordered: AMB Preventive New Age 40-64 30083, 05/11/2024 09:28:00 EST, Well woman exam with routine gynecological exam / UTI symptoms / Pain pelvic / Deep dyspareunia in female / Atrophy of vagina / Cervical cancer screening / Screening for HPV (human papillomavirus) / Premature menopause / Frequ... THIN PREP IMAGE SEND OUT, ROUTINE, 05/11/2024, Specimen type: COMPUTER ANIMATOR Spec, Cervix, Dx: Cervical cancer screening 6. Screening for HPV (human papillomavirus) Z11.51 Ordered: AMB Preventive New Age 40-64 55325, 05/11/2024 09:28:00 EST, Well woman exam with routine gynecological exam / UTI symptoms / Pain pelvic / Deep dyspareunia in female / Atrophy of vagina / Cervical cancer screening / Screening for HPV (human papillomavirus) / Premature menopause / Frequ... GP HPV, ROUTINE, 05/11/2024, Specimen type: COMPUTER ANIMATOR Spec, Dx: Screening for HPV (human papillomavirus) 7. Premature menopause E28.319 Ordered: AMB Preventive New Age 40-64 95160, 05/11/2024 09:28:00 EST, Well woman exam with routine gynecological exam / UTI symptoms / Pain pelvic / Deep dyspareunia in female / Atrophy of vagina / Cervical cancer screening / Screening for HPV (human papillomavirus) / Premature menopause / Frequ... 8. Well woman exam with routine gynecological exam Z01.419 declines mamm. Ordered: AMB Preventive New Age 40-64 [address]806, 05/11/2024 09:28:00 EST, Well woman exam with routine gynecological exam / UTI symptoms / Pain pelvic / Deep dyspareunia in female / Atrophy of vagina / Cervical cancer screening / Screening for HPV (human papillomavirus) / Premature menopause / Frequ... 9. UTI symptoms R39.9 u/a in office neg. [facility] Ordered: AMB Preventive New Age 40-64 [address], 05/11/2024 09:28:00 EST, Well woman exam with routine gynecological exam / UTI symptoms / Pain pelvic / Deep dyspareunia in female / Atrophy of vagina / Cervical cancer screening / Screening for HPV (human papillomavirus) / Premature menopause / Frequ... 10. Lacassine-Walker grade 2 cystocele N81.10 will try pt [...] a week , like tuesday. Pickup at [facility]/pharmacy #[id number] Pharmacy Information [facility]pharm[facility] #[id number]: [address], [place] [phone] Chief Complaint Annual ex (more content not included)... Normal [facility] Comprehensive Intake - Texto n 05-11-2024 Comprehensive [...] Vazquez MA - 05/11/2024 9:11 EST Normal [facility] COMPUTER ANIMATOR Visit - Texton COMPUTER ANIMATOR Visit - Text COMPUTER ANIMATOR Visit Entered On : 05/10/2024 15:01 EST Performed On: 05/10/2024 15:00 EST by Tania Vazquez MA COMPUTER ANIMATOR Screenings Date of Last Pap Smear : 07/07/2015 Last Pap Result : Negative Last Pap Result Comment : HPV NEG Date of Last Mammogram : 07/03/2018 Last Mammography Result : Benign Last Mammography Result Comment : CAT 1 Tania Vazquez MA - 05/10/2024 15:00 EST Normal [facility] XR ANKLE RIGHT 3+ VIEWS (STA NDARD)on 07-14-2023 XR ANKLE RIGHT 3+ VIEWS (STANDARD) Xray 3 views right ankle - there is no signs of fracture or dislocation Dictated by: AVELINO CALDERON on TueJul 14, 2023 4:03:51 PM EST Transcribed by: AVELINO CALDERON on TueJul 14, 2023 4:03:51 PM EST Finalized by: AVELINO CALDERON on TueJul 14, 2023 4:03:51 PM EST [facility] Comment on above: Order Comment: Injur y/Trauma [...] on TueJul 14, 2023 5:52:30 PM EST [facility] Comment on above: Order Comment: Injur y/Trauma or Illness?:Injury/Trauma How long have you had these symptoms (acute/chronic)?:Acute Reason for exam?:pain History of cancer?:u Surgeries, chemotherapy, or radiation?:u Type of Exam?:Initial Mechanism of injury?:sat on her foot CT ABDOMEN PELVIS W CONTRAST on 09-08-2022 CT ABDOMEN PELVIS W CONTRAST Patient Name: CARLIE NGUYEN : 1970 [facility]#: [id number] Exam Date/Time: 09/08/2022 12:38 Procedure: CT ABDOMEN [...] Electronically Signed Date/Time: 09/08/2022 1:30 PM EDT [facility] CT Abdomen and Pelvis W cont rast Yanni 09-08-2022 No acute findings are seen on this examination to explain the patient's pain. Mild colonic diverticulosis without evidence of diverticulitis. Report Dictated on Electronically Signed By: Daniel Herndon Electronically Signed Date/Time: 09/08/2022 1:30 PM EDT [facility] Name[facility] 1970 [id number] Exam Date/Time: 09/08/2022 12:38 Procedure: CT ABDOMEN [...] lesions are seen on the bone windows. [facility] Daniel Herndon MD - 09/08/2022 Patient Name: CARLIE NGUYEN : 1970 [facility]#: [id number] Exam Date/Time: 09/08/2022 12:38 Procedure: CT ABDOMEN [...] Electronically Signed Date/Time: 09/08/2022 1:30 PM EDT [facility] Study observation (narrative) [facility] CT Abdomen and Pelvis W cont rast IVOrdered By: Daniel Herndon on 09-08-2022 [facility] Work Phone: XR FOOT RIGHT 3+ VIEWS [...] TueJul 19, 2022 2:51:09 PM EST Normal [facility] Comment on above: Order Comment: Injur y/Trauma or Illness?:Injury/Trauma How long have you had these symptoms (acute/chronic)?:Acute Reason for exam?:pain History of cancer?:u Surgeries, chemotherapy, or radiation?:u Type of Exam?:Initial Mechanism of injury?:runing on uneven ground Yahaira 01-14-2022 [facility] Telephone ([id number]) -------- CARLIE NGUYEN (475) 1970 F Date Time Provider Department 01/14/22 WILLEM HANKINS [id number] During your visit today, we recorded the following information about you: Adalberto Parnell 01/14/2022 3:46 PM Signed Patient said they moved to [facility] an was wondering if there was [...] Fully Assessed Reason for Visit: Patient Question [2937] Prescriptions as of 01/14/2022 - MULTIVITAMIN TAB Take one(1) tablet daily. Meds Comments as of 08/23/2012: patient gets weekly allergy injections at [facility] [place] Problem List As Of Date 01/14/2022 Noted [...] Encounter Status:Closed by ADALBERTO PARNELL on 01/14/22 [facility] Yahaira 05-18-2021 CNPN Telephone ([id number]) -------- CARLIE NGUYEN (475) 1970 F Date Time Provider Department 05/18/21 WILLEM HANKINS [id number] During your visit today, we recorded the [...] Fully Assessed Reason for Visit: Patient Question [2617] Prescriptions as of 05/18/2021 - MULTIVITAMIN TAB Take one(1) tablet daily. Meds Comments as of 08/23/2012: patient gets weekly allergy injections at the [facility] [place] Problem List As Of Date 05/18/2021 Noted [...] 07/11/2018 Encounter Status:Closed by ADALBERTO PARNELL on 05/18/21 Normal [facility] GROUP A STREP,PCRon 06-05-20 GROUP A STREP,PCR NOT DETECTED Normal Not Detected [facility] Comment on above: Result Comment: This test and its performance have been Validated by [facility] using analyte specific reagents (ASR). It has not been cleared or approved by the U.S. Food and Drug Administration. The FDA has determined that such clearance or approval is not necessary. Performed By: #### G APC1 #### [facility] [address] [place] [address] GROUP A STREP,PCRon 06-04-20 Lab Specimen Source Throat Normal [facility] Comment on above: Performed By: #### G APC1 #### [facility] [address] 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 [...] high given the patient clinical presentation, labs, CLINIC PHYSICIAN DIRECTOR data, radiology reports, and other tests as [...] AM Vitals Vital Signs Recorded: 13Apr2019 08:25AM Knyydgtupbd69.3 F Heart Rate75 Qsdvvqvvron33 Watwhjje743 Ujjednqam42 Flbfbg612 lb BMI Rnigvqymfj01.44 BSA Calculated1.87 O2 Gomvjphobl72 Physical Exam Physical Exam General: Alert, oriented [...] high given the patient clinical presentation, labs, CLINIC PHYSICIAN DIRECTOR data, radiology reports, and other tests as [...] time devoted to history taking physical examination bipz-at-yqet time and coordination of care Thank you [...] May 05 2019 4:33PM EST (Author) Normal [facility] Established Visit (Pain Medi cine)on 05-04-2019 Established Visit (Pain Medicine) No report was sent Normal [facility] Initial Visit (Pain Medicine )on 03-05-2019 [...] be active she was [facility] received facet blocks [...] preserved. NEURO: Alert and oriented X 3 LIME MIXER normal as tested without focal neurological deficit Sensation normal Motor normal reflexes normal PSYCH: Mood normal Affect normal SKIN: Color normal No rash Warm Dry no sign of skin marking supportive of IV drug usage /abuse. Results/Data These results were obtained from the Physician Portal/[facility] medical record system. mri from 2013 reviewed [...] high given the patient clinical presentation, labs, CLINIC PHYSICIAN DIRECTOR data, radiology reports, and other tests as [...] visit with any questions or concerns at [phone] M-F 8-4 pm Normal [facility] LUMBAR [...] and assume there are 5 lumbar-type vertebrae. Glass Presser: PSCB Transcribe Date/Time: Feb 08 2019 10:26A Dictated by : RAKEL MARIE MD This examination was interpreted and the report reviewed and electronically signed by: RAKEL MARIE MD on Feb 08 2019 10:43AM EST [id number] Normal [facility] MRI THORACIC SPINE WO IVCONo n [...] and assume there are 5 lumbar-type vertebrae. Glass Presser: SHELDON Transcribe Date/Time: Feb 08 2019 10:26A Dictated by : RAKEL MARIE MD This examination was interpreted and the report reviewed and electronically signed by: RAKEL MARIE MD on Feb 08 2019 10:43AM EST [id number] [facility] PROGRESSon 02-08-2019 PROGRESS HNO ID: [id number] Author: Monalisa Thomas (Rt) Service: ? Author Type: Zipper Sewing Machine Operator Type: Progress Notes Filed: 02/08/2019 9:52 AM [...] Priest February 08, 2019 9:13 AM Normal [facility] ANAon 07-05-2018 Nuclear Ab IF titer (S) 0.2 OD Ratio Normal [facility] Comment on above: Performed By: #### C BCDIF, CMP #### [place] [id number] #### WSR, CRP, LIPB, RF, TSH, FT4, B12, HBA1C, UAWMIC, VITD #### [facility] Routine Lab [address] [place] [address] #### ANAS #### [facility] Immuno Assay [address] [place] [address] Nuclear Ab IF titer (S) NEGAT Normal Negative [facility] Reference Lab Comment on above: Performed By: #### C BCDIF, CMP #### [place] [phone] #### WSR, CRP, LIPB, RF, TSH, FT4, B12, HBA1C, UAWMIC, VITD #### [facility] Routine Lab [address] [place] [address] #### ANAS #### [facility] Immuno Assay [address] [place] [address] C-Reactive Proteinon 019 CRP mass conc mg/L Normal <0.9 [facility] Reference Lab Comment on above: Performed By: #### C BCDIF, CMP #### [place] [id number] #### WSR, CRP, LIPB, RF, TSH, FT4, B12, HBA1C, UAWMIC, VITD #### [facility] Routine Lab [address] [place] [phone] #### ANAS #### [facility] Immuno Assay [address] [place] [phone] CBC and Differentialon 07-04 Abs Baso 0.03 k/uL Normal <0.11 [facility] Reference Lab Comment on above: Performed By: #### C BCDIF, CMP #### [place] [phone] #### WSR, CRP, LIPB, RF, TSH, FT4, B12, HBA1C, UAWMIC, VITD #### [facility] Routine Lab [address] [place] [phone] #### ANAS #### [facility] Immuno Assay [address] [place] [phone] Abs [place] 0.19 k/uL Normal <0.87 [facility] Reference Lab Comment on above: Performed By: #### C BCDIF, CMP #### [place] [phone] #### WSR, CRP, LIPB, RF, TSH, FT4, B12, HBA1C, UAWMIC, VITD #### [facility] Routine Lab [address] [place] [phone] #### ANAS #### [facility] Immuno Assay [address] [place] [phone] Abs Neut 3.46 k/uL Normal 1.45-7.50 [facility] Reference Lab Comment on above: Performed By: #### C BCDIF, CMP #### [place] [phone] #### WSR, CRP, LIPB, RF, TSH, FT4, B12, HBA1C, UAWMIC, VITD #### [facility] Routine Lab [address] [place] [phone] #### ANAS #### [facility] Immuno Assay [address] [place] [phone] Basophils/100 WBC (Bld) 0.5 % Normal [facility] Reference Lab Comment on above: Performed By: #### C BCDIF, CMP #### [place] [phone] #### WSR, CRP, LIPB, RF, TSH, FT4, B12, HBA1C, UAWMIC, VITD #### [facility] Routine Lab [address] [place] [phone] #### ANAS #### [facility] Immuno Assay [address] [place] [phone] DTYPE ADIFF Normal [facility] Reference Lab Comment on above: Performed By: #### C BCDIF, CMP #### [place] [phone] #### WSR, CRP, LIPB, RF, TSH, FT4, B12, HBA1C, UAWMIC, VITD #### [facility] Routine Lab [address] [place] [phone] #### ANAS #### [facility] Immuno Assay [address] [place] [phone] Eosinophils #/vol (Bld) 0.10 10*3/uL Normal <0.46 [facility] Reference Lab Comment on above: Performed By: #### C BCDIF, CMP #### [place] [phone] #### WSR, CRP, LIPB, RF, TSH, FT4, B12, HBA1C, UAWMIC, VITD #### [facility] Routine Lab [address] [place] [phone] #### ANAS #### [facility] Immuno Assay [address] [place] [phone] Eosinophils/100 WBC (Bld) 1.8 % Normal [facility] Reference Lab Comment on above: Performed By: #### C BCDIF, CMP #### [place] [phone] #### WSR, CRP, LIPB, RF, TSH, FT4, B12, HBA1C, UAWMIC, VITD #### [facility] Routine Lab [address] [place] [phone] #### ANAS #### [facility] Immuno Assay [address] [place] [phone] Erythrocyte distribution width Ratio (RBC) 12.7 % Normal 11.5-15.0 [facility] Reference Lab Comment on above: Performed By: #### C BCDIF, CMP #### [place] [phone] #### WSR, CRP, LIPB, RF, TSH, FT4, B12, HBA1C, UAWMIC, VITD #### [facility] Routine Lab [address] [place] [phone] #### ANAS #### [facility] Immuno Assay [address] [place] [phone] Hematocrit Volume Fraction (Bld) 42.3 % Normal 36.0-46.0 [facility] Reference Lab Comment on above: Performed By: #### C BCDIF, CMP #### [place] [phone] #### WSR, CRP, LIPB, RF, TSH, FT4, B12, HBA1C, UAWMIC, VITD #### [facility] Routine Lab [address] [place] [phone] #### ANAS #### [facility] Immuno Assay [address] [place] [phone] Hemoglobin mass conc (Bld) 14.2 g/dL Normal 11.5-15.5 [facility] Reference Lab Comment on above: Performed By: #### C BCDIF, CMP #### [place] [phone] #### WSR, CRP, LIPB, RF, TSH, FT4, B12, HBA1C, UAWMIC, VITD #### [facility] Routine Lab [address] [place] [phone] #### ANAS #### [facility] Immuno Assay [address] [place] [phone] Lymphocytes #/vol (Bld) 1.92 10*3/uL Normal 1.00-4.00 [facility] Reference Lab Comment on above: Performed By: #### C BCDIF, CMP #### [place] [phone] #### WSR, CRP, LIPB, RF, TSH, FT4, B12, HBA1C, UAWMIC, VITD #### [facility] Routine Lab [address] [place] [phone] #### ANAS #### [facility] Immuno Assay [address] [place] [phone] Lymphocytes/100 WBC (Bld) 33.7 % Normal [facility] Reference Lab Comment on above: Performed By: #### C BCDIF, CMP #### [place] [phone] #### WSR, CRP, LIPB, RF, TSH, FT4, B12, HBA1C, UAWMIC, VITD #### [facility] Routine Lab [facility] [place] [phone] #### ANAS #### [facility] Immuno Assay [address] [place] [phone] MCH Entitic mass (RBC) 30.5 pG Normal 26.0-34.0 [facility] Reference Lab Comment on above: Performed By: #### C BCDIF, CMP #### [place] [phone] #### WSR, CRP, LIPB, RF, TSH, FT4, B12, HBA1C, UAWMIC, VITD #### [facility] Routine Lab [address] [place] [phone] #### ANAS #### [facility] Immuno Assay [address] [place] [phone] MCHC mass conc (RBC) 33.6 g/dL Normal 30.5-36.0 [facility] Reference Lab Comment on above: Performed By: #### C BCDIF, CMP #### [place] [phone] #### WSR, CRP, LIPB, RF, TSH, FT4, B12, HBA1C, UAWMIC, VITD #### [facility] Routine Lab [address] [place] [phone] #### ANAS #### [facility] Immuno Assay [address] [place] [phone] MCV Entitic volume (RBC) 90.8 fL Normal 80.0-100.0 [facility] Reference Lab Comment on above: Performed By: #### C BCDIF, CMP #### [place] [phone] #### WSR, CRP, LIPB, RF, TSH, FT4, B12, HBA1C, UAWMIC, VITD #### [facility] Routine Lab [address] [place] [phone] #### ANAS #### [facility] Immuno Assay [address] [place] [phone] Monocytes/100 WBC (Bld) 3.3 % Normal [facility] Reference Lab Comment on above: Performed By: #### C BCDIF, CMP #### [place] [phone] #### WSR, CRP, LIPB, RF, TSH, FT4, B12, HBA1C, UAWMIC, VITD #### [facility] Routine Lab [address] [place] [phone] #### ANAS #### [facility] Immuno Assay [address] [place] [phone] Neutrophils/100 WBC (Bld) 60.7 % Normal [facility] Reference Lab Comment on above: Performed By: #### C BCDIF, CMP #### [place] [phone] #### WSR, CRP, LIPB, RF, TSH, FT4, B12, HBA1C, UAWMIC, VITD #### [facility] Routine Lab [address] [place] [phone] #### ANAS #### [facility] Immuno Assay [address] [place], [place] [phone] Platelet mean volume Entitic volume (Bld) 10.2 fL Normal 9.0-12.7 [facility] Reference Lab Comment on above: Performed By: #### C BCDIF, CMP #### [place] [phone] #### WSR, CRP, LIPB, RF, TSH, FT4, B12, HBA1C, UAWMIC, VITD #### [facility] Routine Lab [address] [place] [phone] #### ANAS #### [facility] Immuno Assay [address] [place] [phone] Platelets #/vol (Bld) 269 10*3/uL Normal 150-400 [facility] Reference Lab Comment on above: Performed By: #### C BCDIF, CMP #### [place] [phone] #### WSR, CRP, LIPB, RF, TSH, FT4, B12, HBA1C, UAWMIC, VITD #### [facility] Routine Lab [address] [place] [phone] #### ANAS #### [facility] Immuno Assay [address] [place] [phone] RBC #/vol (Bld) 4.66 10*6/uL Normal 3.90-5.20 [facility] Reference Lab Comment on above: Performed By: #### C BCDIF, CMP #### [place] [phone] #### WSR, CRP, LIPB, RF, TSH, FT4, B12, HBA1C, UAWMIC, VITD #### [facility] Routine Lab [facility] [place] [phone] #### ANAS #### [facility] Immuno Assay [address] [place] [phone] WBC #/vol (Bld) 5.70 10*3/uL Normal 3.70-11.00 [facility] Reference Lab Comment on above: Performed By: #### C BCDIF, CMP #### [place] [phone] #### WSR, CRP, LIPB, RF, TSH, FT4, B12, HBA1C, UAWMIC, VITD #### [facility] Routine Lab [facility] [place] [phone] #### ANAS #### [facility] Immuno Assay [facility] [place] [phone] Comp Metabolic Panelon 07-04 Albumin mass conc 4.6 g/dL Normal 3.5-5.0 [facility] Reference Lab Comment on above: Performed By: #### C BCDIF, CMP #### [place] [phone] #### WSR, CRP, LIPB, RF, TSH, FT4, B12, HBA1C, UAWMIC, VITD #### [facility] Routine Lab [address] [place] [phone] #### ANAS #### [facility] Immuno Assay [address] [place] [phone] ALP enzyme act/vol 58 U/L Normal 34-123 [facility] Reference Lab Comment on above: Performed By: #### C BCDIF, CMP #### [place] [phone] #### WSR, CRP, LIPB, RF, TSH, FT4, B12, HBA1C, UAWMIC, VITD #### [facility] Routine Lab [address] [place] [phone] #### ANAS #### [facility] Immuno Assay [address] [place] [phone] ALT enzyme act/vol 11 U/L Normal 0-45 [facility] Reference Lab Comment on above: Performed By: #### C BCDIF, CMP #### [place] [phone] #### WSR, CRP, LIPB, RF, TSH, FT4, B12, HBA1C, UAWMIC, VITD #### [facility] Routine Lab [address] [place] [phone] #### ANAS #### [facility] Immuno Assay [address] [place] [phone] Anion gap molar conc 11 mmol/L Normal 9-18 [facility] Reference Lab Comment on above: Performed By: #### C BCDIF, CMP #### [place] [phone] #### WSR, CRP, LIPB, RF, TSH, FT4, B12, HBA1C, UAWMIC, VITD #### [facility] Routine Lab [phone] #### ANAS #### [facility] Immuno Assay [address] [place] [phone] AST enzyme act/vol 12 U/L Normal 7-40 [facility] Reference Lab Comment on above: Performed By: #### C BCDIF, CMP #### [place] [phone] #### WSR, CRP, LIPB, RF, TSH, FT4, B12, HBA1C, UAWMIC, VITD #### [facility] Routine Lab [address] [place] [phone] #### ANAS #### [facility] Immuno Assay [address] [place] [phone] Bilirubin Ql (U) 0.5 mg/dL Normal 0.2-1.3 [facility] Reference Lab Comment on above: Performed By: #### C BCDIF, CMP #### [place] [phone] #### WSR, CRP, LIPB, RF, TSH, FT4, B12, HBA1C, UAWMIC, VITD #### [facility] Routine Lab [address] [place] [phone] #### ANAS #### [facility] Immuno Assay [address] [place] [phone] Calcium mass conc 9.6 mg/dL Normal 8.5-10.5 [facility] Reference Lab Comment on above: Performed By: #### C BCDIF, CMP #### [place] [phone] #### WSR, CRP, LIPB, RF, TSH, FT4, B12, HBA1C, UAWMIC, VITD #### [facility] Routine Lab [address] [place] [phone] #### ANAS #### [facility] Immuno Assay [address] [place] [phone] Chloride molar conc 104 mmol/L Normal 98-110 [facility] Reference Lab Comment on above: Performed By: #### C BCDIF, CMP #### [place] [phone] #### WSR, CRP, LIPB, RF, TSH, FT4, B12, HBA1C, UAWMIC, VITD #### [facility] Routine Lab [address] [place] [phone] #### ANAS #### [facility] Immuno Assay [address] [place] [phone] CO2 molar conc 29 mmol/L Normal 23-32 [facility] Reference Lab Comment on above: Performed By: #### C BCDIF, CMP #### [place] [phone] #### WSR, CRP, LIPB, RF, TSH, FT4, B12, HBA1C, UAWMIC, VITD #### [facility] Routine Lab [address] [place] [phone] #### ANAS #### [facility] Immuno Assay [address] [place] [phone] Creatinine mass conc 0.74 mg/dL Normal 0.70-1.40 [facility] Reference Lab Comment on above: Performed By: #### C BCDIF, CMP #### [place] [phone] #### WSR, CRP, LIPB, RF, TSH, FT4, B12, HBA1C, UAWMIC, VITD #### [facility] Routine Lab [address] [place] [phone] #### ANAS #### [facility] Immuno Assay [address] [place] [phone] eGFR- Amer. >60 Normal >60 [facility] Reference Lab Comment on above: Performed By: #### C BCDIF, CMP #### [place] [phone] #### WSR, CRP, LIPB, RF, TSH, FT4, B12, HBA1C, UAWMIC, VITD #### [facility] Routine Lab [address] [place] [phone] #### ANAS #### [facility] Immuno Assay [address] [place] [phone] GFR/1.73 sq M predicted among non-blacks MDRD vol rate/area (S/P/Bld) mL/min/{1.73_m2} Normal >60 [facility] Reference Lab Comment on above: Performed By: #### C BCDIF, CMP #### [place] [phone] #### WSR, CRP, LIPB, RF, TSH, FT4, B12, HBA1C, UAWMIC, VITD #### [facility] Routine Lab [address] [place] [phone] #### ANAS #### [facility] Immuno Assay [address] [place] [phone] Glucose mass conc 110 mg/dL High 65-100 [facility] Reference Lab Comment on above: Performed By: #### C BCDIF, CMP #### [place] [phone] #### WSR, CRP, LIPB, RF, TSH, FT4, B12, HBA1C, UAWMIC, VITD #### [facility] Routine Lab [address] [place] [phone] #### ANAS #### [facility] Immuno Assay [address] [place] [phone] Potassium molar conc 4.6 mmol/L Normal 3.5-5.0 [facility] Reference Lab Comment on above: Performed By: #### C BCDIF, CMP #### [place] [phone] #### WSR, CRP, LIPB, RF, TSH, FT4, B12, HBA1C, UAWMIC, VITD #### [facility] Routine Lab [address] [place] [phone] #### ANAS #### [facility] Immuno Assay [address] [place] [phone] Protein mass conc 7.5 g/dL Normal 6.0-8.4 [facility] Reference Lab Comment on above: Performed By: #### C BCDIF, CMP #### [place] [phone] #### WSR, CRP, LIPB, RF, TSH, FT4, B12, HBA1C, UAWMIC, VITD #### [facility] Routine Lab [address] [place] [phone] #### ANAS #### [facility] Immuno Assay [address] [place] [phone] Sodium molar conc 144 mmol/L Normal 132-148 [facility] Reference Lab Comment on above: Performed By: #### C BCDIF, CMP #### [place] [phone] #### WSR, CRP, LIPB, RF, TSH, FT4, B12, HBA1C, UAWMIC, VITD #### [facility] Routine Lab [address] [place] [phone] #### ANAS #### [facility] Immuno Assay [address] [place] [phone] Urea nitrogen mass conc 13 mg/dL Normal 8-25 [facility] Reference Lab Comment on above: Performed By: #### C BCDIF, CMP #### [place] [phone] #### WSR, CRP, LIPB, RF, TSH, FT4, B12, HBA1C, UAWMIC, VITD #### [facility] Routine Lab [address] [place] [phone] #### ANAS #### [facility] Immuno Assay [address] [place] [phone] Free T4on 07-04-2018 T4 free mass conc 1.2 ng/dL Normal 0.9-1.7 [facility] Reference Lab Comment on above: Performed By: #### C BCDIF, CMP #### [place] [phone] #### WSR, CRP, LIPB, RF, TSH, FT4, B12, HBA1C, UAWMIC, VITD #### [facility] Routine Lab [address] [place] [address] #### ANAS #### [facility] Immuno Assay [address] [place] [phone] Hemoglobin A1con 07-04-2018 Hemoglobin A1c/Hemoglobin.total mass fraction (Bld) 5.2 % Normal 4.3-5.6 [facility] Reference Lab Comment on above: Performed By: #### C BCDIF, CMP #### [address] #### WSR, CRP, LIPB, RF, TSH, FT4, B12, HBA1C, UAWMIC, VITD #### [facility] Routine Lab [address] [place] [address] #### ANAS #### [facility] Immuno Assay [address] [place] [phone] Hemoglobin A1c/Hemoglobin.total mass fraction (Bld) 103 mg/dL Normal [facility] Reference Lab Comment on above: Performed By: #### C BCDIF, CMP #### [place] [phone] #### WSR, CRP, LIPB, RF, TSH, FT4, B12, HBA1C, UAWMIC, VITD #### [facility] Routine Lab [address] [place] [phone] #### ANAS #### [facility] Immuno Assay [address] [place] [phone] Lipid Panel, Basicon 019 Cholesterol in HDL mass conc 66 mg/dL Normal >39 [facility] Reference Lab Comment on above: Performed By: #### C BCDIF, CMP #### [place] [phone] #### WSR, CRP, LIPB, RF, TSH, FT4, B12, HBA1C, UAWMIC, VITD #### [facility] Routine Lab [address] [place] [phone] #### ANAS #### [facility] Immuno Assay [address] [place] [phone] Cholesterol in LDL mass conc 86 mg/dL Normal <100 [facility] Reference Lab Comment on above: Performed By: #### C BCDIF, CMP #### [place] [phone] #### WSR, CRP, LIPB, RF, TSH, FT4, B12, HBA1C, UAWMIC, VITD #### [facility] Routine Lab [address] [place] [phone] #### ANAS #### [facility] Immuno Assay [address] [place] [phone] Cholesterol in VLDL mass conc 16 mg/dL Normal <30 [facility] Reference Lab Comment on above: Performed By: #### C BCDIF, CMP #### [place] [phone] #### WSR, CRP, LIPB, RF, TSH, FT4, B12, HBA1C, UAWMIC, VITD #### [facility] Routine Lab [address] [place] [address] #### ANAS #### [facility] Immuno Assay [address] [place] [phone] Cholesterol mass conc 168 mg/dL Normal <200 [facility] Reference Lab Comment on above: Performed By: #### C BCDIF, CMP #### [place] [phone] #### WSR, CRP, LIPB, RF, TSH, FT4, B12, HBA1C, UAWMIC, VITD #### [facility] Routine Lab [address] [place] [address] #### ANAS #### [facility] Immuno Assay [address] [place] [address] Cholesterol non HDL mass conc 102 mg/dL Normal <130 [facility] Reference Lab Comment on above: Performed By: #### C BCDIF, CMP #### [place] [id number] #### WSR, CRP, LIPB, RF, TSH, FT4, B12, HBA1C, UAWMIC, VITD #### [facility] Routine Lab [address] [place] [address] #### ANAS #### [facility] Immuno Assay [address] [place] [address] LDL:HDL Ratio 1.30 Normal <2.54 [facility] Reference Lab Comment on above: Performed By: #### C BCDIF, CMP #### [address] #### WSR, CRP, LIPB, RF, TSH, FT4, B12, HBA1C, UAWMIC, VITD #### [facility] Routine Lab [address] [place] [phone] #### ANAS #### [facility] Immuno Assay [address] [place] [phone] TC:HDL Ratio 2.55 Normal <5.10 [facility] Reference Lab Comment on above: Performed By: #### C BCDIF, CMP #### [place] [phone] #### WSR, CRP, LIPB, RF, TSH, FT4, B12, HBA1C, UAWMIC, VITD #### [facility] Routine Lab [address] [place] [phone] #### ANAS #### [facility] Immuno Assay [address] [place] [phone] Triglyceride mass conc 79 mg/dL Normal <150 [facility] Reference Lab Comment on above: Performed By: #### C BCDIF, CMP #### [place] [phone] #### WSR, CRP, LIPB, RF, TSH, FT4, B12, HBA1C, UAWMIC, VITD #### [facility] Routine Lab [facility] [place] [phone] #### ANAS #### [facility] Immuno Assay [address] [place] [phone] Fasting Time UN Normal [facility] Reference Lab Comment on above: Performed By: #### C BCDIF, CMP #### [place] [phone] #### WSR, CRP, LIPB, RF, TSH, FT4, B12, HBA1C, UAWMIC, VITD #### [facility] Routine Lab [address] [place] [phone] #### ANAS #### [facility] Immuno Assay [address] [place] [phone] Rheumatoid Factoron 07-04-19 19 Rheumatoid Factor <10 Normal <16 [facility] Reference Lab Comment on above: Performed By: #### C BCDIF, CMP #### [place] [phone] #### WSR, CRP, LIPB, RF, TSH, FT4, B12, HBA1C, UAWMIC, VITD #### [facility] Routine Lab [address] [place] [phone] #### ANAS #### [facility] Immuno Assay [address] [place] [address] Sed Rate Westergrenon 2018 Sed Rate Westergren 9 mm/hr Normal 0-20 [facility] Reference Lab Comment on above: Performed By: #### C BCDIF, CMP #### [place] [phone] #### WSR, CRP, LIPB, RF, TSH, FT4, B12, HBA1C, UAWMIC, VITD #### [facility] Routine Lab [address] [place] [phone] #### ANAS #### [facility] Immuno Assay [address] [place] [phone] TSHon 07-04-2018 Thyrotropin Qn 2.960 uU/mL Normal 0.400-5.500 [facility] Reference Lab Comment on above: Performed By: #### C BCDIF, CMP #### [place] [address] #### WSR, CRP, LIPB, RF, TSH, FT4, B12, HBA1C, UAWMIC, VITD #### [facility] Routine Lab [address] [place] [address] #### ANAS #### [facility] Immuno Assay [address] [place] [address] Urinalysis with Microscopico n 07-04-2018 Bilirubin, Urine NEGAT Normal Negative [facility] Reference Lab Comment on above: Performed By: #### C BCDIF, CMP #### [place] [phone] #### WSR, CRP, LIPB, RF, TSH, FT4, B12, HBA1C, UAWMIC, VITD #### [facility] Routine Lab [address] [place] [phone] #### ANAS #### [facility] Immuno Assay [address] [place] [phone] Clarity Nom (U) CLDY Abnormal Clear [facility] Reference Lab Comment on above: Performed By: #### C BCDIF, CMP #### [place] [phone] #### WSR, CRP, LIPB, RF, TSH, FT4, B12, HBA1C, UAWMIC, VITD #### [facility] Routine Lab [address] [place] [phone] #### ANAS #### [facility] Immuno Assay [address] [place] [phone] Color Nom (U) YEL Normal Yellow [facility] Reference Lab Comment on above: Performed By: #### C BCDIF, CMP #### [place] [phone] #### WSR, CRP, LIPB, RF, TSH, FT4, B12, HBA1C, UAWMIC, VITD #### [facility] Routine Lab [address] [place] [phone] #### ANAS #### [facility] Immuno Assay [address] [place] [phone] Comments NAPP Normal [facility] Reference Lab Comment on above: Performed By: #### C BCDIF, CMP #### [place] [phone] #### WSR, CRP, LIPB, RF, TSH, FT4, B12, HBA1C, UAWMIC, VITD #### [facility] Routine Lab [address] [place] [phone] #### ANAS #### [facility] Immuno Assay [address] [place] [phone] Epithelial cells LM.HPF #/area (Urine sed) Normal [facility] Reference Lab Comment on above: Result Comment: Few Squamous Few Non-Squamous Epithelial Cells Epithelial Few Non-Squamous Epithelial Cells Cells Few Non-Squamous Epithelial Cells Performed By: #### C BCDIF, CMP #### [place] [phone] #### WSR, CRP, LIPB, RF, TSH, FT4, B12, HBA1C, UAWMIC, VITD #### [facility] Routine Lab [address] [place] [phone] #### ANAS #### [facility] Immuno Assay [address] [phone] Glucose Ql (U) NEGAT Normal Negative [facility] Reference Lab Comment on above: Performed By: #### C BCDIF, CMP #### [place] [phone] #### WSR, CRP, LIPB, RF, TSH, FT4, B12, HBA1C, UAWMIC, VITD #### [facility] Routine Lab [address] [place] [phone] #### ANAS #### [facility] Immuno Assay [address] [place] [phone] Hemoglobin/Blood,Ur NEGAT Normal Negative [facility] Reference Lab Comment on above: Performed By: #### C BCDIF, CMP #### [place] [phone] #### WSR, CRP, LIPB, RF, TSH, FT4, B12, HBA1C, UAWMIC, VITD #### [facility] Routine Lab [address] [place] [phone] #### ANAS #### [facility] Immuno Assay [phone] Ketones Ql (U) NEGAT Normal Negative [facility] Reference Lab Comment on above: Performed By: #### C BCDIF, CMP #### [place] [phone] #### WSR, CRP, LIPB, RF, TSH, FT4, B12, HBA1C, UAWMIC, VITD #### [facility] Routine Lab [address] [place], [place] [phone] #### ANAS #### [facility] Immuno Assay [address] [place] [phone] Abnormal Negative [facility] Reference Lab Comment on above: Performed By: #### C BCDIF, CMP #### [place] [phone] #### WSR, CRP, LIPB, RF, TSH, FT4, B12, HBA1C, UAWMIC, VITD #### [facility] Routine Lab [facility] [place] [phone] #### ANAS #### [facility] Immuno Assay [phone] Nitrite Ql (U) NEGAT Normal Negative [facility] Reference Lab Comment on above: Performed By: #### C BCDIF, CMP #### [place] [phone] #### WSR, CRP, LIPB, RF, TSH, FT4, B12, HBA1C, UAWMIC, VITD #### [facility] Routine Lab [phone] #### ANAS #### [facility] Immuno Assay [address] [place] [phone] pH (Bld) 6.0 Normal 4.5-8.0 [facility] Reference Lab Comment on above: Performed By: #### C BCDIF, CMP #### [place] [phone] #### WSR, CRP, LIPB, RF, TSH, FT4, B12, HBA1C, UAWMIC, VITD #### [facility] Routine Lab [facility] [place] [phone] #### ANAS #### [facility] Immuno Assay [address] [place] [phone] Protein mass conc (U) NEGAT Normal Negative [facility] Reference Lab Comment on above: Performed By: #### C BCDIF, CMP #### [place] [phone] #### WSR, CRP, LIPB, RF, TSH, FT4, B12, HBA1C, UAWMIC, VITD #### [facility] Routine Lab [facility] [place] [phone] #### ANAS #### [facility] Immuno Assay [address] [place] [phone] RBC #/vol (U) 3 /uL Normal 0-3 [facility] Reference Lab Comment on above: Performed By: #### C BCDIF, CMP #### [place] [phone] #### WSR, CRP, LIPB, RF, TSH, FT4, B12, HBA1C, UAWMIC, VITD #### [facility] Routine Lab [address] [place] [phone] #### ANAS #### [facility] Immuno Assay [address] [place] [phone] Specific [place], Ur 1.017 Normal 1.005-1.030 [facility] Reference Lab Comment on above: Performed By: #### C BCDIF, CMP #### [place] [phone] #### WSR, CRP, LIPB, RF, TSH, FT4, B12, HBA1C, UAWMIC, VITD #### [facility] Routine Lab [address] [place] [phone] #### ANAS #### [facility] Immuno Assay [address] [place] [phone] Urine Roberto Carlos Comment NAPP Normal [facility] Reference Lab Comment on above: Performed By: #### C BCDIF, CMP #### [place] [phone] #### WSR, CRP, LIPB, RF, TSH, FT4, B12, HBA1C, UAWMIC, VITD #### [facility] Routine Lab [address] [place] [phone] #### ANAS #### [facility] Immuno Assay [address] [place] [phone] Urobilinogen Qn (U) NL Normal Normal [facility] Reference Lab Comment on above: Performed By: #### C BCDIF, CMP #### [place] [phone] #### WSR, CRP, LIPB, RF, TSH, FT4, B12, HBA1C, UAWMIC, VITD #### [facility] Routine Lab [address] [place] [phone] #### ANAS #### [facility] Immuno Assay [address] [place] [phone] WBC #/vol (Bld) R05 Normal 0-5 [facility] Reference Lab Comment on above: Performed By: #### C BCDIF, CMP #### [place] [phone] #### WSR, CRP, LIPB, RF, TSH, FT4, B12, HBA1C, UAWMIC, VITD #### [facility] Routine Lab [address] [place] [phone] #### ANAS #### [facility] Immuno Assay [address] [place] [phone] Vitamin B12on 07-04-2018 Cobalamin (Vitamin B12) mass conc 702 pg/mL Normal 232-1245 [facility] Reference Lab Comment on above: Performed By: #### C BCDIF, CMP #### [place] [phone] #### WSR, CRP, LIPB, RF, TSH, FT4, B12, HBA1C, UAWMIC, VITD #### [facility] Routine Lab [address] [place] [phone] #### ANAS #### [facility] Immuno Assay [address] [place] [phone] Vitamin D 25 Hydroxyon 07-04 Vitamin D 25 Hydroxy 44.8 ng/mL Normal 31.0-80.0 [facility] Reference Lab Comment on above: Performed By: #### C BCDIF, CMP #### [place] [phone] #### WSR, CRP, LIPB, RF, TSH, FT4, B12, HBA1C, UAWMIC, VITD #### [facility] Routine Lab [address] [place] [phone] #### ANAS #### [facility] Immuno Assay [address] [place] [phone] Vital Signs Date Time Vital Sign Value Performing Clinician Facility 09-27-2024 08:55-0400 Body height 165.[address] Srinivas Masters PA-C Work Phone: [facility] 09-27-2024 08:55-0400 Body mass index (BMI) [Ratio] 33.3 kg/m2 Dr. Srinivas Masters PA-C Work Phone: [facility] 09-27-2024 08:55-0400 Body temperature 98.1 [degF] Dr. Srinivas Masters PA-C Work Phone: [facility] 09-27-2024 08:55-0400 Body weight 90.[address] Srinivas Masters PA-C Work Phone: [facility] 09-27-2024 08:55-0400 Diastolic blood pressure 80 mm[Hg] Dr. Srinivas Masters PA-C Work Phone: [facility] 09-27-2024 08:55-0400 Heart rate 79 /min Dr. Srinivas Masters PA-C Work Phone: [facility] 09-27-2024 08:55-0400 Respiratory rate 14 /min Dr. Srinivas Masters PA-C Work Phone: [facility] 09-27-2024 08:55-0400 SaO2% (BldA) [Mass fraction] 93 % Dr. Srinivas Masters PA-C Work Phone: [facility] 09-27-2024 08:55-0400 Systolic blood pressure 116 mm[Hg] Dr. Srinivas Masters PA-C Work Phone: [facility] 09-26-2024 11:39-0400 Body mass index (BMI) [Ratio] 32.9 kg/m2 Dr. Srinivas Masters PA-C Work Phone: [facility] 09-26-2024 11:39-0400 Body weight 89.[address] Srinivas Masters PA-C Work Phone: [facility] 09-26-2024 11:39-0400 Diastolic blood pressure 82 mm[Hg] Dr. Srinivas Masters PA-C Work Phone: [facility] 09-26-2024 11:39-0400 Heart rate 77 /min Dr. Srinivas Masters PA-C Work Phone: [facility] 09-26-2024 11:39-0400 Respiratory rate 16 /min Dr. Srinivas Masters PA-C Work Phone: [facility] 09-26-2024 11:39-0400 Systolic blood pressure 120 mm[Hg] Dr. Srinivas Masters PA-C Work Phone: [facility] 07-14-2023 15:43-0500 Body temperature 98.29 [degF] Avelino Calderon DPM Work Phone: [facility] 07-14-2023 15:43-0500 Diastolic blood pressure 78 mm[Hg] Avelino Calderon DPM Work Phone: [facility] 07-14-2023 15:43-0500 Heart rate 78 /min Avelino Calderon DPM Work Phone: [facility] 07-14-2023 15:43-0500 Systolic blood pressure 113 mm[Hg] Avelino Calderon DPM Work Phone: [facility] 08-09-2022 09:04-0500 Body temperature 98.29 [degF] Omega [place]rills Ford DPM Work Phone: [facility] 08-09-2022 09:04-0500 Diastolic blood pressure 84 mm[Hg] Omega Tayla DPM Work Phone: [facility] 08-09-2022 09:04-0500 Heart rate 87 /min Omega [place] Ford DPM Work Phone: [facility] 08-09-2022 09:04-0500 Systolic blood pressure 125 mm[Hg] Omega Tayla DPM Work Phone: [facility] 07-19-2022 14:04-0500 Body temperature 97.5 [degF] Omega [place] Ford DPM Work Phone: [facility] 07-19-2022 14:04-0500 Diastolic blood pressure 72 mm[Hg] Omega [place] Ford DPM Work Phone: [facility] 07-19-2022 14:04-0500 Heart rate 78 /min Omega Tayla DPM Work Phone: [facility] 07-19-2022 14:04-0500 Systolic blood pressure 117 mm[Hg] Omega Tayla DPM Work Phone: [facility] Encounters Encounter Date Encounter Type Care Provider Facility Start: 12-19-2024 ambulatory [facility] Facility:[facility] Start: 12-08-2024 ambulatory [facility] Facility:[facility] Start: 11-23-2024 End: 11-23-2024 ambulatory SRINIVAS STOKES Facility:[facility] Start: 10-31-2024 Non-patient / Non-visit Dr. Rommel Watt MD -[facility] Work Phone: Start: 10-31-2024 End: 10-31-[address] Srinivas Masters PA-C Work Phone: [facility] Work Phone: Start: 10-31-2024 End: 10-31-[address] Rommel Watt MD -[facility] Work Phone: Start: 10-31-2024 End: 10-31-2024 ambulatory Srinivas Masters Facility:[facility] Start: 10-26-2024 ambulatory SRINIVAS MASTERS Facility:[facility] Start: 10-24-2024 End: 10-24-2024 ambulatory SRINIVAS MASTERS Facility:[facility] Start: 10-23-2024 Non-patient / Non-visit Dr. Rommel Watt MD -[facility] Start: 10-23-2024 End: 10-23-[address] Srinivas Masters PA-C Work Phone: [facility] Work Phone: Start: 10-23-2024 End: 10-23-[address] Rommel Watt MD -[facility] Work Phone: Start: 10-22-2024 End: 10-23-[address] Srinivas Masters PA-C Work Phone: [facility] Work Phone: Start: 10-22-2024 End: 10-22-[address] Sly Tolentino MD -[facility], [facility] Work Phone: Start: 10-22-2024 End: 10-22-2024 ambulatory Sly Tolentino Facility:[facility] Start: 10-18-2024 End: 10-18-2024 ambulatory SRINIVAS MASTERS Facility:[facility] Start: 09-27-2024 End: 09-27-[address] Sly Tolentino MD -[facility] Work Phone: Start: 09-27-2024 End: 09-27-2024 ambulatory Srinivas Masters Facility:[facility] Start: 09-26-2024 End: 09-26-[address] Rommel Watt MD -[facility] Work Phone: Start: 09-26-2024 End: 09-26-2024 ambulatory Srinivas Sonam Facility:[facility] Start: 09-20-2024 ambulatory SRINIVAS SONAM Facility:[facility] Start: 09-18-2024 End: 09-18-2024 ambulatory SRINIVAS MASTERS Facility:[facility] Start: 09-11-2024 ambulatory SRINIVAS MASTERS Facility:[facility] Start: 09-06-2024 End: 09-07-2024 ambulatory SRINIVAS SONAM Facility:[id number] Start: 08-28-2024 End: 08-28-2024 ambulatory SRINIVAS SONAM Facility:[facility] Start: 08-28-2024 End: 03-11-2025 ambulatory SRINIVAS MASTERS Facility:[id number] Start: 08-08-2024 End: 08-08-2024 ambulatory WILLEM HANKINS Facility:[facility] Start: 07-31-2024 End: 07-31-2024 ambulatory USHA JAMESON [employer] Facility:[facility] Start: 07-26-2024 End: 07-26-2024 ambulatory USHA NICOLEZAFAR [employer] Facility:[facility] Start: 06-22-2024 End: 06-22-2024 ambulatory JONAS HIGHTOWER MD Facility:[id number] Start: 05-11-2024 End: 05-11-2024 ambulatory JONAS HIGHTOWER MD Facility:[id number] Start: 05-11-2024 End: 05-11-2024 ambulatory JONAS HIGHTOWER MD [facility] Start: 07-14-2023 End: 07-18-2023 ambulatory AVELINO CALDERON [facility] Ambulatory Start: 07-14-2023 End: 07-14-2023 Office outpatient visit 15 minutes Avelino Calderon DPM Work Phone: [facility] Comment on above: Hammer toe of right foot (Primary Dx); Sprain of anterior talofibular ligament of right ankle, initial encounter; Stewart metatarsalgia, right; Hallux limitus, right [M20.5X1] Start: 09-08-2022 End: 09-09-2022 ambulatory [facility] Start: 09-08-2022 End: 09-08-2022 Subsequent hospital visit by physician [facility] [address] Exam Room [address] [facility] [address] Comment on above: Epigastric pain; Change in bowel habit; Hemorrhage of anus and rectum Start: 09-07-2022 End: 09-07-2022 Subsequent hospital visit by physician [facility] [address] Exam Room [address] [facility] [address] Comment on above: Canceled (Other: Err or) Start: 09-07-2022 End: 09-08-2022 ambulatory [facility] Start: 08-09-2022 End: 08-09-2022 ambulatory PHYSICIAN GEGE [facility] Start: 08-09-2022 End: 08-09-2022 Office outpatient visit 15 minutes Omega Bourne DPM Work Phone: [facility] Comment on above: Idiopathic neuropath y (Primary Dx); Contusion of bone; Chronic heel pain, right Start: 07-19-2022 End: 07-23-2022 ambulatory PHYSICIAN NO [facility] Start: 07-19-2022 End: 07-19-2022 Office outpatient new 30 minutes Omega Bourne DPM Work Phone: [facility] Comment on above: Contusion of bone (P rimary Dx); Chronic heel pain, right Start: 01-14-2022 Telephone encounter Willem Hankins MD Work Phone: [place] Comment on above: Patient Question Procedures Date [...] procedure 07/28/2023 9:00 AM EST Office Visit [facility] [address] [place] [phone] Avelino Calderon DPM [address] [place] [address] [facility] Start: 02-18-2023 Influenza vaccination S [facility] Start: 08-09-2022 End: 08-09-2022 Patient encounter procedure 08/09/2022 Office Visit Podiatry Omega Bourne DPM [address] [place] [phone] [facility] Start: 02-18-2022 Influenza vaccination C [facility] Start: 11-13-2020 Hepatitis B surface antibody level LDL CHOLESTEROL [facility] Start: 02-01-2020 ANNUAL PCP TEAM CLERICAL PROOFREADER HARDEEP DISEASE VISIT ANNUAL PCP TEAM CHRONIC DISEASE VISIT [facility] Start: 11-27-2019 Administration of he rpes zoster vaccine Zoster Vaccines (1 of 2) [facility] Start: 11-27-2019 Screening for malign ant neoplasm of colon [facility] Start: 11-27-2019 SHINGRIX VACCINE (1 of 2) SHINGRIX VACCINE (1 of 2) [facility] Start: 11-27-2019 Zoster Vaccines (1 of 2) Zoste r Vaccines (1 of 2) [facility] Start: 07-03-2019 Adult depression screening assessment DEPRESSION SCREENING [facility] Start: 01-01-2019 Hemoglobin A1c measurement A1C [facility] Start: 01-01-2019 Hemoglobin A1c/Hemoglobin.total in Blood HBA1C [facility] Start: 07-16-2015 Screening for malign ant neoplasm of colon Fecal occult blood test (FOBT,FIT) [facility] Start: 2014 COLOGUARD (FIT-DNA) COLOGUARD (FIT-D NA) [facility] Start: 2014 Colonoscopy COLONOSCOPY [facility] Start: 2014 COLORECTAL CANCER SCREENING COLORECTAL CANCER SCREENING [facility] Start: [address] [facility] Start: 2014 FECAL OCCULT BLOOD FECAL OCCULT BLOO D [facility] Start: 2014 SIGMOIDOSCOPY SIGMOIDOSCOPY [facility] Start: 2009 Mammography MAMMOGRAM [facility] Start: 2009 Screening for malign ant neoplasm of breast Mammogram [facility] Start: 11-27-1999 HPV TESTING HPV TESTING [facility] Start: 11-27-1999 Screening for malign ant neoplasm of cervix [facility] Start: 1990 PAP TESTING PAP TESTING [facility] Start: 1990 Screening for malign ant neoplasm of cervix Pap Smear [facility] Start: 1988 DTaP/Tdap/Td Vaccine s (1 - Tdap) DTaP/Tdap/Td Vaccines (1 - Tdap) [facility] Start: 1988 HEPATITIS B (1 of 3 - Risk 3-dose series) HEPATITIS B (1 of 3 - Risk 3-dose series) [facility] Start: 1988 Urine microalbumin profile DTAP,TDAP,TD (1 - Tdap) [facility] Start: 11-27-1987 HEPATITIS C SCREENING HEPATITIS C [facility] Start: 11-27-1987 Hepatitis C screening Hepatitis C [facility] Start: 11-27-1987 HIV SCREENING HIV SCREENING [facility] Start: 1984 HIV screening HIV Screening [facility] Start: 1981 Depression screening using PHQ-9 (Patient Health Questionnaire 9) score [facility] Start: 11-27-1979 3 comp foot exam completed DIABETIC FOOT EXAM [facility] Start: 11-27-1979 Diabetic foot examination [facility] Start: 11-27-1979 Glaucoma screening [facility] Start: 11-27-1979 Hepatitis B screening URINE ALBUMIN:CREATININE RATIO [facility] Start: 11-27-1979 Hepatitis C antibody , confirmatory test DILATED RETINAL EXAM [facility] Start: 11-27-1979 Urine screening for protein Urine Microalbumin [facility] Start: 11-27-1975 PNEUMOCOCCAL (1 - PCV) PNEUMOCOCCAL (1 - PCV) [facility] Start: 1972 History and physical examination, annual for health maintenance Wellness Visit [facility] Start: 1970 MMR Vaccines (1 of 1 - Standard series) MMR Vaccines (1 of 1 - Standard series) [facility] Start: 05-28-1970 COVID-19 VACCINE (#1) COVID-19 VACCI NE (#1) [facility] Start: 1969 Hepatitis B Vaccines (1 of 3 - 3-dose series) Hepatitis B Vaccines (1 of 3 - 3-dose series) [facility] Start: 1969 HIV screening HIV Screening [facility] Start: 1969 Screening for malign ant neoplasm of cervix Pap Smear [facility] Start: 1969 Screening for malign ant neoplasm of colon [facility] Start: 1969 Tetanus vaccination Tetanus: Every 1 0yrs [facility] Acute hepatitis 2000 panel - Serum [facility] Bilirubin.direct [Mass/volume] in Serum or Plasma [facility] C reactive protein [Mass/volume] in Serum or Plasma [facility] CBC W Auto Different ial panel - Blood [facility] Comprehensive metabo lic 1999 panel - Serum or Plasma [facility] CT angiography of coronary arteries [facility] Gamma glutamyl transferase measurement [facility] Hemoglobin A1c/Hemoglobin.total in Blood [facility] Lipid 1996 panel - S catarina or Plasma [facility] OUTSIDE PROCEDURE SCAN OUTSIDE P ROCEDURE SCAN Procedures Ordered: 09/06/2022 [facility] Online Prasad Comment on above: Ordered: 09/06/2022 Prothrombin time [facility] Thyroid stimulating hormone measurement [facility] Urinalysis complete panel - Urine [facility] Payers Date Payer Category Payer Self-pay 2019 Private Health Insurance [facility] CHOICE PLUS [id number] 2019-Present [phone] [address] [address] [place] [address] HMO [id number] 2018 Private Health Insurance [id number] .[id number]. [id number] 2018 Private Health Insurance [id number] 2018 Unknown [facility] CE PLUS [id number] 2018-Present [phone] [address] [address] [place] [address] 1.2.840.861249.1.13.385. 2.7.3.306700.315 1969 Unknown [id number] 2.16.840.1.954637.3.579. 2.903 1969 Unknown [id number] 2.16.840.1.924057.3.579. 2.903 1969 Unknown [id number] 2.16.840.1.941771.3.579. 2.903 1969 Unknown [id number] 2.16.840.1.889225.3.579. 2.903 1969 Unknown [id number] 2.16.840.1.459192.3.579. 2.903 1969 Unknown [id number] 2.16.840.1.822922.3.579. 2.903 1969 Unknown [id number] 2.16.840.1.694671.3.579. 2.159 1969 Unknown [id number] 2.16.840.1.934277.3.579. 2.159 1969 Unknown [id number] 2.16.840.1.203053.3.579. 2.159 1969 Unknown [id number] 2.16.840.1.610493.3.579. 2.159 1969 Unknown [id number] 2.16.840.1.317021.3.579. 2.159 1969 Unknown [id number] 2.16.840.1.966207.3.579. 2.159 1969 Unknown [id number] 2.16.840.1.459387.3.579. 2.159 1969 Unknown [id number] 2.16.840.1.405401.3.579. 2.159 1969 Unknown [id number] 2.16.840.1.982800.3.579. 2.159 1969 Unknown [id number] 2.16.840.1.184964.3.579. 2.159 1969 Unknown [id number] 2.16.840.1.453026.3.579. 2.159 1969 Unknown [id number] 2.16.840.1.806428.3.579. 2.159 1969 Unknown [id number] 2.16.840.1.688242.3.579. 2.159 1969 Unknown [id number] 2.16.840.1.076645.3.579. 2.159 1969 Unknown [id number] 2.16.840.1.682697.3.579. 2.159 1969 Unknown [id number] 2.16.840.1.506112.3.579. 2.159 1969 Unknown [id number] 2.16.840.1.384142.3.579. 2.159 1969 Unknown [id number] 2.16.840.1.444445.3.579. 2.159 Unknown [id number] 2.16.840.1.189164.3.579. 2.462 Unknown [id number] 2.16.840.1.683365.3.579. 2.462 Unknown [id number] 2.16.840.1.609693.3.579. 2.462 Unknown [id number] 2.16.840.1.210154.3.579. 2.462 Unknown [id number] 2.16.840.1.065025.3.579. 2.462 Unknown [id number] 2.16.840.1.598375.3.579. 2.462 Unknown [id number] 2.16.840.1.667678.3.579. 2.462 Unknown [id number] 2.16.840.1.990352.3.579. 2.462 Unknown [id number] 2.16.840.1.382029.3.579. 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 Start: 08-09-2022 Gender identity Not on file [facility] Start: 08-09-2022 History of Social function [facility] Start: 1970 Sex Assigned At Female [facility] Clinical Notes 02-16-2013 to 10-31-2024 Note Date & Type Note Facility 10-31-2024 Radiology Diagnostic study note [facility] Imaging Services [address] [place] [address] 10/31/24 1446 MR#: [id number] Acct: [id number] Name: CARLIE NGUYEN Rep #:[id number] : 1970 53 From: Rommel Watt MD [...] Masters; Dr. Rommel Watt MD ~ Signed [facility] Work Phone: 10-31-2024 Radiology Diagnostic study note [facility] Imaging Services [address] [place] [address] Cardiac Only MR#: [id number] Acct: [id number] Name: CARLIE NGUYEN Rep #: [id number] : 1970 F 53 From: Mariano Raymundo MD PCP: Srinivas Masters PA-C Status: REG REF Study:Limited Chest CT Cardiac Only Date of E xam: 10/31/24 Exam# [id number] Ordering Dr: Nikolai Watt MD PROCEDURE: LIMITED [...] present Minimal coronary artery calcification. Reading Location: [id number] CC: CLAYTON Masters; Dr. Rommel Watt MD ~ Glass Presser: Signed [facility] 10-22-2024 Radiology Diagnostic study note [facility] Imaging Services [address] [place] [address] ABD Limited w/ Elastography MR#: [id number] Acct: [id number] Name: CARLIE NGUYEN Rep #: [id number] : 1970 F 53 From: Monica Gipson MD PCP: Srinivas Masters PA-C Status: REG CLI Study:ABD Limited w/ Elastography Date of Exa m: 10/22/24 Exam# [id number] Ordering Dr: Clary Tolentino MD PROCEDURE: ABD LIMITED W/ ELASTOGRAPHY, 10/22/2024 REASON FOR EXAM: INTERMITTENNT RUQ PAIN, H/O CHOLECYSTECTOMY COMPARISON: None TECHNIQUE: Grayscale and color Doppler imaging of the right upper quadrant was performed. Elastography was performed for non-invasive assessment of liver tissue stiffness utilizing a iMapData S-shear wave imaging unit. FINDINGS: Liver: Echogenic. [...] (15kPa): Significant fibrosis / cirrhosis Reading Location: [id number] CC: CLAYTON Masters; Dr. Sly Tolentino MD ~ Glass Presser: Signed [facility] 09-26-2024 Evaluation note Diagnosis Onset Date Resolution PVC (premature ventricular contraction) acute September 26, 2024 11:30am Gastritis chronic September 27 8:49am RUQ abdominal pain chronic September 27, 2024 8:49am [facility] Work Phone: 1(563) 665-227803-20-2025 NoteImmunization Screening Entered On: 09/06/2024 12:13 EDT [...] effects/safety Carolin Yusuf RN - 09/06/2024 12:[facility] Comment on above:Order Comment: Order entered secondary to inpatient admission. Result Comment: [id number] NotePatient: CARLIE NGUYEN Age: 53 years Sex: [...] and edema resolved. She followed up with COMPUTER ANIMATOR due to the persistent pelvic pain. On [...] sent on 03/13/2012 at 41 Years. Shoulder ([id number]) on 02/05/2011 at 40 Years. Comments: 02/14/2014 11:57 EDT - Rachael Tomas Loosened Muscles of shoulder. near medial clavicle D&C - Dilatation and curettage ([id number]) on 04/20/2010 at 39 Years. Comments: 02/14/2014 11:56 Rachael Watson for sab Cystic fibrosis ([id number]) on 10/05/2004 at 33 Years. Comments: 02/14/2014 11:58 Rachael Watson pt tested negative Carpal tunnel syndrome ([id number]) on 11/18/2001 at 30 Years. Comments: 02/14/2014 11:57 Rachael Watson Surgery Cholecystectomy ([id number]) on 06/20/1999 at 28 Years. colonoscopy. Comments: [...] Patient is G9, P6. She is a ktem-vu-wbyv mother. Health Status Include (Selected) Allergic Reactions [...] are equal. Cardiovascular: No (more content not included)...[facility] 08-08-2024 NoteSSHERICARLIE WELCH :1970 Registration Date:07/31/2024 Urodynamic Study Indication: Cystocele, Mixed incontinence Urinalysis with microscopy was performed and was neg. Procedure: Using TEEspy multi-channel urodynamic equipment, the patient was brought [...] EST Sent to for review: USHA JAMESON [facility] NoteSSHERIFARIHATI CARLIE Vernell :1970 Registration Date:07/31/2024 Urodynamic Study Indication: Cystocele, Mixed incontinence Urinalysis with microscopy was performed and was neg. Procedure: Using TEEspy multi-channel urodynamic equipment, the patient was brought [...] Rate: 12.5 ml/second Interpretation/Plan: _ LADONNA STEPHENSON [facility]01-25-2024 History of Present illness Narrative * Avelino [...] C) (Infrared) Laboratory and Additional Data Reviewed: Reviewed:[id number]} XR Ankle Right 3+ Views (Standard) Xray 3 views right ankle - there is no signs of fracture or dislocation documented in this [id number] Instructions* Patient Instructions* Omega Bourne DPM - 08/09/2022 9:39 AM EST Images from the original note were not included. Voltaren 1% gel over the counter Apply up to 4 times per day Omega Bourne DPM, MS Podiatric Physician & Surgeon documented in this [id number] History of Present illness Narrative* Omega Bourne [...] intact. Protective sensation is diminished using the [place] Kavon monofilament. Dermatologic: No ecchymosis. No edema [...] Podiatric Physician & Surgeon documented in this [id number] Note* Addendum Note - Omega Bourne DPM - 07/19/2022 3:06 PM ESTAddended by: OMEGA BOURNE on: 07/19/2022 03:06 PM Modules accepted: Orders [id number] Note* Addendum Note - Omega Bourne DPM - 07/19/2022 3:06 PM ESTAddended by: OMEGA BOURNE on: 07/19/2022 03:06 PM Modules accepted: Orders [id number] Miscellaneous Notes* Addendum Note - Omega Bourne DPM - 07/19/2022 3:06 PM ESTAddended by: OMEGA BOURNE on: 07/19/2022 03:06 PM Modules accepted: Orders documented in this [id number] History of Present illness Narrative* Omega Bourne [...] Podiatric Physician & Surgeon documented in this [id number] Miscellaneous Notes* Telephone Encounter - Adalberto Parnell - 01/14/2022 4:27 PM EDT Advised patient * Telephone Encounter - Adalberto Parnell - 01/14/2022 3:34 PM EDT Patient said they moved to [facility] an was wondering if there was someone you can refer out that way for a new PCP. 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 04/30/2013 documented as of this encounter (statuses as of 01/14/2022) [facility] Diagnosis Contusion of bone- Primary Chronic heel pain, right [facility] Idiopathic neuropathy- Primary Other specified idiopathic peripheral neuropathy Contusion of bone Chronic heel pain, right [facility]* Diagnosis Epigastric pain Abdominal pain, epigastric Change in bowel habit Hemorrhage of anus and rectum Hemorrhage of rectum and anus documented in this encounter [facility]* Diagnosis Hammer toe of right foot- Primary Sprain of anterior talofibular ligament of right ankle, initial encounter [facility] metatarsalgia, right Hallux limitus, right [M20.5X1] [facility]* Attachments The following attachments cannot be sent through Care Everywhere. * Ankle Sprain ([place]) documented in this encounterOhioHealthReason for referral (narrative)No reason for referral information availableWMemorial [facility] Work Phone: Summary Purpose Family History No [...] steroid injection Surgeon: Tamie Tan MD Resident/Fellow/Other Fire Chief Deputy: None Anesthesia: 1% lidocaine Estimated Blood Loss [...] needle was introduced using the normal saline riag-cg-ayospctsih technique. Once the loss of resistance had been achieved, f (more content not included)... Note Post Operative Note: Post-Pr ocedure Diagnosis: Thoracic spondylosis Procedure: Medial nerve branch block T9, T10, T11 bilateral Surgeon: Tamie Tan MD Resident/Fellow/Other Fire Chief Deputy: None Anesthesia: 1% lidocaine Estimated Blood Loss [...] or branches Surgeon: Tamie Tan MD Resident/Fellow/Other Fire Chief Deputy: None Anesthesia: 2 mg of Versed Estimated [...] nerve branches Surgeon: Tamie Tan MD Resident/Fellow/Other Fire Chief Deputy: None Anesthesia: 2 mg of Versed Estimated [...] abdomen pelvis w contrast Bernard Chatterjee MD [address] [place], [place] [id number] Referral ID Status Reason Start Date Expiration Date Visits Re quested Visits Authorized [id number] Closed 09/01/2022 02/28/2023 1 1 Chief Complaint [...] section and content) DATE CREATED AUTHOR 07/11/2018 [facility] DATE CREATED AUTHOR AUTHOR'S ORGANIZ ATION 02/08/2019 [facility] DATE CREATED AUTHOR AUTHOR'S ORGANIZ ATION 06/05/2019 [facility] DATE CREATED AUTHOR AUTHOR'S ORGANIZ ATION 06/05/2019 [facility] DATE CREATED AUTHOR AUTHOR'S ORGANIZ ATION 06/15/2019 [facility] DATE CREATED AUTHOR AUTHOR'S ORGANIZ ATION 01/18/2022 [facility] DATE CREATED AUTHOR AUTHOR'S ORGANIZ ATION 12/10/2022 [facility] DATE CREATED AUTHOR AUTHOR'S ORGANIZ ATION 07/18/2023 [facility] DATE CREATED AUTHOR AUTHOR'S ORGANIZ ATION 11/24/2024 [facility] DATE CREATED AUTHOR AUTHOR'S ORGANIZ ATION 12/18/2024 [facility] Source Comments (unrecognize d section and content) In the event this informatio n is protected by the Federal Confidentiality of Alcohol and Drug Abuse Patient Records regulations: The Federal rules restrict any use of the information to criminally investigate or prosecute any alcohol or drug abuse patient.[facility] Reason for Visit (unrecogniz ed section and [...] abdomen pelvis w contrast Bernard Chatterjee MD [address] [place] [address] [address] [place] [address] Referral ID Status Reason Start Date Expiration Date Visits Re quested Visits Authorized [id number] Closed 09/01/2022 02/28/2023 1 1 Reason Comments [...] Care Teams (unrecognized sec tion and content) Treater Helper Relationship Specialty Start [place] [address] [place] [address] PCP - General Internal Medicine 07/11/18 Treater Helper Relationship Specialty Start Date End Date No, Physician [facility] PCP - General 07/19/22 Treater Helper Relationship Specialty Start Date End Date No, Physician [facility] PCP - General 07/19/22 Treater Helper Relationship Specialty Start Date End Date Srinivas Masters PA [address] [place] [address] PCP - General Physician Fire Chief Deputy 09/02/22 Treater Helper Relationship Specialty Start Date End Date Srinivas Masters PA [address] [place] [address] PCP - General Physician Fire Chief Deputy 09/02/22 Treater Helper Relationship Specialty Start Date End Date No, Physician [facility] PCP - General 07/19/22 Team Status: Active [...] BE BASED ON THE PRIMARY CLINICAL RECORDS. [employer] provides no warranty or guarantee of the accuracy or completeness of information in this document.
[2024-12-19] MEDS: Lactated Ringers 1,000 ML 15 ML IV (07:56)
--- NOTE | 2024-12-19 08:27 | PCM.PRE.AN2 ---
ASA Classification* ASA Classification ASA Classification: 2 Assessment & Plan Anesthesia* Anesthesia Assessment Anesthesia Assessment: Discussed sedation and/or anesthesia options, risks, benefits, and alternatives with patient/parents/legal guardian/POA. Questions invited. The patient/parents/legal guardian/POA seems to understand and agrees to proceed with anesthesia plan. Reviewed the physical assessment, medical history, allergy history and patient home medications list prior to surgery/procedure/anesthetic and documented any changes. Performed airway and anesthesia risk assessments. 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 When Was Last Pacemaker Check QUESTION #4 FULL TEXT: You/Your Family Experience fever (hyperthermia) with Anesthesia Last Oral Intake Last Oral intake: Last Oral Intake NPO since 21:00 12/19/24 07:51 Meds taken in AM with sips of water? Meds patient instructed to take am of surgery PONV PONV - banbury operator: PONV - banbury operator Female Yes 12/17/24 13:20 HX of Motion Sickness No 12/17/24 13:20 HX of N/V After Surgery No 12/17/24 13:20 Non-Smoker Yes 12/17/24 13:20 Duration of Surgery greater No 12/17/24 13:20 than 60 minutes Number of Risk Factors 2 12/17/24 13:20 PONV Score Moderate Risk 12/17/24 13:20 Height & Weight Height & Weight: Anesthesia: Height & Weight Height 5 ft 5 in 12/19/24 07:51 Weight: 86.1 kg 12/19/24 07:51 Body Mass Index (BMI) 31.6 12/19/24 07:51 Respiratory Assessment Respiratory Assessment - banbury operator: Respiratory Tract Infection Hx - banbury operator Hx Respiratory Tract Infection No 12/17/24 13:20 STOP Sleep Apnea STOP Sleep Apnea - banbury operator: STOP Sleep Apnea - banbury operator Hx Hypertension No 12/17/24 13:20 Hx Sleep Apnea No 12/17/24 13:20 CPAP BIPAP Do you snore loudly (louder No 12/17/24 13:20 than talking or can be heard Do you often feel tired/ No 12/17/24 13:20 fatigued/ sleepy during daytime? Has anyone observed you stop No 12/17/24 13:20 breathing during sleep? STOP Results Negative 12/17/24 13:20 QUESTION #5 FULL TEXT : Do you snore loudly (louder than talking or can be heard through closed doors)? 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 Specify any problems Hx of Preganancy in last 3 No 12/17/24 13:20 Months Nurse Filling Out Transfusion [id number] 12/17/24 13:20 & Questions: Date: 12/17/24 12/17/24 13:20 Time: 13:23 12/17/24 13:20 Patient unable to answer at this time (ie. confused, unrespo /Reproduction History /Reproductive History - banbury operator: /Reproductive Hx- banbury operator Hx Now Gestational Age (in weeks): EDC: Hx Hx Para Hx Section SAB Active Medications Active Medications: Current Medications Generic Name Dose Route Start Last Admin Trade Name Freq PRN Reason Stop Dose Admin Lactated Ringer's 1,000 mls @ 15 mls/hr 12/19/24 07:45 12/19/24 07:56 IV 15 mls/hr .Q48H ROSANA Administration PFSH Medical History Wears glasses Rash Chest pain History of stress test Cardiology follow-up encounter Prolapse of female pelvic organs Diverticulitis Arthritis Seasonal allergies Hx of deep venous thrombosis PVC (premature ventricular contraction) Palpitations Gastritis Asthma Fatigue Home Medications ?Medication ?Instructions ?Recorded ?Last Taken ?Type multivitamin 1 tab PO QDAY 08/14/24 Unknown History albuterol sulfate 90 mcg/actuation 2 puff inhalation Q4 PRN shortness 09/26/24 Unknown History aerosol inhaler of breath or wheezing Allergy/AdvReac Type Severity Reaction Status Date / Time No Known Allergies Allergy Verified 12/19/24 07:50 Family History Mother Arthritis Hypertension Father Heart disease Grandmother Cancer Ovarian Other Diabetes Surgical History S/P hysterectomy Hx of carpal tunnel repair Hx laparoscopic cholecystectomy Social History Smoking Status: Never smoker alcohol intake: never substance use type: does not use Review of Systems (Anesthesia) ROS Narrative System reviewed and no additional complaints, except as documented. Physical Exam Resp Auscultation: wheezes expiratory wheezes (Will order nebulizer breathing treatment)
--- NOTE | 2024-12-19 08:27 | PCM.PRE.AN2 ---
ASA Classification* ASA Classification ASA Classification: 2 Assessment & Plan Anesthesia* Anesthesia Assessment Anesthesia Assessment: Discussed sedation and/or anesthesia options, risks, benefits, and alternatives with patient/parents/legal guardian/POA. Questions invited. The patient/parents/legal guardian/POA seems to understand and agrees to proceed with anesthesia plan. Reviewed the physical assessment, medical history, allergy history and patient home medications list prior to surgery/procedure/anesthetic and documented any changes. Performed airway and anesthesia risk assessments. 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 When Was Last Pacemaker Check QUESTION #4 FULL TEXT: You/Your Family Experience fever (hyperthermia) with Anesthesia Last Oral Intake Last Oral intake: Last Oral Intake NPO since 21:00 12/19/24 07:51 Meds taken in AM with sips of water? Meds patient instructed to take am of surgery PONV PONV - insurance account representative: PONV - insurance account representative Female Yes 12/17/24 13:20 HX of Motion Sickness No 12/17/24 13:20 HX of N/V After Surgery No 12/17/24 13:20 Non-Smoker Yes 12/17/24 13:20 Duration of Surgery greater No 12/17/24 13:20 than 60 minutes Number of Risk Factors 2 12/17/24 13:20 PONV Score Moderate Risk 12/17/24 13:20 Height & Weight Height & Weight: Anesthesia: Height & Weight Height 5 ft 5 in 12/19/24 07:51 Weight: 86.1 kg 12/19/24 07:51 Body Mass Index (BMI) 31.6 12/19/24 07:51 Respiratory Assessment Respiratory Assessment - insurance account representative: Respiratory Tract Infection Hx - insurance account representative Hx Respiratory Tract Infection No 12/17/24 13:20 STOP Sleep Apnea STOP Sleep Apnea - insurance account representative: STOP Sleep Apnea - insurance account representative Hx Hypertension No 12/17/24 13:20 Hx Sleep Apnea No 12/17/24 13:20 CPAP BIPAP Do you snore loudly (louder No 12/17/24 13:20 than talking or can be heard Do you often feel tired/ No 12/17/24 13:20 fatigued/ sleepy during daytime? Has anyone observed you stop No 12/17/24 13:20 breathing during sleep? STOP Results Negative 12/17/24 13:20 QUESTION #5 FULL TEXT : Do you snore loudly (louder than talking or can be heard through closed doors)? 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 Specify any problems Hx of Preganancy in last 3 No 12/17/24 13:20 Months Nurse Filling Out Transfusion [id number] 12/17/24 13:20 & Questions: Date: 12/17/24 12/17/24 13:20 Time: 13:23 12/17/24 13:20 Patient unable to answer at this time (ie. confused, unrespo /Reproduction History /Reproductive History - insurance account representative: /Reproductive Hx- insurance account representative Hx Now Gestational Age (in weeks): EDC: Hx Hx Para Hx Section SAB Active Medications Active Medications: Current Medications Generic Name Dose Route Start Last Admin Trade Name Freq PRN Reason Stop Dose Admin Lactated Ringer's 1,000 mls @ 15 mls/hr 12/19/24 07:45 12/19/24 07:56 IV 15 mls/hr .Q48H ROSANA Administration PFSH Medical History Wears glasses Rash Chest pain History of stress test Cardiology follow-up encounter Prolapse of female pelvic organs Diverticulitis Arthritis Seasonal allergies Hx of deep venous thrombosis PVC (premature ventricular contraction) Palpitations Gastritis Asthma Fatigue Home Medications ?Medication ?Instructions ?Recorded ?Last Taken ?Type multivitamin 1 tab PO QDAY 08/14/24 Unknown History albuterol sulfate 90 mcg/actuation 2 puff inhalation Q4 PRN shortness 09/26/24 Unknown History aerosol inhaler of breath or wheezing Allergy/AdvReac Type Severity Reaction Status Date / Time No Known Allergies Allergy Verified 12/19/24 07:50 Family History Mother Arthritis Hypertension Father Heart disease Grandmother Cancer Ovarian Other Diabetes Surgical History S/P hysterectomy Hx of carpal tunnel repair Hx laparoscopic cholecystectomy Social History Smoking Status: Never smoker alcohol intake: never substance use type: does not use Review of Systems (Anesthesia) ROS Narrative System reviewed and no additional complaints, except as documented. Physical Exam Resp Auscultation: wheezes expiratory wheezes (Will order nebulizer breathing treatment)
--- NOTE | 2024-12-19 08:30 | EGD_PTH ---
PATIENT: CARLIE NGUYEN LOC: EN U#:[id number] AGE/SX: 54/F ROOM: RE12/19/[address]: Dr. Efra Weston DO : 1970 BED: DIS: 12/19/2024 SPEC #: [id number] RECD: 12/19/24 10:05 STATUS: CHELLE ESTUARDO #: [id number] NIRANJAN: 12/19/24 08:[address]: Efra Weston DEPT: SURGICAL PATHOLOGY RECD BY: Pro Gillis ENTERED: 12/19/24 10:45 SP TYPE: EGD BIOPSY OTHR DR: Miguel Mitchell PA-C Tissues: A - Duodenum, NOS B - Gastric mucous membrane C - Esophagus, NOS D - Esophagus, NOS Procedures: Immunohistochemical Stains Surgery Specimen Level IV HEADER OPERATION: EGD with biopsy PRE-OP DIAGNOSIS: Right upper quadrant abdominal pain, gastritis TISSUE SUBMITTED: A- Duodenum biopsy, B- Gastric antrum biopsy, C- Distal esophagus biopsy, D- Random esophagus biopsy MICROSCOPIC DIAGNOSIS A. Small intestine, duodenum, biopsies: - Benign without active inflammation B. Stomach, antrum: * Oxyntic mucosa with slight chronic inflammation * An immunohistochemical stain for Helicobacter pylori is negative C. Esophagus, distal: * Benign squamous epithelium without active inflammation * Oxynto-cardiac mucosa with chronic inflammation * No goblet cell metaplasia is identified D. Esophagus, random: * Benign squamous epithelium without active inflammation * One piece of Oxynto-cardiac mucosa without goblet cell metaplasia MICROSCOPIC DESCRIPTION Slides are reviewed. All matched controls reacted appropriately. These tests were developed and their performance characteristics determined by [facility]. They may not have been cleared or approved by the U.S. Food and Drug Administration. The FDA has determined that such clearance or approval is not necessary. The above immunohistochemical/dualISH markers are reviewed and interpreted by the Pathologist. GROSS DESCRIPTION A. Received in fixative is one container labeled with the patient's name and designated Duodenum biopsy. The specimen consists of multiple irregular fragments of light florez tissue that in aggregate measure 0.2 to 0.5 cm. The specimen is totally submitted in one cassette. B. Received in fixative is one container labeled with the patient's name and designated Gastric antrum biopsy. The specimen consists of two irregular fragments of light florez tissue, each measuring 0.6 cm. The specimen is totally submitted in one cassette. C. Received in fixative is one container labeled with the patient's name and designated Distal esophagus biopsy. The specimen consists of three irregular fragments of light florez tissue, each measuring 0.3 cm. The specimen is totally submitted in one cassette. D. Received in fixative is one container labeled with the patient's name and designated Random esophagus biopsy. The specimen consists of multiple irregular fragments of light florez tissue that in aggregate measure 0.1 to 0.3 cm. The specimen is totally submitted in one cassette. Sandra 12/19/2024 CPT:94976l6,59319
--- NOTE | 2024-12-19 08:30 | EGD_PTH ---
PATIENT: CARLIE NGUYEN LOC: EN U#:[id number] AGE/SX: 54/F ROOM: RE12/19/[address]: Dr. Efra Weston DO : 1970 BED: DIS: 12/19/2024 SPEC #: [id number] RECD: 12/19/24 10:05 STATUS: CHELLE ESTUARDO #: [id number] NIRANJAN: 12/19/24 08:[address]: Efra Weston DEPT: SURGICAL PATHOLOGY RECD BY: Pro Gillis ENTERED: 12/19/24 10:45 SP TYPE: EGD BIOPSY OTHR DR: Miguel Mitchell PA-C Tissues: A - Duodenum, NOS B - Gastric mucous membrane C - Esophagus, NOS D - Esophagus, NOS Procedures: Immunohistochemical Stains Surgery Specimen Level IV HEADER OPERATION: EGD with biopsy PRE-OP DIAGNOSIS: Right upper quadrant abdominal pain, gastritis TISSUE SUBMITTED: A- Duodenum biopsy, B- Gastric antrum biopsy, C- Distal esophagus biopsy, D- Random esophagus biopsy MICROSCOPIC DIAGNOSIS A. Small intestine, duodenum, biopsies: - Benign without active inflammation B. Stomach, antrum: * Oxyntic mucosa with slight chronic inflammation * An immunohistochemical stain for Helicobacter pylori is negative C. Esophagus, distal: * Benign squamous epithelium without active inflammation * Oxynto-cardiac mucosa with chronic inflammation * No goblet cell metaplasia is identified D. Esophagus, random: * Benign squamous epithelium without active inflammation * One piece of Oxynto-cardiac mucosa without goblet cell metaplasia MICROSCOPIC DESCRIPTION Slides are reviewed. All matched controls reacted appropriately. These tests were developed and their performance characteristics determined by [facility]. They may not have been cleared or approved by the U.S. Food and Drug Administration. The FDA has determined that such clearance or approval is not necessary. The above immunohistochemical/dualISH markers are reviewed and interpreted by the Pathologist. GROSS DESCRIPTION A. Received in fixative is one container labeled with the patient's name and designated Duodenum biopsy. The specimen consists of multiple irregular fragments of light florez tissue that in aggregate measure 0.2 to 0.5 cm. The specimen is totally submitted in one cassette. B. Received in fixative is one container labeled with the patient's name and designated Gastric antrum biopsy. The specimen consists of two irregular fragments of light florez tissue, each measuring 0.6 cm. The specimen is totally submitted in one cassette. C. Received in fixative is one container labeled with the patient's name and designated Distal esophagus biopsy. The specimen consists of three irregular fragments of light florez tissue, each measuring 0.3 cm. The specimen is totally submitted in one cassette. D. Received in fixative is one container labeled with the patient's name and designated Random esophagus biopsy. The specimen consists of multiple irregular fragments of light flroez tissue that in aggregate measure 0.1 to 0.3 cm. The specimen is totally submitted in one cassette. Sandra 12/19/2024 CPT:20189a4,21501
--- NOTE | 2024-12-19 08:46 | HP.PCM_ITS ---
HPI - General General Date of Admission: 12/19/24 Date of Service: 12/19/24 Chief Complaint: Abdominal pain and history of gastric ulcers HPI Narrative CARLIE NGUYEN, is a 54 F who presents for evaluation of abdominal pain and surveillance of gastric ulcers. [facility] Est 09.27.24. RUQ and epigastric abdominal pain and bloating after eating intermittently for many years more than 5 years. Describes stool as george in color at times. Denies constipation. Hx gastritus and gastric ulcers. Hx cholecystectomy. EGD and colonoscopy about 5 years ago which showed probably gastric ulcer and diverticulosis as per patient's description. This was done on the [facility] [employer] system. Patient recently moved from [facility] to [place]. Patient denies any family history of autoimmune disease including CD/UC/celiac disease or autoimmune thyroid, pancreas, adrenal or pituitary. Denies history of smoking or alcohol intake or substance use. [facility] Medical History Wears glasses Rash Chest pain History of stress test Cardiology follow-up encounter Prolapse of female pelvic organs Diverticulitis Arthritis Seasonal allergies Hx of deep venous thrombosis PVC (premature ventricular contraction) Palpitations Gastritis Asthma Fatigue Home Medications ?Medication ?Instructions ?Recorded ?Last Taken ?Type multivitamin 1 tab PO QDAY 08/14/24 Unkno wn History albuterol sulfate 90 mcg/actuation 2 puff inhalation Q 4 PRN shortness 09/26/24 Unknown History aerosol inhaler of breath or wheezing Allergy/AdvReac Type Severity Reaction Status Date / Time No Known Allergies Allergy Verified 12/19/24 07:50 Family History Mother Arthritis Hypertension Father Heart disease Grandmother Cancer Ovarian Other Diabetes Surgical History S/P hysterectomy Hx of carpal tunnel repair Hx laparoscopic cholecystectomy Social History Smoking Status: Never smoker alcohol intake: never substance use type: does not use ROS Constitutional Constitutional: Denies fatigue, fever(s), poor appetite, weight gain or weight loss Gastrointestinal Gastrointestinal: Denies belching, bloating, change in bowel habits, change in stool character, chewing difficulty, coffee ground emesis, constipation, cramping, diarrhea, dyspepsia, dysphagia, early satiety, excessive flatus, fecal incontinence, heartburn, hematemesis, hematochezia, hemorrhoids, loose stools, melena, nausea, odynophagia, rectal bleeding, tenesmus, vomiting or weight changes Vital Signs Vital Signs Vital Signs: 12/19/24 07:51 12/19/24 07:51 12/19/24 08:35 Temperature 97.4 F L 97.4 F L Temperature Source Temporal Pulse Rate 74 74 Respiratory Rate 16 16 Respiratory Pattern Normal Blood Pressure 126/80 H 126/80 H Blood Pressure Mean 95 Blood Pressure Source Monitor Blood Pressure Position Sitting Blood Pressure Location Right Arm Pulse Ox 96 96 Oxygen Delivery Method Room Air Room Air 12/19/24 08:45 Temperature Temperature Source Pulse Rate 79 Respiratory Rate 16 Respiratory Pattern Normal Blood Pressure Blood Pressure Mean Blood Pressure Source Blood Pressure Position Blood Pressure Location Pulse Ox Oxygen Delivery Method Weight Weight: 189 lb 13.088 oz Body Mass Index (BMI) 31.6 Physical Exam Const alert, oriented x3, no apparent distress and healthy appearing General Appearance: cooperative GI normal to inspection, nondistended, normoactive bowel sounds, soft to palpation, non-tender and non-distended Percussion: normal to percussion Rectal Exam: deferred Assessment & Plan Assessment/Plan (1) RUQ abdominal pain: PLAN: Assessment and Plan Assessment and Plan (1) RUQ abdominal pain: Status: Chronic Plan: Patient describes abdominal pain as intermittent worse with bending, grade 4/10, sometimes worse with the fatty food otherwise food does not make any difference. Will try to get EGD and colonoscopy and other workup medical record from [facility]. Comprehensive lab and right upper quadrant sonogram with elastography ordered. Patient had cholecystectomy long time ago but is still possibility of CBD stone/gravel. Follow-up in 3 months for (2) Gastritis: Status: Chronic Plan: History of primary gastric ulcer. Schedule EGD with Dr. Weston. Prescription for pantoprazole ordered Orders: Orders ABD Limited w/ Elastography 1 Month K29.70 - Gastritis, unspecified, without bleeding, R00.2 - Palpitations, R10.11 - Right upper quadrant pain CBC W/Diff, Automated 1 Month K29.70 - Gastritis, unspecified, without bleeding, R00.2 - Palpitations, R10.11 - Right upper quadrant pain Comprehensive Metabolic Profil 1 Month K2.70 - Gastritis, unspecified, without bleeding, R00.2 - Palpitations, R10.11 - Right upper quadrant pain Hemoglobin A1c 1 Month K2. - Gastritis, unspecified, without bleeding, R00.2 - Palpitations, R10.11 - Right upper quadrant pain Prothrombin Time w/INR 1 Month K2. - Gastritis, unspecified, without bleeding, R00.2 - Palpitations, R10.11 - Right upper quadrant pain Hepatitis Panel Acute 1 Month K2. - Gastritis, unspecified, without bleeding, R00.2 - Palpitations, R10.11 - Right upper quadrant pain CRP 1 Month K2. - Gastritis, unspecified, without bleeding, R00.2 - Palpitations, R10.11 - Right upper quadrant pain Lipid Profile 1 Month K2. - Gastritis, unspecified, without bleeding, R00.2 - Palpitations, R10.11 - Right upper quadrant pain Thyroid Stim Hormone (TSH) 1 Month K2. - Gastritis, unspecified, without bleeding, R00.2 - Palpitations, R10.11 - Right upper quadrant pain Urinalysis, Complete 1 Month . - Gastritis, unspecified, without bleeding, N12 - Tubulo-interstitial nephritis, not specified as acute or chronic, R00.2 - Palpitations, R10.11 - Right upper quadrant pain GGTP 1 Month K2. - Gastritis, unspecified, without bleeding, R00.2 - Palpitations, R10.11 - Right upper quadrant pain Bilirubin, Direct 1 Month . - Gastritis, unspecified, without bleeding, R00.2 - Palpitations, R10.11 - Right upper quadrant pain Medications: New pantoprazole Take 1 hour before breakfast. 40 mg PO .breakfast 1 month 30 tabs 2RF
--- NOTE | 2024-12-19 08:46 | HP.PCM_ITS ---
HPI - General General Date of Admission: 12/19/24 Date of Service: 12/19/24 Chief Complaint: Abdominal pain and history of gastric ulcers HPI Narrative CARLIE NGUYEN, is a 54 F who presents for evaluation of abdominal pain and surveillance of gastric ulcers. [facility] Est 09.27.24. RUQ and epigastric abdominal pain and bloating after eating intermittently for many years more than 5 years. Describes stool as george in color at times. Denies constipation. Hx gastritus and gastric ulcers. Hx cholecystectomy. EGD and colonoscopy about 5 years ago which showed probably gastric ulcer and diverticulosis as per patient's description. This was done on the [facility] [email or web address] system. Patient recently moved from [facility] to [place]. Patient denies any family history of autoimmune disease including CD/UC/celiac disease or autoimmune thyroid, pancreas, adrenal or pituitary. Denies history of smoking or alcohol intake or substance use. [facility] Medical History Wears glasses Rash Chest pain History of stress test Cardiology follow-up encounter Prolapse of female pelvic organs Diverticulitis Arthritis Seasonal allergies Hx of deep venous thrombosis PVC (premature ventricular contraction) Palpitations Gastritis Asthma Fatigue Home Medications ?Medication ?Instructions ?Recorded ?Last Taken ?Type multivitamin 1 tab PO QDAY 08/14/24 Unkno wn History albuterol sulfate 90 mcg/actuation 2 puff inhalation Q 4 PRN shortness 09/26/24 Unknown History aerosol inhaler of breath or wheezing Allergy/AdvReac Type Severity Reaction Status Date / Time No Known Allergies Allergy Verified 12/19/24 07:50 Family History Mother Arthritis Hypertension Father Heart disease Grandmother Cancer Ovarian Other Diabetes Surgical History S/P hysterectomy Hx of carpal tunnel repair Hx laparoscopic cholecystectomy Social History Smoking Status: Never smoker alcohol intake: never substance use type: does not use ROS Constitutional Constitutional: Denies fatigue, fever(s), poor appetite, weight gain or weight loss Gastrointestinal Gastrointestinal: Denies belching, bloating, change in bowel habits, change in stool character, chewing difficulty, coffee ground emesis, constipation, cramping, diarrhea, dyspepsia, dysphagia, early satiety, excessive flatus, fecal incontinence, heartburn, hematemesis, hematochezia, hemorrhoids, loose stools, melena, nausea, odynophagia, rectal bleeding, tenesmus, vomiting or weight changes Vital Signs Vital Signs Vital Signs: 12/19/24 07:51 12/19/24 07:51 12/19/24 08:35 Temperature 97.4 F L 97.4 F L Temperature Source Temporal Pulse Rate 74 74 Respiratory Rate 16 16 Respiratory Pattern Normal Blood Pressure 126/80 H 126/80 H Blood Pressure Mean 95 Blood Pressure Source Monitor Blood Pressure Position Sitting Blood Pressure Location Right Arm Pulse Ox 96 96 Oxygen Delivery Method Room Air Room Air 12/19/24 08:45 Temperature Temperature Source Pulse Rate 79 Respiratory Rate 16 Respiratory Pattern Normal Blood Pressure Blood Pressure Mean Blood Pressure Source Blood Pressure Position Blood Pressure Location Pulse Ox Oxygen Delivery Method Weight Weight: 189 lb 13.088 oz Body Mass Index (BMI) 31.6 Physical Exam Const alert, oriented x3, no apparent distress and healthy appearing General Appearance: cooperative GI normal to inspection, nondistended, normoactive bowel sounds, soft to palpation, non-tender and non-distended Percussion: normal to percussion Rectal Exam: deferred Assessment & Plan Assessment/Plan (1) RUQ abdominal pain: PLAN: Assessment and Plan Assessment and Plan (1) RUQ abdominal pain: Status: Chronic Plan: Patient describes abdominal pain as intermittent worse with bending, grade 4/10, sometimes worse with the fatty food otherwise food does not make any difference. Will try to get EGD and colonoscopy and other workup medical record from [facility]. Comprehensive lab and right upper quadrant sonogram with elastography ordered. Patient had cholecystectomy long time ago but is still possibility of CBD stone/gravel. Follow-up in 3 months for (2) Gastritis: Status: Chronic Plan: History of primary gastric ulcer. Schedule EGD with Dr. Weston. Prescription for pantoprazole ordered Orders: Orders ABD Limited w/ Elastography 1 Month K29.70 - Gastritis, unspecified, without bleeding, R00.2 - Palpitations, R10.11 - Right upper quadrant pain CBC W/Diff, Automated 1 Month K29.70 - Gastritis, unspecified, without bleeding, R00.2 - Palpitations, R10.11 - Right upper quadrant pain Comprehensive Metabolic Profil 1 Month K2.70 - Gastritis, unspecified, without bleeding, R00.2 - Palpitations, R10.11 - Right upper quadrant pain Hemoglobin A1c 1 Month K2. - Gastritis, unspecified, without bleeding, R00.2 - Palpitations, R10.11 - Right upper quadrant pain Prothrombin Time w/INR 1 Month K2. - Gastritis, unspecified, without bleeding, R00.2 - Palpitations, R10.11 - Right upper quadrant pain Hepatitis Panel Acute 1 Month K2. - Gastritis, unspecified, without bleeding, R00.2 - Palpitations, R10.11 - Right upper quadrant pain CRP 1 Month K2. - Gastritis, unspecified, without bleeding, R00.2 - Palpitations, R10.11 - Right upper quadrant pain Lipid Profile 1 Month K2. - Gastritis, unspecified, without bleeding, R00.2 - Palpitations, R10.11 - Right upper quadrant pain Thyroid Stim Hormone (TSH) 1 Month K2. - Gastritis, unspecified, without bleeding, R00.2 - Palpitations, R10.11 - Right upper quadrant pain Urinalysis, Complete 1 Month . - Gastritis, unspecified, without bleeding, N12 - Tubulo-interstitial nephritis, not specified as acute or chronic, R00.2 - Palpitations, R10.11 - Right upper quadrant pain GGTP 1 Month K2. - Gastritis, unspecified, without bleeding, R00.2 - Palpitations, R10.11 - Right upper quadrant pain Bilirubin, Direct 1 Month . - Gastritis, unspecified, without bleeding, R00.2 - Palpitations, R10.11 - Right upper quadrant pain Medications: New pantoprazole Take 1 hour before breakfast. 40 mg PO .breakfast 1 month 30 tabs 2RF
--- NOTE | 2024-12-19 09:20 | OP.EGD_ITS ---
Patient Name: Tara Reyes Procedure Date: 12/19/2024 8:56 AM Date of : 1970 Age: 54 Procedure: Upper GI endoscopy Indications: Epigastric abdominal pain, Functional Dyspepsia, Heartburn Providers: Efra Weston DO Referring MD: Miguel Mitchell Do Medicines: Monitored Anesthesia Care Patient Profile: This is a 54 year old female. Refer to note in patient chart for documentation of history and physical. Patient has symptoms of chronic abdominal cramping, chronic abdominal distention, chronic epigastric abdominal pain, acute dyspepsia, acute heartburn and chronic nausea. Complications: No immediate complications. Procedure: Pre-Anesthesia Assessment: - Prior to the procedure, a History and Physical was performed, and patient medications and allergies were reviewed. The patient is competent. The risks and benefits of the procedure and the sedation options and risks were discussed with the patient. All questions were answered and informed consent was obtained. Patient identification and proposed procedure were verified by the physician in the pre-procedure area. Mental Status Examination: alert and oriented. Airway Examination: normal oropharyngeal airway and neck mobility. Respiratory Examination: clear to auscultation. CV Examination: normal. Prophylactic Antibiotics: The patient does not require prophylactic antibiotics. Prior Anticoagulants: The patient has taken no anticoagulant or antiplatelet agents except for NSAID medication. ASA Grade Assessment: II - A patient with mild systemic disease. After reviewing the risks and benefits, the patient was deemed in satisfactory condition to undergo the procedure. The anesthesia plan was to use monitored anesthesia care (MAC). Immediately prior to administration of medications, the patient was re-assessed for adequacy to receive sedatives. The heart rate, respiratory rate, oxygen saturations, blood pressure, adequacy of pulmonary ventilation, and response to care were monitored throughout the procedure. The physical status of the patient was re-assessed after the procedure. After obtaining informed consent, the endoscope was passed under direct vision. Throughout the procedure, the patient's blood pressure, pulse, and oxygen saturations were monitored continuously. The Endoscope was introduced through the mouth, and advanced to the third part of the duodenum. Small bowel enteroscopy was deemed necessary. The upper GI endoscopy was accomplished without difficulty. The patient tolerated the procedure well. Scope In: 9:06:08 AM Scope Out: 9:12:14 AM Total Procedure Duration Time 0 hours 6 minutes 6 seconds Findings: LA Grade A (one or more mucosal breaks less than 5 mm, not extending between tops of 2 mucosal folds) esophagitis with no bleeding was found 34 to 40 cm from the incisors. Biopsies were taken with a cold forceps for histology. Verification of patient identification for the specimen was done. Estimated blood loss was minimal. Patchy erythematous mucosa without bleeding was found in the gastric body and in the gastric antrum. Biopsies were taken with a cold forceps for histology. Verification of patient identification for the specimen was done. Estimated blood loss was minimal. Biopsies were taken with a cold forceps for Helicobacter pylori testing. Verification of patient identification for the specimen was done. Estimated blood loss was minimal. Patchy mildly erythematous mucosa without active bleeding and with no stigmata of bleeding was found in the first portion of the duodenum, in the second portion of the duodenum and in the third portion of the duodenum. Biopsies were taken with a cold forceps for histology. Verification of patient identification for the specimen was done. Estimated blood loss was minimal. Impression: - LA Grade A reflux esophagitis with no bleeding. Biopsied. - Erythematous mucosa in the gastric body and antrum. Biopsied. - Erythematous duodenopathy. Biopsied. Recommendation: - Discharge patient to home. - Resume previous diet. - Continue present medications. - Await pathology results. Procedure Code(s): --- Professional --- 31014, Small intestinal endoscopy, enteroscopy beyond second portion of duodenum, not including ileum; with biopsy, single or multiple CPT copyright 2021 [employer]. All rights reserved. The codes documented in this report are preliminary and upon appliance installer review may be revised to meet current compliance requirements. Efra Weston DO 12/19/2024 9:19:38 AM This report has been signed electronically. Number of Addenda: 0 Note Initiated On: 12/19/2024 8:56 AM
--- NOTE | 2024-12-19 09:20 | OP.CCLET_ITS ---
12/19/2024 Miguel Mitchell Do Re : Upper GI endoscopy procedure for Tara Reyes Dear Stephen This procedure was performed on Thursday, December 19, 2024. My impressions and recommendations are as follows: Impressions : - LA Grade A reflux esophagitis with no bleeding. Biopsied. - Erythematous mucosa in the gastric body and antrum. Biopsied. - Erythematous duodenopathy. Biopsied. Recommendations : - Discharge patient to home. - Resume previous diet. - Continue present medications. - Await pathology results. My findings are described in the full procedure note, which is enclosed. If I can be of further assistance, please feel free to contact me at . Sincerely, Efra Weston, 12/19/2024 9:19:38 AM This report has been signed electronically.
--- NOTE | 2024-12-19 09:20 | OP.EGD_ITS ---
Patient Name: Tara Reyes Procedure Date: 12/19/2024 8:56 AM Date of : 1970 Age: 54 Procedure: Upper GI endoscopy Indications: Epigastric abdominal pain, Functional Dyspepsia, Heartburn Providers: Efra Weston DO Referring MD: Miguel Mitchell Do Medicines: Monitored Anesthesia Care Patient Profile: This is a 54 year old female. Refer to note in patient chart for documentation of history and physical. Patient has symptoms of chronic abdominal cramping, chronic abdominal distention, chronic epigastric abdominal pain, acute dyspepsia, acute heartburn and chronic nausea. Complications: No immediate complications. Procedure: Pre-Anesthesia Assessment: - Prior to the procedure, a History and Physical was performed, and patient medications and allergies were reviewed. The patient is competent. The risks and benefits of the procedure and the sedation options and risks were discussed with the patient. All questions were answered and informed consent was obtained. Patient identification and proposed procedure were verified by the physician in the pre-procedure area. Mental Status Examination: alert and oriented. Airway Examination: normal oropharyngeal airway and neck mobility. Respiratory Examination: clear to auscultation. CV Examination: normal. Prophylactic Antibiotics: The patient does not require prophylactic antibiotics. Prior Anticoagulants: The patient has taken no anticoagulant or antiplatelet agents except for NSAID medication. ASA Grade Assessment: II - A patient with mild systemic disease. After reviewing the risks and benefits, the patient was deemed in satisfactory condition to undergo the procedure. The anesthesia plan was to use monitored anesthesia care (MAC). Immediately prior to administration of medications, the patient was re-assessed for adequacy to receive sedatives. The heart rate, respiratory rate, oxygen saturations, blood pressure, adequacy of pulmonary ventilation, and response to care were monitored throughout the procedure. The physical status of the patient was re-assessed after the procedure. After obtaining informed consent, the endoscope was passed under direct vision. Throughout the procedure, the patient's blood pressure, pulse, and oxygen saturations were monitored continuously. The Endoscope was introduced through the mouth, and advanced to the third part of the duodenum. Small bowel enteroscopy was deemed necessary. The upper GI endoscopy was accomplished without difficulty. The patient tolerated the procedure well. Scope In: 9:06:08 AM Scope Out: 9:12:14 AM Total Procedure Duration Time 0 hours 6 minutes 6 seconds Findings: LA Grade A (one or more mucosal breaks less than 5 mm, not extending between tops of 2 mucosal folds) esophagitis with no bleeding was found 34 to 40 cm from the incisors. Biopsies were taken with a cold forceps for histology. Verification of patient identification for the specimen was done. Estimated blood loss was minimal. Patchy erythematous mucosa without bleeding was found in the gastric body and in the gastric antrum. Biopsies were taken with a cold forceps for histology. Verification of patient identification for the specimen was done. Estimated blood loss was minimal. Biopsies were taken with a cold forceps for Helicobacter pylori testing. Verification of patient identification for the specimen was done. Estimated blood loss was minimal. Patchy mildly erythematous mucosa without active bleeding and with no stigmata of bleeding was found in the first portion of the duodenum, in the second portion of the duodenum and in the third portion of the duodenum. Biopsies were taken with a cold forceps for histology. Verification of patient identification for the specimen was done. Estimated blood loss was minimal. Impression: - LA Grade A reflux esophagitis with no bleeding. Biopsied. - Erythematous mucosa in the gastric body and antrum. Biopsied. - Erythematous duodenopathy. Biopsied. Recommendation: - Discharge patient to home. - Resume previous diet. - Continue present medications. - Await pathology results. Procedure Code(s): --- Professional --- 33715, Small intestinal endoscopy, enteroscopy beyond second portion of duodenum, not including ileum; with biopsy, single or multiple CPT copyright 2021 [employer]. All rights reserved. The codes documented in this report are preliminary and upon crew clerk review may be revised to meet current compliance requirements. Efra Weston DO 12/19/2024 9:19:38 AM This report has been signed electronically. Number of Addenda: 0 Note Initiated On: 12/19/2024 8:56 AM
--- NOTE | 2024-12-19 09:23 | PCM.POST.ANE ---
Anesthesia: Postop Eval I Current Vital Signs Temperature: 97.5 F Pulse Rate: 79 Blood Pressure: 104/73 Respiratory Rate: 16 Pulse Ox: 96 Oxygen Delivery Method: Room Air Assessment Airway patent: Yes Spontaneous unlabored respirations: Yes Mental status: Asleep nausea: No Vomiting: No Anesthesia Complication: No Fluid Hydration Crystalloid volume administer (ml): 200 Total IV fluid infused: 200 Progress Note Anesthesia document: Postop Eval 1 completed: Yes
--- NOTE | 2024-12-19 14:47 | PCM.POSTANE2 ---
Anesthesia Postop Eval I Sum Postop Eval Completion status Anesthesia document: Postop Eval 1 completed: Yes Anesthesia Postop Eval I Summary Anesthesia Postop Eval I Summary: Anesthesia Postop Eval I: Assessment Summary Airway patent Yes 12/19/24 09:24 [email or web address] Spontaneous unlabored Yes 12/19/24 09:24 [email or web address] respirations Mental status Asleep 12/19/24 09:24 [email or web address] nausea No 12/19/24 09:24 [email or web address] Vomiting No 12/19/24 09:24 [email or web address] Anesthesia Postop Eval I: Fluid Summary Crystalloid volume administer 200 12/19/24 09:24 [email or web address] (ml) Colloids volume administered ( ml) Blood Product volume administered (ml) Total IV fluid infused 200 12/19/24 09:24 [email or web address] Anesthesia Postop Eval I: Summary Notes Anesthesia Complication No 12/19/24 09:24 [email or web address] Anesthesia Complication Comment: Post-operative progress note Anesthesia: Postop Eval II Evaluation Mental status: Awake Pain Level: 0 nausea: Yes Vomiting: Yes
== END 2024-12-19 10:02 | disposition home or self-care (01) ==
LOC: EN 07:26 → AC 07:28
PROVIDERS: PCP Physician Assistant; Referring Provider Physician Assistant; Visit Provider Internal Medicine Gastroenterology
PROC: 0DJ08ZZ Inspection of Upper Intestinal Tract, Via Natural or Artificial Opening Endoscopic (ICD-10-PCS; CPT 43235; principal; 2024-12-19 08:25)
DX: K21.00 Gastro-esophageal reflux disease with esophagitis, without bleeding (principal); K29.50 Unspecified chronic gastritis without bleeding; J45.909 Unspecified asthma, uncomplicated; Z86.718 Personal history of other venous thrombosis and embolism
CPT/HCPCS: 44361; 88305; 88342; 94640; J2405

== ENCOUNTER → 2025-03-05 | Outpatient (CLI) | payer OTHER, SELFPAY ==
--- NOTE | 2025-03-05 14:10 | MRI_ITS ---
PROCEDURE: SPINE LUMBAR (ROUTINE) 03/05/2025 REASON FOR EXAM: OSTEOARTHRITIS AND SPONDYLOSIS WITH RADICULOPATHY OF L-SPINE TECHNIQUE: Procedure Code: MRISPL Modality: MR Procedure: SPINE LUMBAR (ROUTINE) COMPARISON: None. FINDINGS: Vertebrae: Preserved in height and signal. Alignment: Anterolisthesis L4 on L5 by 2 mm. Conus Medullaris: Unremarkable. L1-2: Unremarkable. L2-3: Unremarkable. L3-4: Disc desiccation. Small disc bulge. Facet joint arthropathy. Ligamentum flavum hypertrophy. Mild bilateral foramina stenosis. No canal stenosis. L4-5: Disc desiccation. Small disc bulge. Facet joint arthropathy. Moderate bilateral foramina stenosis and abutment upon the exiting nerves. No significant canal stenosis. L5-S1: Disc bulge asymmetric to the left. Left facet joint arthropathy. Moderate left foraminal stenosis and abutment upon the exiting left L5 nerve. No canal stenosis. Sacrum: Unremarkable. MRI/Spine Lumbar (Routine) IMPRESSION: Left L5-S1 facet joints arthropathy along with disc bulge causing moderate left foramina stenosis and abutment upon the exiting left L5 nerve. No significant canal stenosis. Anterolisthesis L4 on L5 by 2 mm from facet joint arthropathy. Moderate bilate ral foramina stenosis. No significant canal stenosis. Reading Location: [id number]
--- NOTE | 2025-03-05 14:15 | MRI_ITS ---
PROCEDURE: SPINE THORACIC (ROUTINE) 03/05/2025 REASON FOR EXAM: SYRINGOMYELLA AND SYRINGOBULBIA TECHNIQUE: Procedure Code: MRISPT Modality: MR Procedure: SPINE THORACIC (ROUTINE) Multiplanar and multisequence images were obtained. COMPARISON: None. FINDINGS: Vertebrae: The vertebral bodies are preserved in height and signal. Alignment: Normal. Spinal Cord: Gracile appearance and questionable volume loss of the spinal cord. No focal lesions. Prominence of the central canal measures 1 mm and extends 3 cm posterior to T8 vertebral body. MRI/Spine Thoracic (Routine) IMPRESSION: Gracile appearance and questionable volume loss of the spinal cord. No focal l esions. Prominence of the central canal measures 1 mm and extends 3 cm posterior to T8 vertebral body consistent with syrinx. Reading Location: [id number]
--- NOTE | 2025-03-05 14:15 | MRI_ITS ---
PROCEDURE: SPINE CERVICAL (ROUTINE) 03/05/2025 REASON FOR EXAM: SPONDYLOSIS WITHOUT MYELOPATHY OR RADICULOPATHY TECHNIQUE: Procedure Code: MRISPC Modality: MR Procedure: SPINE CERVICAL (ROUTINE) Multiplanar and multisequence images were obtained without IV contrast administration. COMPARISON: None. FINDINGS: Vertebrae: Cervical vertebral body heights are preserved. Bone marrow signal is unremarkable. Alignment: Normal. No spondylolisthesis. Spinal Cord: Cervical spinal cord is of normal size and signal intensities. Structures at the foramen magnum are unremarkable. C2-3: Unremarkable C3-4: Disc osteophyte complex measures 2 mm. No significant foraminal or canal stenosis. C4-5: Disc osteophyte complex. No foraminal or canal stenosis. C5-6: Disc osteophyte complex measures 2 mm. Mild canal stenosis. No significant foraminal stenosis. C6-7: No foraminal or canal stenosis. C7-T1: No foraminal or canal stenosis. MRI/Spine Cervical (Routine) IMPRESSION: No significant foraminal or canal stenosis. Reading Location: [id number]
== END | disposition home or self-care (01) ==
LOC: MRI 13:59
PROVIDERS: PCP Physician Assistant; Referring Provider Physician Assistant; Visit Provider Physician Assistant
DX: G95.0 Syringomyelia and syringobulbia (principal); M47.812 Spondylosis without myelopathy or radiculopathy, cervical region; M47.26 Other spondylosis with radiculopathy, lumbar region
CPT/HCPCS: 72141; 72146; 72148